=== PATIENT | female | born 1945 | race Caucasian/White ===

== ENCOUNTER → 2016-03-25 | Outpatient (CLI) | payer MEDICARE, OTHER ==
[~2016-03-25] MED LIST: /ADVA50050 IN; /IPRA3SP; /WARF3TA OR; ACET65TA OR; ADV250INH INH; ADVAIR; ALBU83IN; ALBUTEROL INH; AMIO10TA OR; AMIO20TA OR; ASCO25TA PO; ASPI81TA11 PO; BABY81CH OR; BENA25TA PO; CAND4TAB PO; CARD240T3 OR; CIPR500T4 OR; COUM1TAB19 PO; COUMADIN PO; DILT60TA PO; DIOVAN PO; DRIS50002 PO; FERR325T OR; FERR325T3 PO; FLAG500T OR; FURO20TA2 PO; LASI20TA OR; LEVO25TA5 PO; LORT1TAB PO; MULTIVIT PO; PRAV40TA2 PO; SIMV80TA OR; SPIR25TA2 PO; TYLE325T5 PO; VALS40TA OR; VICO7.5T11 PO; VITAMIN D50000 UNT OR; VITMAIN D; XANA0.25 PO; benadryl OR; multivitamin OR; vicodin OR
[2016-03-25 09:24] LABS: INR 1.42
== END ==
LOC: M LAB 08:36
PROVIDERS: ATTEND Physician Assistant
DX: Z51.81 Encounter for therapeutic drug level monitoring (principal); Z79.01 Long term (current) use of anticoagulants; I48.0 Paroxysmal atrial fibrillation

== ENCOUNTER → 2016-04-11 | Outpatient (CLI) | payer MEDICARE, OTHER ==
[~2016-04-11] MED LIST changes: -BENA25TA PO; +BENA25TA9 PO
[2016-04-11 11:04] LABS: MEAN CORPUSCULAR HEMOGLOBIN 31.7 pg (27.0-33.0); MEAN CORPUSCULAR HGB CONC 33.3 g/dl (32.0-36.5); MEAN CORPUSCULAR VOLUME 95.3 fl (80.0-96.0); RED CELL DISTRIBUTION WIDTH 13.8 % (11.5-14.5)
[2016-04-11 12:08] LABS: ALBUMIN 3.7 GM/DL (3.2-5.2); ALBUMIN/GLOBULIN RATIO 0.97 (1.00-1.93); ALKALINE PHOSPHATASE 134 U/L (45-117); ALT/SGPT 40 U/L (12-78); ANION GAP 10 MEQ/L (8-16); AST/SGOT 26 U/L (15-37); BILIRUBIN,TOTAL 0.7 MG/DL (0.2-1.0); BLOOD UREA NITROGEN 13 MG/DL (7-18); CALCIUM LEVEL 8.8 MG/DL (8.8-10.2); CARBON DIOXIDE LEVEL 29 MEQ/L (21-32); CHLORIDE LEVEL 103 MEQ/L (98-107); CHOLESTEROL LEVEL 248 MG/DL (<200); CREATININE FOR GFR 0.89 MG/DL (0.55-1.02); GLOMERULAR FILTRATION RATE > 60.0 (>45); GLUCOSE, FASTING 128 MG/DL (80-110); MAGNESIUM LEVEL 2.2 MG/DL (1.8-2.4); POTASSIUM SERUM 3.8 MEQ/L (3.5-5.1); SODIUM LEVEL 142 MEQ/L (136-145); TOTAL PROTEIN 7.5 GM/DL (6.4-8.2); TRIGLYCERIDES LEVEL 353 MG/DL (<150)
== END ==
LOC: M LAB 10:04
PROVIDERS: ATTEND Emergency Medicine
DX: I50.32 Chronic diastolic (congestive) heart failure (principal); E78.00 Pure hypercholesterolemia, unspecified; I48.0 Paroxysmal atrial fibrillation; Z51.81 Encounter for therapeutic drug level monitoring; Z79.01 Long term (current) use of anticoagulants

== ENCOUNTER → 2016-04-11 | Outpatient (CLI) | payer MEDICARE, OTHER ==
[2016-04-11 11:15] LABS: INR 1.74
== END ==
LOC: M LAB 10:08
PROVIDERS: ATTEND Physician Assistant
DX: I48.0 Paroxysmal atrial fibrillation (principal); Z51.81 Encounter for therapeutic drug level monitoring; Z79.01 Long term (current) use of anticoagulants

== ENCOUNTER → 2016-04-28 | Outpatient (CLI) | payer MEDICARE, OTHER ==
[2016-04-28 11:44] LABS: INR 2.61
== END ==
LOC: M LAB 10:53
PROVIDERS: ATTEND Physician Assistant
DX: Z51.81 Encounter for therapeutic drug level monitoring (principal); Z79.01 Long term (current) use of anticoagulants; I48.0 Paroxysmal atrial fibrillation

== ENCOUNTER → 2016-05-07 | Outpatient (REF) | payer MEDICARE, OTHER | LOC: M LAB REF 16:17 | PROVIDERS: ATTEND Physician Assistant | DX: B34.9 Viral infection, unspecified (principal) ==

== ENCOUNTER → 2016-05-15 | Outpatient (CLI) | payer MEDICARE, OTHER ==
[2016-05-15 19:34] LABS: INR 4.46
== END ==
LOC: M LAB 11:08
PROVIDERS: ATTEND Physician Assistant
DX: Z51.81 Encounter for therapeutic drug level monitoring (principal); Z79.01 Long term (current) use of anticoagulants

== ENCOUNTER → 2016-05-15 | Outpatient (CLI) | payer MEDICARE, OTHER | LOC: M LAB 11:12 | PROVIDERS: ATTEND Emergency Medicine | DX: R73.01 Impaired fasting glucose (principal); Z51.81 Encounter for therapeutic drug level monitoring; Z79.01 Long term (current) use of anticoagulants ==

== ENCOUNTER → 2016-05-16 | Outpatient (CLI) | payer MEDICARE, OTHER ==
[2016-05-16 10:23] LABS: BASO % 0.3 % (0.0-1.0); EOS # 0.1 K/mm3 (0.0-0.50); EOS % 1.5 % (0.0-3.0); LARGE UNSTAINED CELL # 0.1 K/mm3 (0.0-0.4); LARGE UNSTAINED CELL % 1.4 % (0.0-4.0); LYMPH # 1.1 K/mm3 (1.5-4.5); LYMPH % 10.8 % (24.0-44.0); MEAN CORPUSCULAR HEMOGLOBIN 32.1 pg (27.0-33.0); MEAN CORPUSCULAR HGB CONC 34.3 g/dl (32.0-36.5); MEAN CORPUSCULAR VOLUME 93.8 fl (80.0-96.0); MONO # 0.5 K/mm3 (0.0-0.8); MONO % 5.4 % (0.0-5.0); NEUTROPHILS # 7.1 K/mm3 (1.8-7.7); NEUTROPHILS % 80.5 % (36.0-66.0); PLATELET COUNT, AUTOMATED 409 k/mm3 (150-450); RED CELL DISTRIBUTION WIDTH 13.8 % (11.5-14.5); WHITE BLOOD COUNT 8.8 K/mm3 (4.0-10.0)
--- NOTE | 2016-05-16 10:24 | REP ---
Clinical: Shortness of breath . Comparison: 11/14/2015 . Technique: PA and lateral. Findings: The mediastinum and cardiac silhouette are stable. Pacemaker and valve replacement noted . The lung victoria are clear and without acute consolidation, effusion, or pneumothorax. The skeletal structures are intact and normal. Impression: 1. No acute cardiopulmonary process. Signed by Giovani Trammell MD 05/16/2016 10:16 A
[2016-05-16 11:09] LABS: ALBUMIN 3.3 GM/DL (3.2-5.2); ANION GAP 11 MEQ/L (8-16); BLOOD UREA NITROGEN 18 MG/DL (7-18); CALCIUM LEVEL 8.3 MG/DL (8.8-10.2); CARBON DIOXIDE LEVEL 27 MEQ/L (21-32); CHLORIDE LEVEL 104 MEQ/L (98-107); CREATININE FOR GFR 0.85 MG/DL (0.55-1.02); GLOMERULAR FILTRATION RATE > 60.0 (>45); GLUCOSE, FASTING 107 MG/DL (80-110); PHOSPHORUS LEVEL 3.1 MG/DL (2.5-4.9); POTASSIUM SERUM 3.8 MEQ/L (3.5-5.1); SODIUM LEVEL 142 MEQ/L (136-145)
== END ==
LOC: M LAB 09:24
PROVIDERS: ATTEND Physician Assistant
DX: R06.02 Shortness of breath (principal)

== ENCOUNTER → 2016-05-19 | Outpatient (CLI) | payer MEDICARE, OTHER ==
[2016-05-19 10:12] LABS: INR 2.28
== END ==
LOC: M LAB 09:30
PROVIDERS: ATTEND Physician Assistant
DX: Z51.81 Encounter for therapeutic drug level monitoring (principal); Z79.01 Long term (current) use of anticoagulants; I48.0 Paroxysmal atrial fibrillation

== ENCOUNTER → 2016-05-22 | Outpatient (CLI) | payer MEDICARE, OTHER ==
[2016-05-22 11:42] LABS: INR 1.25
== END ==
LOC: M LAB 10:57
PROVIDERS: ATTEND Physician Assistant
DX: Z51.81 Encounter for therapeutic drug level monitoring (principal); Z79.01 Long term (current) use of anticoagulants; I48.0 Paroxysmal atrial fibrillation

== ENCOUNTER → 2016-06-09 | Outpatient (CLI) | payer MEDICARE, OTHER ==
[2016-06-09 11:19] LABS: INR 2.1
== END ==
LOC: M LAB 10:38
PROVIDERS: ATTEND Physician Assistant
DX: I48.0 Paroxysmal atrial fibrillation (principal)

== ENCOUNTER → 2016-07-10 | Outpatient (CLI) | payer MEDICARE, OTHER ==
[2016-07-10 13:15] LABS: INR 2.81
== END ==
LOC: M LAB 12:09
PROVIDERS: ATTEND Nurse Practitioner Family
DX: Z51.81 Encounter for therapeutic drug level monitoring (principal); I48.0 Paroxysmal atrial fibrillation; Z79.01 Long term (current) use of anticoagulants

== ENCOUNTER → 2016-07-16 | Outpatient (CLI) | payer MEDICARE, OTHER ==
--- NOTE | 2016-07-16 11:42 | REP ---
REASON: Dyspnea. COMPARISON: Multiples, the latest 05/16/2016 The cardiomediastinal silhouette is unchanged. The heart is not enlarged. There is a diffuse increase in the interstitial markings throughout the lung victoria, status quo with pulmonary vascular redistribution. The dual-chamber bipolar pacemaker device is unchanged. No acute patchy parenchymal opacities or pleural effusions have developed. There is no change in the osseous structures. IMPRESSION: Fibrotic changes throughout the lung victoria are suspected. I cannot rule out concomitant superimposed interstitial edema. This needs to be correlated clinically. Signed by Killian Hamilton DO 07/16/2016 12:19 P
[2016-07-16 12:29] LABS: ALBUMIN 3.4 GM/DL (3.2-5.2); ALBUMIN/GLOBULIN RATIO 0.83 (1.00-1.93); ALKALINE PHOSPHATASE 123 U/L (45-117); ALT/SGPT 46 U/L (12-78); ANION GAP 10 MEQ/L (8-16); AST/SGOT 33 U/L (15-37); BILIRUBIN,TOTAL 0.6 MG/DL (0.2-1.0); BLOOD UREA NITROGEN 21 MG/DL (7-18); CALCIUM LEVEL 8.5 MG/DL (8.8-10.2); CARBON DIOXIDE LEVEL 26 MEQ/L (21-32); CHLORIDE LEVEL 101 MEQ/L (98-107); CREATININE FOR GFR 0.85 MG/DL (0.55-1.02); GLOMERULAR FILTRATION RATE > 60.0 (>45); GLUCOSE, FASTING 111 MG/DL (80-110); MAGNESIUM LEVEL 2.2 MG/DL (1.8-2.4); POTASSIUM SERUM 3.9 MEQ/L (3.5-5.1); SODIUM LEVEL 137 MEQ/L (136-145); TOTAL PROTEIN 7.5 GM/DL (6.4-8.2)
== END ==
LOC: M LAB 10:32
PROVIDERS: ATTEND Physician Assistant
DX: R06.02 Shortness of breath (principal); I50.32 Chronic diastolic (congestive) heart failure; I48.0 Paroxysmal atrial fibrillation

== ENCOUNTER → 2016-08-11 | Outpatient (CLI) | payer OTHER ==
[2016-08-11 09:31] LABS: INR 2.68
[2016-08-11 09:32] LABS: ALBUMIN 3.4 GM/DL (3.2-5.2); ANION GAP 9 MEQ/L (8-16); BLOOD UREA NITROGEN 21 MG/DL (7-18); CALCIUM LEVEL 8.3 MG/DL (8.8-10.2); CARBON DIOXIDE LEVEL 28 MEQ/L (21-32); CHLORIDE LEVEL 100 MEQ/L (98-107); CREATININE FOR GFR 0.93 MG/DL (0.55-1.02); GLOMERULAR FILTRATION RATE > 60.0 (>45); GLUCOSE, FASTING 161 MG/DL (80-110); PHOSPHORUS LEVEL 3.5 MG/DL (2.5-4.9); POTASSIUM SERUM 3.6 MEQ/L (3.5-5.1); SODIUM LEVEL 137 MEQ/L (136-145)
== END ==
LOC: M LAB 08:48
PROVIDERS: ATTEND Physician Assistant
DX: I48.0 Paroxysmal atrial fibrillation (principal); I50.32 Chronic diastolic (congestive) heart failure

== ENCOUNTER → 2016-09-11 | Outpatient (CLI) | payer OTHER ==
[2016-09-11 15:03] LABS: INR 3.8
== END ==
LOC: M LAB 14:03
PROVIDERS: ATTEND Nurse Practitioner Family
DX: Z51.81 Encounter for therapeutic drug level monitoring (principal); I48.0 Paroxysmal atrial fibrillation; Z79.01 Long term (current) use of anticoagulants

== ENCOUNTER → 2016-09-24 | Outpatient (CLI) | payer OTHER ==
[~2016-09-24] MED LIST changes: +ASPI-101 PO; -ASPI81TA11 PO; +BENA25TA10 PO; -BENA25TA9 PO; +LANO1TAB23 PO
[2016-09-24 10:49] LABS: INR 2.65
== END ==
LOC: M LAB 09:44
PROVIDERS: ATTEND Physician Assistant
DX: Z51.81 Encounter for therapeutic drug level monitoring (principal); Z79.01 Long term (current) use of anticoagulants; I48.0 Paroxysmal atrial fibrillation

== ENCOUNTER → 2016-09-29 | Outpatient (CLI) | payer OTHER ==
[2016-09-29 11:45] LABS: ALBUMIN 3.6 GM/DL (3.2-5.2); ALBUMIN/GLOBULIN RATIO 0.88 (1.00-1.93); ALKALINE PHOSPHATASE 148 U/L (45-117); ALT/SGPT 38 U/L (12-78); ANION GAP 9 MEQ/L (8-16); AST/SGOT 28 U/L (15-37); BILIRUBIN,TOTAL 0.7 MG/DL (0.2-1.0); BLOOD UREA NITROGEN 22 MG/DL (7-18); CALCIUM LEVEL 8.7 MG/DL (8.8-10.2); CARBON DIOXIDE LEVEL 26 MEQ/L (21-32); CHLORIDE LEVEL 103 MEQ/L (98-107); CHOLESTEROL LEVEL 159 MG/DL (<200); CREATININE FOR GFR 0.96 MG/DL (0.55-1.02); FREE T4 1.72 NG/DL (0.76-1.46); GLOMERULAR FILTRATION RATE > 60.0 (>45); GLUCOSE, FASTING 134 MG/DL (80-110); SODIUM LEVEL 138 MEQ/L (136-145); TOTAL PROTEIN 7.7 GM/DL (6.4-8.2); TRIGLYCERIDES LEVEL 194 MG/DL (<150)
== END ==
LOC: M LAB 08:50
PROVIDERS: ATTEND Emergency Medicine
DX: E55.9 Vitamin D deficiency, unspecified (principal); J44.9 Chronic obstructive pulmonary disease, unspecified; I10 Essential (primary) hypertension; E78.5 Hyperlipidemia, unspecified; R73.01 Impaired fasting glucose

== ENCOUNTER → 2016-10-24 | Outpatient (CLI) | payer OTHER ==
[2016-10-24 13:29] LABS: INR 2.93
== END ==
LOC: M LAB 12:41
PROVIDERS: ATTEND Nurse Practitioner Family
DX: Z51.81 Encounter for therapeutic drug level monitoring (principal); Z79.01 Long term (current) use of anticoagulants; I48.0 Paroxysmal atrial fibrillation

== ENCOUNTER → 2016-11-25 | Outpatient (CLI) | payer OTHER ==
[2016-11-25 20:48] LABS: INR 2.3
== END ==
LOC: M LAB 11:18
PROVIDERS: ATTEND Physician Assistant
DX: Z51.81 Encounter for therapeutic drug level monitoring (principal); Z79.01 Long term (current) use of anticoagulants; I48.0 Paroxysmal atrial fibrillation

== ENCOUNTER → 2016-12-24 | Outpatient (CLI) | payer OTHER ==
[2016-12-24 09:15] LABS: INR 3.13
== END ==
LOC: M LAB 08:25
PROVIDERS: ATTEND Internal Medicine Cardiovascular Disease
DX: I48.0 Paroxysmal atrial fibrillation (principal)

== ENCOUNTER 2017-01-12 08:04 | Emergency (ER) | payer OTHER ==
[~2017-01-12] VITALS: Ht 149.9 cm; Wt 50.0 kg
[~2017-01-12 08:04] MED LIST changes: -LANO1TAB23 PO
[2017-01-12] MEDS ORDERED: SPIR25TA2 PO (08:20)
[2017-01-12] MEDS ORDERED: LANO1TAB23 PO (08:20)
--- NOTE | 2017-01-12 09:23 | REP ---
RIGHT FEMUR: AP and lateral views of the right femur are performed and demonstrate no fracture or dislocation. Metallic clips are seen in the right inguinal region. There are vascular calcifications. IMPRESSION: No acute abnormalities. Signed by Manoj Aldana MD 01/12/2017 09:57 A
--- NOTE | 2017-01-12 09:47 | REP ---
RIGHT LOWER EXTREMITY DOPPLER VENOUS ULTRASOUND: 01/12/2017. Comparison: None. Technique: The deep venous system of the right lower extremity is evaluated with burgess scale imaging, compression ultrasound, color imaging and duplex Doppler interrogation. Examination from the groin through the popliteal fossa into the proximal calf. Clinical history: Worsening thigh pain, no trauma, evaluate for DVT. Findings: There is full compressibility from the common femoral vein in the inguinal region through the popliteal vein. Color imaging confirms patency throughout the course of the deep venous system. There is respiratory variation and augmented flow at all levels. Impression: 1. No Doppler venous ultrasound evidence of DVT in the right lower extremity. Signed by Agustin Hernández MD 01/12/2017 09:38 A
[2017-01-12] MEDS ORDERED: NORCO, ANEXSIA 5/325MG TABLET (HYDROcodone/ACETAMINOPHEN) PO ONE (10:00)
[2017-01-12 10:26] LABS: MEAN CORPUSCULAR HEMOGLOBIN 31.7 pg (27.0-33.0); MEAN CORPUSCULAR HGB CONC 33.8 g/dl (32.0-36.5); PLATELET COUNT, AUTOMATED 274 10^3/uL (150-450); RED CELL DISTRIBUTION WIDTH 14.1 % (11.5-14.5); WHITE BLOOD COUNT 10.3 10^3/uL (4.0-10.0)
[2017-01-12 10:45] LABS: ANION GAP 6 MEQ/L (8-16); BLOOD UREA NITROGEN 17 MG/DL (7-18); CALCIUM LEVEL 9.3 MG/DL (8.8-10.2); CARBON DIOXIDE LEVEL 33 MEQ/L (21-32); CHLORIDE LEVEL 97 MEQ/L (98-107); CREATININE FOR GFR 0.76 MG/DL (0.55-1.02); GLOMERULAR FILTRATION RATE > 60.0 (>39); GLUCOSE, FASTING 125 MG/DL (83-110); SODIUM LEVEL 136 MEQ/L (136-145)
[2017-01-12 11:13] VITALS: BP 137/72
== END 2017-01-12 11:16 | disposition home or self-care (01) ==
LOC: M ED 08:04
DX: M79.651 Pain in right thigh (principal); I48.91 Unspecified atrial fibrillation; I10 Essential (primary) hypertension; Z79.01 Long term (current) use of anticoagulants; Z79.899 Other long term (current) drug therapy; Z88.1 Allergy status to other antibiotic agents

== ENCOUNTER → 2017-01-16 | Outpatient (CLI) | payer OTHER ==
[~2017-01-16] MED LIST changes: +LANO1TAB23 PO
== END ==
LOC: M LAB 11:29
PROVIDERS: ATTEND Emergency Medicine
DX: E11.9 Type 2 diabetes mellitus without complications (principal)

== ENCOUNTER → 2017-02-02 | Outpatient (CLI) | payer OTHER ==
[2017-02-02 09:04] LABS: INR 2.51
== END ==
LOC: M LAB 08:22
PROVIDERS: ATTEND Physician Assistant
DX: I48.0 Paroxysmal atrial fibrillation (principal)

== ENCOUNTER → 2017-03-02 | Outpatient (CLI) | payer OTHER ==
[2017-03-02 09:10] LABS: INR 2.82
== END ==
LOC: M LAB 08:27
PROVIDERS: ATTEND Physician Assistant
DX: I48.0 Paroxysmal atrial fibrillation (principal)

== ENCOUNTER → 2017-04-02 | Outpatient (CLI) | payer OTHER ==
[2017-04-02 10:38] LABS: INR 3.13; PROTHROMBIN TIME 33.6 SECONDS (12.4-14.5)
== END ==
LOC: M LAB 09:23
DX: I48.0 Paroxysmal atrial fibrillation (principal)
CPT/HCPCS: 85610

== ENCOUNTER → 2017-04-14 | Outpatient (CLI) | payer OTHER ==
[2017-04-14 09:32] LABS: HEMATOCRIT 42.1 % (36.0-47.0); HEMOGLOBIN 13.9 g/dl (12.0-16.0); MEAN CORPUSCULAR HEMOGLOBIN 30.5 pg (27.0-33.0); MEAN CORPUSCULAR VOLUME 92.5 fl (80.0-96.0); PLATELET COUNT, AUTOMATED 272 10^3/uL (150-450); RED BLOOD COUNT 4.55 10^6/uL (4.00-5.40); RED CELL DISTRIBUTION WIDTH 14.1 % (11.5-14.5); WHITE BLOOD COUNT 10.6 10^3/uL (4.0-10.0)
[2017-04-14 10:15] LABS: ALBUMIN 3.5 GM/DL (3.2-5.2); ALBUMIN/GLOBULIN RATIO 0.85 (1.00-1.93); ALKALINE PHOSPHATASE 133 U/L (45-117); ALT/SGPT 33 U/L (12-78); ANION GAP 10 MEQ/L (8-16); AST/SGOT 31 U/L (7-37); BILIRUBIN,TOTAL 0.6 MG/DL (0.2-1.0); BLOOD UREA NITROGEN 16 MG/DL (7-18); CALCIUM LEVEL 8.8 MG/DL (8.8-10.2); CARBON DIOXIDE LEVEL 28 MEQ/L (21-32); CHLORIDE LEVEL 100 MEQ/L (98-107); CREATININE FOR GFR 0.82 MG/DL (0.55-1.02); GLOMERULAR FILTRATION RATE > 60.0 (>39); GLUCOSE, FASTING 93 MG/DL (70-100); MAGNESIUM LEVEL 2.1 MG/DL (1.8-2.4); SODIUM LEVEL 138 MEQ/L (136-145); TOTAL PROTEIN 7.6 GM/DL (6.4-8.2)
== END ==
LOC: M LAB 08:31
DX: I48.0 Paroxysmal atrial fibrillation (principal)
CPT/HCPCS: 71046

== ENCOUNTER → 2017-04-16 | Outpatient (CLI) | payer OTHER ==
[2017-04-16 11:07] LABS: INR 4.01; PROTHROMBIN TIME 41.1 SECONDS (12.4-14.5)
== END ==
LOC: M LAB 10:04
DX: I48.0 Paroxysmal atrial fibrillation (principal)
CPT/HCPCS: 85610

== ENCOUNTER → 2017-04-27 | Outpatient (CLI) | payer OTHER ==
[2017-04-27 21:09] LABS: INR 2.17
== END ==
LOC: M LAB 12:50
DX: I48.0 Paroxysmal atrial fibrillation (principal); Z79.01 Long term (current) use of anticoagulants
CPT/HCPCS: 85610

== ENCOUNTER → 2017-05-03 | Outpatient (REF) | payer OTHER, MEDICARE ==
[2017-05-03 17:14] LABS: INFLUENZA A AMPLIFICATION NEGATIVE (NEGATIVE); INFLUENZA B AMPLIFICATION NEGATIVE (NEGATIVE); RSV AMPLIFICATION NEGATIVE (NEGATIVE)
== END ==
LOC: M LAB REF 16:13
DX: J11.1 Influenza due to unidentified influenza virus with other respiratory manifestations (principal)
CPT/HCPCS: 87631

== ENCOUNTER 2017-05-08 09:48 | Emergency (ER) | payer OTHER, MEDICARE ==
[2017-05-08] MEDS: NORCO, ANEXSIA 5/325MG TABLET (HYDROcodone/ACETAMINOPHEN) PO (10:26)
== END 2017-05-08 11:36 | disposition home or self-care (01) ==
LOC: M ED 09:48
DX: J44.1 Chronic obstructive pulmonary disease with (acute) exacerbation (principal); J84.10 Pulmonary fibrosis, unspecified; Z20.828 Contact with and (suspected) exposure to other viral communicable diseases; I25.10 Atherosclerotic heart disease of native coronary artery without angina pectoris; I11.0 Hypertensive heart disease with heart failure; I50.9 Heart failure, unspecified; I25.2 Old myocardial infarction; Z88.1 Allergy status to other antibiotic agents; Z88.8 Allergy status to other drugs, medicaments and biological substances; Z79.899 Other long term (current) drug therapy; Z79.01 Long term (current) use of anticoagulants; Z79.84 Long term (current) use of oral hypoglycemic drugs
CPT/HCPCS: 71046

== ENCOUNTER → 2017-05-12 | Outpatient (CLI) | payer OTHER ==
[2017-05-12 09:26] LABS: ALBUMIN 3.6 GM/DL (3.2-5.2); ALBUMIN/GLOBULIN RATIO 0.84 (1.00-1.93); ALKALINE PHOSPHATASE 128 U/L (45-117); ALT/SGPT 40 U/L (12-78); ANION GAP 7 MEQ/L (8-16); AST/SGOT 23 U/L (7-37); BILIRUBIN,TOTAL 0.8 MG/DL (0.2-1.0); BLOOD UREA NITROGEN 23 MG/DL (7-18); CALCIUM LEVEL 8.7 MG/DL (8.8-10.2); CARBON DIOXIDE LEVEL 31 MEQ/L (21-32); CHLORIDE LEVEL 98 MEQ/L (98-107); CHOLESTEROL LEVEL 185 MG/DL (<200); CREATININE FOR GFR 0.79 MG/DL (0.55-1.30); FREE T4 1.89 NG/DL (0.76-1.46); GLOMERULAR FILTRATION RATE > 60.0 (>39); GLUCOSE, FASTING 156 MG/DL (70-100); HDL CHOLESTEROL 37 MG/DL (>40); LDL CHOLESTEROL 102.8 MG/DL (<100); MAU/CREAT RATIO 281.1 MCG/MG (0.0-30.0); NON-HDL-C 148 MG/DL; POTASSIUM SERUM 4.4 MEQ/L (3.5-5.1); SODIUM LEVEL 136 MEQ/L (136-145); THYROID STIMULATING HORMONE 0.403 uIU/ML (0.358-3.740); TOTAL PROTEIN 7.9 GM/DL (6.4-8.2); TRIGLYCERIDES LEVEL 226 MG/DL (<150)
[2017-05-12 09:38] LABS: ESTIMATED AVERAGE GLUCOSE 151 MG/DL (60-110); HEMOGLOBIN A1c 6.9 %; TOTAL 25(OH) VITAMIN D 26.2 NG/ML (30.0-100.0)
== END ==
LOC: M LAB 08:22
DX: E11.9 Type 2 diabetes mellitus without complications (principal); I10 Essential (primary) hypertension; E78.5 Hyperlipidemia, unspecified; E03.9 Hypothyroidism, unspecified; E55.9 Vitamin D deficiency, unspecified; I48.0 Paroxysmal atrial fibrillation; Z51.81 Encounter for therapeutic drug level monitoring; Z79.01 Long term (current) use of anticoagulants
CPT/HCPCS: 84443

== ENCOUNTER → 2017-05-12 | Outpatient (CLI) | payer OTHER ==
[2017-05-12 09:16] LABS: PROTHROMBIN TIME 51.6 SECONDS (12.4-14.5)
== END ==
LOC: M LAB 08:25
DX: I48.0 Paroxysmal atrial fibrillation (principal); Z51.81 Encounter for therapeutic drug level monitoring; Z79.01 Long term (current) use of anticoagulants

== ENCOUNTER → 2017-05-14 | Outpatient (CLI) | payer OTHER ==
[2017-05-14 11:41] LABS: INR 3.12; PROTHROMBIN TIME 33.5 SECONDS (12.4-14.5)
== END ==
LOC: M LAB 10:46
DX: I48.0 Paroxysmal atrial fibrillation (principal)
CPT/HCPCS: 85610

== ENCOUNTER → 2017-05-21 | Outpatient (CLI) | payer OTHER ==
[2017-05-21 11:27] LABS: INR 2.43; PROTHROMBIN TIME 27.4 SECONDS (12.4-14.5)
== END ==
LOC: M LAB 10:43
DX: Z79.01 Long term (current) use of anticoagulants (principal); I48.0 Paroxysmal atrial fibrillation
CPT/HCPCS: 85610

== ENCOUNTER → 2017-06-15 | Outpatient (CLI) | payer OTHER ==
[2017-06-15 09:12] LABS: INR 2.23; PROTHROMBIN TIME 25.5 SECONDS (12.4-14.5)
== END ==
LOC: M LAB 08:06
DX: I48.0 Paroxysmal atrial fibrillation (principal)
CPT/HCPCS: 85610

== ENCOUNTER → 2017-07-13 | Outpatient (CLI) | payer OTHER ==
[2017-07-13 10:32] LABS: INR 1.77; PROTHROMBIN TIME 21.2 SECONDS (12.4-14.5)
== END ==
LOC: M LAB 09:34
DX: I48.0 Paroxysmal atrial fibrillation (principal); Z51.81 Encounter for therapeutic drug level monitoring; Z79.01 Long term (current) use of anticoagulants

== ENCOUNTER → 2017-07-13 | Outpatient (CLI) | payer OTHER ==
[2017-07-13 10:53] LABS: ALBUMIN 3.4 GM/DL (3.2-5.2); ANION GAP 8 MEQ/L (8-16); BLOOD UREA NITROGEN 16 MG/DL (7-18); CALCIUM LEVEL 8.8 MG/DL (8.8-10.2); CARBON DIOXIDE LEVEL 30 MEQ/L (21-32); CHLORIDE LEVEL 99 MEQ/L (98-107); CREATININE FOR GFR 0.86 MG/DL (0.55-1.30); GLOMERULAR FILTRATION RATE > 60.0 (>39); GLUCOSE, FASTING 105 MG/DL (70-100); PHOSPHORUS LEVEL 3.9 MG/DL (2.5-4.9); POTASSIUM SERUM 4.1 MEQ/L (3.5-5.1); SODIUM LEVEL 137 MEQ/L (136-145)
== END ==
LOC: M LAB 09:37
DX: I50.32 Chronic diastolic (congestive) heart failure (principal); I48.0 Paroxysmal atrial fibrillation; Z51.81 Encounter for therapeutic drug level monitoring; Z79.01 Long term (current) use of anticoagulants
CPT/HCPCS: 83735

== ENCOUNTER → 2017-07-27 | Outpatient (CLI) | payer OTHER ==
[2017-07-27 09:36] LABS: INR 2.87; PROTHROMBIN TIME 31.3 SECONDS (12.4-14.5)
== END ==
LOC: M LAB 08:26
DX: I48.0 Paroxysmal atrial fibrillation (principal)
CPT/HCPCS: 85610

== ENCOUNTER → 2017-09-21 | Outpatient (CLI) | payer OTHER ==
[2017-09-21 20:11] LABS: ALBUMIN 3.6 GM/DL (3.2-5.2); ALBUMIN/GLOBULIN RATIO 0.84 (1.00-1.93); ALKALINE PHOSPHATASE 163 U/L (45-117); ALT/SGPT 38 U/L (12-78); ANION GAP 12 MEQ/L (8-16); AST/SGOT 32 U/L (7-37); BILIRUBIN,TOTAL 0.9 MG/DL (0.2-1.0); BLOOD UREA NITROGEN 21 MG/DL (7-18); CALCIUM LEVEL 8.9 MG/DL (8.8-10.2); CARBON DIOXIDE LEVEL 27 MEQ/L (21-32); CHLORIDE LEVEL 99 MEQ/L (98-107); GLOMERULAR FILTRATION RATE > 60.0 (>39); GLUCOSE, FASTING 85 MG/DL (70-100); MAGNESIUM LEVEL 2.3 MG/DL (1.8-2.4); POTASSIUM SERUM 4.3 MEQ/L (3.5-5.1); SODIUM LEVEL 138 MEQ/L (136-145); TOTAL PROTEIN 7.9 GM/DL (6.4-8.2)
== END ==
LOC: M SMT 11:08
DX: I48.0 Paroxysmal atrial fibrillation (principal)
CPT/HCPCS: 83735

== ENCOUNTER → 2017-09-25 | Outpatient (CLI) | payer OTHER ==
[2017-09-25 11:10] LABS: PROTHROMBIN TIME 26.7 SECONDS (12.1-14.4)
== END ==
LOC: M LAB 09:59
DX: I48.0 Paroxysmal atrial fibrillation (principal)
CPT/HCPCS: 85610

== ENCOUNTER → 2017-10-26 | Outpatient (CLI) | payer OTHER ==
[2017-10-26 09:32] LABS: ALBUMIN 3.4 GM/DL (3.2-5.2); ALBUMIN/GLOBULIN RATIO 0.77 (1.00-1.93); ALKALINE PHOSPHATASE 160 U/L (45-117); ALT/SGPT 38 U/L (12-78); ANION GAP 10 MEQ/L (8-16); AST/SGOT 23 U/L (7-37); BILIRUBIN,TOTAL 0.9 MG/DL (0.2-1.0); BLOOD UREA NITROGEN 16 MG/DL (7-18); CALCIUM LEVEL 9.1 MG/DL (8.8-10.2); CARBON DIOXIDE LEVEL 28 MEQ/L (21-32); CHLORIDE LEVEL 102 MEQ/L (98-107); CHOLESTEROL LEVEL 142 MG/DL (<200); CHOLESTEROL RISK RATIO 4.057 (<5); CREATININE FOR GFR 0.92 MG/DL (0.55-1.30); FREE T4 1.75 NG/DL (0.76-1.46); GLOMERULAR FILTRATION RATE > 60.0 (>39); GLUCOSE, FASTING 103 MG/DL (70-100); HDL CHOLESTEROL 35 MG/DL (>40); LDL CHOLESTEROL 73.4 MG/DL (<100); NON-HDL-C 107 MG/DL; POTASSIUM SERUM 4.1 MEQ/L (3.5-5.1); SODIUM LEVEL 140 MEQ/L (136-145); TOTAL PROTEIN 7.8 GM/DL (6.4-8.2); TRIGLYCERIDES LEVEL 168 MG/DL (<150)
[2017-10-26 09:51] LABS: ESTIMATED AVERAGE GLUCOSE 148 MG/DL (60-110); HEMOGLOBIN A1c 6.8 %
[2017-10-26 09:53] LABS: TOTAL 25(OH) VITAMIN D 32.9 NG/ML (30.0-100.0)
== END ==
LOC: M LAB 08:17
DX: E11.9 Type 2 diabetes mellitus without complications (principal); I10 Essential (primary) hypertension; E78.5 Hyperlipidemia, unspecified; E55.9 Vitamin D deficiency, unspecified; E03.9 Hypothyroidism, unspecified; I48.0 Paroxysmal atrial fibrillation; Z51.81 Encounter for therapeutic drug level monitoring; Z79.01 Long term (current) use of anticoagulants
CPT/HCPCS: 84443

== ENCOUNTER → 2017-10-26 | Outpatient (CLI) | payer OTHER ==
[2017-10-26 09:11] LABS: INR 2.34; PROTHROMBIN TIME 26.1 SECONDS (12.1-14.4)
== END ==
LOC: M LAB 08:11
DX: I48.0 Paroxysmal atrial fibrillation (principal); Z51.81 Encounter for therapeutic drug level monitoring; Z79.01 Long term (current) use of anticoagulants
CPT/HCPCS: 85610

== ENCOUNTER 2017-11-11 09:39 | Day surgery (SDC) | payer OTHER ==
[~2017-11-11 09:39] MED LIST changes: -/ADVA50050 IN; -/IPRA3SP; -/WARF3TA OR; -ACET65TA OR; +ACETAMINOPHEN 325 MG TAB PO; -ADV250INH INH; -ADVAIR; -ALBU83IN; -ALBUTEROL INH; -AMIO10TA OR; -AMIO20TA OR; -ASCO25TA PO; -ASPI-101 PO; -BABY81CH OR; -BENA25TA10 PO; -CAND4TAB PO; -CARD240T3 OR; -CIPR500T4 OR; -COUM1TAB19 PO; -COUMADIN PO; -DILT60TA PO; -DIOVAN PO; -DRIS50002 PO; -FERR325T OR; -FERR325T3 PO; -FLAG500T OR; -FURO20TA2 PO; -LANO1TAB23 PO; -LASI20TA OR; -LEVO25TA5 PO; -LORT1TAB PO; +MIDAZOLAM INJ 2 MG/2 ML VIAL (J2250) As Ordered; -MULTIVIT PO; +PHENYLEPHRINE HCL 10 % OPHTH. SOL 5ML OS; -PRAV40TA2 PO; -SIMV80TA OR; -SPIR25TA2 PO; -TYLE325T5 PO; -VALS40TA OR; -VICO7.5T11 PO; -VITAMIN D50000 UNT OR; -VITMAIN D; -XANA0.25 PO; -benadryl OR; +fentaNYL 100 MCG/2 ML INJECTION (J3010) As Ordered; -multivitamin OR; -vicodin OR
[2017-11-11] MEDS: LIDOCAINE 3.5 % 1ML OPHTH TOPICAL GEL OU (11:15)
[2017-11-11] MEDS: TROPICAMIDE 1% OPHTH SOLN 2ML OS (11:20)
[2017-11-11] MEDS: CYCLOPENTOLATE 2% OPHTH SOLN 2ML BTL OS (11:20)
[2017-11-11] MEDS: PHENYLEPHRINE 2.5% OPHTH SOL 2ML OS (11:20)
[2017-11-11] MEDS: OFLOXACIN 0.3 % (OCUFLOX) OPTH SOL 5ML OS (11:20)
[2017-11-11 11:57] LABS: BEDSIDE GLUCOSE 96 MG/DL (83-110)
[2017-11-11] MEDS: POVIDONE-IODINE 5% OPHTH PREP SOL 30ML As Ordered (12:54)
[2017-11-11] MEDS: BSS with VANC/TOB/EPI for EYE CASES IR (12:55)
[2017-11-11] MEDS: TRIAMCINOLONE PRES FR 40 MG/ML 1ML(TRIESENCE)(OR EYE ONLY)(J3300 PER 1MG) As Ordered (12:55)
[2017-11-11] MEDS: HEALON DUET (HEALON 10MG/ML 0.55ML & HEALON ENDOCOAT 30MG/ML 0.85ML) As Ordered (12:55)
[2017-11-11] MEDS: LIDOCAINE 1% SDV 5 ML VIAL As Ordered (12:55)
[2017-11-11] MEDS: MOXIFLOXACIN IN BSS 0.25MG/0.25ML INTRACAMERAL INJ (OR EYE ONLY)(J2280) As Ordered (12:55)
[2017-11-11] MEDS ORDERED: AcetaZOLAMIDE 500 MG ER CAP As Ordered (13:23)
[2017-11-11] MEDS: AcetaZOLAMIDE 500 MG ER CAP PO (13:26)
[2017-11-11] MEDS ORDERED: ONDANSETRON 4MG/2ML VIAL (J2405) IV (13:30)
[2017-11-11] MEDS ORDERED: ACETAMINOPHEN TAB 650MG DOSE (2X325MG) PO (13:30)
[2017-11-11] MEDS ORDERED: TRIMETHOBENZAMIDE 300 MG CAP PO (13:30)
== END 2017-11-11 13:57 | disposition home or self-care (01) ==
LOC: M SDC 09:39
DX: H26.9 Unspecified cataract (principal); I10 Essential (primary) hypertension; J44.9 Chronic obstructive pulmonary disease, unspecified; E03.9 Hypothyroidism, unspecified; E11.9 Type 2 diabetes mellitus without complications; F41.9 Anxiety disorder, unspecified; R07.89 Other chest pain; Z88.8 Allergy status to other drugs, medicaments and biological substances; Z88.1 Allergy status to other antibiotic agents; Z79.899 Other long term (current) drug therapy
CPT/HCPCS: 66984

== ENCOUNTER 2017-11-18 08:41 | Day surgery (SDC) | payer OTHER ==
[~2017-11-18 08:41] MED LIST changes: +PHENYLEPHRINE HCL 10 % OPHTH. SOL 5ML OD; -PHENYLEPHRINE HCL 10 % OPHTH. SOL 5ML OS
[2017-11-18] MEDS: CYCLOPENTOLATE 2% OPHTH SOLN 2ML BTL OD (10:51)
[2017-11-18] MEDS: TROPICAMIDE 1% OPHTH SOLN 2ML OD (10:51)
[2017-11-18] MEDS: OFLOXACIN 0.3 % (OCUFLOX) OPTH SOL 5ML OD (10:51)
[2017-11-18] MEDS: LIDOCAINE 3.5 % 1ML OPHTH TOPICAL GEL OU (10:51)
[2017-11-18] MEDS: PHENYLEPHRINE 2.5% OPHTH SOL 2ML OD (10:51)
[2017-11-18 11:08] LABS: BEDSIDE GLUCOSE 100 MG/DL (83-110)
[2017-11-18] MEDS: POVIDONE-IODINE 5% OPHTH PREP SOL 30ML As Ordered (11:55)
[2017-11-18] MEDS: LIDOCAINE 1% SDV 5 ML VIAL As Ordered (11:58)
[2017-11-18] MEDS: BSS with VANC/TOB/EPI for EYE CASES IR (11:59)
[2017-11-18] MEDS: MOXIFLOXACIN IN BSS 0.25MG/0.25ML INTRACAMERAL INJ (OR EYE ONLY)(J2280) As Ordered (12:01)
[2017-11-18] MEDS: TRIAMCINOLONE PRES FR 40 MG/ML 1ML(TRIESENCE)(OR EYE ONLY)(J3300 PER 1MG) As Ordered (12:02)
[2017-11-18] MEDS: HEALON DUET (HEALON 10MG/ML 0.55ML & HEALON ENDOCOAT 30MG/ML 0.85ML) As Ordered (12:03)
[2017-11-18] MEDS: AcetaZOLAMIDE 500 MG ER CAP PO (12:30)
[2017-11-18] MEDS ORDERED: TRIMETHOBENZAMIDE 300 MG CAP PO (12:30)
== END 2017-11-18 13:10 | disposition home or self-care (01) ==
LOC: M SDC 08:41
DX: H26.9 Unspecified cataract (principal); H57.03 Miosis; I48.91 Unspecified atrial fibrillation; I10 Essential (primary) hypertension; I34.9 Nonrheumatic mitral valve disorder, unspecified; E11.69 Type 2 diabetes mellitus with other specified complication; E03.9 Hypothyroidism, unspecified; K57.32 Diverticulitis of large intestine without perforation or abscess without bleeding; M15.0 Primary generalized (osteo)arthritis; L40.9 Psoriasis, unspecified; F41.9 Anxiety disorder, unspecified; R51 Headache; J44.9 Chronic obstructive pulmonary disease, unspecified; B02.23 Postherpetic polyneuropathy; Z88.1 Allergy status to other antibiotic agents; Z88.8 Allergy status to other drugs, medicaments and biological substances; Z79.899 Other long term (current) drug therapy; Z79.01 Long term (current) use of anticoagulants; Z79.84 Long term (current) use of oral hypoglycemic drugs; Z78.0 Asymptomatic menopausal state; Z95.0 Presence of cardiac pacemaker; Z72.0 Tobacco use
CPT/HCPCS: 66982

== ENCOUNTER → 2017-11-24 | Outpatient (CLI) | payer OTHER ==
[2017-11-24 11:03] LABS: INR 1.28; PROTHROMBIN TIME 16.2 SECONDS (12.1-14.4)
== END ==
LOC: M LAB 09:13
DX: I48.0 Paroxysmal atrial fibrillation (principal)
CPT/HCPCS: 85610

== ENCOUNTER → 2017-12-10 | Outpatient (CLI) | payer OTHER ==
[2017-12-10 10:14] LABS: INR 2.61; PROTHROMBIN TIME 28.5 SECONDS (12.1-14.4)
== END ==
LOC: M LAB 09:04
DX: Z79.01 Long term (current) use of anticoagulants (principal); I48.0 Paroxysmal atrial fibrillation
CPT/HCPCS: 85610

== ENCOUNTER → 2018-01-07 | Outpatient (CLI) | payer OTHER | LOC: M LAB 08:57 | DX: I48.0 Paroxysmal atrial fibrillation (principal); I50.32 Chronic diastolic (congestive) heart failure ==

== ENCOUNTER → 2018-01-07 | Outpatient (CLI) | payer OTHER ==
[2018-01-07 09:54] LABS: HEMATOCRIT 43.9 % (36.0-47.0); HEMOGLOBIN 14.3 g/dl (12.0-15.5); MEAN CORPUSCULAR HEMOGLOBIN 30.6 pg (27.0-33.0); MEAN CORPUSCULAR HGB CONC 32.6 g/dl (32.0-36.5); MEAN CORPUSCULAR VOLUME 93.8 fl (80.0-96.0); PLATELET COUNT, AUTOMATED 276 10^3/uL (150-450); RED BLOOD COUNT 4.68 10^6/uL (4.00-5.40); RED CELL DISTRIBUTION WIDTH 15.3 % (11.5-14.5); WHITE BLOOD COUNT 9.6 10^3/uL (4.0-10.0)
[2018-01-07 09:57] LABS: ALBUMIN 3.5 GM/DL (3.2-5.2); ALBUMIN/GLOBULIN RATIO 0.85 (1.00-1.93); ALKALINE PHOSPHATASE 162 U/L (45-117); ALT/SGPT 50 U/L (12-78); ANION GAP 6 MEQ/L (8-16); AST/SGOT 38 U/L (7-37); BILIRUBIN,TOTAL 0.6 MG/DL (0.2-1.0); BLOOD UREA NITROGEN 23 MG/DL (7-18); CALCIUM LEVEL 8.9 MG/DL (8.8-10.2); CARBON DIOXIDE LEVEL 31 MEQ/L (21-32); CHLORIDE LEVEL 101 MEQ/L (98-107); CREATININE FOR GFR 0.84 MG/DL (0.55-1.30); GLOMERULAR FILTRATION RATE > 60.0 (>39); GLUCOSE, FASTING 75 MG/DL (70-100); MAGNESIUM LEVEL 2.3 MG/DL (1.8-2.4); POTASSIUM SERUM 4.2 MEQ/L (3.5-5.1); SODIUM LEVEL 138 MEQ/L (136-145); TOTAL PROTEIN 7.6 GM/DL (6.4-8.2)
[2018-01-07 10:07] LABS: INR 2.61; PROTHROMBIN TIME 28.5 SECONDS (12.1-14.4)
== END ==
LOC: M LAB 08:46
DX: Z79.01 Long term (current) use of anticoagulants (principal); I48.0 Paroxysmal atrial fibrillation
CPT/HCPCS: 83735

== ENCOUNTER → 2018-02-04 | Outpatient (CLI) | payer OTHER ==
[2018-02-04 09:52] LABS: INR 3.08; PROTHROMBIN TIME 32.5 SECONDS (12.1-14.4)
== END ==
LOC: M LAB 08:50
DX: I48.0 Paroxysmal atrial fibrillation (principal)
CPT/HCPCS: 85610

== ENCOUNTER → 2018-02-18 | Outpatient (CLI) | payer OTHER ==
[2018-02-18 10:27] LABS: INR 1.93; PROTHROMBIN TIME 22.4 SECONDS (12.1-14.4)
== END ==
LOC: M LAB 09:06
DX: I48.0 Paroxysmal atrial fibrillation (principal)
CPT/HCPCS: 85610

== ENCOUNTER 2018-02-21 09:09 | Emergency (ER) | payer OTHER ==
[2018-02-21] MEDS: FLEET ENEMA PR (09:46)
== END 2018-02-21 10:56 | disposition home or self-care (01) ==
LOC: M ED 09:09
DX: K59.00 Constipation, unspecified (principal); K64.4 Residual hemorrhoidal skin tags; K64.8 Other hemorrhoids; R33.9 Retention of urine, unspecified; I51.9 Heart disease, unspecified; J44.9 Chronic obstructive pulmonary disease, unspecified; R51 Headache; Z95.0 Presence of cardiac pacemaker; Z95.2 Presence of prosthetic heart valve; Z79.899 Other long term (current) drug therapy; Z79.01 Long term (current) use of anticoagulants; Z79.84 Long term (current) use of oral hypoglycemic drugs; Z88.1 Allergy status to other antibiotic agents; Z88.8 Allergy status to other drugs, medicaments and biological substances
CPT/HCPCS: 99284

== ENCOUNTER 2018-03-03 00:53 | Inpatient (IN) | payer OTHER ==
[2018-03-03 01:39] LABS: BASO # 0.1 10^3/uL (0.0-0.2); BASO % 0.6 % (0.0-1.0); EOS % 0.1 % (0.0-3.0); HEMOGLOBIN 12.7 g/dl (12.0-15.5); IMMATURE GRANULOCYTE % 1.8 % (0-3.0); LYMPH # 0.7 10^3/uL (1.5-4.5); MEAN CORPUSCULAR HEMOGLOBIN 31.5 pg (27.0-33.0); MEAN CORPUSCULAR HGB CONC 32.6 g/dl (32.0-36.5); MEAN CORPUSCULAR VOLUME 96.8 fl (80.0-96.0); MONO # 0.8 10^3/uL (0.0-0.8); MONO % 6.8 % (0.0-5.0); NEUTROPHILS # 10.1 10^3/uL (1.8-7.7); NEUTROPHILS % 84.7 % (36.0-66.0); PLATELET COUNT, AUTOMATED 260 10^3/uL (150-450); RED BLOOD COUNT 4.03 10^6/uL (4.00-5.40); RED CELL DISTRIBUTION WIDTH 15.8 % (11.5-14.5)
[2018-03-03 01:54] LABS: INR 2.39; PROTHROMBIN TIME 26.5 SECONDS (12.1-14.4)
[2018-03-03] MEDS: METOCLOPRAMIDE INJ 10MG/2ML VIAL (J2765) IV (01:54)
[2018-03-03 01:55] LABS: PARTIAL THROMBOPLASTIN TIME 48.5 SECONDS (25.4-37.6)
[2018-03-03] MEDS: LACTULOSE 20 GM/30 ML SYRUP UD PO (01:55)
[2018-03-03] MEDS: GASTROGRAFIN SOLUTION 30ML PO ×2 (01:55→02:20)
[2018-03-03 02:09] LABS: ALBUMIN 3.2 GM/DL (3.2-5.2); ALBUMIN/GLOBULIN RATIO 0.82 (1.00-1.93); ALKALINE PHOSPHATASE 146 U/L (45-117); ALT/SGPT 306 U/L (12-78); ANION GAP 12 MEQ/L (8-16); AST/SGOT 420 U/L (7-37); BILIRUBIN,DIRECT 0.6 MG/DL (0.0-0.2); BILIRUBIN,TOTAL 1.5 MG/DL (0.2-1.0); BLOOD UREA NITROGEN 22 MG/DL (7-18); CALCIUM LEVEL 8.4 MG/DL (8.8-10.2); CARBON DIOXIDE LEVEL 22 MEQ/L (21-32); CHLORIDE LEVEL 100 MEQ/L (98-107); CREATININE FOR GFR 1.22 MG/DL (0.55-1.30); GLOMERULAR FILTRATION RATE 46.3 (>39); GLUCOSE, FASTING 146 MG/DL (70-100); LIPASE 60 U/L (73-393); POTASSIUM SERUM 5.1 MEQ/L (3.5-5.1); SODIUM LEVEL 134 MEQ/L (136-145); TOTAL PROTEIN 7.1 GM/DL (6.4-8.2)
[2018-03-03 02:17] LABS: LACTIC ACID SEPSIS PROTOCOL 2.1 MMOL/L (0.4-2.0)
[2018-03-03] MEDS: NS 500 ML IV (02:28)
[2018-03-03] MEDS ORDERED: ISOVUE-370 76% 100ML VIAL (Q9967) As Ordered (02:59)
[2018-03-03] MEDS ORDERED: guaiFENesin ER 600 MG TAB PO (06:00)
[2018-03-03] MEDS ORDERED: GLUCAGON FOR INJ 1 MG VIAL (J1610) SC (06:00)
[2018-03-03] MEDS ORDERED: IPRATROPIUM 0.5MG/ALBUTEROL 2.5MG INH SOL UD 3ML (DUONEB)(J7620) INH (06:00)
[2018-03-03] MEDS ORDERED: DEXTROSE 50% 50 ML SYRINGE IV (06:00)
[2018-03-03] MEDS ORDERED: GLUCOSE 4 GM CHEW TABLET PO (06:00)
[2018-03-03] MEDS: NS 0.45% 1,000 ML IV ×2 (06:15→19:20)
[2018-03-03] MEDS: PIPERACILLIN/TAZOBACTAM SOD 3.375 GM in D5W MINI-BAG PLUS 50 ML IV ×3 (06:15→22:42)
[2018-03-03] MEDS: LEVOTHYROXINE 25MCG TABLET (0.025MG) PO (06:15)
[2018-03-03 07:31] LABS: BEDSIDE GLUCOSE 146 MG/DL (83-110)
[2018-03-03] MEDS: HumaLOG INSULIN (NovoLOG) PER UNIT SC ×4 (09:42→21:00)
[2018-03-03] MEDS: SPIRONOLACTONE 25 MG TAB PO (10:53)
[2018-03-03] MEDS: AMIODARONE 200 MG TAB (PACERONE) PO (10:53)
[2018-03-03] MEDS: DOCUSATE SODIUM 100 MG CAP PO (10:53)
[2018-03-03 11:51] LABS: BEDSIDE GLUCOSE 112 MG/DL (83-110)
[2018-03-03 17:00] LABS: BEDSIDE GLUCOSE 90 MG/DL (83-110)
[2018-03-03] MEDS: SIMVASTATIN 40 MG TAB PO (18:03)
[2018-03-03] MEDS: DIGOXIN 0.125 MG TAB PO (18:03)
[2018-03-03] MEDS ORDERED: PILL CRUSHER/CUTTER 1 EACH XX (19:15)
[2018-03-03] MEDS: WARFARIN SOD 3 MG TAB PO (19:44)
[2018-03-03 22:32] LABS: BEDSIDE GLUCOSE 83 MG/DL (83-110)
[2018-03-03] MEDS: FERROUS SULFATE 325MG TAB PO (22:42)
[2018-03-04 02:09] LABS: BEDSIDE GLUCOSE 64 MG/DL (83-110)
[2018-03-04] MEDS: LEVOTHYROXINE 25MCG TABLET (0.025MG) PO (05:51)
[2018-03-04] MEDS: ACETAMINOPHEN 500 MG TAB PO ×2 (05:51→18:10)
[2018-03-04] MEDS: PIPERACILLIN/TAZOBACTAM SOD 3.375 GM in D5W MINI-BAG PLUS 50 ML IV ×3 (05:52→21:32)
[2018-03-04 06:15] LABS: HEMATOCRIT 39.1 % (36.0-47.0); HEMOGLOBIN 12.3 g/dl (12.0-15.5); MEAN CORPUSCULAR HEMOGLOBIN 31.1 pg (27.0-33.0); MEAN CORPUSCULAR HGB CONC 31.5 g/dl (32.0-36.5); MEAN CORPUSCULAR VOLUME 98.7 fl (80.0-96.0); PLATELET COUNT, AUTOMATED 232 10^3/uL (150-450); RED BLOOD COUNT 3.96 10^6/uL (4.00-5.40); RED CELL DISTRIBUTION WIDTH 15.8 % (11.5-14.5); WHITE BLOOD COUNT 11.9 10^3/uL (4.0-10.0)
[2018-03-04 06:40] LABS: ALBUMIN 2.6 GM/DL (3.2-5.2); ALKALINE PHOSPHATASE 171 U/L (45-117); ALT/SGPT 1032 U/L (12-78); ANION GAP 8 MEQ/L (8-16); AST/SGOT 1219 U/L (7-37); BILIRUBIN,DIRECT 0.8 MG/DL (0.0-0.2); BILIRUBIN,TOTAL 1.8 MG/DL (0.2-1.0); BLOOD UREA NITROGEN 22 MG/DL (7-18); CALCIUM LEVEL 8.4 MG/DL (8.8-10.2); CARBON DIOXIDE LEVEL 24 MEQ/L (21-32); CHLORIDE LEVEL 101 MEQ/L (98-107); CREATININE FOR GFR 1.24 MG/DL (0.55-1.30); GLOMERULAR FILTRATION RATE 45.4 (>39); GLUCOSE, FASTING 152 MG/DL (70-100); POTASSIUM SERUM 4.4 MEQ/L (3.5-5.1); SODIUM LEVEL 133 MEQ/L (136-145); TOTAL PROTEIN 6.9 GM/DL (6.4-8.2)
[2018-03-04] MEDS: FLUBLOK(EGG FREE)(QUAD)INFLUENZA VACC 0.5ML SYRINGE (90682)18YRS&OLDER IM (08:07)
[2018-03-04] MEDS: DOCUSATE SODIUM 100 MG CAP PO (08:07)
[2018-03-04] MEDS: SPIRONOLACTONE 25 MG TAB PO (10:44)
[2018-03-04] MEDS: HumaLOG INSULIN (NovoLOG) PER UNIT SC ×4 (10:44→21:32)
[2018-03-04] MEDS: AMIODARONE 200 MG TAB (PACERONE) PO (10:44)
[2018-03-04 11:37] LABS: APPEARANCE, URINE CLOUDY (CLEAR); BACTERIA, URINE AUTO NEGATIVE (NEGATIVE); BILIRUBIN, URINE AUTO NEGATIVE (NEGATIVE); BLOOD, URINE BLOOD 1+ (NEGATIVE); COLOR, URINE AMBER (YELLOW); GLUCOSE, URINE (UA) AUTO NEGATIVE (NEGATIVE); KETONE, URINE AUTO NEGATIVE (NEGATIVE); LEUKOCYTE ESTERASE, URINE AUTO 1+ (NEGATIVE); NITRITE, URINE AUTO NEGATIVE (NEGATIVE); PROTEIN, URINE AUTO 2+ mg/dL (NEGATIVE); RBC, URINE AUTO 4 /HPF (0-3); SPECIFIC GRAVITY URINE AUTO 1.033 (1.002-1.035); SQUAMOUS EPITHELIAL CELL UR AU 1 /HPF (0-6); UROBILINOGEN, URINE AUTO 0.2 mg/dL (0.0-2.0); WBC, URINE AUTO 8 /HPF (0-3)
[2018-03-04 12:04] LABS: BEDSIDE GLUCOSE 217 MG/DL (83-110)
[2018-03-04 13:12] LABS: INR 3.75
[2018-03-04] MEDS: PHYTONADIONE 5 MG TAB PO (13:45)
[2018-03-04 16:23] LABS: BEDSIDE GLUCOSE 82 MG/DL (83-110)
[2018-03-04] MEDS ORDERED: WARFARIN SOD 3 MG TAB PO (17:00)
[2018-03-04] MEDS: DIGOXIN 0.125 MG TAB PO (17:31)
[2018-03-04] MEDS: SIMVASTATIN 40 MG TAB PO (17:31)
[2018-03-04] MEDS: PHYTONADIONE 10MG/ML INJECTION (J3430) SC (18:10)
[2018-03-04 21:11] LABS: BEDSIDE GLUCOSE 132 MG/DL (83-110)
[2018-03-04] MEDS: FERROUS SULFATE 325MG TAB PO (21:32)
[2018-03-05] MEDS: LEVOTHYROXINE 25MCG TABLET (0.025MG) PO (06:06)
[2018-03-05] MEDS: PIPERACILLIN/TAZOBACTAM SOD 3.375 GM in D5W MINI-BAG PLUS 50 ML IV ×3 (06:06→18:06)
[2018-03-05 06:12] LABS: HEMATOCRIT 33.2 % (36.0-47.0); MEAN CORPUSCULAR HEMOGLOBIN 31.5 pg (27.0-33.0); MEAN CORPUSCULAR HGB CONC 33.1 g/dl (32.0-36.5); MEAN CORPUSCULAR VOLUME 95.1 fl (80.0-96.0); PLATELET COUNT, AUTOMATED 188 10^3/uL (150-450); RED BLOOD COUNT 3.49 10^6/uL (4.00-5.40); WHITE BLOOD COUNT 12.6 10^3/uL (4.0-10.0)
[2018-03-05] MEDS: ACETAMINOPHEN 500 MG TAB PO ×2 (06:22→16:35)
[2018-03-05 06:25] LABS: INR 2.62; PROTHROMBIN TIME 28.5 SECONDS (12.1-14.4)
[2018-03-05 06:55] LABS: ALBUMIN 2.4 GM/DL (3.2-5.2); ALBUMIN/GLOBULIN RATIO 0.62 (1.00-1.93); ALKALINE PHOSPHATASE 190 U/L (45-117); ALT/SGPT 2728 U/L (12-78); ANION GAP 11 MEQ/L (8-16); BILIRUBIN,DIRECT 0.6 MG/DL (0.0-0.2); BILIRUBIN,TOTAL 1.3 MG/DL (0.2-1.0); BLOOD UREA NITROGEN 23 MG/DL (7-18); CALCIUM LEVEL 8.4 MG/DL (8.8-10.2); CARBON DIOXIDE LEVEL 20 MEQ/L (21-32); CHLORIDE LEVEL 104 MEQ/L (98-107); CREATININE FOR GFR 0.94 MG/DL (0.55-1.30); GLOMERULAR FILTRATION RATE > 60.0 (>39); GLUCOSE, FASTING 73 MG/DL (70-100); SODIUM LEVEL 135 MEQ/L (136-145); TOTAL PROTEIN 6.3 GM/DL (6.4-8.2)
[2018-03-05 06:56] LABS: AST/SGOT 3227 U/L (7-37)
[2018-03-05] MEDS: HumaLOG INSULIN (NovoLOG) PER UNIT SC ×4 (07:30→21:49)
[2018-03-05] MEDS: DOCUSATE SODIUM 100 MG CAP PO (09:11)
[2018-03-05] MEDS: PHYTONADIONE 10MG/ML INJECTION (J3430) SC ×2 (09:11→12:41)
[2018-03-05] MEDS: AMIODARONE 200 MG TAB (PACERONE) PO (09:15)
[2018-03-05] MEDS: SPIRONOLACTONE 25 MG TAB PO (09:16)
[2018-03-05 11:54] LABS: BEDSIDE GLUCOSE 77 MG/DL (83-110)
[2018-03-05 11:55] LABS: HEPATITIS C VIRUS ABY INDEX 0.1 INDEX (<0.8)
[2018-03-05 11:55] LABS: HEPATITIS A ANTIBODY IGM NEGATIVE (NEGATIVE); HEPATITIS B CORE ANTIBODY IGM NEGATIVE (NEGATIVE); HEPATITIS B SURFACE ANTIGEN NEGATIVE (NEGATIVE)
[2018-03-05] MEDS: SIMVASTATIN 40 MG TAB PO (16:33)
[2018-03-05] MEDS: DIGOXIN 0.125 MG TAB PO (16:34)
[2018-03-05 16:54] LABS: BEDSIDE GLUCOSE 79 MG/DL (83-110)
[2018-03-05 18:00] LABS: ACETAMINOPHEN LEVEL 36.4 UG/ML (10.0-30.0)
[2018-03-05 18:00] LABS: NT-PRO BNP 7315 PG/ML (<125)
[2018-03-05 19:22] LABS: CONTROL LINE MONO RF C INT CTR LINE PRESENT; MONO REFLEX EBV COMP NEGATIVE (NEGATIVE)
[2018-03-05 20:41] LABS: BEDSIDE GLUCOSE 285 MG/DL (83-110)
[2018-03-05 21:22] LABS: ACETAMINOPHEN LEVEL < 2.0 UG/ML (10.0-30.0)
[2018-03-05] MEDS: FERROUS SULFATE 325MG TAB PO (21:48)
[2018-03-05] MEDS: FUROSEMIDE 40 MG/4 ML VIAL (J1940) IV (21:49)
[2018-03-06] MEDS: PIPERACILLIN/TAZOBACTAM SOD 3.375 GM in D5W MINI-BAG PLUS 50 ML IV ×4 (00:10→17:48)
[2018-03-06] MEDS: NORCO, ANEXSIA 5/325MG TABLET (HYDROcodone/ACETAMINOPHEN) PO (02:31)
[2018-03-06] MEDS: LEVOTHYROXINE 25MCG TABLET (0.025MG) PO (05:39)
[2018-03-06 06:31] LABS: HEMATOCRIT 32.2 % (36.0-47.0); HEMOGLOBIN 10.6 g/dl (12.0-15.5); MEAN CORPUSCULAR HEMOGLOBIN 31.2 pg (27.0-33.0); MEAN CORPUSCULAR HGB CONC 32.9 g/dl (32.0-36.5); MEAN CORPUSCULAR VOLUME 94.7 fl (80.0-96.0); PLATELET COUNT, AUTOMATED 191 10^3/uL (150-450); RED CELL DISTRIBUTION WIDTH 15.9 % (11.5-14.5); WHITE BLOOD COUNT 8.9 10^3/uL (4.0-10.0)
[2018-03-06 06:58] LABS: ACETAMINOPHEN LEVEL 7.8 UG/ML (10.0-30.0)
[2018-03-06 06:58] LABS: ANION GAP 9 MEQ/L (8-16); BLOOD UREA NITROGEN 16 MG/DL (7-18); CALCIUM LEVEL 7.9 MG/DL (8.8-10.2); CARBON DIOXIDE LEVEL 26 MEQ/L (21-32); CHLORIDE LEVEL 100 MEQ/L (98-107); CREATININE FOR GFR 0.88 MG/DL (0.55-1.30); GLOMERULAR FILTRATION RATE > 60.0 (>39); GLUCOSE, FASTING 83 MG/DL (70-100); POTASSIUM SERUM 3.3 MEQ/L (3.5-5.1); SODIUM LEVEL 135 MEQ/L (136-145)
[2018-03-06 07:15] LABS: DIGOXIN LEVEL 1.9 NG/ML (0.5-2.0)
[2018-03-06] MEDS: HumaLOG INSULIN (NovoLOG) PER UNIT SC ×4 (07:30→21:37)
[2018-03-06 08:32] LABS: ALBUMIN 2.3 GM/DL (3.2-5.2); ALBUMIN/GLOBULIN RATIO 0.58 (1.00-1.93); ALKALINE PHOSPHATASE 165 U/L (45-117); ALT/SGPT 1886 U/L (12-78); AST/SGOT 1214 U/L (7-37); BILIRUBIN,DIRECT 0.7 MG/DL (0.0-0.2); BILIRUBIN,TOTAL 1.5 MG/DL (0.2-1.0); MAGNESIUM LEVEL 1.8 MG/DL (1.8-2.4); TOTAL PROTEIN 6.3 GM/DL (6.4-8.2)
[2018-03-06] MEDS: FUROSEMIDE 40 MG/4 ML VIAL (J1940) IV ×2 (09:00→17:48)
[2018-03-06] MEDS: DOCUSATE SODIUM 100 MG CAP PO (09:00)
[2018-03-06] MEDS: SPIRONOLACTONE 25 MG TAB PO (09:00)
[2018-03-06] MEDS: AMIODARONE 200 MG TAB (PACERONE) PO (09:00)
[2018-03-06 11:36] LABS: BEDSIDE GLUCOSE 159 MG/DL (83-110)
[2018-03-06] MEDS: MORPHINE 4 MG/ML 1ML VIAL/SYRINGE (J2270) IV (11:37)
[2018-03-06 16:44] LABS: BEDSIDE GLUCOSE 120 MG/DL (83-110)
[2018-03-06] MEDS: SIMVASTATIN 40 MG TAB PO (17:48)
[2018-03-06] MEDS: DIGOXIN 0.125 MG TAB PO (17:54)
[2018-03-06] MEDS: FERROUS SULFATE 325MG TAB PO (19:58)
[2018-03-06] MEDS: IBUPROFEN 600 MG TAB PO (19:59)
[2018-03-06 20:39] LABS: BEDSIDE GLUCOSE 90 MG/DL (83-110)
[2018-03-07] MEDS: PIPERACILLIN/TAZOBACTAM SOD 3.375 GM in D5W MINI-BAG PLUS 50 ML IV ×5 (00:09→23:40)
[2018-03-07] MEDS: LEVOTHYROXINE 25MCG TABLET (0.025MG) PO (05:43)
[2018-03-07 06:19] LABS: HEMATOCRIT 36.7 % (36.0-47.0); MEAN CORPUSCULAR HEMOGLOBIN 31.6 pg (27.0-33.0); MEAN CORPUSCULAR HGB CONC 32.7 g/dl (32.0-36.5); MEAN CORPUSCULAR VOLUME 96.6 fl (80.0-96.0); PLATELET COUNT, AUTOMATED 195 10^3/uL (150-450); RED CELL DISTRIBUTION WIDTH 15.9 % (11.5-14.5); WHITE BLOOD COUNT 10.3 10^3/uL (4.0-10.0)
[2018-03-07 06:59] LABS: ALBUMIN 2.3 GM/DL (3.2-5.2); ALBUMIN/GLOBULIN RATIO 0.53 (1.00-1.93); ALKALINE PHOSPHATASE 160 U/L (45-117); ALT/SGPT 1654 U/L (12-78); ANION GAP 8 MEQ/L (8-16); AST/SGOT 810 U/L (7-37); BLOOD UREA NITROGEN 13 MG/DL (7-18); CALCIUM LEVEL 7.6 MG/DL (8.8-10.2); CARBON DIOXIDE LEVEL 30 MEQ/L (21-32); CHLORIDE LEVEL 97 MEQ/L (98-107); CREATININE FOR GFR 0.94 MG/DL (0.55-1.30); GLOMERULAR FILTRATION RATE > 60.0 (>39); GLUCOSE, FASTING 86 MG/DL (70-100); POTASSIUM SERUM 3.3 MEQ/L (3.5-5.1); SODIUM LEVEL 135 MEQ/L (136-145); TOTAL PROTEIN 6.6 GM/DL (6.4-8.2)
[2018-03-07] MEDS: HumaLOG INSULIN (NovoLOG) PER UNIT SC ×4 (07:30→21:03)
[2018-03-07] MEDS: POTASSIUM CHLORIDE 10 MEQ SR TABLET PO (08:00)
[2018-03-07] MEDS: SPIRONOLACTONE 25 MG TAB PO (08:00)
[2018-03-07] MEDS: AMIODARONE 200 MG TAB (PACERONE) PO (08:03)
[2018-03-07] MEDS: DOCUSATE SODIUM 100 MG CAP PO (08:03)
[2018-03-07] MEDS: FUROSEMIDE 40 MG/4 ML VIAL (J1940) IV ×2 (08:03→18:29)
[2018-03-07 11:37] LABS: BEDSIDE GLUCOSE 283 MG/DL (83-110)
[2018-03-07] MEDS: IBUPROFEN 600 MG TAB PO ×2 (14:50→22:13)
[2018-03-07] MEDS: SIMVASTATIN 40 MG TAB PO (18:32)
[2018-03-07] MEDS: DIGOXIN 0.125 MG TAB PO (18:32)
[2018-03-07 19:59] LABS: BEDSIDE GLUCOSE 140 MG/DL (83-110)
[2018-03-07] MEDS: FERROUS SULFATE 325MG TAB PO (21:03)
[2018-03-08 05:46] LABS: HEMATOCRIT 33.4 % (36.0-47.0); HEMOGLOBIN 10.9 g/dl (12.0-15.5); MEAN CORPUSCULAR HGB CONC 32.6 g/dl (32.0-36.5); MEAN CORPUSCULAR VOLUME 94.9 fl (80.0-96.0); PLATELET COUNT, AUTOMATED 190 10^3/uL (150-450); RED BLOOD COUNT 3.52 10^6/uL (4.00-5.40); RED CELL DISTRIBUTION WIDTH 15.8 % (11.5-14.5); WHITE BLOOD COUNT 13.1 10^3/uL (4.0-10.0)
[2018-03-08] MEDS: LEVOTHYROXINE 25MCG TABLET (0.025MG) PO (05:55)
[2018-03-08] MEDS: PIPERACILLIN/TAZOBACTAM SOD 3.375 GM in D5W MINI-BAG PLUS 50 ML IV ×2 (05:55→12:00)
[2018-03-08 06:12] LABS: ALBUMIN 2.3 GM/DL (3.2-5.2); ALBUMIN/GLOBULIN RATIO 0.55 (1.00-1.93); ALKALINE PHOSPHATASE 158 U/L (45-117); ALT/SGPT 1185 U/L (12-78); ANION GAP 7 MEQ/L (8-16); AST/SGOT 334 U/L (7-37); BILIRUBIN,DIRECT 0.6 MG/DL (0.0-0.2); BILIRUBIN,TOTAL 1.3 MG/DL (0.2-1.0); BLOOD UREA NITROGEN 14 MG/DL (7-18); CALCIUM LEVEL 7.8 MG/DL (8.8-10.2); CARBON DIOXIDE LEVEL 29 MEQ/L (21-32); CHLORIDE LEVEL 99 MEQ/L (98-107); GLOMERULAR FILTRATION RATE > 60.0 (>39); GLUCOSE, FASTING 96 MG/DL (70-100); POTASSIUM SERUM 3.5 MEQ/L (3.5-5.1); SODIUM LEVEL 135 MEQ/L (136-145); TOTAL PROTEIN 6.5 GM/DL (6.4-8.2)
[2018-03-08 06:19] LABS: INR 1.13; PROTHROMBIN TIME 14.6 SECONDS (12.1-14.4)
[2018-03-08] MEDS: HumaLOG INSULIN (NovoLOG) PER UNIT SC ×4 (07:30→21:00)
[2018-03-08] MEDS: AMIODARONE 200 MG TAB (PACERONE) PO (09:00)
[2018-03-08] MEDS: SPIRONOLACTONE 25 MG TAB PO (09:00)
[2018-03-08] MEDS: FUROSEMIDE 40 MG/4 ML VIAL (J1940) IV ×2 (09:00→18:30)
[2018-03-08] MEDS ORDERED: oxyCODONE 5MG TAB PO (10:15)
[2018-03-08] MEDS: ONDANSETRON 4 MG TAB (S0181) PO (11:48)
[2018-03-08] MEDS: SUCRALFATE SUSP 1GM/10ML UD PO ×3 (12:00→21:13)
[2018-03-08 12:30] LABS: BEDSIDE GLUCOSE 176 MG/DL (83-110)
[2018-03-08] MEDS: IBUPROFEN 600 MG TAB PO (13:41)
[2018-03-08 16:44] LABS: BEDSIDE GLUCOSE 56 MG/DL (83-110)
[2018-03-08 17:24] LABS: BEDSIDE GLUCOSE 86 MG/DL (83-110)
[2018-03-08] MEDS: DIGOXIN 0.0625MG PER 1/2TABLET PO (18:29)
[2018-03-08] MEDS: WARFARIN SOD 3 MG TAB PO (18:29)
[2018-03-08] MEDS: SIMVASTATIN 40 MG TAB PO (18:29)
[2018-03-08] MEDS: FERROUS SULFATE 325MG TAB PO (21:13)
[2018-03-08 21:44] LABS: BEDSIDE GLUCOSE 103 MG/DL (83-110)
[2018-03-08 21:45] LABS: BEDSIDE GLUCOSE 218 MG/DL (83-110)
[2018-03-09 00:07] LABS: ANA (HEP2) Positive (.)
[2018-03-09] MEDS: LEVOTHYROXINE 25MCG TABLET (0.025MG) PO (05:41)
[2018-03-09 06:40] LABS: HEMATOCRIT 32.9 % (36.0-47.0); HEMOGLOBIN 10.7 g/dl (12.0-15.5); MEAN CORPUSCULAR HEMOGLOBIN 30.7 pg (27.0-33.0); MEAN CORPUSCULAR HGB CONC 32.5 g/dl (32.0-36.5); MEAN CORPUSCULAR VOLUME 94.3 fl (80.0-96.0); PLATELET COUNT, AUTOMATED 177 10^3/uL (150-450); RED BLOOD COUNT 3.49 10^6/uL (4.00-5.40); RED CELL DISTRIBUTION WIDTH 15.7 % (11.5-14.5); WHITE BLOOD COUNT 10.5 10^3/uL (4.0-10.0)
[2018-03-09 06:51] LABS: INR 1.15; PROTHROMBIN TIME 14.9 SECONDS (12.1-14.4)
[2018-03-09 07:01] LABS: ALBUMIN 2.2 GM/DL (3.2-5.2); ALBUMIN/GLOBULIN RATIO 0.51 (1.00-1.93); ALKALINE PHOSPHATASE 144 U/L (45-117); ALT/SGPT 867 U/L (12-78); ANION GAP 9 MEQ/L (8-16); AST/SGOT 132 U/L (7-37); BILIRUBIN,DIRECT 0.7 MG/DL (0.0-0.2); BILIRUBIN,TOTAL 1.5 MG/DL (0.2-1.0); BLOOD UREA NITROGEN 12 MG/DL (7-18); CALCIUM LEVEL 7.9 MG/DL (8.8-10.2); CARBON DIOXIDE LEVEL 27 MEQ/L (21-32); CHLORIDE LEVEL 98 MEQ/L (98-107); CREATININE FOR GFR 0.76 MG/DL (0.55-1.30); GLOMERULAR FILTRATION RATE > 60.0 (>39); GLUCOSE, FASTING 121 MG/DL (70-100); POTASSIUM SERUM 3.5 MEQ/L (3.5-5.1); SODIUM LEVEL 134 MEQ/L (136-145); TOTAL PROTEIN 6.5 GM/DL (6.4-8.2)
[2018-03-09] MEDS: SUCRALFATE SUSP 1GM/10ML UD PO ×4 (10:31→21:20)
[2018-03-09] MEDS: SPIRONOLACTONE 25 MG TAB PO (10:32)
[2018-03-09] MEDS: AMIODARONE 200 MG TAB (PACERONE) PO (10:32)
[2018-03-09] MEDS: FUROSEMIDE 40 MG/4 ML VIAL (J1940) IV ×2 (10:33→17:01)
[2018-03-09] MEDS: HumaLOG INSULIN (NovoLOG) PER UNIT SC ×4 (10:34→21:00)
[2018-03-09 11:55] LABS: BEDSIDE GLUCOSE 186 MG/DL (83-110)
[2018-03-09] MEDS: ADVAIR HFA 230/21MCG INHALER INH ×2 (12:11→21:50)
[2018-03-09 16:50] LABS: BEDSIDE GLUCOSE 68 MG/DL (83-110)
[2018-03-09] MEDS: SIMVASTATIN 40 MG TAB PO (17:01)
[2018-03-09] MEDS: DIGOXIN 0.0625MG PER 1/2TABLET PO (17:02)
[2018-03-09 20:29] LABS: BEDSIDE GLUCOSE 122 MG/DL (83-110)
[2018-03-09] MEDS: HEPARIN SOD (PORCINE) 5000 UNITS/ML VIAL SQ (21:20)
[2018-03-09] MEDS: FERROUS SULFATE 325MG TAB PO (21:20)
[2018-03-09] MEDS: traMADol 50 MG TAB PO (21:21)
[2018-03-10] MEDS: LEVOTHYROXINE 25MCG TABLET (0.025MG) PO (05:59)
[2018-03-10 06:25] LABS: HEMATOCRIT 33.1 % (36.0-47.0); HEMOGLOBIN 10.7 g/dl (12.0-15.5); MEAN CORPUSCULAR HEMOGLOBIN 30.7 pg (27.0-33.0); MEAN CORPUSCULAR HGB CONC 32.3 g/dl (32.0-36.5); MEAN CORPUSCULAR VOLUME 94.8 fl (80.0-96.0); PLATELET COUNT, AUTOMATED 199 10^3/uL (150-450); RED BLOOD COUNT 3.49 10^6/uL (4.00-5.40); RED CELL DISTRIBUTION WIDTH 15.5 % (11.5-14.5); WHITE BLOOD COUNT 9.4 10^3/uL (4.0-10.0)
[2018-03-10 06:47] LABS: PROTHROMBIN TIME 14.4 SECONDS (12.1-14.4)
[2018-03-10 06:51] LABS: ALBUMIN 2.3 GM/DL (3.2-5.2); ALKALINE PHOSPHATASE 162 U/L (45-117); ALT/SGPT 659 U/L (12-78); ANION GAP 9 MEQ/L (8-16); AST/SGOT 82 U/L (7-37); BILIRUBIN,DIRECT 0.5 MG/DL (0.0-0.2); BLOOD UREA NITROGEN 15 MG/DL (7-18); CALCIUM LEVEL 8.2 MG/DL (8.8-10.2); CARBON DIOXIDE LEVEL 27 MEQ/L (21-32); CHLORIDE LEVEL 97 MEQ/L (98-107); CREATININE FOR GFR 0.81 MG/DL (0.55-1.30); GLOMERULAR FILTRATION RATE > 60.0 (>39); GLUCOSE, FASTING 137 MG/DL (70-100); MAGNESIUM LEVEL 1.9 MG/DL (1.8-2.4); POTASSIUM SERUM 3.7 MEQ/L (3.5-5.1); SODIUM LEVEL 133 MEQ/L (136-145); TOTAL PROTEIN 6.9 GM/DL (6.4-8.2)
[2018-03-10] MEDS: SUCRALFATE SUSP 1GM/10ML UD PO ×2 (08:09→12:43)
[2018-03-10] MEDS: AMIODARONE 200 MG TAB (PACERONE) PO (08:11)
[2018-03-10] MEDS: SPIRONOLACTONE 25 MG TAB PO (08:11)
[2018-03-10] MEDS: HumaLOG INSULIN (NovoLOG) PER UNIT SC ×2 (08:12→12:44)
[2018-03-10] MEDS: FUROSEMIDE 40 MG/4 ML VIAL (J1940) IV (08:12)
[2018-03-10] MEDS: HEPARIN SOD (PORCINE) 5000 UNITS/ML VIAL SQ (08:13)
[2018-03-10] MEDS: ADVAIR HFA 230/21MCG INHALER INH (09:07)
[2018-03-10 12:20] LABS: BEDSIDE GLUCOSE 117 MG/DL (83-110)
[2018-03-11 00:31] LABS: CYTOMEGALOVIRUS IgG ANTIBODY <0.60 U/mL (0.00-0.59); CYTOMEGALOVIRUS IgM ANTIBODY <30.0 AU/mL (0.0-29.9); EBV AB TO NUCLEAR ANTIGEN 64.2 U/mL (0.0-17.9); EBV VIRAL CAPSID AG IgM <36.0 U/mL (0.0-35.9); HEPATITIS C QUANTITATION HCV Not Detected IU/mL (.); HEPATITIS E IgG ANTIBODY Negative (Negative); HEPATITIS E IgM ANTIBODY Negative (Negative)
== END 2018-03-10 14:31 | disposition home or self-care (01) | DRG 442 ==
LOC: M ED 00:53 → M ED INP 08:33 → M MSPAV 09:02
DX: B17.9 Acute viral hepatitis, unspecified (principal); I50.32 Chronic diastolic (congestive) heart failure; I34.0 Nonrheumatic mitral (valve) insufficiency; E11.9 Type 2 diabetes mellitus without complications; I11.0 Hypertensive heart disease with heart failure; I48.2 Chronic atrial fibrillation; J44.9 Chronic obstructive pulmonary disease, unspecified; Z66 Do not resuscitate; Z79.01 Long term (current) use of anticoagulants; Z95.0 Presence of cardiac pacemaker; Z88.1 Allergy status to other antibiotic agents; Z88.8 Allergy status to other drugs, medicaments and biological substances; Z79.899 Other long term (current) drug therapy; F17.210 Nicotine dependence, cigarettes, uncomplicated

== ENCOUNTER → 2018-04-08 | Outpatient (CLI) | payer MEDICARE, OTHER ==
[~2018-04-08] MED LIST changes: +/ADVA50050 IN; +/IPRA3SP; +/WARF3TA OR; +ACET65TA OR; -ACETAMINOPHEN 325 MG TAB PO; +ADV250INH INH; +ADV500INH INH; +ADVAIR; +ALBU83IN; +ALBUTEROL INH; +AMIO10TA OR; +AMIO200T PO; +AMIO20TA OR; +AMOX-CLAV PO; +ASCO25TA PO; +ASPI-225 PO; +AZEL0.1S; +AZEL1SPR3; +BABY81CH OR; +BENA25TA10 PO; +CAND4TAB PO; +CARD240T3 OR; +CIPR500T4 OR; +COLA100C5 PO; +COUM1TAB19 PO; +COUMADIN PO; +DIGO0.12 PO; +DILT240C47 PO; +DILT60TA PO; +DIOVAN PO; +DOCU100C16 PO; +DRIS50003 PO; +FERR1TAB8 PO; +FERR325T OR; +FERR325T3 PO; +FLAG500T OR; +FURO20TA2 PO; +GABA-843 PO; +HYDR-3716 PO; +IPRA0.00 INH; +IPRAINH INH; +LANO62.5 PO; +LASI20TA OR; +LEVO25TA5 PO; +LORT1TAB PO; +METF500T13 PO; -MIDAZOLAM INJ 2 MG/2 ML VIAL (J2250) As Ordered; +MUCI600T31 PO; +MUCI600T37 PO; +MULTIVIT PO; +OXYCO5TA PO; -PHENYLEPHRINE HCL 10 % OPHTH. SOL 5ML OD; +PRAV40TA2 PO; +PRED20TA PO; +PROAAER10 INH; +SIMV40TA2 PO; +SIMV80TA OR; +SPIR-10 PO; +SUCR10SS PO; +TYLE325T5 PO; +TYLE500T78 PO; +VALS40TA OR; +VENTAER INH; +VICO7.5T11 PO; +VITA50005 PO; +VITAMIN D50000 UNT OR; +VITMAIN D; +WARF-58 PO; +XANA0.25 PO; +benadryl OR; -fentaNYL 100 MCG/2 ML INJECTION (J3010) As Ordered; +multivitamin OR; +vicodin OR
--- NOTE | 2018-04-09 01:57 | REP ---
Clinical: Abnormal pulmonary function studies. Technique: PA and lateral. Comparison: 08/25/2017. Findings: Mediastinum and cardiac silhouette are stable with evidence for pacemaker and valve repair. The lung victoria demonstrate diffuse chronic interstitial changes similar to prior examination. No focal consolidation, effusion, or pneumothorax. Skeletal structures remains stable. Impression: Stable chronic interstitial changes Electronically Signed by Giovani Trammell MD 04/09/2018 01:48 A
== END ==
LOC: M RAD 11:10
PROVIDERS: ATTEND Internal Medicine Pulmonary Disease
DX: R94.2 Abnormal results of pulmonary function studies (principal)

== ENCOUNTER → 2018-04-08 | Outpatient (CLI) | payer MEDICARE, OTHER ==
[2018-04-08 12:43] LABS: BASO # 0.1 10^3/uL (0.0-0.2); BASO % 0.6 % (0.0-1.0); EOS # 0.2 10^3/uL (0.0-0.50); EOS % 1.9 % (0.0-3.0); HEMATOCRIT 41.8 % (36.0-47.0); HEMOGLOBIN 13.7 g/dl (12.0-15.5); LYMPH % 10.8 % (24.0-44.0); MEAN CORPUSCULAR HEMOGLOBIN 30.8 pg (27.0-33.0); MEAN CORPUSCULAR HGB CONC 32.8 g/dl (32.0-36.5); MEAN CORPUSCULAR VOLUME 93.9 fl (80.0-96.0); MONO # 0.4 10^3/uL (0.0-0.8); MONO % 4.4 % (0.0-5.0); NEUTROPHILS # 7.8 10^3/uL (1.8-7.7); NEUTROPHILS % 81.8 % (36.0-66.0); PLATELET COUNT, AUTOMATED 255 10^3/uL (150-450); RED BLOOD COUNT 4.45 10^6/uL (4.00-5.40); WHITE BLOOD COUNT 9.5 10^3/uL (4.0-10.0)
[2018-04-08 12:52] LABS: ALBUMIN 3.4 GM/DL (3.2-5.2); ALT/SGPT 23 U/L (12-78); BLOOD UREA NITROGEN 20 MG/DL (7-18); CALCIUM LEVEL 9.1 MG/DL (8.8-10.2); CARBON DIOXIDE LEVEL 28 MEQ/L (21-32); CHLORIDE LEVEL 100 MEQ/L (98-107); CREATININE FOR GFR 0.85 MG/DL (0.55-1.30); FREE T4 1.81 NG/DL (0.76-1.46); GLOMERULAR FILTRATION RATE > 60.0 (>39); GLUCOSE, FASTING 92 MG/DL (70-100); POTASSIUM SERUM 3.9 MEQ/L (3.5-5.1); SODIUM LEVEL 137 MEQ/L (136-145); TOTAL PROTEIN 7.5 GM/DL (6.4-8.2)
== END ==
LOC: M LAB 11:05
PROVIDERS: ATTEND Physician Assistant
DX: R94.5 Abnormal results of liver function studies (principal); E03.9 Hypothyroidism, unspecified

== ENCOUNTER → 2018-04-08 | Outpatient (CLI) | payer MEDICARE, OTHER ==
[2018-04-08 12:41] LABS: ALBUMIN 3.3 GM/DL (3.2-5.2); BLOOD UREA NITROGEN 19 MG/DL (7-18); CALCIUM LEVEL 9.2 MG/DL (8.8-10.2); CARBON DIOXIDE LEVEL 28 MEQ/L (21-32); CHLORIDE LEVEL 100 MEQ/L (98-107); CREATININE FOR GFR 0.82 MG/DL (0.55-1.30); GLOMERULAR FILTRATION RATE > 60.0 (>39); GLUCOSE, FASTING 95 MG/DL (70-100); PHOSPHORUS LEVEL 3.6 MG/DL (2.5-4.9); SODIUM LEVEL 136 MEQ/L (136-145)
[2018-04-08 12:42] LABS: HEMATOCRIT 41.8 % (36.0-47.0); HEMOGLOBIN 13.7 g/dl (12.0-15.5); MEAN CORPUSCULAR HEMOGLOBIN 30.9 pg (27.0-33.0); MEAN CORPUSCULAR HGB CONC 32.8 g/dl (32.0-36.5); MEAN CORPUSCULAR VOLUME 94.4 fl (80.0-96.0); PLATELET COUNT, AUTOMATED 245 10^3/uL (150-450); RED BLOOD COUNT 4.43 10^6/uL (4.00-5.40); WHITE BLOOD COUNT 9.4 10^3/uL (4.0-10.0)
== END ==
LOC: M LAB 11:13
PROVIDERS: ATTEND Physician Assistant
DX: I48.0 Paroxysmal atrial fibrillation (principal); I50.32 Chronic diastolic (congestive) heart failure

== ENCOUNTER → 2018-04-13 | Outpatient (CLI) | payer MEDICARE, OTHER ==
[2018-04-13 13:18] LABS: HEMATOCRIT 42.1 % (36.0-47.0); HEMOGLOBIN 13.5 g/dl (12.0-15.5); MEAN CORPUSCULAR HEMOGLOBIN 30.8 pg (27.0-33.0); MEAN CORPUSCULAR HGB CONC 32.1 g/dl (32.0-36.5); MEAN CORPUSCULAR VOLUME 96.1 fl (80.0-96.0); PLATELET COUNT, AUTOMATED 247 10^3/uL (150-450); RED BLOOD COUNT 4.38 10^6/uL (4.00-5.40); WHITE BLOOD COUNT 11.8 10^3/uL (4.0-10.0)
[2018-04-13 13:22] LABS: ALBUMIN 3.4 GM/DL (3.2-5.2); BLOOD UREA NITROGEN 22 MG/DL (7-18); CALCIUM LEVEL 9.1 MG/DL (8.8-10.2); CARBON DIOXIDE LEVEL 26 MEQ/L (21-32); CHLORIDE LEVEL 98 MEQ/L (98-107); CREATININE FOR GFR 0.88 MG/DL (0.55-1.30); GLOMERULAR FILTRATION RATE > 60.0 (>39); GLUCOSE, FASTING 85 MG/DL (70-100); PHOSPHORUS LEVEL 3.7 MG/DL (2.5-4.9); POTASSIUM SERUM 4.3 MEQ/L (3.5-5.1); SODIUM LEVEL 135 MEQ/L (136-145)
== END ==
LOC: M SMT 10:05
PROVIDERS: ATTEND Physician Assistant
DX: I48.0 Paroxysmal atrial fibrillation (principal); I50.32 Chronic diastolic (congestive) heart failure

== ENCOUNTER → 2018-05-04 | Outpatient (CLI) | payer MEDICARE, OTHER ==
[2018-05-04 13:47] LABS: FREE T4 1.79 NG/DL (0.76-1.46); THYROID STIMULATING HORMONE 2.76 uIU/ML (0.358-3.740)
== END ==
LOC: M SMT 09:23
PROVIDERS: ATTEND Physician Assistant
DX: E03.9 Hypothyroidism, unspecified (principal)

== ENCOUNTER 2018-05-25 19:15 | Inpatient (IN) | payer MEDICARE, OTHER ==
[~2018-05-25] VITALS: Ht 144.8 cm; Wt 46.3 kg
[2018-05-25 20:16] LABS: BASO # 0.1 10^3/uL (0.0-0.2); BASO % 0.4 % (0.0-1.0); EOS % 0.3 % (0.0-3.0); HEMATOCRIT 36.7 % (36.0-47.0); HEMOGLOBIN 11.8 g/dl (12.0-15.5); LYMPH # 0.8 10^3/uL (1.5-4.5); MEAN CORPUSCULAR HEMOGLOBIN 30.3 pg (27.0-33.0); MEAN CORPUSCULAR HGB CONC 32.2 g/dl (32.0-36.5); MEAN CORPUSCULAR VOLUME 94.3 fl (80.0-96.0); MONO # 0.5 10^3/uL (0.0-0.8); NEUTROPHILS # 11.1 10^3/uL (1.8-7.7); NEUTROPHILS % 87.8 % (36.0-66.0); PLATELET COUNT, AUTOMATED 254 10^3/uL (150-450); RED BLOOD COUNT 3.89 10^6/uL (4.00-5.40); WHITE BLOOD COUNT 12.7 10^3/uL (4.0-10.0)
[2018-05-25 20:42] LABS: ALBUMIN 2.7 GM/DL (3.2-5.2); BILIRUBIN,DIRECT 1.1 MG/DL (0.0-0.2); CALCIUM LEVEL 8.3 MG/DL (8.8-10.2); CREATININE FOR GFR 1.77 MG/DL (0.55-1.30); GLOMERULAR FILTRATION RATE 30.1 (>39); POTASSIUM SERUM 5.2 MEQ/L (3.5-5.1); TOTAL PROTEIN 6.4 GM/DL (6.4-8.2); TROPONIN I 0.07 NG/ML (< 0.10)
[2018-05-25] MEDS: DOXYCYCLINE HYCLATE 100 MG TAB PO SCH (21:00)
--- NOTE | 2018-05-25 21:53 | REPVR ---
EXAM: US Abdomen Limited, Right Upper Quadrant EXAM DATE/TIME: 05/25/2018 9:01 PM CLINICAL HISTORY: 72 years old, female; Pain; Abdominal pain; Colic; Additional info: Ruq abd pain TECHNIQUE: Real-time ultrasound of the abdomen with image documentation. Examination was focused on the right upper quadrant. COMPARISON: GALLBLADDER US 03/04/2018 9:27 AM FINDINGS: Pancreas is only partially visualized due to bowel shadowing. No overt abnormailty. Liver is homogeneous in echotexture, with no focal lesion. Gallbladder is anechoic. No stone. Gallbladder wall is edematous measuring up to 6 mm. Small sliver of pericholecystic fluid is present Common bile duct measures 4-5 mm in diameter. Right kidney measures 11 cm in long axis. Right kidney lower pole demonstrates a 3.3 x 3 cm mass. No free fluid. IMPRESSION: Edematous appearing gallbladder wall measuring up to 6 mm in thickness, similar in appearance compared to 03/04/2018. This may suggest chronic cholecystitis. No shadowing stones or bile duct dilatation. Solid lesion, lower pole right kidney, as seen on prior CT, highly suggestive of a renal cell carcinoma Electronically signed by: Cain Floyd On 05/25/2018 21:53:43 PM
[2018-05-25] MEDS ORDERED: IPRATROPIUM 0.5MG/ALBUTEROL 2.5MG INH SOL UD 3ML (DUONEB)(J7620) NEB ONE (22:15)
[2018-05-25] MEDS ORDERED: ELIQ5TAB PO (22:37)
[2018-05-25] MEDS ORDERED: OXYC-517 PO (22:37)
[2018-05-25] MEDS ORDERED: DIGO0.12 PO (22:37)
[2018-05-25] MEDS ORDERED: SUCR1SS PO (22:37)
[2018-05-25] MEDS ORDERED: LORA10TA3 PO (22:37)
--- NOTE | 2018-05-25 23:18 | REPVR ---
EXAM: CT Abdomen and Pelvis Without Contrast EXAM DATE/TIME: 05/25/2018 10:33 PM CLINICAL HISTORY: 72 years old, female; Pain; Abdominal pain; Additional info: SOB, latoya, known kidney mass TECHNIQUE: Axial computed tomography images of the abdomen and pelvis without contrast. All CT scans at this facility use at least one of these dose optimization techniques: automated exposure control; mA and/or kV adjustment per patient size (includes targeted exams where dose is matched to clinical indication); or iterative reconstruction. Coronal and sagittal reformatted images were created and reviewed. COMPARISON: CT ABD/PEL W/IV ORAL CONTRAS 03/03/2018 3:02 AM FINDINGS: Lower thorax: Bilateral small pleural effusions. Compressive atelectasis at both lung bases. Increased interstitial markings in both lower lobes may indicate interstitial edema or chronic fibrotic changes. Cardiomegaly. ABDOMEN: Liver: Normal. No mass. Gallbladder and bile ducts: Increased density within the gallbladder consistent with milk of calcium bile and/or sludge. Pancreas: Normal. No ductal dilation. Spleen: Normal. No splenomegaly. Adrenals: There is bilateral adrenal hyperplasia. Kidneys and ureters: 2.5 by 2.5 centimeter solid heterogeneous hyperdense mass again demonstrated in the lower pole of the right kidney, likely neoplastic, stable in comparison to the prior study. Stomach and bowel: Diffuse gastric wall thickening likely related to nondistention. There is increased feces throughout the colon consistent with constipation. Appendix: No evidence of appendicitis. PELVIS: Bladder: Unremarkable as visualized. Reproductive: Unremarkable as visualized. ABDOMEN and PELVIS: Intraperitoneal space: There is a small amount of free intraperitoneal fluid present. Bones/joints: Mild anterolisthesis of L4 on L5. Severe central spinal stenosis at L4-5. Soft tissues: Unremarkable. Vasculature: The aorta demonstrates moderate atherosclerotic calcification. Extensive vascular calcifications in the branch arteries including the renal arteries. Lymph nodes: Normal. No enlarged lymph nodes. IMPRESSION: 1. There is a small amount of free intraperitoneal fluid present. 2. Increased density within the gallbladder consistent with milk of calcium bile and/or sludge. 3. There is bilateral adrenal hyperplasia. 4. There is increased feces throughout the colon consistent with constipation. 5. 2.5 by 2.5 centimeter solid heterogeneous hyperdense mass again demonstrated in the lower pole of the right kidney, likely neoplastic, stable in comparison to the prior study. Electronically signed by: Shady Curtis On 05/25/2018 23:18:30 PM
--- NOTE | 2018-05-25 23:23 | REPVR ---
EXAM: CT Chest Without Contrast EXAM DATE/TIME: 05/25/2018 10:33 PM CLINICAL HISTORY: 72 years old, female; Pain; Chest pain; Additional info: SOB, latoya, known kidney mass TECHNIQUE: Axial computed tomography images of the chest without intravenous contrast. All CT scans at this facility use at least one of these dose optimization techniques: automated exposure control; mA and/or kV adjustment per patient size (includes targeted exams where dose is matched to clinical indication); or iterative reconstruction. Coronal and sagittal reformatted images were created and reviewed. COMPARISON: CR Chest, 2 view PA, Lat 05/25/2018 8:08 PM FINDINGS: Lungs: Mild to moderate centrilobular emphysema of mass in the upper lung zones. Septal thickening demonstrated bilaterally consistent with mild interstitial lung disease. 5 millimeters noncalcified nodule left apex, 5 millimeter noncalcified nodule lingula lobe, likely post inflammatory. No followup suggested. Calcified granuloma lingula lobe. Pleural space: Small bilateral pleural effusions and compressive atelectasis at both lung bases. Heart: Normal. No cardiomegaly. No pericardial effusion. Aorta: The aorta demonstrates moderate atherosclerotic calcification. Lymph nodes: Extensive mediastinal lymphadenopathy measuring up to 2 centimeters in the retrocaval pretracheal area, 1.4 centimeters in the left para-aortic region, 1.9 centimeters in the left suprahilar region, and 2.9 centimeters in the azygos esophageal recess. Although possibly postinflammatory relatively large size of nodes may indicate the presence of malignant adenopathy. Bones/joints: Unremarkable. No acute fracture. Soft tissues: Unremarkable. IMPRESSION: 1. Mild to moderate centrilobular emphysema of mass in the upper lung zones. 2. Septal thickening demonstrated bilaterally consistent with mild interstitial lung disease. 3. Small bilateral pleural effusions and compressive atelectasis at both lung bases. 4. Extensive mediastinal lymphadenopathy measuring up to 2 centimeters in the retrocaval pretracheal area, 1.4 centimeters in the left para-aortic region, 1.9 centimeters in the left suprahilar region, and 2.9 centimeters in the azygos esophageal recess. Although possibly postinflammatory relatively large size of nodes may indicate the presence of malignant adenopathy. Electronically signed by: Shady Curtis On 05/25/2018 23:23:10 PM
[2018-05-25] MEDS ORDERED: LevoFLOXacin IV 750 MG in APPROPRIATE DILUENT 1 EA IV ONE (23:45)
[2018-05-26] MEDS ORDERED: ALBUTEROL 90 MCG/ACT 8GM HFA INHALER INH PRN ×2 (01:30→03:45)
--- NOTE | 2018-05-26 03:45 | HPEPDOC ---
[facility] Medical History & Physical Date of Admission May 26, 2018 Attending Physician: PRANAY ANTONIO MD History and Physical CHIEF COMPLAINT: Shortness of Breath HISTORY OF PRESENT ILLNESS: Patient is a 72 year old female who presented to the [facility] emergency department with complaint of shortness of breath for several days duration. Patient states that her shortness of breath has gradually come on and worsened. She denies any sputum production but does admit to a dry cough. She denies any fevers or chills. She denies any chest pain. Patient does have a history significant for emphysema. At prior hospi tailization patient was found to have a renal mass suggestive of malignant pathology questionable renal cell carcinoma. Patient currently denies any history of blood clots or pulmonary embolism. She is denying any pleuritic chest pain. She denies any hemoptysis. In the ER the patient received a chest x-ray which did not reveal any acute findings. Additionally patient received a gallbladder U/S which revealed an edematous appearing gallbladder wall measuring 6mm in thickness but similar in appearance to previous imaging suggestive of chronic cholecystitis. Additionally, a solid lesion on the lower pole of the right kidney as seen in previous imaging suggestive of Renal cell carcinoma. Patient received a CT chest demonstrating emphysema, extensive mediastinal lymphadenopathy and small bila teral pleural effusions and compressive atelectasis at the lung bases. In the ER the patient received a dose of levaquin and IV steroids in addition to Duonebs. Patient had noted significant improvement in her breathing although was still on 2L oxygen. Hospitalist service was consulted and patient was admitted. PAST MEDICAL HISTORY: 1. COPD centrilobular emphysema 2. Chronic Cholecystitis 3. Renal mass of unknown etiology 4. Diastolic Congestive Heart Failure 5. DMII 6. Hypertension 7. Chronic Atrial Fibrillation on Coumadin PAST SURGICAL HISTORY: 1. Mitral Valve Repair 2. Cataract surgery 3. Pacemaker Placement SOCIAL HISTORY: Former smoker. Denies alcohol or illicit drug abusae. FAMILY HISTORY: Both parents are from complications of diabetes and heart problems ALLERGIES: Please see below. REVIEW OF SYSTEMS: CONSTITUTIONAL: Denies fevers, chills, unintentional weight loss or weight gain HEENT: Denies dysphagia CARDIOVASCULAR: Denies chest pain, palpitations, or feelings of the heart racing RESPIRATORY: Admits to shortness of breath. Admits to dry cough. Denies sputum production. Denies hemoptysis or pleuritic symptoms GASTROINTESTINAL: Denies abdominal pain, nausea, vomiting, diarrhea, or constipation GENITOURINARY: Denies increased frequency or urgency. Denies dysuria SKIN: Denies rashes or lesions NEUROLOGICAL: Denies changes in speech or gait PSYCHIATRIC: Denies depression or anxiety ENDOCRINE: Denies heat or cold intolerance HEMATOLOGIC/LYMPHATIC: Denies easy bruising or bleeding HOME MEDICATIONS: Please see below. PHYSICAL EXAMINATION: VITAL SIGNS: Temperature 96.1, pulse 64, respiratory rate 20, blood pressure 159\70, pulse oximetry, 96 % on 2 L nasal cannula GENERAL APPEARANCE:. She is awake, alert and oriented 3. She appears in acute distress. She is lying comfortably in bed exam room. She is conversive HEENT: Atraumatic, normocephalic. Eyes are nonicteric. Trachea is midline. Dentition is fair. CARDIOVASCULAR:. Irregularly irregular rhythm with a normal rate. No clicks, rubs or murmurs appreciated. No JVD or carotid bruits LUNGS: Clear to auscultation bilaterally with good respiratory effort, slightly prolonged expiratory short phase. No wheezes, rhonchi or rales noted ABDOMEN: Soft, nontender to palpation. Positive bowel sounds all 4 quadrants. EXTREMITIES: No edema. Full and equal pulses bilaterally PSYCHIATRIC: Mood and affect appear appropriate LABORATORY DATA: See below. IMAGING: EXAM: US Abdomen Limited, Right Upper Quadrant EXAM DATE/TIME: 05/25/2018 9:01 PM CLINICAL HISTORY: 72 years old, female; Pain; Abdominal pain; Colic; Additional info: Ruq abd pain TECHNIQUE: Real-time ultrasound of the abdomen with image documentation. Examination was focused on the right upper quadrant. COMPARISON: GALLBLADDER US 03/04/2018 9:27 AM FINDINGS: Pancreas is only partially visualized due to bowel shadowing. No overt abnormailty. Liver is homogeneous in echotexture, with no focal lesion. Gallbladder is anechoic. No stone. Gallbladder wall is edematous measuring up to 6 mm. Small sliver of pericholecystic fluid is present Common bile duct measures 4-5 mm in diameter. Right kidney measures 11 cm in long axis. Right kidney lower pole demonstrates a 3.3 x 3 cm mass. No free fluid. IMPRESSION: Edematous appearing gallbladder wall measuring up to 6 mm in thickness, similar in appearance compared to 03/04/2018. This may suggest chronic cholecystitis. No shadowing stones or bile duct dilatation. Solid lesion, lower pole right kidney, as seen on prior CT, highly suggestive of a renal cell carcinoma Electronically signed by: Cain Floyd On 05/25/2018 21:53:43 PM EXAM: CT Chest Without Contrast EXAM DATE/TIME: 05/25/2018 10:33 PM CLINICAL HISTORY: 72 years old, female; Pain; Chest pain; Additional info: SOB, latoya, known kidney mass TECHNIQUE: Axial computed tomography images of the chest without intravenous contrast. All CT scans at this facility use at least one of these dose optimization techniques: automated exposure control; mA and/or kV adjustment per patient size (includes targeted exams where dose is matched to clinical indication); or iterative reconstruction. Coronal and sagittal reformatted images were created and reviewed. COMPARISON: CR Chest, 2 view PA, Lat 05/25/2018 8:08 PM FINDINGS: Lungs: Mild to moderate centrilobular emphysema of mass in the upper lung zones. Septal thickening demonstrated bilaterally consistent with mild interstitial lung disease. 5 millimeters noncalcified nodule left apex, 5 millimeter noncalcified nodule lingula lobe, likely post inflammatory. No followup suggested. Calcified granuloma lingula lobe. Pleural space: Small bilateral pleural effusions and compressive atelectasis at both lung bases. Heart: Normal. No cardiomegaly. No pericardial effusion. Aorta: The aorta demonstrates moderate atherosclerotic calcification. Lymph nodes: Extensive mediastinal lymphadenopathy measuring up to 2 centimeters in the retrocaval pretracheal area, 1.4 centimeters in the left para-aortic region, 1.9 centimeters in the left suprahilar region, and 2.9 centimeters in the azygos esophageal recess. Although possibly postinflammatory relatively large size of nodes may indicate the presence of malignant adenopathy. Bones/joints: Unremarkable. No acute fracture. Soft tissues: Unremarkable. IMPRESSION: 1. Mild to moderate centrilobular emphysema of mass in the upper lung zones. 2. Septal thickening demonstrated bilaterally consistent with mild interstitial lung disease. 3. Small bilateral pleural effusions and compressive atelectasis at both lung bases. 4. Extensive mediastinal lymphadenopathy measuring up to 2 centimeters in the retrocaval pretracheal area, 1.4 centimeters in the left para-aortic region, 1.9 centimeters in the left suprahilar region, and 2.9 centimeters in the azygos esophageal recess. Although possibly postinflammatory relatively large size of nodes may indicate the presence of malignant adenopathy. Electronically signed by: Shday Curtis On 05/25/2018 23:23:10 PM EXAM: CT Abdomen and Pelvis Without Contrast EXAM DATE/TIME: 05/25/2018 10:33 PM CLINICAL HISTORY: 72 years old, female; Pain; Abdominal pain; Additional info: SOB, latoya, known kidney mass TECHNIQUE: Axial computed tomography images of the abdomen and pelvis without contrast. All CT scans at this facility use at least one of these dose optimization techniques: automated exposure control; mA and/or kV adjustment per patient size (includes targeted exams where dose is matched to clinical indication); or iterative reconstruction. Coronal and sagittal reformatted images were created and reviewed. COMPARISON: CT ABD/PEL W/IV ORAL CONTRAS 03/03/2018 3:02 AM FINDINGS: Lower thorax: Bilateral small pleural effusions. Compressive atelectasis at both lung bases. Increased interstitial markings in both lower lobes may indicate interstitial edema or chronic fibrotic changes. Cardiomegaly. ABDOMEN: Liver: Normal. No mass. Gallbladder and bile ducts: Increased density within the gallbladder consistent with milk of calcium bile and/or sludge. Pancreas: Normal. No ductal dilation. Spleen: Normal. No splenomegaly. Adrenals: There is bilateral adrenal hyperplasia. Kidneys and ureters: 2.5 by 2.5 centimeter solid heterogeneous hyperdense mass again demonstrated in the lower pole of the right kidney, likely neoplastic, stable in comparison to the prior study. Stomach and bowel: Diffuse gastric wall thickening likely related to nondistention. There is increased feces throughout the colon consistent with constipation. Appendix: No evidence of appendicitis. PELVIS: Bladder: Unremarkable as visualized. Reproductive: Unremarkable as visualized. ABDOMEN and PELVIS: Intraperitoneal space: There is a small amount of free intraperitoneal fluid present. Bones/joints: Mild anterolisthesis of L4 on L5. Severe central spinal stenosis at L4-5. Soft tissues: Unremarkable. Vasculature: The aorta demonstrates moderate atherosclerotic calcification. Extensive vascular calcifications in the branch arteries including the renal arteries. Lymph nodes: Normal. No enlarged lymph nodes. IMPRESSION: 1. There is a small amount of free intraperitoneal fluid present. 2. Increased density within the gallbladder consistent with milk of calcium bile and/or sludge. 3. There is bilateral adrenal hyperplasia. 4. There is increased feces throughout the colon consistent with constipation. 5. 2.5 by 2.5 centimeter solid heterogeneous hyperdense mass again demonstrated in the lower pole of the right kidney, likely neoplastic, stable in comparison to the prior study. Electronically signed by: Shady Curtis On 05/25/2018 23:18:30 PM MICROBIOLOGY: Please see below. ASSESSMENT and PLAN 1. Shortness of breath 2/2 COPD exacerbation vs PE -Patient has a history of COPD. Currently complains of worsening shortness of breath with cough. Denies increased sputum production. Patient has remained afebrile. Will start patient on Duonebs q6h, PO Prednisone, and Doxycycline. Respiratory therapy and incentive spirometry ordered. Will trend CBC and BMP. -Patient has a renal mass suggestive of renal cell carcinoma. She has been tachycardiac with shortness of breath. Consideration of pulmonary embolism. Patients Cr is elevated. Plan for V/Q scan in AM to rule out pulmonary embolism 2. Lactic Acidosis -Patient has elevated lactic acid levels. Currently receiving IV fluids 3. Hyperkalemia -Patient has an elevated potassium of 5.2. Will trend. If postassium continues to stay elevated will administer Kayexalate 4. Transaminitis/Elevated LFTs -Likely secondary to chronic cholecystitis. Patient is currently not complaining of abdominal pain 5. Chronic Atrial Fibrillation -Continues home medications -Patient is chronically anticoagulated on Eliquis 6. Hypertension -Continue home medications 7. DVT Prophylaxis Patient chronically anticoagulated on eliquis Vital Signs Vital Signs Date Time Temp Pulse Resp B/P (MAP) Pulse Ox O2 Delivery O2 Flow Rate FiO2 05/26/18 02:14 65 21 152/97 (115) 94 Nasal Cannula 3.0 05/25/18 19:28 96.1 Laboratory Data Labs 24H Laboratory Tests 2 05/25/18 20:01: Immature Granulocyte % (Auto) 1.5, White Blood Count 12.7H, Red Blood Count 3.89L, Hemoglobin 11.8L, Hematocrit 36.7, Mean Corpuscular Volume 94.3, Mean Corpuscular Hemoglobin 30.3, Mean Corpuscular Hemoglobin Concent 32.2, Red Cell Distribution Width 16.1H, Platelet Count 254, Neutrophils (%) (Auto) 87.8H, Lymphocytes (%) (Auto) 6.0L, Monocytes (%) (Auto) 4.0, Eosinophils (%) (Auto) 0.3, Basophils (%) (Auto) 0.4, Neutrophils # (Auto) 11.1H, Lymphocytes # (Auto) 0.8L, Monocytes # (Auto) 0.5, Eosinophils # (Auto) 0.0, Basophils # (Auto) 0.1, Nucleated Red Blood Cells % (auto) 0.3H, Anion Gap 10, Glomerular Filtration Rate 30.1L, Calcium Level 8.3L, Aspartate Amino Transf (AST/SGOT) 413H, Alanine Aminotransferase (ALT/SGPT) 408H, Alkaline Phosphatase 137H, Total Bilirubin 2.0H, Direct Bilirubin 1.1H, Total Creatine Kinase 40, Creatine Kinase MB 2.0, Creatine Kinase MB Relative Index 4.00, Troponin I 0.07, Total Protein 6.4, Albumin 2.7L, Albumin/Globulin Ratio 0.73L, Lipase 36L 05/25/18 21:32: Lactic Acid Level 2.1*H CBC/BMP Laboratory Tests 05/25/18 20:01 Red Blood Count 3.89 L, Mean Corpuscular Volume 94.3, Mean Corpuscular Hemoglobin 30.3, Mean Corpuscular Hemoglobin Concent 32.2, Red Cell Distribution Width 16.1 H, Neutrophils (%) (Auto) 87.8 H, Lymphocytes (%) (Auto) 6.0 L, Monocytes (%) (Auto) 4.0, Eosinophils (%) (Auto) 0.3, Basophils (%) (Auto) 0.4, Neutrophils # (Auto) 11.1 H, Lymphocytes # (Auto) 0.8 L, Monocytes # (Auto) 0.5, Eosinophils # (Auto) 0.0, Basophils # (Auto) 0.1 Home Medications Scheduled (Digoxin) 125 Mcg Tab, 62.5 MCG PO QPM TAKES AT 1700 Amiodarone HCl (Amiodarone HCl) 200 Mg Tab, 200 MG PO DAILY Apixaban Base (Eliquis) 5 Mg Tab, 5 MG PO BID Diltiazem HCl (Diltiazem HCl ER) 240 Mg Cap, 240 MG PO DAILY Ergocalciferol (Vitamin D) 50,000 Unit Cap, 50,000 UNIT PO MTHLY FIRST THURSDAY OF EACH MONTH Ferrous Sulfate (Ferrous Sulfate) 325 Mg Tab, 325 MG PO QPM TAKES AT 1730 Furosemide (Furosemide) 20 Mg Tab, 40 MG PO DAILY Furosemide (Furosemide) 20 Mg Tab, 20 MG PO QPM TAKES AT 1730 Levothyroxine Sodium (Synthroid) 25 Mcg Tab, 25 MCG PO DAILY Loratadine (Loratadine) 10 Mg Tab, 10 MG PO DAILY Metformin Hydrochloride (Metformin HCl) 500 Mg Tab, 500 MG PO QPM TAKES AT 1730 Salmeterol/Fluticasone (Advair Diskus 500-50 Mcg/Dose) 28 Puff/Inhaler Aerp, 1 PUFF INH BID Spironolactone (Spironolactone) 25 Mg Tab, 25 MG PO DAILY Sucralfate (Carafate) 1 Gm/10 Ml Yasmeen, 10 ML PO AC 4 times per day on an empty stomach 1 hour before meals and at bedtime Scheduled PRN Albuterol Sulfate (Ventolin Hfa) 108 Mcg/Act Aer, 2 PUFFS INH Q4H PRN for SHORTNESS OF BREATH Albuterol/Ipratropium (Ipratropium [place]/Albut 0.5-2.5 (3) mg/3Ml) 1 Ping Ping, 1 PING INH QID PRN for SHORTNESS OF BREATH Docusate Sodium (Docusate Sodium) 100 Mg Cap, 100 MG PO DAILY PRN for CONSTIPATION Guaifenesin (Mucinex) 600 Mg Tab, 600 MG PO BID PRN for CONGESTION Ipratropium [place] (Atrovent Hfa) 200 Puff/12.9 Gm Aers, 2 PUFF INH QID PRN for SHORTNESS OF BREATH Oxycodone HCl (Oxycodone HCl) 5 Mg Tab, 5 MG PO QID PRN for PAIN Allergies Coded Allergies: Acetaminophen (Unverified Allergy, Severe, PROBLEMS WITH LIVER, 05/25/18) Ibuprofen (Unverified Allergy, Severe, ON BLOOD THINNER, 05/25/18) Gabapentin (Unverified Allergy, Intermediate, RETAIN FLUID, LOOPY, 05/25/18) Cefdinir (Verified Allergy, Unknown, 05/08/17) Clarithromycin (Verified Allergy, Unknown, 05/08/17) Erythromycin (Verified Allergy, Unknown, 05/08/17) Sodium Benzoate (Verified Allergy, Unknown, 05/08/17) Morphine (Unverified Adverse Reaction, Intermediate, LOOPY, 05/25/18) GME ATTESTATION GME ATTESTATION My faculty preceptor for this patient encounter was physically present during the encounter and was fully available. All aspects of the patient interview, examination, medical decision making process, and medical care plan development were reviewed and approved by the faculty preceptor. The faculty preceptor is aware and concurs with the plan as stated in the body of this note and will attest to such by his/her cosignature. KAILA LOPEZ DO May 26, 2018 03:45 ROBBY BRITO MD May 26, 2018 21:48
--- NOTE | 2018-05-26 03:54 | REP ---
Clinical: Cough and dyspnea. Technique: PA and lateral. Comparison: 04/08/2018. Findings: The cardiac silhouette is normal. Evidence of prior pacemaker and cardiac valve repair. The lung victoria demonstrate cephalization with increased interstitial markings, bibasilar atelectasis and small pleural effusions. No pneumothorax. Skeletal structures are intact. Impression: Findings suggest CHF/pulmonary edema. Differential diagnosis includes multifocal pneumonia with effusions. Electronically Signed by Giovani Trammell MD 05/26/2018 03:45 A
[2018-05-26 04:39] VITALS: BP 144/62
[2018-05-26] MEDS: IPRATROPIUM 0.5MG/ALBUTEROL 2.5MG INH SOL UD 3ML (DUONEB)(J7620) NEB SCH ×4 (05:16→20:00)
[2018-05-26] MEDS: LEVOTHYROXINE 25MCG TABLET (0.025MG) PO SCH (06:11)
[2018-05-26] MEDS: NS 1,000 ML IV SCH ×3 (06:11→22:00)
[2018-05-26 07:44] LABS: HEMATOCRIT 32.1 % (36.0-47.0); HEMOGLOBIN 10.7 g/dl (12.0-15.5); MEAN CORPUSCULAR HEMOGLOBIN 30.1 pg (27.0-33.0); MEAN CORPUSCULAR HGB CONC 33.3 g/dl (32.0-36.5); MEAN CORPUSCULAR VOLUME 90.4 fl (80.0-96.0); PLATELET COUNT, AUTOMATED 214 10^3/uL (150-450); RED BLOOD COUNT 3.55 10^6/uL (4.00-5.40); WHITE BLOOD COUNT 8.2 10^3/uL (4.0-10.0)
[2018-05-26 08:00] VITALS: BP 128/66
[2018-05-26 08:09] LABS: CALCIUM LEVEL 8.1 MG/DL (8.8-10.2); CREATININE FOR GFR 1.43 MG/DL (0.55-1.30); GLOMERULAR FILTRATION RATE 38.5 (>39); POTASSIUM SERUM 4.3 MEQ/L (3.5-5.1)
[2018-05-26] MEDS ORDERED: SPIRONOLACTONE 25 MG TAB PO SCH (09:00)
--- NOTE | 2018-05-26 09:23 | ECGEPIP ---
Stationary ECG Study [facility] - ED Test Date: 2018-05-25 Pat Name: AKHIL DINERO Department: Room: [place] [address] Gender: F Medical Management Trainer: dean : 1945 Requested By: KAILA Stanley Order Number: [id number] Reading MD: Bill Matthews Measurements Intervals [place] Rate: 60 P: 179 MD: 258 QRS: -67 QRSD: 183 T: 0 QT: 441 QTc: 441 Interpretive Statements Electronic atrial pacemaker with first degree av block- previous tracing was A-V paced Left anterior fascicular block Right bundle branch block POSSIBLE ANTERIOR MYOCARDIAL INFARCTION, PROBABLY OLD ST DEPRESSION, CONSIDER SUBENDOCARDIAL INJURY Similar to tracing done 10-27-2014 Electronically Signed On 05-26-2018 9:23:00 EST by Bill Matthews
[2018-05-26] MEDS: ADVAIR HFA 230/21MCG INHALER INH SCH ×2 (09:25→21:50)
[2018-05-26] MEDS: predniSONE 20 MG TAB PO SCH (09:37)
[2018-05-26] MEDS: SUCRALFATE SUSP 1GM/10ML UD PO SCH ×3 (09:37→17:26)
[2018-05-26] MEDS: APIXABAN 5 MG TAB (ELIQUIS) PO SCH ×2 (09:37→20:14)
[2018-05-26] MEDS: AMIODARONE 200 MG TAB (PACERONE) PO SCH (09:37)
[2018-05-26] MEDS: LORATADINE 10 MG TAB PO SCH (09:37)
[2018-05-26 09:48] LABS: ALBUMIN 2.5 GM/DL (3.2-5.2); BILIRUBIN,DIRECT 1.1 MG/DL (0.0-0.2); BILIRUBIN,TOTAL 1.8 MG/DL (0.2-1.0); TOTAL PROTEIN 6.5 GM/DL (6.4-8.2)
[2018-05-26 12:00] VITALS: BP 119/64
[2018-05-26] MEDS: DOXYCYCLINE HYCLATE 100 MG TAB PO SCH ×2 (12:22→20:14)
[2018-05-26 12:43] LABS: CALCIUM LEVEL 8.2 MG/DL (8.8-10.2); CREATININE FOR GFR 1.37 MG/DL (0.55-1.30); GLOMERULAR FILTRATION RATE 40.5 (>39); POTASSIUM SERUM 4.7 MEQ/L (3.5-5.1)
--- NOTE | 2018-05-26 13:07 | REP ---
Ventilation-perfusion lung scan: History: Hypoxia. Rule out pulmonary embolus. Comparison is made with the previous day's chest CT. Technique: 1.0 mCi of technetium-99m DTPA aerosol is utilized for the ventilation study and is followed by a 5.5 mCi intravenous dose of technetium-99m MAA for the perfusion exam. A sequence of eight planar images are acquired for each portion of the examination. Scintigraphic findings: There is fairly extensive central bronchial deposition of inspired tracer on the ventilation study bilaterally. This is consistent with some degree of COPD. Fairly homogeneous ventilatory pulmonary parenchymal uptake is seen however. Perfusion exam shows improved and homogeneous uptake in the lung parenchyma. No definite perfusion defect is seen. Impression: Low probability scan for pulmonary embolus. Electronically Signed by Jay Carr MD 05/26/2018 05:03 P
[2018-05-26 16:00] VITALS: BP 133/76
[2018-05-26 16:49] LABS: CALCIUM LEVEL 7.9 MG/DL (8.8-10.2); CREATININE FOR GFR 1.22 MG/DL (0.55-1.30); GLOMERULAR FILTRATION RATE 46.3 (>39); POTASSIUM SERUM 4.2 MEQ/L (3.5-5.1)
--- NOTE | 2018-05-26 16:52 | IPNPDOC ---
Text Note Date of Service The patient was seen on 05/26/18. NOTE Subjective: Patient is a 72-year-old female who presents to the hospital on with a chief complaint of increased difficulty breathing and coughing. Patient states that this morning on on for a few days. In that time she is also experiencing nausea and vomiting. This is because her not to be a eat too much. Patient says she has sick contacts which include her daughter and granddaughter who both had viral upper respiratory infections. Patient says she has a history of COPD. Patient was also found to have a mass on her kidney on previous imaging that was also seen on imaging performed yesterday. Patient says she has an appointment coming up in [place] to evaluate this mass for possible biopsy. Today patient says she is still experiencing some shortness of breath however, it is improved since yesterday. She does notice some difficulty breathing when she gets up to go the bathroom. She is on supplemental oxygen which she does not have at home. Patient says the nausea, and vomiting have decreased. Patient said that she felt like she was constipated yesterday however, she does not bowel movement for, to the hospital. She does not have any difficulties with urination. Review of systems General: Patient denies fevers HEENT: Patient denies headaches Cardiovascular: Patient denies chest pain Respiratory: Increased shortness of breath as described above. GI: Patient denies abdominal pain, nausea, vomiting, diarrhea : Patient denies pain or difficulty with urination Neurological: Patient denies numbness or tingling in extremities Extremities: Patient denies swelling or pain in extremities Objective: Vitals: (see below) General: No acute distress, laying comfortably in bed. HEENT: Normocephalic, atraumatic, moist mucous membranes. Neck: No JVD or lymphadenopathy Cardiac: Regular rate and rhythm, grade 1/6 systolic murmur heard loudest over the fourth intercostal space on the left sternal border. Pulm: Clear to auscultation b/l. No wheezing, rhonchi Abd: NT/ND + BS Ext: No edema or cyanosis. Radial, posterior tibial, and dorsalis pedis pulses equal bilaterally. Labs (see below) Images: A lung VQ scan performed on May showed a low probability scan for a pulmonary embolism. Assessment/Plan 1. Shortness of breath secondary to COPD exacerbation. Patient is currently on DuoNeb's and by mouth prednisone. Patient has been using her incentive spirometer. Patient is feeling better however, she still requires supplemental oxygen. We'll continue to monitor for improvement. 2. Lactic acidosis. Her repeat lactic acid was 2.2. Her initial was 2.1. She had not received IV fluids at the time of the follow-up. Lactic acid may be incre ased due to the patient's increased work of breathing. Patient does not appear septic on physical exam. Patient also did not have a white count. 3. Hyperkalemia. Patient's initial potassium was 5.2. After hydration this did decrease. Patient was also on spironolactone at home which is been discontinued. 4. Transaminitis/elevated LFTs. Patient does have chronic cholecystitis. Patient not complaining of abdominal pain. 5. Chronic atrial fibrillation. We will continue the patient's home medications patient is chronically Anticoagulated with eliquis. 6. Hypertension. We will continue the patient's home medications. DVT prophy: Eliquis Dispo: Pending clinical improvement VS,Leo, I+O VS, Leo, I+O Laboratory Tests 05/25/18 20:01 Red Blood Count 3.89 L, Mean Corpuscular Volume 94.3, Mean Corpuscular Hemoglobin 30.3, Mean Corpuscular Hemoglobin Concent 32.2, Red Cell Distribution Width 16.1 H, Neutrophils (%) (Auto) 87.8 H, Lymphocytes (%) (Auto) 6.0 L, Monocytes (%) (Auto) 4.0, Eosinophils (%) (Auto) 0.3, Basophils (%) (Auto) 0.4, Neutrophils # (Auto) 11.1 H, Lymphocytes # (Auto) 0.8 L, Monocytes # (Auto) 0.5, Eosinophils # (Auto) 0.0, Basophils # (Auto) 0.1 05/26/18 07:30 Red Blood Count 3.55 L, Mean Corpuscular Volume 90.4, Mean Corpuscular Hemoglobin 30.1, Mean Corpuscular Hemoglobin Concent 33.3, Red Cell Distribution Width 15.8 H 05/26/18 12:01 Calcium Level 8.2 L Vital Signs Date Time Temp Pulse Resp B/P (MAP) Pulse Ox O2 Delivery O2 Flow Rate FiO2 05/26/18 16:06 2.0 05/26/18 16:00 97.2 93 18 133/76 (95) 93 05/26/18 02:14 Nasal Cannula I&O- Last 24 Hours up to 6 AM 05/26/18 06:00 Intake Total 120 ml Balance 120 ml GME ATTESTATION GME ATTESTATION My faculty preceptor for this patient encounter was physically present during the encounter and was fully available. All aspects of the patient interview, examination, medical decision making process, and medical care plan development were reviewed and approved by the faculty preceptor. The faculty preceptor is aware and concurs with the plan as stated in the body of this note and will attest to such by his/her cosignature. JHON LO DO May 26, 2018 16:52
[2018-05-26] MEDS: DIGOXIN 0.0625MG PER 1/2TABLET PO SCH (17:27)
[2018-05-26] MEDS ORDERED: metFORMIN (GLUCOPHAGE) 500 MG TAB PO SCH (18:00)
[2018-05-26] MEDS: DOCUSATE SODIUM 100 MG CAP PO PRN (18:52)
[2018-05-26 20:00] VITALS: BP 146/58
[2018-05-26] MEDS: FERROUS SULFATE 325MG TAB PO SCH (20:14)
[2018-05-26 20:56] LABS: CALCIUM LEVEL 7.6 MG/DL (8.8-10.2); CREATININE FOR GFR 1.24 MG/DL (0.55-1.30); GLOMERULAR FILTRATION RATE 45.4 (>39); POTASSIUM SERUM 4.4 MEQ/L (3.5-5.1)
[2018-05-27] VITALS: BP 147/64
[2018-05-27] MEDS: IPRATROPIUM 0.5MG/ALBUTEROL 2.5MG INH SOL UD 3ML (DUONEB)(J7620) NEB SCH ×4 (01:12→20:15)
[2018-05-27 04:00] VITALS: BP 154/68
[2018-05-27 05:20] LABS: HEMATOCRIT 34.8 % (36.0-47.0); HEMOGLOBIN 11.2 g/dl (12.0-15.5); MEAN CORPUSCULAR HEMOGLOBIN 30.4 pg (27.0-33.0); MEAN CORPUSCULAR HGB CONC 32.2 g/dl (32.0-36.5); MEAN CORPUSCULAR VOLUME 94.6 fl (80.0-96.0); PLATELET COUNT, AUTOMATED 214 10^3/uL (150-450); RED BLOOD COUNT 3.68 10^6/uL (4.00-5.40); WHITE BLOOD COUNT 11.4 10^3/uL (4.0-10.0)
[2018-05-27] MEDS: oxyCODONE 5MG TAB PO PRN (05:33)
[2018-05-27] MEDS: LEVOTHYROXINE 25MCG TABLET (0.025MG) PO SCH (05:33)
[2018-05-27] MEDS: NS 1,000 ML IV SCH (05:34)
[2018-05-27 05:37] LABS: CALCIUM LEVEL 7.7 MG/DL (8.8-10.2); CREATININE FOR GFR 1.07 MG/DL (0.55-1.30); GLOMERULAR FILTRATION RATE 53.8 (>39); POTASSIUM SERUM 4.3 MEQ/L (3.5-5.1)
[2018-05-27 08:00] VITALS: BP 117/60
[2018-05-27] MEDS ORDERED: GLUCOSE 4 GM CHEW TABLET PO PRN (08:15)
[2018-05-27] MEDS ORDERED: GLUCAGON FOR INJ 1 MG VIAL (J1610) SC PRN (08:15)
[2018-05-27] MEDS ORDERED: DEXTROSE 50% 50 ML SYRINGE IV PRN (08:15)
[2018-05-27] MEDS ORDERED: SLF 3 ML SYR IV PRN (08:45)
[2018-05-27] MEDS: SUCRALFATE SUSP 1GM/10ML UD PO SCH ×3 (08:54→17:44)
[2018-05-27] MEDS: HumaLOG INSULIN (NovoLOG) PER UNIT SC SCH ×4 (08:57→21:00)
[2018-05-27] MEDS: predniSONE 20 MG TAB PO SCH (09:01)
[2018-05-27] MEDS: AMIODARONE 200 MG TAB (PACERONE) PO SCH (09:01)
[2018-05-27] MEDS: APIXABAN 5 MG TAB (ELIQUIS) PO SCH ×2 (09:01→21:06)
[2018-05-27] MEDS: DOCUSATE SODIUM 100 MG CAP PO PRN (09:01)
[2018-05-27] MEDS: DOXYCYCLINE HYCLATE 100 MG TAB PO SCH ×2 (09:02→21:06)
[2018-05-27] MEDS: LORATADINE 10 MG TAB PO SCH (09:02)
[2018-05-27] MEDS: LEVEMIR (INSULIN DETEMIR) 1 UNITS/0.01ML SC SCH (09:05)
[2018-05-27 09:46] LABS: ALBUMIN 2.5 GM/DL (3.2-5.2); BILIRUBIN,DIRECT 0.8 MG/DL (0.0-0.2); BILIRUBIN,TOTAL 1.2 MG/DL (0.2-1.0); TOTAL PROTEIN 6.6 GM/DL (6.4-8.2)
[2018-05-27] MEDS: ADVAIR HFA 230/21MCG INHALER INH SCH ×2 (10:03→21:36)
--- NOTE | 2018-05-27 10:58 | IPNPDOC ---
Text Note Date of Service The patient was seen on 05/27/18. NOTE Subjective: Patient is a 72-year-old female who presented to the hospital 2 days ago with a chief complaint of increasing difficulty breathing. Patient says her breathing is better today. Patient did state that she was having difficulty with having bowel movements. She did have a bowel movement prior to coming into the hospital however, she is not having bowel movements as being in the hospital. Patient says her stools have been hard and difficult to pass. She says that she had tried to get cold days [id number] as an outpatient however, it was too expensive and she is unable to afford it. She does have as needed bowel care ordered for her but she has not asked for it. She says she will be asking for today. Patient says she does have opiate pain medication which she tries to take sparingly because she knows it makes it hard for her to the bathroom. Patient says she is feeling better with her breathing and would like to see if she can tolerate being off the oxygen. Review of systems General: Patient denies fevers HEENT: Patient denies headaches Cardiovascular: Patient denies chest pain Respiratory: Shortness of breath and cough are improving however, still present GI: Patient is complaining of difficulty with defecation. Patient denies abdominal pain, nausea, vomiting, diarrhea : Patient denies pain or difficulty with urination Neurological: Patient denies numbness or tingling in extremities Extremities: Patient denies swelling or pain in extremities Objective: Vitals: (see below) General: No acute distress, laying comfortably in bed. HEENT: Normocephalic, atraumatic, moist mucous membranes. Neck: No JVD or lymphadenopathy Cardiac: RRR, No murmurs Pulm: Clear to auscultation b/l. No wheezing, rhonchi Abd: NT/ND + BS Ext: No edema or cyanosis. Radial, posterior tibial, and dorsalis pedis pulses equal bilaterally. Labs (see below) Images: No new imaging studies have been performed today. Assessment/Plan 1. Shortness of breath secondary to COPD exacerbation. Patient was found to have coronavirus on respiratory panel. Patient is currently on DuoNeb's and by mouth prednisone. Patient is improving and she is down to 1 L of supplemental oxygen therapy. Plan is to wean the patient off and see if she is able to ambulate without oxygen. 2. Lactic acidosis. Patient has received her liter of IV fluids. Patient does not appear to be septic. Patient does have a leukocytosis however, this is most likely secondary to prednisone. 3. Hyperkalemia. Patient's initial potassium was 5.2. This is since resolved. 4. Transaminitis/elevated LFTs. Patient does have chronic cholecystitis. Patient does not complain of any abdominal pain at this time. These are improving. 5. Chronic atrial fibrillation. We'll continue the patient's home medication. Patient is chronically anticoagulated with eliquis. 6. Hypertension. We are continuing patient's home medications DVT prophy: Eliquis Dispo: Pending clinical improvement VS,Fishbone, I+O VS, Fishbone, I+O Laboratory Tests 05/26/18 12:01 Calcium Level 8.2 L 05/26/18 16:04 Calcium Level 7.9 L 05/26/18 19:53 Calcium Level 7.6 L 05/27/18 04:55 Red Blood Count 3.68 L, Mean Corpuscular Volume 94.6, Mean Corpuscular Hemoglobin 30.4, Mean Corpuscular Hemoglobin Concent 32.2, Red Cell Distribution Width 15.9 H Vital Signs Date Time Temp Pulse Resp B/P (MAP) Pulse Ox O2 Delivery O2 Flow Rate FiO2 05/27/18 10:04 16 05/27/18 09:01 60 117/60 05/27/18 08:50 94 1.0 05/27/18 08:00 97.7 05/26/18 02:14 Nasal Cannula I&O- Last 24 Hours up to 6 AM 05/27/18 06:00 Intake Total 4390 ml Output Total 400 ml Balance 3990 ml GME ATTESTATION GME ATTESTATION My faculty preceptor for this patient encounter was physically present during the encounter and was fully available. All aspects of the patient interview, examination, medical decision making process, and medical care plan development were reviewed and approved by the faculty preceptor. The faculty preceptor is aware and concurs with the plan as stated in the body of this note and will attest to such by his/her cosignature. JHON LO DO May 27, 2018 10:58
[2018-05-27 12:00] VITALS: BP 120/55
[2018-05-27] MEDS: guaiFENesin ER 600 MG TAB PO PRN (12:24)
[2018-05-27 14:00] VITALS: BP 138/67
[2018-05-27 14:41] LABS: HEMOGLOBIN A1c 7.1 %
[2018-05-27] MEDS: SLF 3 ML SYR IV SCH ×2 (17:45→21:48)
[2018-05-27] MEDS: DIGOXIN 0.0625MG PER 1/2TABLET PO SCH (17:47)
[2018-05-27] MEDS: FERROUS SULFATE 325MG TAB PO SCH (21:06)
[2018-05-27 22:00] VITALS: BP 135/61
[2018-05-28] MEDS: IPRATROPIUM 0.5MG/ALBUTEROL 2.5MG INH SOL UD 3ML (DUONEB)(J7620) NEB SCH ×4 (01:02→20:00)
[2018-05-28] MEDS: LEVOTHYROXINE 25MCG TABLET (0.025MG) PO SCH (05:34)
[2018-05-28] MEDS: SLF 3 ML SYR IV SCH ×3 (05:34→20:34)
[2018-05-28 06:00] VITALS: BP 129/67
[2018-05-28 06:38] LABS: HEMATOCRIT 42.3 % (36.0-47.0); MEAN CORPUSCULAR HEMOGLOBIN 30.3 pg (27.0-33.0); MEAN CORPUSCULAR HGB CONC 31.2 g/dl (32.0-36.5); PLATELET COUNT, AUTOMATED 241 10^3/uL (150-450); RED BLOOD COUNT 4.36 10^6/uL (4.00-5.40); WHITE BLOOD COUNT 16.1 10^3/uL (4.0-10.0)
[2018-05-28 06:42] LABS: HEMOGLOBIN 13.2 g/dl (12.0-15.5)
[2018-05-28 06:53] LABS: ALBUMIN 2.8 GM/DL (3.2-5.2); ALT/SGPT 311 U/L (12-78); BILIRUBIN,TOTAL 1.2 MG/DL (0.2-1.0); BLOOD UREA NITROGEN 18 MG/DL (7-18); CALCIUM LEVEL 8.7 MG/DL (8.8-10.2); CARBON DIOXIDE LEVEL 24 MEQ/L (21-32); CHLORIDE LEVEL 101 MEQ/L (98-107); CREATININE FOR GFR 0.88 MG/DL (0.55-1.30); GLOMERULAR FILTRATION RATE > 60.0 (>39); GLUCOSE, FASTING 62 MG/DL (70-100); SODIUM LEVEL 134 MEQ/L (136-145); TOTAL PROTEIN 7.2 GM/DL (6.4-8.2)
[2018-05-28] MEDS: HumaLOG INSULIN (NovoLOG) PER UNIT SC SCH ×4 (07:30→20:35)
[2018-05-28] MEDS: ADVAIR HFA 230/21MCG INHALER INH SCH ×2 (08:07→20:12)
[2018-05-28] MEDS: LORATADINE 10 MG TAB PO SCH (08:53)
[2018-05-28] MEDS: SUCRALFATE SUSP 1GM/10ML UD PO SCH ×3 (08:53→18:35)
[2018-05-28] MEDS: APIXABAN 5 MG TAB (ELIQUIS) PO SCH ×2 (08:54→20:34)
[2018-05-28] MEDS: DOXYCYCLINE HYCLATE 100 MG TAB PO SCH ×2 (08:54→20:34)
[2018-05-28] MEDS: AMIODARONE 200 MG TAB (PACERONE) PO SCH (08:54)
[2018-05-28] MEDS: LEVEMIR (INSULIN DETEMIR) 1 UNITS/0.01ML SC SCH (08:54)
[2018-05-28] MEDS: predniSONE 20 MG TAB PO SCH (08:54)
[2018-05-28] MEDS: DOCUSATE SODIUM 100 MG CAP PO PRN ×2 (08:54→18:36)
--- NOTE | 2018-05-28 12:57 | IPNPDOC ---
Text Note Date of Service The patient was seen on 05/28/18. NOTE Subjective: Patient is a 72-year-old female who presented to the hospital 3 days ago with a chief complaint of increasing difficulty breathing. Patient is continuing to improve. Patient's diuretics were being held in the hospital due to the patient's dehydration and abnormal labs. Today patient is complaining that she feels her legs are more swollen. Patient is also complaining of difficulty with having bowel movements. Patient has been taking her as needed bowel care and has been in the past some stool however, she still feels that she is constipated. Patient is otherwise doing well and is able to get up and walk around. Patient has no other complaints Review of systems General: Patient denies fevers HEENT: Patient denies headaches Cardiovascular: Patient denies chest pain Respiratory: Patient denies shortness of breath, cough GI: Patient endorses constipation. Patient denies abdominal pain, nausea, vomiting, diarrhea : Patient denies pain or difficulty with urination Neurological: Patient denies numbness or tingling in extremities Extremities: Patient believes her legs are swelling. Objective: Vitals: (see below) General: No acute distress, laying comfortably in bed. HEENT: Normocephalic, atraumatic, moist mucous membranes. Neck: No JVD or lymphadenopathy Cardiac: RRR, 1/6 systolic murmur heard loudest in the fourth intercostal space on the left sternal border. Pulm: Clear to auscultation b/l. No wheezing, rhonchi Abd: NT/ND + BS Ext: Trace pitting edema along the banda of the right leg. There is also pitting edema above the thromboembolic deterrent stockings on the left leg. Radial, posterior tibial, and dorsalis pedis pulses equal bilaterally. Labs (see below) Images: No new imaging has been performed Assessment/Plan 1. Shortness of breath secondary to COPD exacerbation. Patient was found have coronavirus on respiratory panel. Patient is currently on DuoNeb's and prednisone. Patient is doing well. Patient had a bump to 2 L of supplemental oxygen therapy overnight, however she is continuing to wean down and improve. 2. Lactic acidosis. Patient received a liter of IV fluids. She does not appear to be septic. 3. Peripheral edema. We will restart the patient's diuretics with 20 mg of oral Lasix today. 4. Transaminitis/elevated LFTs. Patient does have chronic cholecystitis. There was a slight elevation of the patient's ALTs today. We are doing an abdominal ultrasound. 5. Chronic atrial fibrillation. We will continue patient's home medication. Patient is chronically anticoagulated with eliquis. 6. Hypertension. We will continue patient's home medications. 7. Hyperkalemia. This is resolved at this time. We will continue to monitor. DVT prophy: Eliquis Dispo: Pending clinical improvement VS,Fishbone, I+O VS, Fishbone, I+O Laboratory Tests 05/28/18 06:11 Red Blood Count 4.36, Mean Corpuscular Volume 97.0 H, Mean Corpuscular Hemoglobin 30.3, Mean Corpuscular Hemoglobin Concent 31.2 L, Red Cell Distribution Width 17.2 H, Calcium Level 8.7 L, Aspartate Amino Transf (AST/SGOT) 136 H, Alanine Aminotransferase (ALT/SGPT) 311 H, Alkaline Phosphatase 138 H, Total Bilirubin 1.2 H, Total Protein 7.2, Albumin 2.8 L Vital Signs Date Time Temp Pulse Resp B/P (MAP) Pulse Ox O2 Delivery O2 Flow Rate FiO2 05/28/18 12:00 90 92 1.0 05/28/18 08:54 69 129/67 05/28/18 06:00 97.9 05/26/18 02:14 Nasal Cannula I&O- Last 24 Hours up to 6 AM 05/28/18 06:00 Intake Total 1895 ml Output Total 850 ml Balance 1045 ml GME ATTESTATION GME ATTESTATION My faculty preceptor for this patient encounter was physically present during the encounter and was fully available. All aspects of the patient interview, examination, medical decision making process, and medical care plan development were reviewed and approved by the faculty preceptor. The faculty preceptor is aware and concurs with the plan as stated in the body of this note and will attest to such by his/her cosignature. JHON LO DO May 28, 2018 12:57
[2018-05-28] MEDS: FUROSEMIDE 20 MG TAB PO SCH ×2 (13:21→18:36)
[2018-05-28 14:00] VITALS: BP 140/59
--- NOTE | 2018-05-28 17:44 | REP ---
Right upper quadrant sonography: History: Abnormal liver function studies. Comparison CT study May 25, 2018. Sonographic findings: Scanning through the right upper quadrant of the abdomen demonstrates a contracted appearing gallbladder with some sludge, but no obvious stone. There is some pericholecystic fluid and the gallbladder wall appears somewhat thickened. No tenderness to scanning. Common bile duct is at the upper range of normal measuring 0.7 cm. There is evidence of mild fatty infiltration of the liver. Borderline hepatomegaly. Craniocaudal dimension of the liver in the midclavicular line on the right is 17.2 cm. No focal liver lesion is seen. Limited views of the pancreas show no abnormality. There is a moderate right pleural effusion and a trace of right upper quadrant ascites. The right kidney measures 11.5 x 4.9 x 3.8 cm. There is a complex lesion projecting at the lower pole of the right kidney 3.1 x 2.6 x 3.0 cm. A small cystic component is seen within this. Otherwise, it appears to be solid. A renal cell carcinoma cannot be excluded. This is noted previously on March 03, [address] study. Impression: Contracted appearing thick-walled gallbladder with pericholecystic fluid. Fatty infiltration of the liver and mild hepatomegaly. 3 cm mass lower pole right kidney, rule out renal cell carcinoma. Trace of ascites. Moderate right pleural effusion. Electronically Signed by Jay Carr MD 05/28/2018 07:02 P
[2018-05-28] MEDS ORDERED: hydrOXYzine 25 MG TAB PO ONE (18:15)
[2018-05-28] MEDS ORDERED: BISACODYL 10 MG SUPP PR PRN (18:15)
[2018-05-28] MEDS ORDERED: MIRALAX *UNIT DOSE* 17GM PACKET PO PRN (18:15)
[2018-05-28] MEDS: DIGOXIN 0.0625MG PER 1/2TABLET PO SCH (18:36)
[2018-05-28] MEDS: FERROUS SULFATE 325MG TAB PO SCH (20:34)
[2018-05-28 22:00] VITALS: BP 136/63
[2018-05-28] MEDS: oxyCODONE 5MG TAB PO PRN (22:27)
[2018-05-29] MEDS: IPRATROPIUM 0.5MG/ALBUTEROL 2.5MG INH SOL UD 3ML (DUONEB)(J7620) NEB SCH ×4 (02:00→19:55)
[2018-05-29] MEDS: LEVOTHYROXINE 25MCG TABLET (0.025MG) PO SCH (05:40)
[2018-05-29] MEDS: SLF 3 ML SYR IV SCH ×3 (05:41→22:06)
[2018-05-29 06:00] VITALS: BP 137/75
[2018-05-29 07:03] LABS: HEMATOCRIT 38.5 % (36.0-47.0); HEMOGLOBIN 12.2 g/dl (12.0-15.5); MEAN CORPUSCULAR HEMOGLOBIN 30.2 pg (27.0-33.0); MEAN CORPUSCULAR HGB CONC 31.7 g/dl (32.0-36.5); MEAN CORPUSCULAR VOLUME 95.3 fl (80.0-96.0); PLATELET COUNT, AUTOMATED 193 10^3/uL (150-450); RED BLOOD COUNT 4.04 10^6/uL (4.00-5.40); WHITE BLOOD COUNT 9.1 10^3/uL (4.0-10.0)
[2018-05-29 07:33] LABS: ALBUMIN 2.5 GM/DL (3.2-5.2); ALT/SGPT 237 U/L (12-78); BILIRUBIN,TOTAL 1.5 MG/DL (0.2-1.0); BLOOD UREA NITROGEN 17 MG/DL (7-18); CALCIUM LEVEL 7.7 MG/DL (8.8-10.2); CARBON DIOXIDE LEVEL 24 MEQ/L (21-32); CHLORIDE LEVEL 103 MEQ/L (98-107); CREATININE FOR GFR 0.86 MG/DL (0.55-1.30); GLOMERULAR FILTRATION RATE > 60.0 (>39); GLUCOSE, FASTING 154 MG/DL (70-100); POTASSIUM SERUM 4.2 MEQ/L (3.5-5.1); SODIUM LEVEL 135 MEQ/L (136-145)
[2018-05-29] MEDS: ADVAIR HFA 230/21MCG INHALER INH SCH ×2 (08:00→19:57)
[2018-05-29] MEDS: predniSONE 20 MG TAB PO SCH (08:50)
[2018-05-29] MEDS: FUROSEMIDE 20 MG TAB PO SCH (08:50)
[2018-05-29] MEDS: LORATADINE 10 MG TAB PO SCH (08:50)
[2018-05-29] MEDS: APIXABAN 5 MG TAB (ELIQUIS) PO SCH ×2 (08:50→22:06)
[2018-05-29] MEDS: AMIODARONE 200 MG TAB (PACERONE) PO SCH (08:50)
[2018-05-29] MEDS: HumaLOG INSULIN (NovoLOG) PER UNIT SC SCH ×4 (08:51→22:05)
[2018-05-29] MEDS: LEVEMIR (INSULIN DETEMIR) 1 UNITS/0.01ML SC SCH (08:52)
[2018-05-29] MEDS: SUCRALFATE SUSP 1GM/10ML UD PO SCH ×3 (08:52→17:52)
[2018-05-29] MEDS: DOXYCYCLINE HYCLATE 100 MG TAB PO SCH ×2 (08:52→22:06)
[2018-05-29 14:00] VITALS: BP 123/60
--- NOTE | 2018-05-29 15:29 | IPNPDOC ---
Text Note Date of Service The patient was seen on 05/29/18. NOTE Subjective: Patient is a 72-year-old female who presented to the emergency room with increased shortness of breath. Patient states that today she is doing much better. She is off oxygen. She says that she still feels a little bit short of breath when she is walking around however this is much improved from when she was initially in the hospital she is still complaining that she has a little bit of extra swelling in her lower extremities. Patient was complaining of some constipation yesterday which she says she has some small bowel movements however, she does feel like she still is constipated. She's been eating and drinking without difficulty. Review of systems General: Patient denies fevers HEENT: Patient denies headaches Cardiovascular: Patient denies chest pain Respiratory: Patient denies shortness of breath, cough GI: Patient still says she feels constipated. Patient denies abdominal pain, nausea, vomiting, diarrhea : Patient denies pain or difficulty with urination Neurological: Patient denies numbness or tingling in extremities Extremities: Increased swelling in the bilateral lower extremities Objective: Vitals: (see below) General: No acute distress, laying comfortably in bed. HEENT: Normocephalic, atraumatic, moist mucous membranes. Neck: No JVD or lymphadenopathy Cardiac: RRR, No murmurs Pulm: Clear to auscultation b/l. No wheezing, rhonchi Abd: NT/ND + BS Ext: 1+ pitting edema bilaterally. Radial, posterior tibial, and dorsalis pedis pulses equal bilaterally. Labs (see below) Images: Abdominal ultrasound performed on 05/28/2018 showed contracted appearing thick walled gallbladder with pericholecystic fluid. Fatty infiltration of the liver and mild hepatomegaly. A 3 cm mass in the lower pole of the right kidney rule out renal cell carcinoma. Trace ascites. Moderate right pleural effusion Assessment/Plan 1. Shortness of breath secondary to COPD exacerbation. Patient was found have coronavirus respiratory panel. Patient is currently doing well. Patient is currently off oxygen. We will continue with patient's current treatment and hop efully be able to discharge patient tomorrow. 2. Lactic acidosis. This is since resolved. She does not appear to be septic. 3. Peripheral edema. We have started the patient's home dose of diuretics. We have also started the patient back on her spironolactone. 4. Transaminitis/elevated LFTs. Patient does have chronic cholecystitis. This is apparent on yesterday's ultrasound. We will continue to monitor. 5. Chronic atrial fibrillation. We're continuing the patient's home medications. Patient is chronically anticoagulated with eliquis. 6. Hypertension. We will continue patient's home medications. 7. Hyperkalemia. This is resolved at this time. We will continue to monitor. DVT prophylaxis: Eliquis Dispo: Pending clinical improvement. Patient has past home safety evaluation by PT VS,Leo, I+O VS, Leo, I+O Laboratory Tests 05/29/18 06:45 Red Blood Count 4.04, Mean Corpuscular Volume 95.3, Mean Corpuscular Hemoglobin 30.2, Mean Corpuscular Hemoglobin Concent 31.7 L, Red Cell Distribution Width 17.2 H, Calcium Level 7.7 L, Aspartate Amino Transf (AST/SGOT) 82 H, Alanine Aminotransferase (ALT/SGPT) 237 H, Alkaline Phosphatase 120 H, Total Bilirubin 1.5 H, Total Protein 6.0 L, Albumin 2.5 L Vital Signs Date Time Temp Pulse Resp B/P (MAP) Pulse Ox O2 Delivery O2 Flow Rate FiO2 05/29/18 08:51 68 137/75 05/29/18 08:50 1.0 05/29/18 06:00 99.5 18 90 05/26/18 02:14 Nasal Cannula I&O- Last 24 Hours up to 6 AM 05/29/18 06:00 Intake Total 840 ml Output Total 0 ml Balance 840 ml GME ATTESTATION GME ATTESTATION My faculty preceptor for this patient encounter was physically present during the encounter and was fully available. All aspects of the patient interview, examination, medical decision making process, and medical care plan development were reviewed and approved by the faculty preceptor. The faculty preceptor is aware and concurs with the plan as stated in the body of this note and will attest to such by his/her cosignature. ATTENDING NOTE I have both independently examined this patient as well as reviewed the note I have discussed in detail the findings and plan of treatment as documented in the note. I will continue to follow the patient and offer further guidance to the patients care as necessary during this hospital stay. JHON Lin MD, DO May 29, 2018 15:29 NELLA SHAH MD May 30, 2018 07:07
[2018-05-29] MEDS: SPIRONOLACTONE 25 MG TAB PO SCH (16:36)
[2018-05-29] MEDS: SENOKOT S TAB PO SCH ×2 (16:36→22:06)
[2018-05-29] MEDS: DIGOXIN 0.0625MG PER 1/2TABLET PO SCH (16:37)
[2018-05-29] MEDS ORDERED: FUROSEMIDE 20 MG TAB PO SCH (17:00)
[2018-05-29 22:00] VITALS: BP 133/79
[2018-05-29] MEDS: FERROUS SULFATE 325MG TAB PO SCH (22:06)
[2018-05-30] MEDS: IPRATROPIUM 0.5MG/ALBUTEROL 2.5MG INH SOL UD 3ML (DUONEB)(J7620) NEB SCH ×4 (02:00→20:00)
[2018-05-30] MEDS: SLF 3 ML SYR IV SCH ×3 (05:32→21:37)
[2018-05-30] MEDS: LEVOTHYROXINE 25MCG TABLET (0.025MG) PO SCH (05:32)
[2018-05-30 06:48] LABS: HEMATOCRIT 39.7 % (36.0-47.0); HEMOGLOBIN 12.6 g/dl (12.0-15.5); MEAN CORPUSCULAR HEMOGLOBIN 30.4 pg (27.0-33.0); MEAN CORPUSCULAR HGB CONC 31.7 g/dl (32.0-36.5); MEAN CORPUSCULAR VOLUME 95.7 fl (80.0-96.0); PLATELET COUNT, AUTOMATED 194 10^3/uL (150-450); RED BLOOD COUNT 4.15 10^6/uL (4.00-5.40); WHITE BLOOD COUNT 10.1 10^3/uL (4.0-10.0)
[2018-05-30 07:00] LABS: ALBUMIN 2.6 GM/DL (3.2-5.2); ALT/SGPT 204 U/L (12-78); BILIRUBIN,TOTAL 1.6 MG/DL (0.2-1.0); BLOOD UREA NITROGEN 17 MG/DL (7-18); CALCIUM LEVEL 7.9 MG/DL (8.8-10.2); CARBON DIOXIDE LEVEL 25 MEQ/L (21-32); CHLORIDE LEVEL 100 MEQ/L (98-107); CREATININE FOR GFR 0.79 MG/DL (0.55-1.30); GLOMERULAR FILTRATION RATE > 60.0 (>39); GLUCOSE, FASTING 146 MG/DL (70-100); POTASSIUM SERUM 4.1 MEQ/L (3.5-5.1); SODIUM LEVEL 133 MEQ/L (136-145); TOTAL PROTEIN 6.3 GM/DL (6.4-8.2)
[2018-05-30] MEDS: ADVAIR HFA 230/21MCG INHALER INH SCH ×2 (08:00→20:11)
[2018-05-30] MEDS: SUCRALFATE SUSP 1GM/10ML UD PO SCH ×3 (09:00→17:52)
[2018-05-30] MEDS ORDERED: FUROSEMIDE 40 MG TAB PO SCH (09:00)
[2018-05-30] MEDS ORDERED: MAG SULF 1GM/100ML (MAG RUN) 1 GM in APPROPRIATE DILUENT 1 EA IV ONE (09:00)
[2018-05-30] MEDS: HumaLOG INSULIN (NovoLOG) PER UNIT SC SCH ×4 (09:01→21:00)
[2018-05-30] MEDS: oxyCODONE 5MG TAB PO PRN (09:02)
[2018-05-30] MEDS: DOXYCYCLINE HYCLATE 100 MG TAB PO SCH ×2 (09:02→21:36)
[2018-05-30] MEDS: LORATADINE 10 MG TAB PO SCH (09:02)
[2018-05-30] MEDS: APIXABAN 5 MG TAB (ELIQUIS) PO SCH ×2 (09:02→21:37)
[2018-05-30] MEDS: SENOKOT S TAB PO SCH ×2 (09:03→21:36)
[2018-05-30] MEDS: predniSONE 10 MG TAB PO SCH (09:03)
[2018-05-30] MEDS: AMIODARONE 200 MG TAB (PACERONE) PO SCH (09:03)
[2018-05-30] MEDS: SPIRONOLACTONE 25 MG TAB PO SCH (09:03)
[2018-05-30] MEDS: LEVEMIR (INSULIN DETEMIR) 1 UNITS/0.01ML SC SCH (09:04)
[2018-05-30] MEDS ORDERED: FUROSEMIDE 40 MG/4 ML VIAL (J1940) IV ONE (10:00)
--- NOTE | 2018-05-30 10:13 | REP ---
PA and lateral chest: Comparison is 05/25/2018. There are bilateral pleural effusions that have increased in size. The lung victoria otherwise clear. There is cardiomegaly. There is a dual-chamber pacemaker and cardiac valve replacement. These are unchanged. Impression: Bilateral pleural effusions that have increased in size. Cardiomegaly, pacemaker and cardiac valve replacement, unchanged. Electronically Signed by Manoj Sheikh MD 05/30/2018 10:05 A
[2018-05-30 14:00] VITALS: BP_SYST 132; BP_SYST 151; BP_DIAS 66; BP_DIAS 94
[2018-05-30] MEDS: FUROSEMIDE 40 MG/4 ML VIAL (J1940) IV SCH (17:51)
[2018-05-30] MEDS: DIGOXIN 0.0625MG PER 1/2TABLET PO SCH (17:53)
[2018-05-30] MEDS: FERROUS SULFATE 325MG TAB PO SCH (21:36)
[2018-05-30 22:00] VITALS: BP 156/70
--- NOTE | 2018-05-30 23:29 | IPN ---
DATE: 05/30/2018 The patient is seen and examined. Continued to require oxygen. Reported dyspnea. Still reported dyspnea. No significant wheeze. Denies any chest pain, pressure, discomfort. Denies any fevers or chills. VITAL SIGNS: Temperature 98.6, pulse 64, respirations 18, blood pressure 137/75, pulse oximetry 93% on 3 liters. LABORATORY: White blood count (WBC) 10, hemoglobin and hematocrit 12.6/39.7, platelets 194. Chemistry: Sodium 133, potassium 4.1, chloride 100, bicarbonate 25, BUN 17, creatinine is 0.79. PHYSICAL EXAMINATION: GENERAL: The patient alert in no acute distress. HEENT: Normocephalic, atraumatic. Positive for jugular venous distension (JVD). CARDIAC: Regular S1, S2. PULMONARY: Bilateral clear. EXTREMITIES: 1+ Bilateral lower extremity edema. 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 PROBLEMS: 1. Acute chronic obstructive pulmonary disease (COPD) exacerbation secondary to coronavirus. Respiratory panel appreciated. Oxygen supplementation. Wean FiO2. The patient currently not having any significant wheeze. Prednisone, Advair, doxycycline, nebulizer treatment. Steroid taper. 2. Acute congestive heart failure (CHF) exacerbation with bilateral pleural effusion. X-rays appreciated. Echocardiogram. Diuresis with Lasix. The patient is on Eliquis. Lasix dose increased. Continue spironolactone. 3. Lactic acidosis resolved. 4. Peripheral edema. Continue diuresis with Lasix and spironolactone. 5. Transaminitis and chronic cholecystitis. Ultrasound of the abdomen appreciated, need outpatient followup. 6. Chronic atrial fibrillation on Eliquis for anticoagulation. Continue amiodarone, digoxin, Cardizem. 7. Hypertension. Continue Cardizem, spironolactone, Lasix, monitor blood pressure. 8. Hyperkalemia, resolved. Will monitor clinically. 9. Hypothyroidism. Continue Synthroid. 10. Renal mass. Need outpatient followup. The patient scheduled to followup with nephrology in [place] for possible biopsy. 11. Deep vein thrombosis (DVT) prophylaxis. The patient is on Eliquis. DISPOSITION: Pending clinical improvement, wean off of oxygen. Continue diuresis. Echocardiogram.
[2018-05-31] MEDS: IPRATROPIUM 0.5MG/ALBUTEROL 2.5MG INH SOL UD 3ML (DUONEB)(J7620) NEB SCH ×4 (01:05→20:00)
[2018-05-31] MEDS: LEVOTHYROXINE 25MCG TABLET (0.025MG) PO SCH (05:31)
[2018-05-31] MEDS: SLF 3 ML SYR IV SCH ×3 (05:31→21:36)
[2018-05-31 06:00] VITALS: BP 152/65
[2018-05-31 07:08] LABS: HEMATOCRIT 41.9 % (36.0-47.0); HEMOGLOBIN 13.4 g/dl (12.0-15.5); MEAN CORPUSCULAR HEMOGLOBIN 30.5 pg (27.0-33.0); MEAN CORPUSCULAR VOLUME 95.2 fl (80.0-96.0); PLATELET COUNT, AUTOMATED 212 10^3/uL (150-450); WHITE BLOOD COUNT 14.5 10^3/uL (4.0-10.0)
[2018-05-31 07:37] LABS: ALBUMIN 2.6 GM/DL (3.2-5.2); ALT/SGPT 163 U/L (12-78); BILIRUBIN,TOTAL 1.3 MG/DL (0.2-1.0); BLOOD UREA NITROGEN 19 MG/DL (7-18); CALCIUM LEVEL 8.3 MG/DL (8.8-10.2); CARBON DIOXIDE LEVEL 29 MEQ/L (21-32); CHLORIDE LEVEL 95 MEQ/L (98-107); GLOMERULAR FILTRATION RATE > 60.0 (>39); GLUCOSE, FASTING 123 MG/DL (70-100); POTASSIUM SERUM 3.7 MEQ/L (3.5-5.1); SODIUM LEVEL 131 MEQ/L (136-145); TOTAL PROTEIN 6.3 GM/DL (6.4-8.2)
[2018-05-31 08:45] LABS: C REACTIVE PROTEIN QUANTITATIV 1.85 MG/DL (0.00-0.30)
[2018-05-31] MEDS: SUCRALFATE SUSP 1GM/10ML UD PO SCH ×3 (09:42→17:37)
[2018-05-31] MEDS: HumaLOG INSULIN (NovoLOG) PER UNIT SC SCH ×4 (09:42→21:00)
[2018-05-31] MEDS: FUROSEMIDE 40 MG/4 ML VIAL (J1940) IV SCH ×2 (09:43→17:37)
[2018-05-31] MEDS: predniSONE 10 MG TAB PO SCH (09:43)
[2018-05-31] MEDS: LEVEMIR (INSULIN DETEMIR) 1 UNITS/0.01ML SC SCH (09:43)
[2018-05-31] MEDS: oxyCODONE 5MG TAB PO PRN (09:44)
[2018-05-31] MEDS: LORATADINE 10 MG TAB PO SCH (09:46)
[2018-05-31] MEDS: SENOKOT S TAB PO SCH ×2 (09:46→21:35)
[2018-05-31] MEDS: SPIRONOLACTONE 25 MG TAB PO SCH (09:46)
[2018-05-31] MEDS: APIXABAN 5 MG TAB (ELIQUIS) PO SCH ×2 (09:46→21:35)
[2018-05-31] MEDS: AMIODARONE 200 MG TAB (PACERONE) PO SCH (09:46)
[2018-05-31] MEDS: ADVAIR HFA 230/21MCG INHALER INH SCH ×2 (10:37→20:52)
[2018-05-31] MEDS: guaiFENesin ER 600 MG TAB PO PRN (11:11)
--- NOTE | 2018-05-31 11:48 | IPNPDOC ---
Text Note Date of Service The patient was seen on 05/31/18. NOTE Subjective: Patient is a 72-year-old female who initially presented with dehydration, COPD exacerbation, and acute kidney injury. Patient's COPD exacerbation had been getting better and the patient was able to be completely weaned off oxygen. Over the weekend, patient had increased leg swelling and difficulty breathing. Patient does have a history of congestive heart failure. Patient's last echocardiogram was performed in 2008. 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 Patient does take loop diuretics at home. These had been restarte d in the hospital however, the patient appeared fluid overloaded on both physical exam and on chest x-ray. Patient says since receiving IV Lasix, she does feel better. Patient was still on 3 L of oxygen however, she says her breathing is better. She is having some issues with constipation which has become better since starting Senokot S. Review of systems General: Patient denies fevers HEENT: Patient denies headaches Cardiovascular: Patient denies chest pain Respiratory: Improving shortness of breath however, the patient is still short of breath. GI: Patient denies abdominal pain, nausea, vomiting, diarrhea : Patient denies pain or difficulty with urination Neurological: Patient denies numbness or tingling in extremities Extremities: Patient still endorses swelling in her legs however, she said this is improving. Objective: Vitals: (see below) General: No acute distress, laying comfortably in bed. HEENT: Normocephalic, atraumatic, moist mucous membranes. Neck: No JVD or lymphadenopathy Cardiac: RRR, No murmurs Pulm: Inspiratory crackles around the middle of the lung victoria, diminished to no breath sounds at the bases. Dullness to percussion at the bases. Abd: Nontender, slightly distended, tympanic to percussion. Ext: 1+ pitting edema bilaterally. Radial, posterior tibial, and dorsalis pedis pulses equal bilaterally. Labs (see below) Images: Chest x-ray performed on 05/30/2018 showed bilateral pleural effusions that are increased in size, cardiomegaly, pacemaker, and cardiac valve replacement unchanged. Assessment/Plan 1. Acute exacerbation of chronic obstructive pulmonary disease secondary to [place] virus. Patient does not have any significant wheezing at this time. Prednisone Advair doxycycline and nebulizer treatments have been given. Steroid taper will be started at discharge. 2. Acute on chronic congestive heart failure. Patient had increased bilateral p leural effusions on chest x-ray. We have started the patient on IV Lasix for diuresis. Patient is also on eliquis for atrial fibrillation. We will also continue spironolactone. A new echocardiogram has been ordered for today. 3. Lactic acidosis which is resolved. 4. Peripheral edema. We'll continue diuresis with IV Lasix and oral spironolactone. 5. Transaminitis and chronic cholecystitis. Abdominal ultrasound have been unchanged. We'll continue to monitor and patient needs outpatient follow-up. 6. Chronic atrial fibrillation on eliquis for anticoagulation. Continue amiodarone and digoxin and Cardizem. 7. Hypertension. Continue Cardizem, spironolactone, Lasix, and monitor blood pressure. 8. Hyperkalemia. This is resolved. We'll continue to monitor. 9. Hypothyroidism. Continue home medication. 10. Renal mass. Needs outpatient follow-up. Patient originally scheduled for appointment Thursday for possible biopsy however, they are calling to reschedule this. DVT prophy: Eliquis Dispo: Pending clinical improvement and weaning off oxygen. VS,Ilyabone, I+O VS, Fishbone, I+O Laboratory Tests 05/31/18 06:32 Red Blood Count 4.40, Mean Corpuscular Volume 95.2, Mean Corpuscular Hemoglobin 30.5, Mean Corpuscular Hemoglobin Concent 32.0, Red Cell Distribution Width 16.6 H, Calcium Level 8.3 L, Aspartate Amino Transf (AST/SGOT) 32, Alanine Aminotra nsferase (ALT/SGPT) 163 H, Alkaline Phosphatase 155 H, Total Bilirubin 1.3 H, Total Protein 6.3 L, Albumin 2.6 L Vital Signs Date Time Temp Pulse Resp B/P (MAP) Pulse Ox O2 Delivery O2 Flow Rate FiO2 05/31/18 10:14 18 05/31/18 09:45 64 148/66 05/31/18 07:25 3.0 05/31/18 06:00 99.0 95 05/26/18 02:14 Nasal Cannula I&O- Last 24 Hours up to 6 AM 05/31/18 05:59 Intake Total 840 ml Output Total 0 ml Balance 840 ml GME ATTESTATION GME ATTESTATION My faculty preceptor for this patient encounter was physically present during the encounter and was fully available. All aspects of the patient interview, examination, medical decision making process, and medical care plan development were reviewed and approved by the faculty preceptor. The faculty preceptor is aware and concurs with the plan as stated in the body of this note and will attest to such by his/her cosignature. ATTENDING NOTE I have both independently examined this patient as well as reviewed the note I have discussed in detail the findings and plan of treatment as documented in the note. I will continue to follow the patient and offer further guidance to the patients care as necessary during this hospital stay. JHON Lin MD, DO May 31, 2018 11:48 NELLA SHAH MD Jun 01, 2018 07:36
[2018-05-31 14:00] VITALS: BP 143/64
[2018-05-31] MEDS: DIGOXIN 0.0625MG PER 1/2TABLET PO SCH (17:37)
[2018-05-31] MEDS: FERROUS SULFATE 325MG TAB PO SCH (21:35)
[2018-05-31 22:00] VITALS: BP 144/56
[2018-06-01] MEDS: IPRATROPIUM 0.5MG/ALBUTEROL 2.5MG INH SOL UD 3ML (DUONEB)(J7620) NEB SCH ×4 (01:44→20:00)
[2018-06-01] MEDS: SLF 3 ML SYR IV SCH ×3 (05:47→20:36)
[2018-06-01] MEDS: LEVOTHYROXINE 25MCG TABLET (0.025MG) PO SCH (05:47)
[2018-06-01 06:00] VITALS: BP 136/63
[2018-06-01 06:41] LABS: HEMATOCRIT 39.7 % (36.0-47.0); HEMOGLOBIN 12.8 g/dl (12.0-15.5); MEAN CORPUSCULAR HEMOGLOBIN 29.9 pg (27.0-33.0); MEAN CORPUSCULAR HGB CONC 32.2 g/dl (32.0-36.5); MEAN CORPUSCULAR VOLUME 92.8 fl (80.0-96.0); PLATELET COUNT, AUTOMATED 206 10^3/uL (150-450); RED BLOOD COUNT 4.28 10^6/uL (4.00-5.40); WHITE BLOOD COUNT 13.1 10^3/uL (4.0-10.0)
[2018-06-01 07:03] LABS: ALBUMIN 2.5 GM/DL (3.2-5.2); ALT/SGPT 116 U/L (12-78); BILIRUBIN,TOTAL 1.2 MG/DL (0.2-1.0); BLOOD UREA NITROGEN 19 MG/DL (7-18); C REACTIVE PROTEIN QUANTITATIV 1.24 MG/DL (0.00-0.30); CALCIUM LEVEL 7.9 MG/DL (8.8-10.2); CARBON DIOXIDE LEVEL 29 MEQ/L (21-32); CHLORIDE LEVEL 97 MEQ/L (98-107); CREATININE FOR GFR 0.73 MG/DL (0.55-1.30); GLOMERULAR FILTRATION RATE > 60.0 (>39); GLUCOSE, FASTING 94 MG/DL (70-100); POTASSIUM SERUM 3.3 MEQ/L (3.5-5.1); SODIUM LEVEL 134 MEQ/L (136-145); TOTAL PROTEIN 6.1 GM/DL (6.4-8.2)
[2018-06-01] MEDS: HumaLOG INSULIN (NovoLOG) PER UNIT SC SCH ×4 (07:30→21:00)
[2018-06-01] MEDS: SUCRALFATE SUSP 1GM/10ML UD PO SCH ×3 (07:30→18:11)
[2018-06-01] MEDS ORDERED: POTASSIUM CHLORIDE 10 MEQ SR TABLET PO ONE ×2 (08:00)
[2018-06-01 08:13] LABS: MAGNESIUM LEVEL 1.9 MG/DL (1.8-2.4)
[2018-06-01] MEDS: ADVAIR HFA 230/21MCG INHALER INH SCH ×2 (08:26→21:00)
--- NOTE | 2018-06-01 08:31 | ECHO ---
DATE OF PROCEDURE: 05/31/2018 AGE: 72 GENDER: Female. HEIGHT: 51 inches WEIGHT: 105 pounds BODY SURFACE AREA: 1.26 meters squared LOCATION: Inpatient, [address] [place] [address] REFERRING PHYSICIAN: Dr. Palacio INDICATION: Dyspnea MEASUREMENTS: 2-D measurements: RV - 4.6 cm LV - 3.8 cm Septum 1.2 cm Posterior wall 1.2 cm Aortic root 2.6 cm LA - 4.8 cm LVEF 60% DOPPLER MEASUREMENTS: AV - 1.1 meters per second LVOT - 0.83 meters per second LVOT diameter: 1.8 cm MV -E 192, A 140, E/E ratio 1.2 Early mitral deceleration time 440 milliseconds Mean MV diastolic gradient 7 mmHg PV -- could not measure RVSP 58 mmHg IVC - 1.9 cm COMMENTS: Consistent AV sequentially paced rhythm with LVEDP paced QRS complexes. M-mode and two-dimensional echocardiography was performed with pulsed, continuous wave, color flow and tissue Doppler studies. Borderline concentric left ventricular hypertrophy with septal flattening and apical akinesis believed to be related to the combination of right ventricular pacing and right ventricular pressure overload. Preserved global resting left ventricular systolic function. Moderately dilated left atrium. Echogenic mitral annuloplasty ring with somewhat reduced leaflet excursion and at least mild LV inflow tract obstruction post mitral valve repair. No more than trace mitral insufficiency. Moderately dilated right ventricle with slight hypokinesis and Doppler evidence of moderately severe pulmonary hypertension. Prominently dilated right atrium and IVC upper limits of normal with reduced respiratory collapse in keeping with an elevated central venous pressure. Normal-appearing aortic valve without outflow tract obstruction and no more than trace insufficiency. Normal aortic root size. Normal appearing tricuspid valve but moderately severe tricuspid insufficiency. Pacing leads could be visualized traversing right heart structures but no separate intracardiac mass. No pericardial effusion. Large left pleural effusion. Thank you. Ahmet He MD, [facility]
[2018-06-01] MEDS: SENOKOT S TAB PO SCH (08:41)
[2018-06-01] MEDS ORDERED: SENOKOT S TAB PO PRN (08:45)
[2018-06-01] MEDS: APIXABAN 5 MG TAB (ELIQUIS) PO SCH ×2 (10:04→20:36)
[2018-06-01] MEDS: LEVEMIR (INSULIN DETEMIR) 1 UNITS/0.01ML SC SCH (10:04)
[2018-06-01] MEDS: LORATADINE 10 MG TAB PO SCH (10:05)
[2018-06-01] MEDS: predniSONE 20 MG TAB PO SCH (10:06)
[2018-06-01] MEDS: FUROSEMIDE 40 MG/4 ML VIAL (J1940) IV SCH ×2 (10:06→18:12)
[2018-06-01] MEDS: SPIRONOLACTONE 25 MG TAB PO SCH (10:06)
[2018-06-01] MEDS: AMIODARONE 200 MG TAB (PACERONE) PO SCH (10:08)
--- NOTE | 2018-06-01 11:33 | IPNPDOC ---
Text Note Date of Service The patient was seen on 06/01/18. NOTE Subjective: Patient is a 72-year-old female who presented to the hospital with a COPD exacerbation. Patient became fluid overloaded due to chronic prednisone and a history of congestive heart failure. Patient is currently doing better. Patient was on 3 L of oxygen yesterday and had been weaned down to 1 L. Her O2 saturations have been maintained around 88-92%. We discontinued the oxygen therapy and encouraged patient to ambulate. Patient was having issues with constipation however, this is percent resolved. Patient is eating and drinking without difficulty. Review of systems General: Patient denies fevers HEENT: Patient denies headaches Cardiovascular: Patient denies chest pain Respiratory: Patient denies shortness of breath, cough GI: Patient denies abdominal pain, nausea, vomiting, diarrhea : Patient denies pain or difficulty with urination Neurological: Patient denies numbness or tingling in extremities Extremities: Patient denies swelling or pain in extremities Objective: Vitals: (see below) General: No acute distress, laying comfortably in bed. HEENT: Normocephalic, atraumatic, moist mucous membranes. Neck: No JVD or lymphadenopathy Cardiac: RRR, No murmurs Pulm: Clear to auscultation b/l. No wheezing, rhonchi Abd: NT/ND + BS Ext: Trace pretibial edema. Radial, posterior tibial, and dorsalis pedis pulses equal bilaterally. Labs (see below) Images: No new imaging has been performed. Assessment/Plan 1. Acute exacerbation of chronic obstructive pulmonary disease secondary to frost virus. Patient does not have significant wheezing at this time. Pr ednisone, Advair, doxycycline, and nebulizer treatments have been given. Steroid taper will be started at discharge which is planned for possibly tomorrow. 2. Acute on chronic congestive heart failure. Patient had increased bilateral pleural effusions on x-ray. Patient is tolerating IV Lasix well. We will continue to monitor. Patient is also on spironolactone. 3. Lactic acidosis which has resolved. 4. Peripheral edema. We'll continue diuresis with IV Lasix and oral spironolactone. 5. Transaminitis and chronic cholecystitis. Abdominal ultra sound has been unchanged. She will require outpatient follow-up. 6. Chronic atrial fibrillation on eliquis for anticoagulation. We'll also continue amiodarone, digoxin, and Cardizem. 7. Hypertension. Continue Cardizem, spironolactone, Lasix, and monitor blood pressure. 8. Hyperkalemia. This has resolved and we will continue to monitor. 9. Hypothyroidism. Continue home medication. 10. Renal mass. This needs outpatient follow-up. DVT prophy: Lionel Dispo: Pending clinical improvement and able to maintain oxygen saturations well off oxygen therapy. Plan is for discharge tomorrow. VS,Fishbone, I+O VS, Fishbone, I+O Laboratory Tests 06/01/18 06:08 Red Blood Count 4.28, Mean Corpuscular Volume 92.8, Mean Corpuscular Hemoglobin 29.9, Mean Corpuscular Hemoglobin Concent 32.2, Red Cell Distribution Width 16.2 H, Calcium Level 7.9 L, Aspartate Amino Transf (AST/SGOT) 25, Alanine Aminotransferase (ALT/SGPT) 116 H, Alkaline Phosphatase 134 H, Total Bilirubin 1.2 H, Total Protein 6.1 L, Albumin 2.5 L Vital Signs Date Time Temp Pulse Resp B/P (MAP) Pulse Ox O2 Delivery O2 Flow Rate FiO2 06/01/18 10:51 91 06/01/18 10:08 69 141/60 06/01/18 06:00 96.8 18 05/31/18 21:36 3.0 05/26/18 02:14 Nasal Cannula I&O- Last 24 Hours up to 6 AM 06/01/18 06:00 Intake Total 1260 ml Balance 1260 ml GME ATTESTATION GME ATTESTATION My faculty preceptor for this patient encounter was physically present during the encounter and was fully available. All aspects of the patient interview, examination, medical decision making process, and medical care plan development were reviewed and approved by the faculty preceptor. The faculty preceptor is aware and concurs with the plan as stated in the body of this note and will attest to such by his/her cosignature. ATTENDING NOTE I have both independently examined this patient as well as reviewed the note I have discussed in detail the findings and plan of treatment as documented in the note. I will continue to follow the patient and offer further guidance to the patients care as necessary during this hospital stay. JHON Lin MD, DO Jun 01, 2018 11:33 NELLA SHAH MD Jun 02, 2018 19:10
[2018-06-01 14:00] VITALS: BP 133/54
[2018-06-01] MEDS ORDERED: SODIUM CHLORIDE NASAL 0.65% SPRAY BTL (OCEAN) PRN (14:45)
[2018-06-01] MEDS: DIGOXIN 0.0625MG PER 1/2TABLET PO SCH (18:11)
[2018-06-01] MEDS: FERROUS SULFATE 325MG TAB PO SCH (20:36)
[2018-06-01 22:00] VITALS: BP 155/56
[2018-06-02] MEDS: IPRATROPIUM 0.5MG/ALBUTEROL 2.5MG INH SOL UD 3ML (DUONEB)(J7620) NEB SCH ×4 (02:28→20:00)
[2018-06-02] MEDS: LEVOTHYROXINE 25MCG TABLET (0.025MG) PO SCH (05:21)
[2018-06-02] MEDS: SLF 3 ML SYR IV SCH ×3 (05:22→20:24)
[2018-06-02 06:00] VITALS: BP 128/65
[2018-06-02 06:45] LABS: HEMATOCRIT 41.8 % (36.0-47.0); HEMOGLOBIN 13.7 g/dl (12.0-15.5); MEAN CORPUSCULAR HEMOGLOBIN 30.2 pg (27.0-33.0); MEAN CORPUSCULAR HGB CONC 32.8 g/dl (32.0-36.5); MEAN CORPUSCULAR VOLUME 92.3 fl (80.0-96.0); PLATELET COUNT, AUTOMATED 247 10^3/uL (150-450); RED BLOOD COUNT 4.53 10^6/uL (4.00-5.40); WHITE BLOOD COUNT 14.4 10^3/uL (4.0-10.0)
[2018-06-02 07:12] LABS: ALBUMIN 2.8 GM/DL (3.2-5.2); ALT/SGPT 100 U/L (12-78); BILIRUBIN,TOTAL 1.1 MG/DL (0.2-1.0); BLOOD UREA NITROGEN 17 MG/DL (7-18); C REACTIVE PROTEIN QUANTITATIV 1.18 MG/DL (0.00-0.30); CARBON DIOXIDE LEVEL 29 MEQ/L (21-32); CHLORIDE LEVEL 98 MEQ/L (98-107); CREATININE FOR GFR 0.79 MG/DL (0.55-1.30); GLOMERULAR FILTRATION RATE > 60.0 (>39); GLUCOSE, FASTING 73 MG/DL (70-100); MAGNESIUM LEVEL 1.9 MG/DL (1.8-2.4); POTASSIUM SERUM 3.9 MEQ/L (3.5-5.1); SODIUM LEVEL 133 MEQ/L (136-145); TOTAL PROTEIN 6.6 GM/DL (6.4-8.2)
[2018-06-02] MEDS: HumaLOG INSULIN (NovoLOG) PER UNIT SC SCH ×4 (07:30→21:00)
[2018-06-02] MEDS: SUCRALFATE SUSP 1GM/10ML UD PO SCH ×3 (08:18→17:59)
[2018-06-02] MEDS: FUROSEMIDE 40 MG/4 ML VIAL (J1940) IV SCH ×2 (08:18→17:59)
[2018-06-02] MEDS: AMIODARONE 200 MG TAB (PACERONE) PO SCH (08:19)
[2018-06-02] MEDS: SPIRONOLACTONE 25 MG TAB PO SCH (08:19)
[2018-06-02] MEDS: LEVEMIR (INSULIN DETEMIR) 1 UNITS/0.01ML SC SCH (08:19)
[2018-06-02] MEDS: LORATADINE 10 MG TAB PO SCH (08:19)
[2018-06-02] MEDS: APIXABAN 5 MG TAB (ELIQUIS) PO SCH ×2 (08:22→20:24)
[2018-06-02] MEDS: predniSONE 20 MG TAB PO SCH (08:23)
[2018-06-02] MEDS: ADVAIR HFA 230/21MCG INHALER INH SCH ×2 (09:20→20:19)
[2018-06-02 14:00] VITALS: BP 136/59
--- NOTE | 2018-06-02 16:27 | IPNPDOC ---
Text Note Date of Service The patient was seen on 06/02/18. NOTE Subjective: Patient is a 72-year-old female who presented to the hospital with a COPD exacerbation. Patient improved from her initial COPD exacerbation however, she became short of breath again and had peripheral edema and was diagnosed with congestive heart failure exacerbation. Patient was doing well yesterday and was able to be weaned off oxygen during the daytime however, patient did require supplemental oxygen therapy overnight as her pulse oximetry decreased below 88% on room air while sleeping. Today she feels well. Review of systems General: Patient denies fevers HEENT: Patient denies headaches Cardiovascular: Patient denies chest pain Respiratory: Patient denies shortness of breath, cough GI: Patient denies abdominal pain, nausea, vomiting, diarrhea : Patient denies pain or difficulty with urination Neurological: Patient denies numbness or tingling in extremities Extremities: Patient says her legs are slightly swollen however, they're improved Objective: Vitals: (see below) General: No acute distress, laying comfortably in bed. HEENT: Normocephalic, atraumatic, moist mucous membranes. Neck: No JVD or lymphadenopathy Cardiac: RRR, No murmurs Pulm: Clear to auscultation b/l. No wheezing, rhonchi Abd: NT/ND + BS Ext: Trace pitting edema present left leg more so than right. Dorsalis pedis, posterior tibial, radial pulses equal bilaterally Labs (see below) Images: No new imaging has been performed. Assessment/Plan 1. Acute exacerbation of chronic obstructive pulmonary disease secondary to frost virus. Patient does not have significant wheezing at this time. We have started to taper her prednisone down. Patient is currently on 20 mg daily. Pat ient will continue Advair and nebulizer treatments. Patient will have a nocturnal pulse oximetry study performed today due to an overnight desaturations. 2. Acute on chronic congestive heart failure. Patient tolerating IV Lasix well. Patient also on spironolactone. Patient is clinically improved. 3. Lactic acidosis which has resolved. 4. Peripheral edema. We will continue diuresis with IV Lasix and oral spironolactone. 5. Transaminitis and chronic cholecystitis. Abdominal ultrasound has been unc hanged and she will require outpatient follow-up. 6. Chronic atrial fibrillation on eliquis for anticoagulation. We will also continue amiodarone, digoxin, and Cardizem. 7. Hypertension. Continue Cardizem, spironolactone, Lasix, and monitor blood pressure. 8. Hyperkalemia. This has resolved and we will continue to monitor. 9. Hypothyroidism. We will continue patient's home medication. 10. Renal mass. This will require outpatient follow-up. DVT prophy: Eliquis Dispo: Pending nocturnal pulse oximetry study performed tonight. VS,Fishbone, I+O VS, Fishbone, I+O Laboratory Tests 06/02/18 06:19 Red Blood Count 4.53, Mean Corpuscular Volume 92.3, Mean Corpuscular Hemoglobin 30.2, Mean Corpuscular Hemoglobin Concent 32.8, Red Cell Distribution Width 16.1 H, Calcium Level 8.0 L, Aspartate Amino Transf (AST/SGOT) 24, Alanine Aminotransferase (ALT/SGPT) 100 H, Alkaline Phosphatase 157 H, Total Bilirubin 1.1 H, Total Protein 6.6, Albumin 2.8 L Vital Signs Date Time Temp Pulse Resp B/P (MAP) Pulse Ox O2 Delivery O2 Flow Rate FiO2 06/02/18 08:22 72 126/67 06/02/18 06:00 98.9 18 92 0.5 I&O- Last 24 Hours up to 6 AM 06/02/18 06:00 Intake Total 1080 ml Balance 1080 ml GME ATTESTATION GME ATTESTATION My faculty preceptor for this patient encounter was physically present during the encounter and was fully available. All aspects of the patient interview, examination, medical decision making process, and medical care plan development were reviewed and approved by the faculty preceptor. The faculty preceptor is aware and concurs with the plan as stated in the body of this note and will attest to such by his/her cosignature. ATTENDING NOTE I have both independently examined this patient as well as reviewed the note I have discussed in detail the findings and plan of treatment as documented in the note. I will continue to follow the patient and offer further guidance to the patients care as necessary during this hospital stay. JHON Lin MD, DO Jun 02, 2018 16:26 NELLA SHAH MD Jun 02, 2018 19:17
[2018-06-02] MEDS: DIGOXIN 0.0625MG PER 1/2TABLET PO SCH (17:59)
[2018-06-02] MEDS: FERROUS SULFATE 325MG TAB PO SCH (20:24)
[2018-06-02] MEDS: oxyCODONE 5MG TAB PO PRN (20:33)
[2018-06-02 22:00] VITALS: BP 124/63
[2018-06-03] MEDS: IPRATROPIUM 0.5MG/ALBUTEROL 2.5MG INH SOL UD 3ML (DUONEB)(J7620) NEB SCH ×2 (02:00→08:00)
[2018-06-03] MEDS: LEVOTHYROXINE 25MCG TABLET (0.025MG) PO SCH (05:48)
[2018-06-03] MEDS: SLF 3 ML SYR IV SCH (05:49)
[2018-06-03 06:00] VITALS: BP 141/76
[2018-06-03 07:23] LABS: ALT/SGPT 86 U/L (12-78); BILIRUBIN,TOTAL 1.7 MG/DL (0.2-1.0); BLOOD UREA NITROGEN 17 MG/DL (7-18); C REACTIVE PROTEIN QUANTITATIV 0.98 MG/DL (0.00-0.30); CALCIUM LEVEL 8.4 MG/DL (8.8-10.2); CARBON DIOXIDE LEVEL 28 MEQ/L (21-32); CHLORIDE LEVEL 96 MEQ/L (98-107); CREATININE FOR GFR 0.85 MG/DL (0.55-1.30); GLOMERULAR FILTRATION RATE > 60.0 (>39); GLUCOSE, FASTING 102 MG/DL (70-100); POTASSIUM SERUM 3.8 MEQ/L (3.5-5.1); SODIUM LEVEL 132 MEQ/L (136-145)
[2018-06-03] MEDS: LEVEMIR (INSULIN DETEMIR) 1 UNITS/0.01ML SC SCH (08:15)
[2018-06-03] MEDS: SUCRALFATE SUSP 1GM/10ML UD PO SCH ×2 (08:15→12:06)
[2018-06-03] MEDS: AMIODARONE 200 MG TAB (PACERONE) PO SCH (08:16)
[2018-06-03] MEDS: APIXABAN 5 MG TAB (ELIQUIS) PO SCH (08:16)
[2018-06-03] MEDS: HumaLOG INSULIN (NovoLOG) PER UNIT SC SCH ×2 (08:16→12:06)
[2018-06-03] MEDS: FUROSEMIDE 40 MG/4 ML VIAL (J1940) IV SCH (08:16)
[2018-06-03] MEDS: LORATADINE 10 MG TAB PO SCH (08:16)
[2018-06-03] MEDS: predniSONE 20 MG TAB PO SCH (08:16)
[2018-06-03] MEDS: SPIRONOLACTONE 25 MG TAB PO SCH (08:16)
[2018-06-03 08:19] VITALS: BP 114/47
[2018-06-03] MEDS: ADVAIR HFA 230/21MCG INHALER INH SCH (08:26)
--- NOTE | 2018-06-03 08:55 | NOCOX ---
DATE OF PROCEDURE: 06/02/2018 Total Time Sample: 6 hours and 59 minutes. The study was conducted on room air. The patient's O2 saturation at the beginning of the study was 94%. Her lowest oxygen saturation was 81%. The mean was 90.2%. Total time spent with an O2 saturation less than 88% was 1 hour and 4 minutes. The patient's oximetry graphical data showed variable desaturations throughout the night and occasional episodes of heart rate variability. IMPRESSION: Abnormal nocturnal oximetry study. The patient does qualify for nocturnal oxygen supplementation based on the data. Cannot rule out obstructive sleep apnea. Can consider a formal sleep evaluation if clinically warranted.
--- NOTE | 2018-06-03 10:36 | DS.PDOC ---
Discharge Summary General Date of Admission May 26, 2018 at 03:19 Date of Discharge 06/03/18 Attending Physician: NELLA SHAH MD Discharge Summary Primary care provider: Becky Viramontes PA-C PROCEDURES PERFORMED DURING STAY: None. ADMITTING/DISCHARGE DIAGNOSES: 1. Acute exacerbation of chronic obstructive pulmonary disease secondary to frost virus 2. Acute on chronic congestive heart failure with preserved ejection fraction 3. Lactic acidosis 4. Peripheral edema 5. Transaminitis and chronic cholecystitis 6. Clau atrial fibrillation 7. Hypertension 8. Hyperkalemia 9. Hypothyroidism 10. Renal mass COMPLICATIONS/CHIEF COMPLAINT: Shortness of breath and cough HISTORY OF PRESENT ILLNESS/HOSPITAL COURSE: Patient is a 72-year-old female presents to the hospital on 05/25/2018 with chief complaint of increased difficulty breathing and coughing. She states is been going on for a few days at this point. She was experiencing nausea and vomiting. She states that her daughter and granddaughter have both had upper respiratory viral infections. Patient has history of COPD. Patient was admitted and diagnosed with frost virus. Patient was started on by mouth prednisone and doxycycline. Patient was initially found to have a lactic acidosis however, patient never appeared septic on physical exam. Patient did receive IV fluids. During patient's hospitalization patient did improve however, patient then experienced peripheral edema and worsening of her shortness of breath which was believed to be caused by an exacerbation of her congestive heart failure with preserved ejection fraction. Patient was restarted on her diuretics. After a few days of diuresis, patient became euvolemic and was able to be weaned off oxygen. During the day, patient was able to maintain oxygen saturations above 88% and was able to walk around freely. At night however, patient experienced oxygen desaturations below 88 percent. On 06/01/2018, patient was able to be off O2 therapy during the day however, she required 0.5-1 L of supplement oxygen therapy overnight. Patient had a nocturnal pulse oximetry study done overnight which showed desaturations below 88% for greater than one hour throughout the night. Patient was doing well on 06/03/2018 and was deemed ready for discharge. Patient was discharged to home with nocturnal oxygen therapy written for the patient. DISCHARGE MEDICATIONS: Please see below. ALLERGIES: Please see below. PHYSICAL EXAMINATION ON DISCHARGE: Vitals: (see below) General: No acute distress, laying comfortably in bed. HEENT: Moist mucous membranes. Neck: No JVD or lymphadenopathy Cardiac: RRR, No murmurs Pulm: Clear to auscultation b/l. No wheezing, rhonchi Abd: NT/ND + BS Ext: Pitting edema on the dorsum of the left foot. No edema present on the right leg. Radial, dorsalis pedis, and posterior tibial pulses 2/4 bilaterally LABORATORY DATA: Please see below. IMAGING: A chest x-ray performed on 05/25/2018 showed findings suggests CHF/pulmonary edema. Differential diagnosis includes multifocal pneumonia with effusions. Ultrasound of the upper right quadrant performed a 05/25/2018 showed edematous appearing gallbladder wall measuring up to 6 mm in thickness similar in appearance compared to 03/04/2018. This may suggest chronic cholecystitis. No shadowing stones or bile duct dilatation. Solid lesion, lower pole right kidney, as seen on prior CT, highly suggestive of renal cell carcinoma. A chest CT without contrast performed on 05/25/2017 shows mild to moderate centrilobular emphysema of mass in the upper lung zones. Septal thickening demonstrated bilaterally consistent with mild interstitial lung disease. Small bilateral pleural effusions and compressive atelectasis at both lung bases. Extensive mediastinal lymphadenopathy measuring up to 2 cm in the retrocaval pretracheal area, 1.4 cm in the para-aortic region, 1.9 cm in the left suprahilar region, and 2.9 cm in the ascites esophageal recess. Although possibly postinflammatory relatively large size nodes may indicate presence of malignant adenopathy. A CT of the abdomen and pelvis without contrast performed on 05/25/2018 showed small amount of free intraperitoneal fluid present. Increased density within the gallbladder consistent with milk of calcium bile and/or sludge. Bilateral adrenal hyperplasia. There is increased feces throughout the colon consistent with constipation. 2.5 x 2.5 cm solid heterogeneous hyperdense mass again demonstrated in the lower pole of the right kidney, likely neoplastic, stable in comparison to the prior study. A ventilation perfusion lung scan performed on 05/26/2018 showed low probability scan for pulmonary embolus. Ultrasound of the upper right quadrant performed on 05/28/2018 showed contracted appearing thick walled gallbladder with pericholecystic fluid. Fatty infiltration of the liver and mild hepatomegaly. 3 cm mass lower right pole kidney, rule out renal cell carcinoma. Trace ascites. Moderate right pleural effusion. A chest x-ray performed on 05/30/2018 showed bilateral pleural effusions that have increased in size, lung victoria otherwise clear, cardiomegaly, dual-chamber pacemaker and cardiac valve replacement unchanged. PROGNOSIS: Fair ACTIVITY: As tolerated. DIET: COPD diet with ensure supplementation DISCHARGE PLAN/DISPOSITION: Discharge home with nocturnal oxygen therapy DISCHARGE INSTRUCTIONS: 1. Follow-up with primary care provider within 7-10 days of discharge. 2. Wear home oxygen therapy at night while sleeping as prescribed. 3. Follow-up with pulmonology. 4. Follow-up with nephrology in [place] for biopsy of kidney mass. 5. Weigh yourself daily and contact provider if weight increases by greater than 3 pounds. 6. Start steroid taper as written. 7. Increase Lasix dose as written for 7 days and then follow instruction of primary care provider. DISCHARGE CONDITION: Stable. TIME SPENT ON DISCHARGE: Greater than 30 minutes. Vital Signs/I&Os Vital Signs Date Time Temp Pulse Resp B/P (MAP) Pulse Ox O2 Delivery O2 Flow Rate FiO2 06/03/18 08:19 70 114/47 06/03/18 06:00 98.0 19 93 06/02/18 22:30 Room Air 06/02/18 06:00 0.5 I&O- Last 24 Hours up to 6 AM 06/03/18 06:00 Intake Total 1870 ml Balance 1870 ml Laboratory Data Labs 24H Laboratory Tests 2 06/02/18 12:24: Bedside Glucose (Misc Panel) 264H 06/02/18 16:49: Bedside Glucose (Misc Panel) 122H 06/02/18 21:11: Bedside Glucose (Misc Panel) 243H 06/03/18 06:29: Anion Gap 8, Glomerular Filtration Rate > 60.0, Blood Urea Nitrogen 17, Creatinine 0.85, Sodium Level 132L, Potassium Level 3.8, Chloride Level 96L, Carbon Dioxide Level 28, Calcium Level 8.4L, Aspartate Amino Transf (AST/SGOT) 22, Alanine Aminotransferase (ALT/SGPT) 86H, Alkaline Phosphatase 151H, Total Bilirubin 1.7#H, Total Protein 7.0, Albumin 3.0L, Magnesium Level 2.0, C- Reactive Protein, Quantitative 0.98H, Albumin/Globulin Ratio 0.75L CBC/BMP Laboratory Tests 06/03/18 06:29 Calcium Level 8.4 L, Aspartate Amino Transf (AST/SGOT) 22, Alanine Aminotransferase (ALT/SGPT) 86 H, Alkaline Phosphatase 151 H, Total Bilirubin 1.7 #H, Total Protein 7.0, Albumin 3.0 L FSBS Laboratory Tests Test 06/02/18 12:24 06/02/18 16:49 06/02/18 21:11 Range/Units Bedside Glucose (Misc Panel) 264 122 243 83-110 MG/DL Microbiology Microbiology 05/26/18 Respiratory Virus Panel (PCR) (CHRISTOPH) - Final, Complete Coronavirus Nl63 Discharge Medications Scheduled (Digoxin) 125 Mcg Tab, 62.5 MCG PO QPM, (Reported) TAKES AT 1700 Amiodarone HCl (Amiodarone HCl) 200 Mg Tab, 200 MG PO DAILY, (Reported) Apixaban Base (Eliquis) 5 Mg Tab, 5 MG PO BID, (Reported) Diltiazem HCl (Diltiazem HCl ER) 240 Mg Cap, 240 MG PO DAILY, (Reported) Ergocalciferol (Vitamin D) 50,000 Unit Cap, 50,000 UNIT PO MTHLY, (Reported) FIRST THURSDAY OF EACH MONTH Ferrous Sulfate (Ferrous Sulfate) 325 Mg Tab, 325 MG PO QPM, (Reported) TAKES AT 1730 Furosemide (Lasix) 40 Mg Tab, 40 MG PO BID Levothyroxine Sodium (Synthroid) 25 Mcg Tab, 25 MCG PO DAILY, (Reported) Loratadine (Loratadine) 10 Mg Tab, 10 MG PO DAILY, (Reported) Metformin Hydrochloride (Metformin HCl) 500 Mg Tab, 500 MG PO QPM, (Reported) TAKES AT 1730 Prednisone (Prednisone) 10 Mg Tab, 10 MG PO DAILY Salmeterol/Fluticasone (Advair Diskus 500-50 Mcg/Dose) 28 Puff/Inhaler Aerp, 1 PUFF INH BID, (Reported) Spironolactone (Spironolactone) 25 Mg Tab, 25 MG PO DAILY, (Reported) Sucralfate (Carafate) 1 Gm/10 Ml Yasmeen, 10 ML PO AC, (Reported) 4 times per day on an empty stomach 1 hour before meals and at bedtime Scheduled PRN Albuterol Sulfate (Ventolin Hfa) 108 Mcg/Act Aer, 2 PUFFS INH Q4H PRN for SHORTNESS OF BREATH, (Reported) Albuterol/Ipratropium (Ipratropium Laurel/Albut 0.5-2.5 (3) mg/3Ml) 1 Ping Ping, 1 PING INH QID PRN for SHORTNESS OF BREATH, (Reported) Docusate Sodium (Docusate Sodium) 100 Mg Cap, 100 MG PO DAILY PRN for CONSTIPATION, (Reported) Guaifenesin (Mucinex) 600 Mg Tab, 600 MG PO BID PRN for CONGESTION, (Reported) Ipratropium Laurel (Atrovent Hfa) 200 Puff/12.9 Gm Aers, 2 PUFF INH QID PRN for SHORTNESS OF BREATH, (Reported) Oxycodone HCl (Oxycodone HCl) 5 Mg Tab, 5 MG PO QID PRN for PAIN, (Reported) Allergies Coded Allergies: Acetaminophen (Unverified Allergy, Severe, PROBLEMS WITH LIVER, 05/25/18) Ibuprofen (Unverified Allergy, Severe, ON BLOOD THINNER, 05/25/18) Gabapentin (Unverified Allergy, Intermediate, RETAIN FLUID, LOOPY, 05/25/18) Cefdinir (Verified Allergy, Unknown, 05/08/17) Clarithromycin (Verified Allergy, Unknown, 05/08/17) Erythromycin (Verified Allergy, Unknown, 05/08/17) Sodium Benzoate (Verified Allergy, Unknown, 05/08/17) Morphine (Unverified Adverse Reaction, Intermediate, LOOPY, 05/25/18) GME ATTESTATION GME ATTESTATION My faculty preceptor for this patient encounter was physically present during the encounter and was fully available. All aspects of the patient interview, examination, medical decision making process, and medical care plan development were reviewed and approved by the faculty preceptor. The faculty preceptor is aware and concurs with the plan as stated in the body of this note and will attest to such by his/her cosignature. ATTENDING NOTE I have both independently examined this patient as well as reviewed the note I have discussed in detail the findings and plan of treatment as documented in the note. I will continue to follow the patient and offer further guidance to the patients care as necessary during this hospital stay. JHON Lin MD, DO Jun 03, 2018 10:36 NELLA SHAH MD Jun 03, 2018 14:42
[2018-06-03] MEDS ORDERED: PRED10TA2 PO (10:49)
[2018-06-03] MEDS ORDERED: LASI40TA9 PO (10:49)
== END 2018-06-03 13:30 | disposition home or self-care (01) | DRG 190 ==
LOC: M ED 19:15 → EDBD 19:15 → M ED INP 05-26 03:19 → M PCU 05-26 04:15 → M MS5PR 05-27 13:56
PROVIDERS: ADMIT Hospitalist; ATTEND Hospitalist
DX: J44.1 Chronic obstructive pulmonary disease with (acute) exacerbation (principal); I50.33 Acute on chronic diastolic (congestive) heart failure; E87.2 Acidosis; E03.9 Hypothyroidism, unspecified; I48.2 Chronic atrial fibrillation; I11.0 Hypertensive heart disease with heart failure; E87.5 Hyperkalemia; B97.29 Other coronavirus as the cause of diseases classified elsewhere; K81.1 Chronic cholecystitis; Z79.899 Other long term (current) drug therapy; Z88.8 Allergy status to other drugs, medicaments and biological substances; Z88.1 Allergy status to other antibiotic agents; E11.9 Type 2 diabetes mellitus without complications; Z79.01 Long term (current) use of anticoagulants; Z95.0 Presence of cardiac pacemaker; N28.89 Other specified disorders of kidney and ureter

== ENCOUNTER 2018-06-18 19:40 | Inpatient (IN) | payer MEDICARE, OTHER ==
[~2018-06-18] VITALS: Ht 149.9 cm; Wt 45.2 kg
[~2018-06-18 19:40] MED LIST changes: +ELIQ5TAB PO; +LASI40TA9 PO; +LORA10TA3 PO; +OXYC-517 PO; +PRED10TA2 PO; +SUCR1SS PO
--- NOTE | 2018-06-18 20:34 | REP ---
Clinical: Shortness of breath. Comparison: 05/30/2018. Findings: Cephalization with pulmonary vascular congestion/interstitial edema including bibasilar atelectasis and possible small layering pleural effusions suggested. Differential diagnosis includes bibasilar atelectasis/early infiltrates. Mediastinum and cardiac silhouette are stable with evidence for prior cardiac valve repair and dual lead pacemaker. No pneumothorax. Skeletal structures stable. Impression: Findings suggest pulmonary vascular congestion/interstitial edema with bibasilar atelectasis and possible small layering effusions. In comparison with prior examination and effusions are decreased. Electronically Signed by Giovani Trammell MD 06/18/2018 08:26 P
[2018-06-18 20:50] LABS: ABG BASE EXCESS -1.8 (-2.0-2.0); ABG HCO3 19.5 MEQ/L (22.0-26.0); ABG O2 SATURATION 96.7 % (95.0-99.0); ABG PARTIAL PRESSURE CO2 24.7 mmHg (35.0-45.0); ABG PARTIAL PRESSURE O2 82.7 mmHg (75.0-100.0); ABG STANDARD HCO3 22.9 MEQ/L (22.0-26.0); ABG TOTAL CO2 20.2 MEQ/L (23.0-31.0); ABG pH (ARTERIAL) 7.515 UNITS (7.350-7.450)
[2018-06-18 20:54] LABS: BASO # 0.1 10^3/uL (0.0-0.2); BASO % 0.6 % (0.0-1.0); EOS # 0.2 10^3/uL (0.0-0.50); EOS % 1.4 % (0.0-3.0); HEMATOCRIT 38.9 % (36.0-47.0); HEMOGLOBIN 12.4 g/dl (12.0-15.5); LYMPH # 0.8 10^3/uL (1.5-4.5); LYMPH % 7.4 % (24.0-44.0); MEAN CORPUSCULAR HGB CONC 31.9 g/dl (32.0-36.5); MONO # 0.5 10^3/uL (0.0-0.8); MONO % 4.5 % (0.0-5.0); NEUTROPHILS % 83.6 % (36.0-66.0); PLATELET COUNT, AUTOMATED 254 10^3/uL (150-450); RED BLOOD COUNT 4.14 10^6/uL (4.00-5.40); WHITE BLOOD COUNT 10.8 10^3/uL (4.0-10.0)
[2018-06-18 21:29] LABS: CALCIUM LEVEL 8.2 MG/DL (8.8-10.2); CREATININE FOR GFR 1.04 MG/DL (0.55-1.30); GLOMERULAR FILTRATION RATE 55.6 (>39); MB/CK RELATIVE INDEX 7.27 (< OR =4); POTASSIUM SERUM 6.3 MEQ/L (3.5-5.1); THYROID STIMULATING HORMONE 4.18 uIU/ML (0.358-3.740); TROPONIN I 0.07 NG/ML (< 0.10)
[2018-06-18] MEDS ORDERED: FUROSEMIDE 40 MG/4 ML VIAL (J1940) IV ONE (21:45)
[2018-06-18] MEDS ORDERED: HumuLIN R (REGULAR) INSULIN (NovoLIN R) **100U/ML** PER UNIT IV STA (22:24)
[2018-06-18] MEDS ORDERED: DEXTROSE 50% 50 ML SYRINGE IV STA (22:24)
[2018-06-18] MEDS ORDERED: ALPR0.25 PO (22:29)
[2018-06-18] MEDS ORDERED: MAGN400T PO (22:29)
[2018-06-18] MEDS ORDERED: FURO40TA2 PO (22:29)
[2018-06-18] MEDS ORDERED: CALCIUM CHLORIDE 10% 1 GM in D5W 100 ML IV ONE (22:30)
[2018-06-18] MEDS ORDERED: PATIROMER SORBITEX CALCIUM 8.4 GM POWDER PACKET (VELTASSA) PO ONE (22:30)
[2018-06-18] MEDS ORDERED: oxyCODONE 5MG TAB PO PRN (22:45)
[2018-06-18] MEDS ORDERED: GLUCOSE 4 GM CHEW TABLET PO PRN (22:45)
[2018-06-18] MEDS ORDERED: DOCUSATE SODIUM 100 MG CAP PO PRN (22:45)
[2018-06-18] MEDS ORDERED: GLUCAGON FOR INJ 1 MG VIAL (J1610) SC PRN (22:45)
[2018-06-18] MEDS ORDERED: DEXTROSE 50% 50 ML SYRINGE IV PRN (22:45)
[2018-06-18] MEDS ORDERED: ALPRAZolam 0.25 MG TAB PO PRN (22:45)
[2018-06-18 23:08] LABS: MAGNESIUM LEVEL 2.5 MG/DL (1.8-2.4)
[2018-06-18 23:40] VITALS: BP 160/72
[2018-06-19] MEDS: DOXYCYCLINE HYCLATE 100 MG in D5W MINI-BAG PLUS 100 ML IV SCH ×3 (00:32→23:47)
[2018-06-19] MEDS: IPRATROPIUM 0.5MG/ALBUTEROL 2.5MG INH SOL UD 3ML (DUONEB)(J7620) NEB SCH ×7 (01:41→23:03)
[2018-06-19 06:00] VITALS: BP 151/67
[2018-06-19 06:14] LABS: HEMATOCRIT 36.3 % (36.0-47.0); HEMOGLOBIN 11.8 g/dl (12.0-15.5); MEAN CORPUSCULAR HEMOGLOBIN 29.6 pg (27.0-33.0); MEAN CORPUSCULAR HGB CONC 32.5 g/dl (32.0-36.5); MEAN CORPUSCULAR VOLUME 91.2 fl (80.0-96.0); PLATELET COUNT, AUTOMATED 226 10^3/uL (150-450); RED BLOOD COUNT 3.98 10^6/uL (4.00-5.40); WHITE BLOOD COUNT 6.9 10^3/uL (4.0-10.0)
[2018-06-19 06:48] LABS: CREATININE FOR GFR 1.05 MG/DL (0.55-1.30); FREE T4 1.83 NG/DL (0.76-1.46); POTASSIUM SERUM 4.5 MEQ/L (3.5-5.1); THYROID STIMULATING HORMONE 1.06 uIU/ML (0.358-3.740); TROPONIN I 0.06 NG/ML (< 0.10)
[2018-06-19] MEDS: ADVAIR HFA 230/21MCG INHALER INH SCH ×2 (07:21→19:47)
[2018-06-19] MEDS: HumaLOG INSULIN (NovoLOG) PER UNIT SC SCH ×3 (08:16→18:06)
[2018-06-19] MEDS: SUCRALFATE SUSP 1GM/10ML UD PO SCH ×3 (08:16→18:05)
[2018-06-19] MEDS: AMIODARONE 200 MG TAB (PACERONE) PO SCH (08:17)
[2018-06-19] MEDS: APIXABAN 5 MG TAB (ELIQUIS) PO SCH ×2 (08:17→21:58)
[2018-06-19] MEDS: MAGNESIUM OXIDE 400 MG TAB (MAG-OX) PO SCH (08:17)
[2018-06-19] MEDS: LEVOTHYROXINE 25MCG TABLET (0.025MG) PO SCH (08:18)
[2018-06-19] MEDS: FUROSEMIDE 40 MG/4 ML VIAL (J1940) IV SCH ×2 (08:18→18:05)
[2018-06-19] MEDS ORDERED: predniSONE 10 MG TAB PO SCH (09:00)
[2018-06-19] MEDS ORDERED: predniSONE 20 MG TAB PO SCH (09:00)
--- NOTE | 2018-06-19 09:31 | ECGEPIP ---
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
--- NOTE | 2018-06-19 10:21 | ECGEPIP ---
Stationary ECG Study 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
--- NOTE | 2018-06-19 12:25 | HPE ---
DATE OF ADMISSION: 06/18/2018 CHIEF COMPLAINT: Cough with yellowish productive sputum, progressive dyspnea on exertion. HISTORY OF PRESENT ILLNESS (HPI): The patient is a 72-year-old female. She has significant past medical history of chronic obstructive pulmonary disease (COPD), emphysema on 2 liters of oxygen at home. She has a renal mass. She has an appointment in [place] to get biopsy. She has diastolic congestive heart failure (CHF), pulmonary hypertension. She has mitral valve prolapse, status post mitral valve repair, diabetes, hypertension, atrial fibrillation, likely sick sinus syndrome, status post pacemaker, on Coumadin. She presents to the emergency room with a day had a half history of worsening dyspnea on exertion, cough of yellowish, productive sputum, sore throat. She denies any chest pain. She denies any abdominal pain, constipation, diarrhea, or urinary symptoms. In the emergency room, chest x-ray shows some pulmonary vascular congestion, small bilateral pleural effusions, improved from previous. She was recently hospitalized here and discharge for her CHF exacerbation on 06/03/2018. Of note, she was seen by her director of infection prevention, Dr. Zambrano, who had recently increased her dose of spironolactone as she continued to be short of breath. She does present today with hyperkalemia of 6.3. EKG shows paced. PAST MEDICAL HISTORY: See HPI. PAST SURGICAL HISTORY: Pacemaker. Cataract surgery. Mitral valve repair. ALLERGIES: MACROLIDE ANTIBIOTICS, ACETAMINOPHEN, CEFDINIR, GABAPENTIN, and MORPHINE. HOME MEDICATIONS: Include; - DuoNebs - vitamin D - Lasix 40 twice a day - loratadine - metformin - spironolactone - Xanax - amiodarone - apixaban - digoxin - diltiazem - Colace - ferrous sulfate - levothyroxine - magnesium oxide - Advair - Carafate SOCIAL HISTORY: Former smoker. Denies alcohol or illicit drug use. FAMILY HISTORY: Diabetes and heart disease. REVIEW OF SYSTEMS: A 12-point review of systems was completed, all of which were negative except those listed in the HPI. VITAL SIGNS ON ADMISSION: Temperature 96.9, pulse of 73, respirations of 18, blood pressure 170/83, saturating at 95% on room air. PHYSICAL EXAM: GENERAL: She is well nourished, in no apparent distress. Head is normocephalic, atraumatic. Eyes: Extraocular movements are intact. Pupils equal, round, reactive to light. Neck is supple. No JVP. Lungs have bibasilar crackles. Cardiovascular: Paced rhythm. Normal S1, S2. No murmurs, gallops, or rubs. Abdomen is soft, nontender, nondistended. Positive bowel sounds. No rebound, no guarding. Extremities: No pitting edema or calf tenderness. Skin is intact. No rashes, lesions, or breakdowns. Neurological exam: Alert and oriented (A and O) times three. No focal deficit on the exam. LABS AND IMAGING DONE IN THE EMERGENCY ROOM: White count 10, hemoglobin and hematocrit of 12/38, platelet count of 254. Blood gas 7.5/24/82/96. Chemistry shows potassium of 6.3. EKG is paced. BUN, creatinine 24 and 1.04. Lactic acid 2.5. TSH is 4.1. Initial troponin is negative. Chest x-ray shows findings suggest pulmonary vascular congestion, interstitial edema with bibasilar atelectasis and possible small layering effusions. In comparison with prior examination, the effusions are decreased. ASSESSMENT AND PLAN: Dyspnea, multifactorial. Likely congestive heart failure (CHF) exacerbation. Will rule out ACS cause. Possibly medication noncompliance, but more likely secondary to upper respiratory infection (URI). Strict intake and output, daily weights, elevate the end of the bed. Lasix 40 twice a day. Spironolactone to be held in the setting of hyperkalemia. Echocardiogram just completed recently in the previous month and a half. Will check a stimulating hormone (TSH) and free T4. Serial troponins. Serial EKGs. Keep the patient on telemetry. Mild chronic obstructive pulmonary disease (COPD) exacerbation, again secondary to URI. Prednisone 40 mg daily. Doxycycline, DuoNebs standing, Advair. History of sick sinus syndrome, atrial fibrillation. Status post pacemaker. Continue on Eliquis. Continue amiodarone. Continue digoxin. Continue calcium channel yady. History of hypertension. Continue on calcium channel yady. Renal mass. Patient is to be seen next week at [facility] for a biopsy. Continue to follow as outpatient. Diabetes. Hold metformin. Insulin sliding scale. Anxiety. Continue Xanax. Hypothyroidism. Continue Synthroid. Iron-deficiency anemia. Continue ferrous sulfate. Acid reflux. Continue Carafate. Supportive deep venous thrombosis (DVT) prophylaxis. The patient is on Eliquis. Gastrointestinal (GI) prophylaxis. She is on Carafate. Diet. Cardiac, diabetic, and fluid restriction.
[2018-06-19 14:00] VITALS: BP 160/70
[2018-06-19] MEDS ORDERED: DIGOXIN 0.0625MG PER 1/2TABLET PO SCH (18:00)
[2018-06-19] MEDS ORDERED: FERROUS SULFATE 325MG TAB PO SCH (18:00)
[2018-06-19 22:00] VITALS: BP 164/71
--- NOTE | 2018-06-20 00:52 | IPNPDOC ---
Text Note Date of Service The patient was seen on 06/19/18. NOTE SUBJECTIVE: Her breathing is much better today. She feels that her attack came on after taking bath. She said that the bathroom was very hot and she could not catch her breath. Even after finishing the bath she continued to feel chest tightness and dyspneic to came to the ED. no fever or chills, no chest pain , does have cough with yellow wish . No abdominal pain, no nausea or vomiting or diarrhea. PHYSICAL EXAM: VITALS: As below. GENERAL: She is well nourished, in no apparent distress. Head is normocephalic, atraumatic. Eyes: Extraocular movements are intact. Pupils equal, round, reactive to light. Neck is supple. No JVP. Lungs have bibasilar crackles, overall decreased air entry Cardiovascular: Paced rhythm. Normal S1, S2. high pitched systolic murmur best heard at the base with radiation to the right carotid. , No rub or gallop. Abdomen is soft, nontender, nondistended. Positive bowel sounds. No rebound, no guarding. Extremities: No pitting edema or calf tenderness. Skin is intact. No rashes, lesions, or breakdowns. Neurological exam: Alert and oriented (A and O) times three. No focal deficit on the exam. Labs and Radiology; reviewed. Assessment and Plan: 72 year of female with PMH of COPD centrilobular emphysema, diastolic CHF, pleural efussions, Afib on coumadin, H?o Sick sinus syndrome so has pacemaker, Mitral valve repair for mitral valve prolapse, severe pulmonary hypertension with corpulmonale, severe tricuspid regurgitation, diabetes, Hypertension, renal mass, She has an appointment in [place] to get biopsy. She presented to the emergency room with a day had a half history of worsening dyspnea on exertion, cough of yellowish, productive sputum, sore throat. In the ED her labs were significant for hyperkalemia of 6.3 and lacticacidosis. Her spironolactone dose was recently increased. In the emergency room, chest x-ray shows some pulmonary vascular congestion, small bilateral pleural effusions, improved from previous. She was recently hospitalized here and discharged for her CHF exacerbation on 06/03/2018 Dyspnea, Due to Diastolic congestive heart failure (CHF) exacerbation due to Upper respiratory tract infection precipitating also COPD exacerbation. Strict intake and output, daily weights, Lasix 40 twice a day. Spironolactone to be held in the setting of hyperkalemia. Echo reviewed Hyperkalemia probably due to increase in dosage of spironolactone. Lacticacidosis Due to increased work of breathing during dyspnea. Severe pulmonary hypertension with corpulmonale will exacerbation continue lasix. Chronic obstructive pulmonary disease (COPD) with chronic hypoxic respiratory failure. Mild exacerbation due to to URI. Continue Doxycycline, DuoNebs standing, Advair. Does not need prednisone. History of sick sinus syndrome, atrial fibrillation. Status post pacemaker. Continue on Eliquis. Continue amiodarone. Continue digoxin. Continue calcium channel yady. History of hypertension. Continue on calcium channel yady. Renal mass. Patient is to be seen next week at [facility] for a biopsy. Continue to follow as outpatient. Diabetes. Hold metformin. Insulin sliding scale. Anxiety. Continue Xanax. Hypothyroidism. Continue Synthroid. Iron-deficiency anemia. Continue ferrous sulfate. Acid reflux. Continue Carafate. Supportive deep venous thrombosis (DVT) prophylaxis. The patient is on Eliquis. Gastrointestinal (GI) prophylaxis. She is on Carafate VS,Fishbone, I+O VS, Fishbone, I+O Laboratory Tests 06/19/18 05:23 Red Blood Count 3.98 L, Mean Corpuscular Volume 91.2, Mean Corpuscular Hemoglobin 29.6, Mean Corpuscular Hemoglobin Concent 32.5, Red Cell Distribution Width 15.2 H, Calcium Level 10.0 # Vital Signs Date Time Temp Pulse Resp B/P (MAP) Pulse Ox O2 Delivery O2 Flow Rate FiO2 06/19/18 22:00 97.7 66 18 164/71 (102) 97 2.0 06/18/18 23:02 Nasal Cannula I&O- Last 24 Hours up to 6 AM 06/20/18 06:00 Intake Total 940 ml Output Total 1100 ml Balance -160 ml JAVIER BONE MD Jun 20, 2018 00:52
[2018-06-20] MEDS: IPRATROPIUM 0.5MG/ALBUTEROL 2.5MG INH SOL UD 3ML (DUONEB)(J7620) NEB SCH ×2 (03:57→07:38)
[2018-06-20 05:51] LABS: HEMATOCRIT 35.4 % (36.0-47.0); HEMOGLOBIN 11.6 g/dl (12.0-15.5); MEAN CORPUSCULAR HEMOGLOBIN 29.7 pg (27.0-33.0); MEAN CORPUSCULAR HGB CONC 32.8 g/dl (32.0-36.5); MEAN CORPUSCULAR VOLUME 90.8 fl (80.0-96.0); PLATELET COUNT, AUTOMATED 268 10^3/uL (150-450); WHITE BLOOD COUNT 11.5 10^3/uL (4.0-10.0)
[2018-06-20 06:00] VITALS: BP 159/72
[2018-06-20 06:18] LABS: CALCIUM LEVEL 8.7 MG/DL (8.8-10.2); CREATININE FOR GFR 1.47 MG/DL (0.55-1.30); GLOMERULAR FILTRATION RATE 37.3 (>39); POTASSIUM SERUM 4.3 MEQ/L (3.5-5.1)
[2018-06-20] MEDS: ADVAIR HFA 230/21MCG INHALER INH SCH (07:38)
[2018-06-20] MEDS: APIXABAN 5 MG TAB (ELIQUIS) PO SCH (07:48)
[2018-06-20] MEDS: LEVOTHYROXINE 25MCG TABLET (0.025MG) PO SCH (07:48)
[2018-06-20] MEDS: HumaLOG INSULIN (NovoLOG) PER UNIT SC SCH (07:48)
[2018-06-20] MEDS: SUCRALFATE SUSP 1GM/10ML UD PO SCH (07:48)
[2018-06-20] MEDS: AMIODARONE 200 MG TAB (PACERONE) PO SCH (07:49)
[2018-06-20] MEDS: MAGNESIUM OXIDE 400 MG TAB (MAG-OX) PO SCH (07:49)
[2018-06-20 07:50] VITALS: BP 140/54
[2018-06-20] MEDS: FUROSEMIDE 40 MG/4 ML VIAL (J1940) IV SCH ×2 (07:51→09:04)
[2018-06-20] MEDS ORDERED: SPIR-10 PO (08:49)
--- NOTE | 2018-06-20 23:52 | DS.PDOC ---
Discharge Summary General Date of Admission Jun 18, 2018 at 22:47 Date of Discharge 06/20/18 Attending Physician: JAVIER BONE MD Discharge Summary PROCEDURES PERFORMED DURING STAY: [None]. DISCHARGE DIAGNOSES: Diastolic CHF exacerbation Hyperkalemia due to increased dose of spironolactone. URI COPD exacerbation Severe Pulmonary hypertension with corpulmonale severe tricuspid regurgitation Mitral valve repair status A fib Renal mass Diabetes Hypertension H/O SSS has a pacemaker Anxiety GERD Hypothyroid Iron deficiency anemia COMPLICATIONS/CHIEF COMPLAINT: Acute Exacerbation Chf; Copd Exacerbation. HISTORY OF PRESENT ILLNESS: See history and physical HOSPITAL COURSE: 72 year of female with PMH of COPD centrilobular emphysema, diastolic CHF, pleural efussions, Afib on coumadin, H?o Sick sinus syndrome so has pacemaker, Mitral valve repair for mitral valve prolapse, severe pulmonary hypertension with corpulmonale, severe tricuspid regurgitation, diabetes, Hypertension, renal mass, She has an appointment in [place] to get biopsy. She presented to the emergency room with a day had a half history of worsening dyspnea on exertion, cough of yellowish, productive sputum, sore throat. In the ED her labs were significant for hyperkalemia of 6.3 and lacticacidosis. Her sp ironolactone dose was recently increased. In the emergency room, chest x-ray shows some pulmonary vascular congestion, small bilateral pleural effusions, improved from previous. She was recently hospitalized here and discharged for her CHF exacerbation on 06/03/2018 Diastolic congestive heart failure (CHF) exacerbation due to Upper respiratory tract infection precipitating also COPD exacerbation. Lasix 40 twice a day. Spironolactone reduced once a day. Follow fluid restrictions. Echo reviewed Hyperkalemia probably due to increase in dosage of spironolactone. Dose decreased to once a day Lactacidosis resolved Due to increased work of breathing during dyspnea. Severe pulmonary hypertension with corpulmonale with exacerbation continue lasix. Chronic obstructive pulmonary disease (COPD) with chronic hypoxic respiratory failure. Mild exacerbation due to to URI. Continue home meds Does not need prednisone or antibiotics. History of sick sinus syndrome, atrial fibrillation. Status post pacemaker. Continue on Eliquis. Continue amiodarone. Continue digoxin. Continue calcium channel yady. History of hypertension. Continue on calcium channel yady. Renal mass. Patient is to be seen next week at [facility] for a biopsy. Continue to follow as outpatient. Diabetes. resume metformin Anxiety. Continue Xanax. Hypothyroidism. Continue Synthroid. Iron-deficiency anemia. Continue ferrous sulfate. Acid reflux. Continue Carafate. DISCHARGE MEDICATIONS: Please see below. ALLERGIES: Please see below. PHYSICAL EXAMINATION ON DISCHARGE: VITAL SIGNS: Please see below. GENERAL: She is well nourished, in no apparent distress. Head is normocephalic, atraumatic. Eyes: Extraocular movements are intact. Pupils equal, round, reactive to light. Neck is supple. No JVP. Lungs have bibasilar crackles, overall decreased air entry Cardiovascular: Paced rhythm. Normal S1, S2. high pitched systolic murmur best heard at the base with radiation to the right carotid. , No rub or gallop. Abdomen is soft, nontender, nondistended. Positive bowel sounds. No rebound, no guarding. Extremities: No pitting edema or calf tenderness. Skin is intact. No rashes, lesions, or breakdowns. Neurological exam: Alert and oriented (A and O) times three. No focal deficit on the exam. LABORATORY DATA: Please see below. ACTIVITY: [As tolerated]. DIET: Regular , fluid restriction 1.5 liters DISPOSITION: Home, Self-Care. DISCHARGE INSTRUCTIONS: Follow up PMD in 1 week DISCHARGE CONDITION: [Stable]. TIME SPENT ON DISCHARGE: Greater than 30 minutes. Vital Signs/I&Os Vital Signs Date Time Temp Pulse Resp B/P (MAP) Pulse Ox O2 Delivery O2 Flow Rate FiO2 06/20/18 09:00 2.0 06/20/18 07:50 65 140/54 06/20/18 06:00 97.8 20 99 06/18/18 23:02 Nasal Cannula I&O- Last 24 Hours up to 6 AM 06/20/18 06:00 Intake Total 1520 ml Output Total 1500 ml Balance 20 ml Laboratory Data Labs 24H Laboratory Tests 2 06/20/18 05:38: Nucleated Red Blood Cells % (auto) 0.0 06/20/18 05:39: Anion Gap 9, Glomerular Filtration Rate 37.3L, Blood Urea Nitrogen 33H, Creatinine 1.47H, Sodium Level 130L, Potassium Level 4.3, Chloride Level 95L, Carbon Dioxide Level 26, Calcium Level 8.7L CBC/BMP Laboratory Tests 06/20/18 05:38 Red Blood Count 3.90 L, Mean Corpuscular Volume 90.8, Mean Corpuscular Hemoglobin 29.7, Mean Corpuscular Hemoglobin Concent 32.8, Red Cell Distribution Width 15.2 H 06/20/18 05:39 Calcium Level 8.7 L Microbiology Microbiology 06/18/18 Blood Culture - Preliminary, Resulted No Growth after 48 hours. All Specime... 06/18/18 Blood Culture - Preliminary, Resulted No Growth after 48 hours. All Specime... Discharge Medications Scheduled (Digoxin) 125 Mcg Tab, 62.5 MCG PO QPM, (Reported) TAKES AT 1700 Amiodarone HCl (Amiodarone HCl) 200 Mg Tab, 200 MG PO DAILY, (Reported) Apixaban Base (Eliquis) 5 Mg Tab, 5 MG PO BID, (Reported) Diltiazem HCl (Diltiazem HCl ER) 240 Mg Cap, 240 MG PO DAILY, (Reported) Ergocalciferol (Vitamin D) 50,000 Unit Cap, 50,000 UNIT PO MTHLY, (Reported) FIRST THURSDAY OF EACH MONTH Ferrous Sulfate (Ferrous Sulfate) 325 Mg Tab, 325 MG PO QPM, (Reported) TAKES AT 1730 Furosemide (Furosemide) 40 Mg Tab, 40 MG PO BID, (Reported) Levothyroxine Sodium (Synthroid) 25 Mcg Tab, 25 MCG PO DAILY, (Reported) Loratadine (Loratadine) 10 Mg Tab, 10 MG PO DAILY, (Reported) Magnesium Oxide (Magnesium Oxide) 400 Mg Tab, 400 MG PO DAILY, (Reported) Metformin Hydrochloride (Metformin HCl) 500 Mg Tab, 500 MG PO QPM, (Reported) TAKES AT 1730 Salmeterol/Fluticasone (Advair Diskus 500-50 Mcg/Dose) 28 Puff/Inhaler Aerp, 1 PUFF INH BID, (Reported) Spironolactone (Spironolactone) 25 Mg Tab, 25 MG PO DAILY Sucralfate (Carafate) 1 Gm/10 Ml Yasmeen, 10 ML PO AC, (Reported) Scheduled PRN Albuterol Sulfate (Ventolin Hfa) 108 Mcg/Act Aer, 2 PUFFS INH Q4H PRN for SHORTNESS OF BREATH, (Reported) Albuterol/Ipratropium (Ipratropium [place]/Albut 0.5-2.5 (3) mg/3Ml) 1 Ping Ping, 1 PING INH QID PRN for SHORTNESS OF BREATH, (Reported) Alprazolam (Alprazolam) 0.25 Mg Tab, 0.125 MG PO QID PRN for ANXIETY, (Reported) Docusate Sodium (Docusate Sodium) 100 Mg Cap, 100 MG PO DAILY PRN for CONSTIPATION, (Reported) Guaifenesin (Mucinex) 600 Mg Tab, 600 MG PO BID PRN for CONGESTION, (Reported) Ipratropium [place] (Atrovent Hfa) 200 Puff/12.9 Gm Aers, 2 PUFF INH QID PRN for SHORTNESS OF BREATH, (Reported) Oxycodone HCl (Oxycodone HCl) 5 Mg Tab, 5 MG PO QID PRN for PAIN, (Reported) Allergies Coded Allergies: Macrolide Antibiotics (Verified Allergy, Unknown, 06/18/18) cefdinir (Verified Allergy, Unknown, 06/18/18) acetaminophen (Verified Adverse Reaction, Intermediate, HEPATOTOXICITY, 06/18/18) gabapentin (Verified Adverse Reaction, Mild, FLUID RETENTION, SOME EKG MONITOR ISSUES, 06/18/18) morphine (Verified Adverse Reaction, Mild, EKG MONITOR ISSUES, 06/18/18) JAVIER BONE MD Jun 20, 2018 23:52
== END 2018-06-20 11:11 | disposition home or self-care (01) | DRG 291 ==
LOC: M ED 19:40 → M ED INP 22:47 → M MSPAV 23:40
PROVIDERS: ADMIT Internal Medicine; ATTEND Internal Medicine Nephrology
DX: I13.0 Hypertensive heart and chronic kidney disease with heart failure and stage 1 through stage 4 chronic kidney disease, or unspecified chronic kidney disease (principal); I50.33 Acute on chronic diastolic (congestive) heart failure; J44.1 Chronic obstructive pulmonary disease with (acute) exacerbation; E87.2 Acidosis; J06.9 Acute upper respiratory infection, unspecified; E87.5 Hyperkalemia; E11.9 Type 2 diabetes mellitus without complications; F41.9 Anxiety disorder, unspecified; K21.9 Gastro-esophageal reflux disease without esophagitis; I48.91 Unspecified atrial fibrillation; I36.0 Nonrheumatic tricuspid (valve) stenosis; I27.20 Pulmonary hypertension, unspecified; I27.81 Cor pulmonale (chronic); Z95.0 Presence of cardiac pacemaker; D50.9 Iron deficiency anemia, unspecified; N28.89 Other specified disorders of kidney and ureter; Z79.01 Long term (current) use of anticoagulants; Z79.899 Other long term (current) drug therapy; Z88.5 Allergy status to narcotic agent; Z88.8 Allergy status to other drugs, medicaments and biological substances; Z87.891 Personal history of nicotine dependence

== ENCOUNTER → 2018-07-09 | Outpatient (CLI) | payer MEDICARE, OTHER ==
[~2018-07-09] MED LIST changes: -/ADVA50050 IN; -/IPRA3SP; -/WARF3TA OR; +ADVA1AER2 IN; +ALPR0.25 PO; -AMIO10TA OR; +AMIO200T22 OR; -AMIO20TA OR; -ASCO25TA PO; +ATRO1SOL13; +COUM1TAB19 OR; +FURO40TA2 PO; +MAGN400T PO; +PACE0.05 OR; +VITA1TAB23 PO
[2018-07-09 10:57] LABS: ALBUMIN 2.9 GM/DL (3.2-5.2); ALT/SGPT 16 U/L (12-78); BILIRUBIN,TOTAL 1.2 MG/DL (0.2-1.0); BLOOD UREA NITROGEN 18 MG/DL (7-18); CALCIUM LEVEL 8.7 MG/DL (8.8-10.2); CARBON DIOXIDE LEVEL 27 MEQ/L (21-32); CHLORIDE LEVEL 97 MEQ/L (98-107); CREATININE FOR GFR 0.93 MG/DL (0.55-1.30); FREE T4 1.91 NG/DL (0.76-1.46); GLOMERULAR FILTRATION RATE > 60.0 (>39); GLUCOSE, FASTING 98 MG/DL (70-100); POTASSIUM SERUM 3.9 MEQ/L (3.5-5.1); SODIUM LEVEL 134 MEQ/L (136-145); TOTAL PROTEIN 6.1 GM/DL (6.4-8.2)
[2018-07-09 13:09] LABS: HEMOGLOBIN A1c 8.2 %
== END ==
LOC: M SMT 08:43
PROVIDERS: ATTEND Physician Assistant
DX: E03.9 Hypothyroidism, unspecified (principal); E11.69 Type 2 diabetes mellitus with other specified complication

== ENCOUNTER → 2018-07-30 | Outpatient (CLI) | payer MEDICARE, OTHER ==
[2018-07-30 13:49] LABS: BASO # 0.1 10^3/uL (0.0-0.2); BASO % 0.8 % (0.0-1.0); EOS # 0.3 10^3/uL (0.0-0.50); HEMATOCRIT 44.3 % (36.0-47.0); HEMOGLOBIN 13.9 g/dl (12.0-15.5); LYMPH # 1.3 10^3/uL (1.5-4.5); LYMPH % 13.4 % (24.0-44.0); MEAN CORPUSCULAR HGB CONC 31.4 g/dl (32.0-36.5); MEAN CORPUSCULAR VOLUME 92.5 fl (80.0-96.0); MONO # 0.5 10^3/uL (0.0-0.8); MONO % 5.5 % (0.0-5.0); NEUTROPHILS # 7.4 10^3/uL (1.8-7.7); NEUTROPHILS % 76.1 % (36.0-66.0); PLATELET COUNT, AUTOMATED 315 10^3/uL (150-450); RED BLOOD COUNT 4.79 10^6/uL (4.00-5.40); WHITE BLOOD COUNT 9.8 10^3/uL (4.0-10.0)
[2018-07-30 13:50] LABS: APPEARANCE, URINE CLEAR (CLEAR); BACTERIA, URINE AUTO NEGATIVE (NEGATIVE); BILIRUBIN, URINE AUTO NEGATIVE (NEGATIVE); BLOOD, URINE BLOOD 1+ (NEGATIVE); CALCIUM OXALATE CRYSTALS MODERATE; COLOR, URINE AMBER (YELLOW); GLUCOSE, URINE (UA) AUTO NEGATIVE (NEGATIVE); KETONE, URINE AUTO NEGATIVE (NEGATIVE); LEUKOCYTE ESTERASE, URINE AUTO NEGATIVE (NEGATIVE); MUCUS, URINE SMALL (NEGATIVE); NITRITE, URINE AUTO NEGATIVE (NEGATIVE); PROTEIN, URINE AUTO 2+ mg/dL (NEGATIVE); RBC, URINE AUTO 5 /HPF (0-3); SPECIFIC GRAVITY URINE AUTO 1.015 (1.002-1.035); SQUAMOUS EPITHELIAL CELL UR AU 0 /HPF (0-6); WBC, URINE AUTO 1 /HPF (0-3)
[2018-07-30 13:59] LABS: INR 1.38; PROTHROMBIN TIME 17.2 SECONDS (12.1-14.4)
[2018-07-30 14:00] LABS: PARTIAL THROMBOPLASTIN TIME 42.9 SECONDS (25.4-37.6)
[2018-07-30 14:24] LABS: ALBUMIN 3.5 GM/DL (3.2-5.2); ALT/SGPT 19 U/L (12-78); BILIRUBIN,TOTAL 1.1 MG/DL (0.2-1.0); BLOOD UREA NITROGEN 21 MG/DL (7-18); CARBON DIOXIDE LEVEL 30 MEQ/L (21-32); CHLORIDE LEVEL 96 MEQ/L (98-107); CREATININE FOR GFR 0.82 MG/DL (0.55-1.30); FREE T4 1.72 NG/DL (0.76-1.46); GLOMERULAR FILTRATION RATE > 60.0 (>39); GLUCOSE, FASTING 121 MG/DL (70-100); POTASSIUM SERUM 3.5 MEQ/L (3.5-5.1); SODIUM LEVEL 135 MEQ/L (136-145); TOTAL PROTEIN 7.5 GM/DL (6.4-8.2)
== END ==
LOC: M SMT 08:19
PROVIDERS: ATTEND Physician Assistant
DX: Z01.818 Encounter for other preprocedural examination (principal); I10 Essential (primary) hypertension; I48.0 Paroxysmal atrial fibrillation; E03.9 Hypothyroidism, unspecified; N28.89 Other specified disorders of kidney and ureter

== ENCOUNTER → 2018-10-03 | Outpatient (CLI) | payer MEDICARE, OTHER ==
[~2018-10-03] MED LIST changes: -ASPI-225 PO; +ASPI81TA78 PO; +BUME1TAB3 PO; -DIGO0.12 PO; +DIGO0.123 PO; +DULC10SU2 PR; +DULO1CAP5 PO; +LORA-674 PO; -MAGN400T PO; +MAGN400T3 PO; +MIRA3350 PO; +ONDA4TAB6 PO; -SIMV40TA2 PO; +SIMV40TA20 PO; +TORS20TA2; -VICO7.5T11 PO; +VICO7.5T12 PO
[2018-10-03 11:01] LABS: CALCIUM LEVEL 8.9 MG/DL (8.8-10.2); CREATININE FOR GFR 1.11 MG/DL (0.55-1.30); GLOMERULAR FILTRATION RATE 51.6 (>39); POTASSIUM SERUM 4.1 MEQ/L (3.5-5.1)
== END ==
LOC: M LAB 10:06
PROVIDERS: ATTEND Physician Assistant
DX: E11.9 Type 2 diabetes mellitus without complications (principal)

== ENCOUNTER → 2018-10-15 | Outpatient (CLI) | payer MEDICARE, OTHER ==
[~2018-10-15] MED LIST changes: +ASPI-225 PO; -ASPI81TA78 PO; -BUME1TAB3 PO; +DIGO0.12 PO; -DIGO0.123 PO; -DULC10SU2 PR; -DULO1CAP5 PO; -LORA-674 PO; +MAGN400T PO; -MAGN400T3 PO; -MIRA3350 PO; -ONDA4TAB6 PO; +SIMV40TA2 PO; -SIMV40TA20 PO; -TORS20TA2; +VICO7.5T11 PO; -VICO7.5T12 PO
[2018-10-15 12:05] LABS: CALCIUM LEVEL 8.3 MG/DL (8.8-10.2); CREATININE FOR GFR 0.98 MG/DL (0.55-1.30); GLOMERULAR FILTRATION RATE 59.6 (>39); POTASSIUM SERUM 3.5 MEQ/L (3.5-5.1)
== END ==
LOC: M SMT 08:52
PROVIDERS: ATTEND Physician Assistant
DX: I50.33 Acute on chronic diastolic (congestive) heart failure (principal); N18.3 Chronic kidney disease, stage 3 (moderate)

== ENCOUNTER → 2018-11-04 | Outpatient (CLI) | payer MEDICARE, OTHER ==
[~2018-11-04] MED LIST changes: +DULO1CAP5; +TORS20TA2
[2018-11-04 11:14] LABS: HEMATOCRIT 40.6 % (36.0-47.0); HEMOGLOBIN 12.7 g/dl (12.0-15.5); MEAN CORPUSCULAR HGB CONC 31.3 g/dl (32.0-36.5); PLATELET COUNT, AUTOMATED 226 10^3/uL (150-450); RED BLOOD COUNT 4.23 10^6/uL (4.00-5.40); WHITE BLOOD COUNT 7.2 10^3/uL (4.0-10.0)
[2018-11-04 11:34] LABS: CALCIUM LEVEL 8.5 MG/DL (8.8-10.2); CREATININE FOR GFR 1.13 MG/DL (0.55-1.30); GLOMERULAR FILTRATION RATE 50.4 (>39); MAGNESIUM LEVEL 2.2 MG/DL (1.8-2.4); POTASSIUM SERUM 3.7 MEQ/L (3.5-5.1)
== END ==
LOC: M SMT 08:26
PROVIDERS: ATTEND Physician Assistant
DX: I50.32 Chronic diastolic (congestive) heart failure (principal); I48.0 Paroxysmal atrial fibrillation

== ENCOUNTER 2018-11-08 08:07 | Emergency (ER) | payer MEDICARE, OTHER ==
[~2018-11-08] VITALS: Ht 149.9 cm; Wt 44.9 kg
[~2018-11-08 08:07] MED LIST changes: -ASPI-225 PO; +ASPI81TA78 PO; -DIGO0.12 PO; +DIGO0.123 PO; -DULO1CAP5; -MAGN400T PO; +MAGN400T3 PO; -SIMV40TA2 PO; +SIMV40TA20 PO; -TORS20TA2; -VICO7.5T11 PO; +VICO7.5T12 PO
[2018-11-08] MEDS ORDERED: TORS20TA2 (08:15)
[2018-11-08] MEDS ORDERED: ADACEL/BOOSTRIX VACCINE (DIPHTH/PERTUSS/ACELL/TETANUS)0.5ML SYR (90715) IM ONE (08:45)
[2018-11-08] MEDS ORDERED: DULO1CAP5 PO (09:14)
[2018-11-08 09:37] VITALS: BP 152/67
== END 2018-11-08 09:43 | disposition home or self-care (01) ==
LOC: M ED 08:07
DX: S71.131A Puncture wound without foreign body, right thigh, initial encounter (principal); W54.8XXA Other contact with dog, initial encounter; Y92.009 Unspecified place in unspecified non-institutional (private) residence as the place of occurrence of the external cause; Y93.89 Activity, other specified; I83.013 Varicose veins of right lower extremity with ulcer of ankle; I50.9 Heart failure, unspecified; E11.9 Type 2 diabetes mellitus without complications; J44.9 Chronic obstructive pulmonary disease, unspecified; E03.9 Hypothyroidism, unspecified; D64.9 Anemia, unspecified; Z79.52 Long term (current) use of systemic steroids; Z79.84 Long term (current) use of oral hypoglycemic drugs; Z79.899 Other long term (current) drug therapy; Z95.0 Presence of cardiac pacemaker; Z87.891 Personal history of nicotine dependence; Z88.1 Allergy status to other antibiotic agents; Z88.5 Allergy status to narcotic agent; Z88.8 Allergy status to other drugs, medicaments and biological substances

== ENCOUNTER → 2018-11-22 | Outpatient (CLI) | payer MEDICARE, OTHER ==
[~2018-11-22] MED LIST changes: +ASPI-225 PO; -ASPI81TA78 PO; +DIGO0.12 PO; -DIGO0.123 PO; +DULO1CAP5; +MAGN400T PO; -MAGN400T3 PO; +SIMV40TA2 PO; -SIMV40TA20 PO; +TORS20TA2
[2018-11-22 10:35] LABS: BLOOD UREA NITROGEN 16 MG/DL (7-18); CALCIUM LEVEL 8.4 MG/DL (8.8-10.2); CARBON DIOXIDE LEVEL 33 MEQ/L (21-32); CHLORIDE LEVEL 94 MEQ/L (98-107); CREATININE FOR GFR 0.96 MG/DL (0.55-1.30); GLOMERULAR FILTRATION RATE > 60.0 (>39); GLUCOSE, FASTING 120 MG/DL (70-100); MAGNESIUM LEVEL 2.1 MG/DL (1.8-2.4); POTASSIUM SERUM 4.3 MEQ/L (3.5-5.1); SODIUM LEVEL 133 MEQ/L (136-145)
== END ==
LOC: M LAB 09:49
PROVIDERS: ATTEND Physician Assistant
DX: I50.32 Chronic diastolic (congestive) heart failure (principal)

== ENCOUNTER 2018-12-14 10:41 | Inpatient (IN) | payer MEDICARE, OTHER ==
[~2018-12-14] VITALS: Ht 149.9 cm; Wt 46.0 kg
[~2018-12-14 10:41] MED LIST changes: -DULO1CAP5; +DULO1CAP5 PO
[2018-12-14] MEDS ORDERED: BUME1TAB3 PO (10:51)
[2018-12-14 11:49] LABS: BASO # 0.1 10^3/uL (0.0-0.2); BASO % 0.8 % (0.0-1.0); EOS # 0.1 10^3/uL (0.0-0.5); EOS % 0.6 % (0.0-3.0); HEMATOCRIT 44.4 % (36.0-47.0); HEMOGLOBIN 14.1 g/dl (12.0-15.5); LYMPH # 0.7 10^3/uL (1.5-5.0); LYMPH % 8.2 % (24.0-44.0); MEAN CORPUSCULAR HEMOGLOBIN 30.1 pg (27.0-33.0); MEAN CORPUSCULAR HGB CONC 31.8 g/dl (32.0-36.5); MEAN CORPUSCULAR VOLUME 94.9 fl (80.0-96.0); MONO # 0.5 10^3/uL (0.0-0.8); MONO % 5.3 % (0.0-5.0); NEUTROPHILS # 7.2 10^3/uL (1.5-8.5); NEUTROPHILS % 84.2 % (36.0-66.0); PLATELET COUNT, AUTOMATED 226 10^3/uL (150-450); RED BLOOD COUNT 4.68 10^6/uL (4.00-5.40); WHITE BLOOD COUNT 8.5 10^3/uL (4.0-10.0)
--- NOTE | 2018-12-14 12:00 | REP ---
CHEST, PORTABLE: AP portable view of the chest is performed. Comparison is made with multiple prior exams, most recently 06/18/2018. There is cardiomegaly with vascular congestion and diffuse interstitial edema. There are bilateral pleural effusions with mild adjacent patchy parenchymal opacities. The heart is enlarged. The mediastinal silhouette is essentially unremarkable and unchanged with calcification of the thoracic aorta. The prosthetic heart valve. There is a left dual-lead pacemaker. IMPRESSION: Findings compatible with cardiomegaly, vascular congestion, pulmonary edema and bilateral effusions. Electronically Signed by Manoj Aldana MD 12/14/2018 03:59 P
[2018-12-14 12:15] LABS: CALCIUM LEVEL 8.7 MG/DL (8.8-10.2); CK-MB VALUE MASS 1.7 NG/ML (<3.6); CREATININE FOR GFR 1.61 MG/DL (0.55-1.30); GLOMERULAR FILTRATION RATE 33.5 (>39); MB/CK RELATIVE INDEX 2.88 (< OR =4); POTASSIUM SERUM 4.5 MEQ/L (3.5-5.1); TROPONIN I 0.07 NG/ML (< 0.10)
[2018-12-14] MEDS ORDERED: FUROSEMIDE 40 MG/4 ML VIAL (J1940) IV ONE (12:15)
[2018-12-14 12:49] LABS: ABG BASE EXCESS 0.8 (-2.0-2.0); ABG HCO3 24.3 MEQ/L (22.0-26.0); ABG PARTIAL PRESSURE CO2 35.3 mmHg (35.0-45.0); ABG PARTIAL PRESSURE O2 51.1 mmHg (75.0-100.0); ABG STANDARD HCO3 24.9 MEQ/L (22.0-26.0); ABG TOTAL CO2 25.3 MEQ/L (23.0-31.0); ABG pH (ARTERIAL) 7.455 UNITS (7.350-7.450)
[2018-12-14] MEDS ORDERED: MIRA3350 PO (13:17)
[2018-12-14] MEDS ORDERED: HEPARIN SOD (PORCINE) 5000 UNITS/ML VIAL SC SCH (14:15)
[2018-12-14] MEDS ORDERED: MOM 30ML SUSPENSION UDC PO PRN (14:15)
[2018-12-14] MEDS ORDERED: GLUCOSE 4 GM CHEW TABLET PO PRN (14:30)
[2018-12-14] MEDS ORDERED: DEXTROSE 50% 50 ML SYRINGE IV PRN (14:30)
[2018-12-14] MEDS ORDERED: GLUCAGON FOR INJ 1 MG VIAL (J1610) SC PRN (14:30)
[2018-12-14] MEDS ORDERED: BISACODYL 10 MG SUPP PR ONE (15:00)
[2018-12-14 16:36] VITALS: BP 138/58
[2018-12-14] MEDS: oxyCODONE 5MG TAB PO PRN (17:25)
[2018-12-14] MEDS: HumaLOG INSULIN (NovoLOG) PER UNIT SC SCH ×2 (17:30→20:56)
--- NOTE | 2018-12-14 17:47 | ECGEPIP ---
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
--- NOTE | 2018-12-14 18:50 | HPEPDOC ---
General Date of Admission Dec 14, 2018 at 14:11 Date of Service: Dec 14, 2018 Chief Complaint The patient is a 73-year-old female admitted with a reason for visit of Acute Or Chronic Diastolic Chf Adrianne. Source: Patient, Family History of Present Illness 73 year old female with PMH of Diastolic CHF, COPD with chronic hypoxic respiratory failure. , Severe Pulmonary hypertension with corpulmonale, severe tricuspid regurgitation Mitral valve repair status, A fib, Renal cell cancer s/p partial right nephrectomy in July 2018, Diabetes, Hypertension, H/O SSS has a pacemaker, Anxiety, GERD, Hypothyroid, Iron deficiency anemia, chronic constipation presented to the ED with 3 weeks of slowly increasing weight and leg swelling and SOB. She had right partial nephrectomy for cancer done in July 2018 after the surgery she had an episode of CHF at [facility] . After that her lasix was changed to torsemide about 2 months ago and she feels that the torsemide was not working as well as the lasix also she has not been watching her fluid intake. Yesterday she was seen at the [facility] and torsemide was changed to bumetanide however overnight her breathing has been really bad and she was very weak and always tired and unable to move around the house so was brought to the ED. She also complains of cough with some yellow phlegm production worse now. No fever or chills. Denies any chest pain. She sleeps in a couch. SHe also complains of neck pain and chronic back pain, dull aching in nature about 5/10 in intensity and needs oxycodone for it. No radiation. The pain is worse now as her breathing has been bad. She jude complains of constipation. In the ED CXR showed pulmonary vascular congestion, cardimegaly, her BNP was elevated. She was admitted for CHF exacerbation. Home Medications Scheduled Amiodarone HCl (Amiodarone HCl) 200 Mg Tab, 200 MG PO DAILY, (Reported) Apixaban (Eliquis) 5 Mg Tab, 5 MG PO BID, (Reported) Bumetanide (Bumetanide) 1 Mg Tablet, 3 MG PO BID, (Reported) Diltiazem HCl (Diltiazem 24Hr ER) 240 Mg Cap, 240 MG PO DAILY, (Reported) Duloxetine Hcl (Duloxetine HCl) 30 Mg Capsule.dr, 30 MG PO DAILY, (Reported) Ergocalciferol (Vitamin D2) (Vitamin D2) 50,000 Unit Cap, 50,000 UNIT PO MTHLY, (Reported) FIRST THURSDAY OF EACH MONTH Ferrous Sulfate (Ferrous Sulfate) 325 Mg Tab, 325 MG PO QPM, (Reported) TAKES AT 1730 Levothyroxine Sodium (Levothyroxine Sodium) 25 Mcg Tab, 25 MCG PO DAILY, (Reported) Magnesium Oxide (Magnesium Oxide) 400 Mg Tab, 400 MG PO DAILY, (Reported) Metformin HCl (Metformin HCl) 500 Mg Tab, 500 MG PO QPM, (Reported) TAKES AT 1730 Salmeterol/Fluticasone (Advair 500-50 Diskus) 28 Puff/Inhaler Aerp, 1 PUFF INH BID, (Reported) Spironolactone (Spironolactone) 25 Mg Tab, 25 MG PO DAILY Scheduled PRN Albuterol Sulfate (Ventolin Hfa) 108 Mcg/Act Aer, 2 PUFFS INH Q4H PRN for SHORTNESS OF BREATH, (Reported) Alprazolam (Alprazolam) 0.25 Mg Tab, 0.125 MG PO QID PRN for ANXIETY, (Reported) Docusate Sodium (Docusate Sodium) 100 Mg Cap, 100 MG PO DAILY PRN for CONSTIPATION, (Reported) Guaifenesin (Mucinex) 600 Mg Tab, 600 MG PO BID PRN for CONGESTION, (Reported) Ipratropium Siren (Atrovent Hfa) 200 Puff/12.9 Gm Aers, 2 PUFF INH QID PRN for SHORTNESS OF BREATH, (Reported) Ipratropium/Albuterol Sulfate (Iprat-Albut 0.5-3(2.5) mg/3 ml) 1 Ping Ping, 1 PING INH QID PRN for SHORTNESS OF BREATH, (Reported) Oxycodone HCl (Oxycodone HCl) 5 Mg Tab, 5 MG PO QID PRN for PAIN, (Reported) Polyethylene Glycol 3350 (Miralax) 119 Gm Powder, 17 GRAM PO DAILY PRN for CONSTIPATION, (Reported) Allergies Coded Allergies: acetaminophen (Verified Adverse Reaction, Intermediate, HEPATOTOXICITY, 06/18/18) gabapentin (Verified Adverse Reaction, Mild, FLUID RETENTION, SOME ADULT CARE PROVIDER ISSUES, 06/18/18) morphine (Verified Adverse Reaction, Mild, ADULT CARE PROVIDER ISSUES, 06/18/18) Macrolide Antibiotics (Verified Adverse Reaction, Unknown, N/V, 12/14/18) cefdinir (Verified Adverse Reaction, Unknown, N/V, 12/14/18) Past Medical History Medical History Diastolic CHF COPD with chronic hypoxic respiratory failure. Severe Pulmonary hypertension with corpulmonale severe tricuspid regurgitation Mitral valve repair status A fib Renal cell cancer s/p partial right nephrectomy in July 2018 Diabetes Hypertension H/O SSS has a pacemaker Anxiety GERD Hypothyroid Iron deficiency anemia Family History Significant Family History: Diabetes (maternal aunt and maternal uncle), Heart disease (mother, maternal uncle, daughter) Social History * Smoker: former Smoker, quit less than 1 year Alcohol: Denies Drugs: denies A-FIB/CHADSVASC A-FIB History Current/History of A-Fib/PAF?: Yes Current PO Anticoag Therapy: Yes Review of Systems Constitutional: Reports: Chills, Weakness, Fatigue; Denies: Fever, Malaise, Night Sweats Eyes: Denies: Pain, Vision change ENT: Denies: Head Aches, Ear Pain, Dysphagia Skin: Denies: Rash, Lesions, Breakdown Pulmonary: Reports: Dyspnea, Cough Cardiovascular: Reports: Orthopnea, Edema; Denies: Chest Pain, Palpitations Gastrointestinal: Reports: Constipation; Denies: Nausea, Vomiting, Abdominal Pain, Diarrhea Genitourinary: Denies: Dysuria, Frequency, Incontinence, Retention Musculoskeletal: Denies: Neck Pain, Back Pain, Joint Pain, Muscle Pain, Spasms Neurological: Denies: Weakness, Numbness, Change in speech, Confusion Psych: Reports: Mood Normal; Denies: Depression, Memory Issues Physical Examination General Exam: Positive: Alert, Cooperative, No Acute Distress Eye Exam: Positive: PERRLA, Conjunctiva & lids normal, EOMI; Negative: Sclera icteric ENT Exam: Positive: Atraumatic, Mucous membr. moist/pink, Pharynx Normal Neck Exam: Positive: Supple, JVD; Negative: thyromegaly Chest Exam: Positive: Diminished, Other (bibasal crackles. ) Heart Exam: Positive: Rate Normal, Regular Rhythm, Normal S1, Normal S2, Murmurs; Negative: Rubs Telemetry: Positive: No significant arrhythmia, Other Telemetry: (paced) Abdomen Exam: Positive: Normal bowel sounds, Soft; Negative: Tenderness, Hepatospenomegaly Extremity Exam: Positive: Edema, Swelling Skin Exam: Positive: Other skin issue (stasis rubor in both the legs) Vital Signs Vital Signs Date Time Temp Pulse Resp B/P (MAP) Pulse Ox O2 Delivery O2 Flow Rate FiO2 12/14/18 14:30 97.9 64 20 153/72 (99) 90 Nasal Cannula 2.0 Laboratory Data Labs 24H Laboratory Tests 2 12/14/18 11:19: Immature Granulocyte % (Auto) 0.9, White Blood Count 8.5, Red Blood Count 4.68, Hemoglobin 14.1, Hematocrit 44.4, Mean Corpuscular Volume 94.9, Mean Corpuscular Hemoglobin 30.1, Mean Corpuscular Hemoglobin Concent 31.8L, Red Cell Distribution Width 16.6H, Platelet Count 226, Neutrophils (%) (Auto) 84.2H, Lymphocytes (%) (Auto) 8.2L, Monocytes (%) (Auto) 5.3H, Eosinophils (%) (Auto) 0.6, Basophils (%) (Auto) 0.8, Neutrophils # (Auto) 7.2, Lymphocytes # (Auto) 0.7L, Monocytes # (Auto) 0.5, Eosinophils # (Auto) 0.1, Basophils # (Auto) 0.1, Nucleated Red Blood Cells % (auto) 0.0, Anion Gap 14, Glomerular Filtration Rate 33.5L, Blood Urea Nitrogen 27H, Creatinine 1.61H, Sodium Level 128L, Potassium Level 4.5, Chloride Level 89L, Carbon Dioxide Level 25, Calcium Level 8.7L, Total Creatine Kinase 59, Creatine Kinase MB 1.7, Creatine Kinase MB Relative Index 2.88, Troponin I 0.07, EX-Tzo-Q-Type Natriuretic Peptide [id number] 12/14/18 12:24: Blood Gas Bicarbonate Standard 24.9, Arterial Blood pH 7.455H, Arterial Blood Partial Pressure CO2 35.3, Arterial Blood Partial Pressure O2 51.1L, Arterial Blood Total CO2 25.3, Arterial Blood HCO3 24.3, Arterial Blood Base Excess 0.8, Arterial Blood Oxygen Saturation 84.0L CBC/BMP Laboratory Tests 12/14/18 11:19 Red Blood Count 4.68, Mean Corpuscular Volume 94.9, Mean Corpuscular Hemoglobin 30.1, Mean Corpuscular Hemoglobin Concent 31.8 L, Red Cell Distribution Width 16.6 H, Neutrophils (%) (Auto) 84.2 H, Lymphocytes (%) (Auto) 8.2 L, Monocytes (%) (Auto) 5.3 H, Eosinophils (%) (Auto) 0.6, Basophils (%) (Auto) 0.8, Neutrophils # (Auto) 7.2, Lymphocytes # (Auto) 0.7 L, Monocytes # (Auto) 0.5, Eosinophils # (Auto) 0.1, Basophils # (Auto) 0.1, Calcium Level 8.7 L, Total Creatine Kinase 59 Assessment/Plan 73 year old female with PMH of Diastolic CHF, COPD with chronic hypoxic respiratory failure. , Severe Pulmonary hypertension with corpulmonale, severe tricuspid regurgitation, Mitral valve repair status, A fib, Renal cell cancer s/p partial right nephrectomy in July 2018, Diabetes, Hypertension, H/O SSS has a pacemaker, Anxiety, GERD, Hypothyroid, Iron deficiency anemia, chronic constipation presented to the ED with 3 weeks of slowly increasing weight and leg swelling and SOB. She had right partial nephrectomy for cancer done in July 2018 presented to the ED with increasing SOB, COugh and leg swelling and increasing weights for several weeks and admitted for CHF exacerbation. Diastolic CHF exacerbation due to dietary indiscretion, has not been following any fluid restriction after her surgery for the renal cancer as she was told to drink more as her kifney function was bad soon after the surgery. Lasix iv fluid rectriction, I/O daily weights. CKD Vs ADRIANNE on CKD possibly the elevated creatinine is due to her partial nephrectomy status and probably remain there due to loss of renal mass on one side. However it could be Adrianne also due to CHF exacerbation. will monitor the creatinine with diuresis however i think we will have to accept some renal compromise to maintain her in euvolemic status and keep her heart failure under contol. will continue to monitor for her new baseline creatinine. Hyponatremia possibly due to CHF will continue to monitor. Diabetes will hold metformin start on lispro sliding scale. Afib with pacemaker continue amiodarone and diltiazem with old parameters continue eliquis with reduced dose for body weight. COPD with chronic resp failure with hypoxia continue oxygen supplementation. Severe pulmonary hypertension with corpulmonale continue diuresis. Mitral valve repair status Renal cell cancer s/p partial right nephrectomy in July 2018 Hypertension continue diltiazem Anxiety GERD Hypothyroid continue Synthroid Iron deficiency anemia Constipation bowel regimen Chronic pain continue oxycodone prn. Plan / VTE VTE Prophylaxis Ordered?: Yes JAVIER BONE MD Dec 14, 2018 16:09
[2018-12-14] MEDS: ADVAIR HFA 230/21MCG INHALER INH SCH (20:53)
[2018-12-14] MEDS: DOCUSATE SODIUM 100 MG CAP PO SCH (20:57)
[2018-12-14] MEDS: FERROUS SULFATE 325MG TAB PO SCH (20:57)
[2018-12-14] MEDS: FUROSEMIDE 40 MG/4 ML VIAL (J1940) IV SCH (20:57)
[2018-12-14] MEDS: APIXABAN 2.5 MG TAB (ELIQUIS) PO SCH (20:57)
[2018-12-14 22:00] VITALS: BP 146/75
[2018-12-15] MEDS: FUROSEMIDE 40 MG/4 ML VIAL (J1940) IV SCH ×3 (03:27→20:20)
[2018-12-15] MEDS: oxyCODONE 5MG TAB PO PRN ×3 (03:28→20:19)
[2018-12-15] MEDS: LEVOTHYROXINE 25MCG TABLET (0.025MG) PO SCH (05:43)
[2018-12-15 06:00] VITALS: BP 110/62
[2018-12-15 06:07] LABS: BASO # 0.1 10^3/uL (0.0-0.2); BASO % 0.8 % (0.0-1.0); EOS # 0.1 10^3/uL (0.0-0.5); EOS % 0.7 % (0.0-3.0); HEMATOCRIT 42.6 % (36.0-47.0); LYMPH # 0.7 10^3/uL (1.5-5.0); LYMPH % 7.6 % (24.0-44.0); MEAN CORPUSCULAR HEMOGLOBIN 30.4 pg (27.0-33.0); MEAN CORPUSCULAR HGB CONC 32.9 g/dl (32.0-36.5); MEAN CORPUSCULAR VOLUME 92.6 fl (80.0-96.0); MONO # 0.7 10^3/uL (0.0-0.8); MONO % 6.8 % (0.0-5.0); NEUTROPHILS % 83.3 % (36.0-66.0); PLATELET COUNT, AUTOMATED 219 10^3/uL (150-450); WHITE BLOOD COUNT 9.7 10^3/uL (4.0-10.0)
[2018-12-15 06:31] LABS: CALCIUM LEVEL 8.7 MG/DL (8.8-10.2); CREATININE FOR GFR 1.6 MG/DL (0.55-1.30); GLOMERULAR FILTRATION RATE 33.7 (>39); POTASSIUM SERUM 4.3 MEQ/L (3.5-5.1)
[2018-12-15] MEDS: ADVAIR HFA 230/21MCG INHALER INH SCH ×2 (08:03→20:29)
[2018-12-15] MEDS: DOCUSATE SODIUM 100 MG CAP PO SCH ×2 (08:15→20:19)
[2018-12-15] MEDS: SPIRONOLACTONE 25 MG TAB PO SCH (08:15)
[2018-12-15] MEDS: DULoxetine 30 MG CAP (CYMBALTA) PO SCH (08:15)
[2018-12-15] MEDS: APIXABAN 2.5 MG TAB (ELIQUIS) PO SCH ×2 (08:15→20:19)
[2018-12-15] MEDS: MAGNESIUM OXIDE 400 MG TAB (MAG-OX) PO SCH (08:15)
[2018-12-15] MEDS: MIRALAX *UNIT DOSE* 17GM PACKET PO SCH (08:15)
[2018-12-15] MEDS: AMIODARONE 200 MG TAB (PACERONE) PO SCH (08:15)
[2018-12-15] MEDS: HumaLOG INSULIN (NovoLOG) PER UNIT SC SCH ×4 (08:18→21:00)
[2018-12-15] MEDS ORDERED: BISACODYL 10 MG SUPP PR PRN (12:15)
--- NOTE | 2018-12-15 12:17 | IPNPDOC ---
Subjective Date Seen The patient was seen on 12/15/18. Subjective Chief Complaint/HPI feels a little better today, says that the leg swelling is a little better. says she is breathing better also. No fever or chills, no chest pain or cough today. Says that she feels her abdomen is very distended. Objective Physical Examination General Exam: Positive: Alert, Cooperative, No Acute Distress Eye Exam: Positive: PERRLA, Conjunctiva & lids normal, EOMI; Negative: Sclera icteric ENT Exam: Positive: Atraumatic, Mucous membr. moist/pink, Pharynx Normal Neck Exam: Positive: Supple, JVD; Negative: thyromegaly Chest Exam: Positive: Diminished, Other (bibasal crackles. ) Heart Exam: Positive: Rate Normal, Regular Rhythm, Normal S1, Normal S2, Murmurs; Negative: Rubs Telemetry: Positive: No significant arrhythmia, Other Telemetry: (paced) Abdomen Exam: Positive: Normal bowel sounds, Soft; Negative: Tenderness, Hepatospenomegaly Extremity Exam: Positive: Edema, Swelling Skin Exam: Positive: Other skin issue (stasis rubor in both the legs) Psych Exam: Positive: Mental status NL, Mood NL, Memory Intact, Oriented x 3 Assessment /Plan Assessment 73 year old female with PMH of Diastolic CHF, COPD with chronic hypoxic resp iratory failure. , Severe Pulmonary hypertension with corpulmonale, severe tricuspid regurgitation, Mitral valve repair status, A fib, Renal cell cancer s/p partial right nephrectomy in July 2018, Diabetes, Hypertension, H/O SSS has a pacemaker, Anxiety, GERD, Hypothyroid, Iron deficiency anemia, chronic constipation presented to the ED with 3 weeks of slowly increasing weight and leg swelling and SOB. She had right partial nephrectomy for cancer done in July 2018 presented to the ED with increasing SOB, COugh and leg swelling and increasing weights for several weeks and admitted for CHF exacerbation. Diastolic CHF exacerbation due to dietary indiscretion, has not been following any fluid restriction after her surgery for the renal cancer as she was told to drink more as her kifney function was bad soon after the surgery. Lasix iv fluid rectriction, I/O daily weights. CKD Vs JANICE on CKD possibly the elevated creatinine is due to her partial nephrectomy status and probably remain there due to loss of renal mass on one side. However it could be Janice also due to CHF exacerbation. will check for obstruction. will monitor the creatinine with diuresis however i think we will have to accept some renal compromise to maintain her in euvolemic status and keep her heart failure under contol. will continue to monitor for her new baseline creatinine. Hyponatremia possibly due to CHF will continue to monitor. Diabetes will hold metformin start on lispro sliding scale. Afib with pacemaker continue amiodarone and diltiazem with old parameters continue eliquis with reduced dose for body weight. COPD with chronic resp failure with hypoxia continue oxygen supplementation. Severe pulmonary hypertension with corpulmonale continue diuresis. Mitral valve repair status Renal cell cancer s/p partial right nephrectomy in July 2018 Hypertension continue diltiazem Anxiety GERD Hypothyroid continue Synthroid Iron deficiency anemia Constipation bowel regimen Chronic pain continue oxycodone prn. Plan/VTE VTE Prophylaxis Ordered?: Yes VS, I&O, 24H, Fishbone Vital Signs/I&O Vital Signs Date Time Temp Pulse Resp B/P (MAP) Pulse Ox O2 Delivery O2 Flow Rate FiO2 12/15/18 11:15 17 12/15/18 08:17 63 148/68 12/15/18 06:00 97.0 93 3.0 12/14/18 16:15 Nasal Cannula I&O- Last 24 Hours up to 6 AM 12/15/18 06:00 Intake Total 520 ml Output Total 475 ml Balance 45 ml Laboratory Data 24H LABS Laboratory Tests 2 12/14/18 12:24: Blood Gas Bicarbonate Standard 24.9, Arterial Blood pH 7.455H, Arterial Blood Partial Pressure CO2 35.3, Arterial Blood Partial Pressure O2 51.1L, Arterial Blood Total CO2 25.3, Arterial Blood HCO3 24.3, Arterial Blood Base Excess 0.8, Arterial Blood Oxygen Saturation 84.0L 12/14/18 17:31: Bedside Glucose (Misc Panel) 113H 12/14/18 20:54: Bedside Glucose (Misc Panel) 174H 12/15/18 05:33: Immature Granulocyte % (Auto) 0.8, White Blood Count 9.7, Red Blood Count 4.60, Hemoglobin 14.0, Hematocrit 42.6, Mean Corpuscular Volume 92.6, Mean Corpuscular Hemoglobin 30.4, Mean Corpuscular Hemoglobin Concent 32.9, Red Cell Distribution Width 16.4H, Platelet Count 219, Neutrophils (%) (Auto) 83.3H, Lymphocytes (%) (Auto) 7.6L, Monocytes (%) (Auto) 6.8H, Eosinophils (%) (Auto) 0.7, Basophils (%) (Auto) 0.8, Neutrophils # (Auto) 8.0, Lymphocytes # (Auto) 0.7L, Monocytes # (Auto) 0.7, Eosinophils # (Auto) 0.1, Basophils # (Auto) 0.1, Nucleated Red Blood Cells % (auto) 0.0, Anion Gap 9, Glomerular Filtration Rate 33.7L, Blood Urea Nitrogen 27H, Creatinine 1.60H, Sodium Level 129L, Potassium Level 4.3, Chloride Level 94L, Carbon Dioxide Level 26, Calcium Level 8.7L 12/15/18 12:06: Bedside Glucose (Misc Panel) 73L CBC/BMP Laboratory Tests 12/15/18 05:33 Red Blood Count 4.60, Mean Corpuscular Volume 92.6, Mean Corpuscular Hemoglobin 30.4, Mean Corpuscular Hemoglobin Concent 32.9, Red Cell Distribution Width 16.4 H, Neutrophils (%) (Auto) 83.3 H, Lymphocytes (%) (Auto) 7.6 L, Monocytes (%) (Auto) 6.8 H, Eosinophils (%) (Auto) 0.7, Basophils (%) (Auto) 0.8, Neutrophils # (Auto) 8.0, Lymphocytes # (Auto) 0.7 L, Monocytes # (Auto) 0.7, Eosinophils # (Auto) 0.1, Basophils # (Auto) 0.1, Calcium Level 8.7 L JAVIER BONE MD Dec 15, 2018 12:17
[2018-12-15 13:36] VITALS: BP 150/68
--- NOTE | 2018-12-15 18:10 | REP ---
RENAL ULTRASOUND: Real-time sonographic evaluation of the kidneys performed. The kidneys were normal in size and echotexture, right kidney measuring 10.0 x 4.7 x 3.4 cm and left kidney 10.2 x 4.2 x 5.3 cm. There is no hydronephrosis bilaterally. Reportedly, the patient had right inferior renal mass removed four months ago. There are perirenal echogenic foci probably representing surgical sutures. There is no current evidence of a mass. Doppler color evaluation of the urinary bladder does not demonstrate evidence of ureteral jets. IMPRESSION: No hydronephrosis. Patient is status post removal of right renal mass inferiorly with no current evidence of renal mass bilaterally. Electronically Signed by Manoj Aldana MD 12/16/2018 09:02 A
[2018-12-15] MEDS: FERROUS SULFATE 325MG TAB PO SCH (20:20)
[2018-12-15 22:00] VITALS: BP 159/65
[2018-12-16] MEDS: FUROSEMIDE 40 MG/4 ML VIAL (J1940) IV SCH ×3 (04:41→21:22)
[2018-12-16] MEDS: LEVOTHYROXINE 25MCG TABLET (0.025MG) PO SCH (05:58)
[2018-12-16] MEDS: oxyCODONE 5MG TAB PO PRN (05:58)
[2018-12-16 06:00] VITALS: BP 108/57
[2018-12-16 06:40] LABS: BASO # 0.1 10^3/uL (0.0-0.2); BASO % 0.6 % (0.0-1.0); EOS # 0.1 10^3/uL (0.0-0.5); EOS % 1.3 % (0.0-3.0); HEMATOCRIT 42.1 % (36.0-47.0); HEMOGLOBIN 13.6 g/dl (12.0-15.5); LYMPH # 0.8 10^3/uL (1.5-5.0); LYMPH % 8.4 % (24.0-44.0); MEAN CORPUSCULAR HEMOGLOBIN 29.8 pg (27.0-33.0); MEAN CORPUSCULAR HGB CONC 32.3 g/dl (32.0-36.5); MEAN CORPUSCULAR VOLUME 92.1 fl (80.0-96.0); MONO # 0.6 10^3/uL (0.0-0.8); MONO % 6.5 % (0.0-5.0); NEUTROPHILS # 7.3 10^3/uL (1.5-8.5); NEUTROPHILS % 82.3 % (36.0-66.0); PLATELET COUNT, AUTOMATED 214 10^3/uL (150-450); RED BLOOD COUNT 4.57 10^6/uL (4.00-5.40); WHITE BLOOD COUNT 8.9 10^3/uL (4.0-10.0)
[2018-12-16 07:06] LABS: CALCIUM LEVEL 8.4 MG/DL (8.8-10.2); CREATININE FOR GFR 1.58 MG/DL (0.55-1.30); GLOMERULAR FILTRATION RATE 34.2 (>39)
[2018-12-16] MEDS: ADVAIR HFA 230/21MCG INHALER INH SCH ×2 (07:42→20:30)
[2018-12-16] MEDS: HumaLOG INSULIN (NovoLOG) PER UNIT SC SCH ×4 (08:20→21:00)
[2018-12-16] MEDS: MIRALAX *UNIT DOSE* 17GM PACKET PO SCH (08:21)
[2018-12-16] MEDS: DOCUSATE SODIUM 100 MG CAP PO SCH ×2 (08:22→21:26)
[2018-12-16] MEDS: DULoxetine 30 MG CAP (CYMBALTA) PO SCH (08:22)
[2018-12-16] MEDS: APIXABAN 2.5 MG TAB (ELIQUIS) PO SCH ×2 (08:22→21:25)
[2018-12-16] MEDS: MAGNESIUM OXIDE 400 MG TAB (MAG-OX) PO SCH (08:22)
[2018-12-16] MEDS: SPIRONOLACTONE 25 MG TAB PO SCH (08:22)
[2018-12-16] MEDS: AMIODARONE 200 MG TAB (PACERONE) PO SCH (08:23)
[2018-12-16] MEDS ORDERED: FLUBLOK(EGG FREE)(QUAD)INFLUENZA VACC 0.5ML SYRINGE (90682)18YRS&OLDER IM ONE (09:00)
--- NOTE | 2018-12-16 11:00 | IPNPDOC ---
Subjective Date Seen The patient was seen on 12/16/18. Subjective Chief Complaint/HPI Feels a little better, leg swelling is a little better, Says SOb is much better . No fever or chills. Working with PT. Objective Physical Examination General Exam: Positive: Alert, Cooperative, No Acute Distress Eye Exam: Positive: PERRLA, Conjunctiva & lids normal, EOMI; Negative: Sclera icteric ENT Exam: Positive: Atraumatic, Mucous membr. moist/pink, Pharynx Normal Neck Exam: Positive: Supple, JVD; Negative: thyromegaly Chest Exam: Positive: Diminished, Other (bibasal crackles. ) Heart Exam: Positive: Rate Normal, Regular Rhythm, Normal S1, Normal S2, Murmurs; Negative: Rubs Telemetry: Positive: No significant arrhythmia, Other Telemetry: (paced) Abdomen Exam: Positive: Normal bowel sounds, Soft; Negative: Tenderness, Hepatospenomegaly Extremity Exam: Positive: Edema, Swelling Skin Exam: Positive: Other skin issue (stasis rubor in both the legs) Psych Exam: Positive: Mental status NL, Mood NL, Memory Intact, Oriented x 3 Assessment /Plan Assessment 73 year old female with PMH of Diastolic CHF, COPD with chronic hypoxic respiratory failure. , Severe Pulmonary hypertension with corpulmonale, severe tricuspid regurgitation, Mitral valve repair status, A fib, Renal cell cancer s/p partial right nephrectomy in July 2018, Diabetes, Hypertension, H/O SSS has a pacemaker, Anxiety, GERD, Hypothyroid, Iron deficiency anemia, chronic constipation presented to the ED with 3 weeks of slowly increasing weight and leg swelling and SOB. She had right partial nephrectomy for cancer done in July 2018 presented to the ED with increasing SOB, COugh and leg swelling and increasing weights for several weeks and admitted for CHF exacerbation. Diastolic CHF exacerbation due to dietary indiscretion, has not been following any fluid restriction after her surgery for the renal cancer as she was told to drink more as her kifney f unction was bad soon after the surgery. Lasix iv fluid rectriction, I/O daily weights. CKD Vs JANICE on CKD possibly the elevated creatinine is due to her partial nephrectomy status and probably remain there due to loss of renal mass on one side. However it could be Janice also due to CHF exacerbation. will check for obstruction. will monitor the creatinine with diuresis however i think we will have to accept some renal compromise to maintain her in euvolemic status and keep her heart failure under contol. will continue to monitor for her new baseline creatinine. Hyponatremia possibly due to CHF and also low solute intake will continue to monitor. Diabetes will hold metformin start on lispro sliding scale. Afib with pacemaker continue amiodarone and diltiazem with old parameters continue eliquis with reduced dose for body weight. COPD with chronic resp failure with hypoxia continue oxygen supplementation. Severe pulmonary hypertension with corpulmonale continue diuresis. Mitral valve repair status Renal cell cancer s/p partial right nephrectomy in July 2018 Hypertension continue diltiazem Anxiety GERD Hypothyroid continue Synthroid Iron deficiency anemia Constipation bowel regimen Chronic pain continue oxycodone prn. DME requirement Patient would benefit from a hospital bed as she Has CHF, COPD with chronic hypoxic respiratory failure, Severe pulmonary hypertension and corpulmonale and most of the time requires her head to be elevated more than 30 degrees and also often requires immediate change in body position for sudden severe SOB. Plan/VTE VTE Prophylaxis Ordered?: Yes VS[facility]O Vital Signs Date Time Temp Pulse Resp B/P (MAP) Pulse Ox O2 Delivery O2 Flow Rate FiO2 12/16/18 08:23 61 151/67 12/16/18 06:28 18 3.0 12/16/18 06:00 97.1 89 12/14/18 16:15 Nasal Cannula I&O- Last 24 Hours up to 6 AM 12/16/18 06:00 Intake Total 690 ml Output Total 900 ml Balance -210 ml Laboratory Data 24H LABS Laboratory Tests 2 12/15/18 12:06: Bedside Glucose (Misc Panel) 73L 12/15/18 17:18: Bedside Glucose (Misc Panel) 144H 12/15/18 20:43: Bedside Glucose (Misc Panel) 180H 12/16/18 06:10: Immature Granulocyte % (Auto) 0.9, White Blood Count 8.9, Red Blood Count 4.57, Hemoglobin 13.6, Hematocrit 42.1, Mean Corpuscular Volume 92.1, Mean Corpuscular Hemoglobin 29.8, Mean Corpuscular Hemoglobin Concent 32.3, Red Cell Distribution Width 16.8H, Platelet Count 214, Neutrophils (%) (Auto) 82.3H, Lymphocytes (%) (Auto) 8.4L, Monocytes (%) (Auto) 6.5H, Eosinophils (%) (Auto) 1.3, Basophils (%) (Auto) 0.6, Neutrophils # (Auto) 7.3, Lymphocytes # (Auto) 0.8L, Monocytes # (Auto) 0.6, Eosinophils # (Auto) 0.1, Basophils # (Auto) 0.1, Nucleated Red Blood Cells % (auto) 0.0, Anion Gap 9, Glomerular Filtration Rate 34.2L, Blood Urea Nitrogen 30H, Creatinine 1.58H, Sodium Level 127L, Potassium Level 4.0, Chloride Level 90L, Carbon Dioxide Level 28, Calcium Level 8.4L, NG-Ogy-C-Type Natriuretic Peptide 34102D CBC/BMP Laboratory Tests 12/16/18 06:10 Red Blood Count 4.57, Mean Corpuscular Volume 92.1, Mean Corpuscular Hemoglobin 29.8, Mean Corpuscular Hemoglobin Concent 32.3, Red Cell Distribution Width 16.8 H, Neutrophils (%) (Auto) 82.3 H, Lymphocytes (%) (Auto) 8.4 L, Monocytes (%) (Auto) 6.5 H, Eosinophils (%) (Auto) 1.3, Basophils (%) (Auto) 0.6, Neutrophils # (Auto) 7.3, Lymphocytes # (Auto) 0.8 L, Monocytes # (Auto) 0.6, Eosinophils # (Auto) 0.1, Basophils # (Auto) 0.1, Calcium Level 8.4 L JAVIER BONE MD Dec 16, 2018 11:00
[2018-12-16] MEDS: ANALGESIC BALM CRM 120 GM TOP SCH ×3 (12:54→21:26)
[2018-12-16 13:01] LABS: ALBUMIN 2.4 GM/DL (3.2-5.2); BILIRUBIN,DIRECT 1.3 MG/DL (0.0-0.2); BILIRUBIN,TOTAL 2.8 MG/DL (0.2-1.0); TOTAL PROTEIN 7.2 GM/DL (6.4-8.2)
[2018-12-16] MEDS: IPRATROPIUM 0.5MG/ALBUTEROL 2.5MG INH SOL UD 3ML (DUONEB)(J7620) NEB PRN (13:29)
[2018-12-16 14:00] VITALS: BP 149/72
[2018-12-16] MEDS: FERROUS SULFATE 325MG TAB PO SCH (21:25)
[2018-12-16 22:00] VITALS: BP 121/63
[2018-12-16 22:42] LABS: ABG SITE NOT GIVEN
[2018-12-16 22:44] LABS: ABG BASE EXCESS -1.5 (-2.0-2.0); ABG HCO3 24.4 MEQ/L (22.0-26.0); ABG O2 SATURATION 52.6 % (95.0-99.0); ABG PARTIAL PRESSURE CO2 45.5 mmHg (35.0-45.0); ABG PARTIAL PRESSURE O2 32.7 mmHg (75.0-100.0); ABG STANDARD HCO3 22.2 MEQ/L (22.0-26.0); ABG TOTAL CO2 25.8 MEQ/L (23.0-31.0); ABG pH (ARTERIAL) 7.348 UNITS (7.350-7.450)
--- NOTE | 2018-12-16 22:49 | IPNPDOC ---
Date Seen The patient was seen on 12/16/18. Progress Note SUBJECTIVE: 73-year-old elderly female was seen today due acute hypoxia, 88% with the oxygen 3 L per nasal cannula, increased work of breathing with increased shortness of breath secondary to COPD she has O2 at 2 L continuous at home. Patient's oxygen increased to 4 L per nasal cannula, O2 saturation increased 92-93% on pulse oximetry. Daughter is at bedside, and is concerned with her mother's work of breathing and lab results per her mother's night nurse. Ms. Mandel is here for CHF exacerbation. Current BNP has increased to 14,000, ordered stat chest x-ray, AP, lateral and stat ABG due to hypoxia and increased work of breathing. Patient is currently sitting up on the side of the bed leaning forward. She denies having CPAP and/or BiPAP at home for her COPD. OBJECTIVE PHYSICAL EXAMINATION: VITAL SIGNS: BP: 121/63, HR: 60; RR: 22; O2 sat 91-93% on 4L per nasal cannula GENERAL: Alert, cooperative HEENT: PERRLA x2, oral mucosa moist CARDIOVASCULAR: Telemetry and pulse oximetry on, Regular, rhythm, and rate, S1, S2, palpitations RESPIRATORY: Using all intercessory muscles to breathe, Rhonchi auscultated Right upper, middle and base lobe, ABDOMINAL: Bowel NEUROLOGICAL: PSYCHOLOGICAL: Anxious Very LABORATORY DATA, IMAGING STUDIES, MICROBIOLOGY: ABG: pending CMP STAT Pending: Chest x-ray, AP, lateral pending NPO now and advised patient to not drink as her O2 [id number] DVT prophylaxis ordered?: ASSESSMENT AND PLAN: This is a 73-year-old elderly female with acute onset respiratory failure secondary to COPD, admitted for exacerbation congestive heart failure and acute kidney injury. PROBLEMS: 1. Acute hypoxia respiratory failure, COPD. patient transferred ICU, placed on BiPAP supposed to Dr. Lopez. Notify chest painting leader 2. Exacerbation of congestive heart failure 3. Acute kidney injury DISPOSITION: Prognosis: Fair Discharge: Pending VS, I&O, 24H, Fishbone Vital Signs/I&O Vital Signs Date Time Temp Pulse Resp B/P (MAP) Pulse Ox O2 Delivery O2 Flow Rate FiO2 12/16/18 14:00 97.2 65 15 149/72 (97) 90 3.0 12/14/18 16:15 Nasal Cannula I&O- Last 24 Hours up to 6 AM 12/16/18 06:00 Intake Total 690 ml Output Total 900 ml Balance -210 ml Laboratory Data 24H LABS Laboratory Tests 2 12/16/18 06:10: Immature Granulocyte % (Auto) 0.9, White Blood Count 8.9, Red Blood Count 4.57, Hemoglobin 13.6, Hematocrit 42.1, Mean Corpuscular Volume 92.1, Mean Corpuscular Hemoglobin 29.8, Mean Corpuscular Hemoglobin Concent 32.3, Red Cell Distribution Width 16.8H, Platelet Count 214, Neutrophils (%) (Auto) 82.3H, Lymphocytes (%) (Auto) 8.4L, Monocytes (%) (Auto) 6.5H, Eosinophils (%) (Auto) 1.3, Basophils (%) (Auto) 0.6, Neutrophils # (Auto) 7.3, Lymphocytes # (Auto) 0.8L, Monocytes # (Auto) 0.6, Eosinophils # (Auto) 0.1, Basophils # (Auto) 0.1, Nucleated Red Blood Cells % (auto) 0.0, Anion Gap 9, Glomerular Filtration Rate 34.2L, Blood Urea Nitrogen 30H, Creatinine 1.58H, Sodium Level 127L, Potassium Level 4.0, Chloride Level 90L, Carbon Dioxide Level 28, Calcium Level 8.4L, Aspartate Amino Transf (AST/SGOT) 37, Alanine Aminotransferase (ALT/SGPT) 14, Alkaline Phosphatase 241H, Total Bilirubin 2.8H, Direct Bilirubin 1.3H, [id number] Natriuretic Peptide 27514P, Total Protein 7.2, Albumin 2.4L, Albumin/Globulin Ratio 0.50L 12/16/18 12:01: Bedside Glucose (Misc Panel) 65L 12/16/18 16:39: Bedside Glucose (Misc Panel) 183H 12/16/18 20:43: Bedside Glucose (Misc Panel) 123H CBC/BMP Laboratory Tests 12/16/18 06:10 Red Blood Count 4.57, Mean Corpuscular Volume 92.1, Mean Corpuscular Hemoglobin 29.8, Mean Corpuscular Hemoglobin Concent 32.3, Red Cell Distribution Width 16.8 H, Neutrophils (%) (Auto) 82.3 H, Lymphocytes (%) (Auto) 8.4 L, Monocytes (%) (Auto) 6.5 H, Eosinophils (%) (Auto) 1.3, Basophils (%) (Auto) 0.6, Neutrophils # (Auto) 7.3, Lymphocytes # (Auto) 0.8 L, Monocytes # (Auto) 0.6, Eosinophils # (Auto) 0.1, Basophils # (Auto) 0.1, Calcium Level 8.4 L SARAH FLORES Dec 16, 2018 22:48 ALOK CASANOVA MD Dec 18, 2018 07:17
[2018-12-16] MEDS ORDERED: LORazepam 2 MG/ML VIAL (J2060) IV STA (23:23)
[2018-12-16 23:34] LABS: ALBUMIN 2.5 GM/DL (3.2-5.2); BILIRUBIN,TOTAL 2.2 MG/DL (0.2-1.0); CALCIUM LEVEL 8.1 MG/DL (8.8-10.2); CREATININE FOR GFR 1.49 MG/DL (0.55-1.30); GLOMERULAR FILTRATION RATE 36.6 (>39); POTASSIUM SERUM 4.3 MEQ/L (3.5-5.1); TOTAL PROTEIN 6.7 GM/DL (6.4-8.2)
[2018-12-17] VITALS (11 sets, daily range): BP systolic 118–168; BP diastolic 54–89
[2018-12-17] MEDS ORDERED: FUROSEMIDE 100 MG/10 ML VIAL (J1940) IV ONE (00:15)
[2018-12-17] MEDS: FUROSEMIDE injection 250 MG in D5W 225 ML IV SCH ×2 (01:35→18:33)
[2018-12-17 01:43] LABS: FREE T4 1.5 NG/DL (0.76-1.46); THYROID STIMULATING HORMONE 8.12 uIU/ML (0.358-3.740)
--- NOTE | 2018-12-17 02:34 | REP ---
Clinical: Hypoxia and shortness of breath. Comparison: 12/14/2018. Findings: Small left and moderate right pleural effusions are appreciated along with cardiomegaly, and interstitial edema. No pneumothorax. Skeletal structures stable. Pacemaker and cardiac valve repair again noted. Impression: Continued evidence for CHF with interstitial edema and bilateral pleural effusions. Left effusion may be minimally improved as compared with prior examination . Electronically Signed by Giovani Trammell MD 12/17/2018 02:26 A
[2018-12-17] MEDS: ALPRAZolam 0.25 MG TAB PO PRN ×2 (03:13→21:42)
[2018-12-17 04:41] LABS: ABG BASE EXCESS -0.1 (-2.0-2.0); ABG HCO3 22.6 MEQ/L (22.0-26.0); ABG O2 SATURATION 92.3 % (95.0-99.0); ABG PARTIAL PRESSURE CO2 31.4 mmHg (35.0-45.0); ABG PARTIAL PRESSURE O2 64.7 mmHg (75.0-100.0); ABG SITE NOT GIVEN; ABG STANDARD HCO3 24.3 MEQ/L (22.0-26.0); ABG TOTAL CO2 23.6 MEQ/L (23.0-31.0); ABG pH (ARTERIAL) 7.475 UNITS (7.350-7.450)
[2018-12-17 05:10] LABS: BASO % 0.5 % (0.0-1.0); EOS # 0.1 10^3/uL (0.0-0.5); EOS % 0.9 % (0.0-3.0); HEMATOCRIT 40.1 % (36.0-47.0); HEMOGLOBIN 13.2 g/dl (12.0-15.5); LYMPH # 0.8 10^3/uL (1.5-5.0); LYMPH % 8.8 % (24.0-44.0); MEAN CORPUSCULAR HEMOGLOBIN 30.6 pg (27.0-33.0); MEAN CORPUSCULAR HGB CONC 32.9 g/dl (32.0-36.5); MEAN CORPUSCULAR VOLUME 92.8 fl (80.0-96.0); MONO # 0.5 10^3/uL (0.0-0.8); MONO % 6.1 % (0.0-5.0); NEUTROPHILS # 7.2 10^3/uL (1.5-8.5); PLATELET COUNT, AUTOMATED 192 10^3/uL (150-450); RED BLOOD COUNT 4.32 10^6/uL (4.00-5.40); WHITE BLOOD COUNT 8.6 10^3/uL (4.0-10.0)
[2018-12-17 05:30] LABS: CALCIUM LEVEL 8.3 MG/DL (8.8-10.2); CREATININE FOR GFR 1.29 MG/DL (0.55-1.30); GLOMERULAR FILTRATION RATE 43.2 (>39); POTASSIUM SERUM 3.7 MEQ/L (3.5-5.1)
--- NOTE | 2018-12-17 05:56 | CR ---
DATE OF CONSULTATION: 12/17/2018 CHIEF COMPLAINT: Shortness of breath. HISTORY OF PRESENT ILLNESS: The patient is a 73-year female with a history of heart failure with preserved ejection fraction (EF), chronic obstructive pulmonary disease (COPD) with chronic hypoxemic respiratory failure on 2 liters nasal cannula oxygen, history of pulmonary hypertension with Cor pulmonale, mitral valve repair, atrial fibrillation, renal cell cancer status post partial right nephrectomy in July 2018, diabetes, hypertension, sick sinus syndrome status post pacemaker, gastroesophageal reflux disease (GERD), anxiety, hypothyroidism, who presented with complaints of increasing shortness of breath with leg swelling and abdominal distension for the past few weeks. The patient was also reported noticing some increasing yellowing of her eyes in the past month. The patient has noted increased shortness of breath she feels since she had adjustments of her Lasix to torsemide 2 months ago. She also reports she has not been as compliant with fluid restriction, as post nephrectomy she was told she should increase her water intake for her kidneys. The patient was seen at her caregivers homecare's office recently and her torsemide was changed to bumex; however, she reported overnight she felt her breathing had significantly worse, as well as having increased fatigue and so she presented to the emergency department (ED). She denies noticing any chest pain. She does have some occasional wheezing and she has also noted some cough productive of yellow sputum, but has not had any fevers or chills. The patient does have complaints of chronic neck and back pain for which she uses oxycodone as an outpatient. She also takes Xanax as needed for anxiety, as well as an outpatient. The patient was admitted with decompensated heart failure on 12/14/2018. She was started on Lasix with diuresis and she reported initially she had some improvement in her shortness of breath. However, overnight the patient complained of some anxiety and increased shortness of breath which she contributed to her increased anxiety. The patient had decided during this episode that her nasal cannula supplementation was increased to 4 liters a minute. She was given additional dose of IV Lasix and transferred to the ICU for possible BiPAP. On arrival to the intensive care unit (ICU), the patient's anxiety had improved and her tachypnea had improved as well. She was lying in bed and not using any accessory muscles for respiration and did not appear to be tachypneic. She reports her breathing has improved somewhat now that she has calmed down with her anxiety. The patient's oxygen saturations had also improved to 95% on 4 liters nasal cannula. PAST MEDICAL/SURGICAL HISTORY: 1. Heart failure preserved, ejection fraction (EF). 2. Pulmonary retention with Cor pulmonale. 3. History of tricuspid regurgitation. 4. Mitral valve repair. 5. Chronic obstructive pulmonary disease (COPD) with chronic hypoxemic respiratory failure on nasal cannula oxygen supplementation. 6. Atrial fibrillation on anticoagulation. 7. Renal cell cancer status post partial right nephrectomy in July 2018. 8. Diabetes. 9. Hypertension. 10. Sick sinus syndrome. 11. History of status post pacemaker. 12. Anxiety. 13. Gastroesophageal reflux disease (GERD). 14. Hypothyroidism. 15. Iron deficiency anemia. FAMILY HISTORY: Mother with a history of heart disease. Diabetes in the family. SOCIAL HISTORY: Former smoker, quit less than one year ago ALLERGIES: ACETAMINOPHEN, GABAPENTIN, MORPHINE, MACROLIDE ANTIBIOTICS and CEFDINIR. HOME MEDICATIONS : - amiodarone - Eliquis - Bumex - diltiazem - fluoxetine - vitamin D2 - ferrous sulfate - Synthroid - magnesium oxide - metformin - Advair - spironolactone - albuterol as needed - Xanax 0.25 mg four times a day as needed - Mucinex - Atrovent - DuoNebs as needed - oxycodone 5 mg four times a day as needed - MiraLax as needed PHYSICAL EXAMINATION: VITALS: Temperature 97, heart rate 60, respirations 22, blood pressure 121/63, O2 saturation 95% on 4 liters nasal cannula oxygen supplementation. Input 1 liter, outputs 1.6 liters, net negative 550 mL GENERAL: The patient is a thin female who is lying in bed, does not appear to be using any accessory muscles for respiration and is able to speak in complete sentences. HEENT: Normocephalic, atraumatic. Moist mucous membranes. Pupils are reactive to light. Mild scleral icterus. Neck is supple. Trachea is midline. Positive JVD. No palpable adenopathy. CARDIOVASCULAR: Regular rate and rhythm. Normal S1-S2, faint murmur auscultated. PULMONARY: Crackles noted bilaterally with more decreased breath sounds on the right base with some diminished breath sounds more generally with prolonged exhalation. ABDOMEN: Soft, nontender, mildly distended. EXTREMITIES: +2 pitting edema in the bilateral lower extremities. LABORATORY DATA: White blood count (WBC) 8.9, hemoglobin 13.6, platelets 214. Chemistry: Sodium is 128, potassium 4.3, chloride is 90, bicarbonate 26, BUN 31, creatinine is 1.49, glucose 118, bilirubin 2.2, AST, ALT within normal limits. Alkaline phosphatase 2.87, BNP increased to 14,982, albumin is 2.5. Arterial blood gas (ABG) initially pH is 7.455, pCO2 of 35.3, pO2 of 51.1, repeat arterial blood gas (ABG) pH of 7.348, pCO2 of 45.5, pO2 of 32.7. Chest x-ray shows pulmonary vascular congestion bilaterally with moderate right pleural effusion. Compared to the chest x-ray on admission there is improvement in the left sided effusion with likely a trace effusion now noted. There is a cardiomegaly noted, as well as a pacemaker. ASSESSMENT/PLAN: Ms. Mandel is a 73-year-old female with a past medical history of hypothyroidism, chronic obstructive pulmonary disease (COPD) with chronic hypoxemic respiratory failure on nasal cannula oxygen, heart failure with preserved ejection fraction (EF), pulmonary hypertension with Cor pulmonale, mitral valve repair, atrial fibrillation on anticoagulation, renal cell carcinoma status post partial right nephrectomy, who presented with complaints of increasing shortness of breath and lower extremity edema for the past few weeks. The patient was found to have acute kidney injury on chronic kidney disease (CKD) likely in the setting of her decompensated right-sided heart failure with a cardiorenal syndrome. She also had significantly elevated BNP and evidence of bilateral pleural effusions and pulmonary congestion on her initial chest x-ray. The patient was started on Lasix and she did have some improvement in her shortness of breath. Overnight, she was noted to have increasing shortness of breath, which she reported was due to anxiety and a repeat arterial blood gas (ABG) was done and there was some concern for acute hypercarbic respiratory failure and so she was transferred to the ICU for further management. On arrival to the intensive care unit (ICU), the patient's anxiety and a respiratory distress had resolved. She was saturating well on 4 liters of nasal cannula oxygen supplementation and did not appear to be using any accessory muscles for respiration. Her ABG appeared to be likely of venous blood gas (VBG) given or a mixed sample given her pO2. There was some slight increase in her pCO2 from admission, but especially not significant. The patient also does not appear to be in any significant respiratory distress and her repeat chest x-ray shows some improvement actually in her left-sided pleural effusion. She has likely a smaller trace effusion on the left side, but still has a persistent moderate effusion on the right. Her creatinine has also been trending down, which is consistent with improvement in her cardiorenal syndrome. Her BNP has been high, but given her history of Cor pulmonale, will likely be elevated even at baseline. She does still have some pitting edema, however, and suspect she does have need for more aggressive diuresis. She has not had a Tam and has not been significantly net negative. - Will change the patient from Lasix 60 mg IV every 8 to Lasix drip at 10 mg an hour. Will also place a Tam to more accurately monitor her ins and outs; and if she is not putting out significant urine to be at goal net negative 1 to 1.5 liters a day, would increased her Lasix 15 mg an hour if her blood pressure tolerates. She has actually been more hypertensive on this admission. - Would discontinue BiPAP for now and continue to monitor with a repeat arterial blood gas (ABG) only on NC. If she has worsening hypercarbia, would place her on BIPAP at that time for acute hypercarbic respiratory failure. - continue to monitor electrolytes and replete as needed. Her renal function has been improving with diuresis consistent with cardiorenal syndrome - She was noticed to have scleral icterus and bilirubin was elevated. Suspect she has hepatic congestion from decompensated right heart failure. cont to monitor LFTs. - Would continue with the rest of her cardiac medications as per her primary team. - The patient is on Synthroid. Would also check a thyroid simulating hormone (TSH) and free T4. - The patient was ordered for Ativan 0.5 mg. Would hold off on IV Ativan and give 0.25 by mouth as needed as that was her home medication, but would hold for excessive sedation or any respiratory depression. - Continue with her home inhalers of Advair and DuoNebs as needed Deep vein thrombosis (DVT) prophylaxis. She is on full anticoagulation with Eliquis Code status DO NOT RESUSCITATE/DO NOT INTUBATE. Total critical care time spent not including any procedures approximately 1 hour and 45 minutes. MTDD
[2018-12-17] MEDS: LEVOTHYROXINE 25MCG TABLET (0.025MG) PO SCH (06:38)
[2018-12-17] MEDS: ADVAIR HFA 230/21MCG INHALER INH SCH ×2 (08:08→18:25)
[2018-12-17] MEDS: DOCUSATE SODIUM 100 MG CAP PO SCH ×2 (08:17→21:42)
[2018-12-17] MEDS: MIRALAX *UNIT DOSE* 17GM PACKET PO SCH (08:17)
[2018-12-17] MEDS: DULoxetine 30 MG CAP (CYMBALTA) PO SCH (08:17)
[2018-12-17] MEDS: HumaLOG INSULIN (NovoLOG) PER UNIT SC SCH ×4 (08:17→21:00)
[2018-12-17] MEDS: AMIODARONE 200 MG TAB (PACERONE) PO SCH (08:18)
[2018-12-17] MEDS: MAGNESIUM OXIDE 400 MG TAB (MAG-OX) PO SCH (08:18)
[2018-12-17] MEDS: SPIRONOLACTONE 25 MG TAB PO SCH (08:18)
[2018-12-17] MEDS: APIXABAN 2.5 MG TAB (ELIQUIS) PO SCH ×2 (08:18→21:42)
[2018-12-17] MEDS: ANALGESIC BALM CRM 120 GM TOP SCH ×4 (08:19→21:43)
--- NOTE | 2018-12-17 10:45 | IPNPDOC ---
Subjective Date Seen The patient was seen on 12/17/18. Subjective Chief Complaint/HPI Feeling much better this morning. Said she had a panic attack last night and could not breathe , her oxygen was down , she was breathing very fast so she was moved to ICU. but now she is feeling much better after getting her xanax. No fever or chills, no chest pain or sob or cough this morning. Objective Physical Examination General Exam: Positive: Alert, Cooperative, No Acute Distress Eye Exam: Positive: PERRLA, Conjunctiva & lids normal, EOMI; Negative: Sclera icteric ENT Exam: Positive: Atraumatic, Mucous membr. moist/pink, Pharynx Normal Neck Exam: Positive: Supple, JVD; Negative: thyromegaly Chest Exam: Positive: Diminished, Other (bibasal crackles. ) Heart Exam: Positive: Rate Normal, Regular Rhythm, Normal S1, Normal S2, Murmurs; Negative: Rubs Telemetry: Positive: No significant arrhythmia, Other Telemetry: (paced) Abdomen Exam: Positive: Normal bowel sounds, Soft; Negative: Tenderness, Hepatospenomegaly Extremity Exam: Positive: Edema, Swelling Skin Exam: Positive: Other skin issue (stasis rubor in both the legs) Psych Exam: Positive: Mental status NL, Mood NL, Memory Intact, Oriented x 3 Assessment /Plan Assessment 73 year old female with PMH of Diastolic CHF, COPD with chronic hypoxic respiratory failure. , Severe Pulmonary hypertension with corpulmonale, severe tricuspid regurgitation, Mitral valve repair status, A fib, Renal cell cancer s/p partial right nephrectomy in July 2018, Diabetes, Hypertension, H/O SSS has a pacemaker, Anxiety, GERD, Hypothyroid, Iron deficiency anemia, chronic constipation presented to the ED with 3 weeks of slowly increasing weight and leg swelling and SOB. She had right partial nephrectomy for cancer done in July 2018 presented to the ED with increasing SOB, COugh and leg swelling and increasing weights for several weeks and admitted for CHF exacerbation. Diastolic CHF exacerbation due to dietary indiscretion, has not been following any fluid restriction after her surgery for the renal cancer as she was told to drink more as her kidney function was bad soon after the surgery. currently on lasix infusion fluid restriction, I/O daily weights. JANICE on CKD ratehr than CKD as renal funciton is improving with diuresis. Janice due to CHF exacerbation. No obstruction. Hyponatremia worse today possibly due to CHF and also low solute intake She is also getting quite a bit of dextrose with lasix infusion that may be adding on. will continue to monitor. On normal diet. check uric acid Diabetes will hold metformin started on lispro sliding scale. Afib with pacemaker continue amiodarone and diltiazem with hold parameters continue eliquis with reduced dose for body weight. Anxiety restarted on xanax prn COPD with chronic resp failure with hypoxia continue oxygen supplementation. Severe pulmonary hypertension with corpulmonale with possible hepatic congestion due to chronic right heart failure with mildly elevated bilirubin. continue diuresis. Mitral valve repair status Renal cell cancer s/p partial right nephrectomy in July 2018 Hypertension continue diltiazem Anxiety xanax prn GERD continue ppi Hypothyroid continue Synthroid Iron deficiency anemia Constipation bowel regimen Chronic pain continue oxycodone prn. DME requirement Patient would benefit from a hospital bed as she Has CHF, COPD with chronic hypoxic respiratory failure, Severe pulmonary hypertension and corpulmonale and most of the time requires her head to be elevated more than 30 degrees and also often requires immediate change in body position for sudden severe SOB. Plan/VTE VTE Prophylaxis Ordered?: Yes VS, I&O, 24H, Fishbone Vital Signs/I&O Vital Signs Date Time Temp Pulse Resp B/P (MAP) Pulse Ox O2 Delivery O2 Flow Rate FiO2 12/17/18 08:17 62 149/67 12/17/18 08:00 98.5 18 92 3.0 12/14/18 16:15 Nasal Cannula I&O- Last 24 Hours up to 6 AM 12/17/18 06:00 Intake Total 950 ml Output Total 1640 ml Balance -690 ml Laboratory Data 24H LABS Laboratory Tests 2 12/16/18 12:01: Bedside Glucose (Misc Panel) 65L 12/16/18 16:39: Bedside Glucose (Misc Panel) 183H 12/16/18 20:43: Bedside Glucose (Misc Panel) 123H 12/16/18 22:35: Blood Gas Bicarbonate Standard 22.2, Arterial Blood pH 7.348L, Arterial Blood Partial Pressure CO2 45.5H, Arterial Blood Partial Pressure O2 32.7*L, Arterial Blood Total CO2 25.8, Arterial Blood HCO3 24.4, Arterial Blood Base Excess -1.5, Arterial Blood Oxygen Saturation 52.6L, Arterial Blood Gas Puncture Site NOT GIVEN 12/16/18 22:56: Anion Gap 12, Glomerular Filtration Rate 36.6L, Blood Urea Nitrogen 31H, Creatinine 1.49H, Sodium Level 128L, Potassium Level 4.3, Chloride Level 90L, Carbon Dioxide Level 26, Calcium Level 8.1L, Aspartate Amino Transf (AST/SGOT) 25, Alanine Aminotransferase (ALT/SGPT) 14, Alkaline Phosphatase 287H, Total Bilirubin 2.2H, Total Protein 6.7, Albumin 2.5L, Albumin/Globulin Ratio 0.60L, Thyroid Stimulating Hormone (TSH) 8.120H, Free Thyroxine 1.50H 12/17/18 04:30: Blood Gas Bicarbonate Standard 24.3, Arterial Blood pH 7.475H, Arterial Blood Partial Pressure CO2 31.4L, Arterial Blood Partial Pressure O2 64.7L, Arterial Blood Total CO2 23.6, Arterial Blood HCO3 22.6, Arterial Blood Base Excess -0.1, Arterial Blood Oxygen Saturation 92.3L, Arterial Blood Gas Puncture Site NOT GIVEN 12/17/18 04:55: Anion Gap 10, Glomerular Filtration Rate 43.2, Blood Urea Nitrogen 29H, Creatinine 1.29, Sodium Level 125L, Potassium Level 3.7, Chloride Level 91L, Carbon Dioxide Level 24, Calcium Level 8.3L, Immature Granulocyte % (Auto) 0.7, White Blood Count 8.6, Red Blood Count 4.32, Hemoglobin 13.2, Hematocrit 40.1, Mean Corpuscular Volume 92.8, Mean Corpuscular Hemoglobin 30.6, Mean Corpuscular Hemoglobin Concent 32.9, Red Cell Distribution Width 16.4H, Platelet Count 192, Neutrophils (%) (Auto) 83.0H, Lymphocytes (%) (Auto) 8.8L, Monocytes (%) (Auto) 6.1H, Eosinophils (%) (Auto) 0.9, Basophils (%) (Auto) 0.5, Neutrophils # (Auto) 7.2, Lymphocytes # (Auto) 0.8L, Monocytes # (Auto) 0.5, Eosinophils # (Auto) 0.1, Basophils # (Auto) 0.0, Nucleated Red Blood Cells % (auto) 0.0 12/17/18 08:02: Bedside Glucose (Misc Panel) 188H CBC/BMP Laboratory Tests 12/16/18 22:56 Calcium Level 8.1 L, Aspartate Amino Transf (AST/SGOT) 25, Alanine Aminotransferase (ALT/SGPT) 14, Alkaline Phosphatase 287 H, Total Bilirubin 2.2 H, Total Protein 6.7, Albumin 2.5 L 12/17/18 04:55 Calcium Level 8.3 L, Red Blood Count 4.32, Mean Corpuscular Volume 92.8, Mean Corpuscular Hemoglobin 30.6, Mean Corpuscular Hemoglobin Concent 32.9, Red Cell Distribution Width 16.4 H, Neutrophils (%) (Auto) 83.0 H, Lymphocytes (%) (Auto) 8.8 L, Monocytes (%) (Auto) 6.1 H, Eosinophils (%) (Auto) 0.9, Basophils (%) (Auto) 0.5, Neutrophils # (Auto) 7.2, Lymphocytes # (Auto) 0.8 L, Monocytes # (Auto) 0.5, Eosinophils # (Auto) 0.1, Basophils # (Auto) 0.0 JAVIER BONE MD Dec 17, 2018 10:45
[2018-12-17 11:45] LABS: URIC ACID 9.2 MG/DL (2.6-6.0)
[2018-12-17 17:25] LABS: CALCIUM LEVEL 8.1 MG/DL (8.8-10.2); CREATININE FOR GFR 1.38 MG/DL (0.55-1.30); POTASSIUM SERUM 3.2 MEQ/L (3.5-5.1)
[2018-12-17] MEDS: FERROUS SULFATE 325MG TAB PO SCH (21:42)
[2018-12-18 06:00] VITALS: BP 129/61
[2018-12-18] MEDS: LEVOTHYROXINE 25MCG TABLET (0.025MG) PO SCH (06:12)
[2018-12-18 07:09] LABS: BASO % 0.4 % (0.0-1.0); EOS # 0.2 10^3/uL (0.0-0.5); HEMATOCRIT 40.8 % (36.0-47.0); HEMOGLOBIN 13.3 g/dl (12.0-15.5); LYMPH # 0.6 10^3/uL (1.5-5.0); MEAN CORPUSCULAR HEMOGLOBIN 30.4 pg (27.0-33.0); MEAN CORPUSCULAR HGB CONC 32.6 g/dl (32.0-36.5); MEAN CORPUSCULAR VOLUME 93.2 fl (80.0-96.0); MONO # 0.5 10^3/uL (0.0-0.8); NEUTROPHILS # 6.2 10^3/uL (1.5-8.5); NEUTROPHILS % 82.9 % (36.0-66.0); PLATELET COUNT, AUTOMATED 192 10^3/uL (150-450); RED BLOOD COUNT 4.38 10^6/uL (4.00-5.40); WHITE BLOOD COUNT 7.5 10^3/uL (4.0-10.0)
[2018-12-18 07:31] LABS: CALCIUM LEVEL 8.1 MG/DL (8.8-10.2); CREATININE FOR GFR 1.1 MG/DL (0.55-1.30); POTASSIUM SERUM 3.3 MEQ/L (3.5-5.1)
[2018-12-18] MEDS: ADVAIR HFA 230/21MCG INHALER INH SCH ×2 (08:53→20:00)
[2018-12-18] MEDS: HumaLOG INSULIN (NovoLOG) PER UNIT SC SCH ×4 (09:30→20:44)
[2018-12-18] MEDS: MIRALAX *UNIT DOSE* 17GM PACKET PO SCH (09:31)
[2018-12-18] MEDS: DOCUSATE SODIUM 100 MG CAP PO SCH ×2 (09:32→20:44)
[2018-12-18] MEDS: SPIRONOLACTONE 25 MG TAB PO SCH (09:32)
[2018-12-18] MEDS: MAGNESIUM OXIDE 400 MG TAB (MAG-OX) PO SCH (09:32)
[2018-12-18] MEDS: DULoxetine 30 MG CAP (CYMBALTA) PO SCH (09:36)
[2018-12-18] MEDS: POTASSIUM CHLORIDE 10 MEQ SR TABLET PO SCH ×2 (09:36→20:44)
[2018-12-18] MEDS: APIXABAN 2.5 MG TAB (ELIQUIS) PO SCH ×2 (09:36→20:44)
[2018-12-18] MEDS: AMIODARONE 200 MG TAB (PACERONE) PO SCH (09:36)
[2018-12-18] MEDS: ANALGESIC BALM CRM 120 GM TOP SCH ×4 (09:39→20:45)
--- NOTE | 2018-12-18 11:24 | CCN ---
DATE OF SERVICE: 12/18/2018 The patient was seen and examined this morning during bedside rounds. The patient reports that her shortness of breath has been improving. She continues to have some cough occasionally productive of yellow sputum, but she does feel that her cough has been loosening up. She denies any chest pains. No fevers or chills. She does continue to have some lower extremity edema, although this is improving slightly. The patient is complaining of some discomfort with her indwelling Tam catheter. She has been weaned down on her nasal cannula oxygen supplementation to 3 liters a minute. PHYSICAL EXAMINATION: Vitals: Temperature 98.4, pulse 63, respirations 18, blood pressure 120/61, O2 sat 92% on 3 liters , ins 1250 and outs 1870, net negative 620 mL. General: The patient is an elderly female who is lying in bed, does not appear to be any acute distress, is able to speak in complete sentences and is not using accessory muscles for respiration. HEENT: Normocephalic, atraumatic. Moist mucous membranes. Pupils are reactive to light. Mild scleral icterus. Cardiovascular: Regular rate and rhythm. Normal S1 and S2. Faint murmur auscultated. Pulmonary: Crackles noted, more in the left base, with diminished breath sounds on the right side with some few crackles as well. There is no wheezing, no rhonchi. Abdomen is soft, nontender, mildly distended, although it is improving. Extremities: There is +1 pitting edema in the bilateral lower extremities. LABORATORY DATA: WBC 7.5, hemoglobin 13.3, platelets 192. Chemistry sodium is 130, potassium 3.3, chloride 91, bicarb 29, BUN 21, creatinine trending down to 1.10, glucose is 131, TSH 8.120, and free T4 was 1.5. ASSESSMENT/PLAN: Ms. Mandel is a 73-year female with a history of hypothyroidism, COPD with chronic hypoxemic respiratory failure on nasal cannula oxygen, heart failure with preserved EF, pulmonary hypertension, history of mitral valve repair atrial fibrillation on anticoagulation, renal cell carcinoma status post partial right nephrectomy who had presented initially with increasing shortness of breath and lower extremity edema for the past few weeks. The patient was found on admission to have ADRIANNE on CKD, likely in the setting of her decompensated right-sided heart failure with cardiorenal syndrome. She did have significant elevated BNP and evidence of bilateral pleural effusions and pulmonary vascular congestion on her chest x-ray. The patient was started on Lasix for diuresis and eventually transitioned to a Lasix drip for continued diuresis. She has continued to be net negative and her renal function has been improving. The patient's last chest x-ray did show some improvement in her left sided effusion, but she continues to have a moderate right pleural effusion. On exam, she does continue to have some pitting edema in the lower extremities, although she does report her abdominal distention has improved. The patient also had some increased bilirubin, likely had in the setting of hepatic congestion from her decompensated right-sided heart failure. - Would consider discontinuing the Lasix drip and switching her to IV Lasix. The patient will need to be monitored while she is being transitioned from IV to oral Lasix to make sure she is still adequately diuresing. The patient's daughter had been concerned as on her oral medication she had not been having significant urine output. - Would discontinue the indwelling Tam and place her on Purewick female catheter instead for monitoring of her ins and outs. If patient is noted to have diminished urine output, she will be bladder scanned to make sure there is no evidence of urinary retention. - The patient is mildly hypokalemic with diuresis. Would continue to monitor electrolytes and replete as needed. Her renal function has continued to improve with the diuresis. - Continue to monitor LFTs. Her bilirubin has been improving with improvement in her heart failure and with diuresis. - The patient's TSH was elevated. She likely needs some adjustment of her Synthroid for her hypothyroidism. - Continue with the rest of her cardiac medications as per her primary team. - Continue with her home inhalers of Advair and DuoNebs as needed. - Continue with nasal cannula supplementation. The patient is on 2-3 liters per minute at baseline. Deep vein thrombosis (DVT) prophylaxis on full anticoagulation with Eliquis. CODE STATUS: DO NOT RESUSCITATE/DO NOT INTUBATE (DNR/DNI). TOTAL CRITICAL CARE TIME SPENT: Not including procedures, approximately 35 minutes. Please do not hesitate to call if any further questions or concerns. [facility]
[2018-12-18] MEDS: FUROSEMIDE injection 250 MG in D5W 225 ML IV SCH (11:43)
[2018-12-18] MEDS: ALPRAZolam 0.25 MG TAB PO PRN ×2 (11:51→18:03)
--- NOTE | 2018-12-18 12:06 | IPNPDOC ---
Subjective Date Seen The patient was seen on 12/18/18. Subjective Chief Complaint/HPI No complaints overnight. Denies any sob or chest pain or cough, leg swelling is better. Objective Physical Examination General Exam: Positive: Alert, Cooperative, No Acute Distress Eye Exam: Positive: PERRLA, Conjunctiva & lids normal, EOMI; Negative: Sclera icteric ENT Exam: Positive: Atraumatic, Mucous membr. moist/pink, Pharynx Normal Neck Exam: Positive: Supple, JVD; Negative: thyromegaly Chest Exam: Positive: Diminished, Other (bibasal crackles. ) Heart Exam: Positive: Rate Normal, Regular Rhythm, Normal S1, Normal S2, Murmurs; Negative: Rubs Telemetry: Positive: No significant arrhythmia, Other Telemetry: (paced) Abdomen Exam: Positive: Normal bowel sounds, Soft; Negative: Tenderness, Hepatospenomegaly Extremity Exam: Positive: Edema, Swelling Skin Exam: Positive: Other skin issue (stasis rubor in both the legs) Psych Exam: Positive: Mental status NL, Mood NL, Memory Intact, Oriented x 3 Assessment /Plan Assessment 73 year old female with PMH of Diastolic CHF, COPD with chronic hypoxic respiratory failure. , Severe Pulmonary hypertension with corpulmonale, severe tricuspid regurgitation, Mitral valve repair status, A fib, Renal cell cancer s/p partial right nephrectomy in July 2018, Diabetes, Hypertension, H/O SSS has a pacemaker, Anxiety, GERD, Hypothyroid, Iron deficiency anemia, chronic constipation presented to the ED with 3 weeks of slowly increasing weight and leg swelling and SOB. She had right partial nephrectomy for cancer done in July 2018 presented to the ED with increasing SOB, COugh and leg swelling and increasing weights for several weeks and admitted for CHF exacerbation. Diastolic CHF exacerbation due to dietary indiscretion, has not been following any fluid restriction after her surgery for the renal cancer as she was told to drink more as her kidney function was bad soon after the surgery. currently on lasix infusion fluid restriction, I/O daily weights. ADRIANNE on CKD rather than CKD as renal function is improving with diuresis. ADRIANNE due to CHF exacerbation. No obstruction. will dc valdivia Hyponatremia improved. possibly due to CHF and also low solute intake will continue to monitor. On normal diet. uric acid is not low in fact is elevated. Diabetes will hold metformin started on lispro sliding scale. Afib with pacemaker continue amiodarone and diltiazem with hold parameters continue eliquis with reduced dose for body weight. Anxiety restarted on xanax prn COPD with chronic resp failure with hypoxia continue oxygen supplementation. Severe pulmonary hypertension with corpulmonale with possible hepatic congestion due to chronic right heart failure with mildly elevated bilirubin. continue diuresis. Mitral valve repair status Renal cell cancer s/p partial right nephrectomy in July 2018 Hypertension continue diltiazem Anxiety xanax prn GERD continue ppi Hypothyroid continue Synthroid Iron deficiency anemia Constipation bowel regimen Chronic pain continue oxycodone prn. DME requirement Patient would benefit from a hospital bed as she Has CHF, COPD with chronic hypoxic respiratory failure, Severe pulmonary hypertension and corpulmonale and most of the time requires her head to be elevated more than 30 degrees and also often requires immediate change in body position for sudden severe SOB. Plan/VTE VTE Prophylaxis Ordered?: Yes VS, I&O, 24H, Fishbone Vital Signs/I&O Vital Signs Date Time Temp Pulse Resp B/P (MAP) Pulse Ox O2 Delivery O2 Flow Rate FiO2 12/18/18 09:34 65 124/52 12/18/18 06:00 98.4 18 92 3.0 12/14/18 16:15 Nasal Cannula I&O- Last 24 Hours up to 6 AM 12/18/18 06:00 Intake Total 1420 ml Output Total 1930 ml Balance -510 ml Laboratory Data 24H LABS Laboratory Tests 2 12/17/18 16:43: Anion Gap 10, Glomerular Filtration Rate 40.0, Blood Urea Nitrogen 26H, Creatinine 1.38H, Sodium Level 131L, Potassium Level 3.2L, Chloride Level 92L, Carbon Dioxide Level 29, Calcium Level 8.1L 12/17/18 16:45: Bedside Glucose (Misc Panel) 138H 12/17/18 20:16: Bedside Glucose (Misc Panel) 139H 12/18/18 06:45: Anion Gap 10, Glomerular Filtration Rate 52.0, Blood Urea Nitrogen 21H, Creatinine 1.10, Sodium Level 130L, Potassium Level 3.3L, Chloride Level 91L, C arbon Dioxide Level 29, Calcium Level 8.1L, Immature Granulocyte % (Auto) 0.7, White Blood Count 7.5, Red Blood Count 4.38, Hemoglobin 13.3, Hematocrit 40.8, Mean Corpuscular Volume 93.2, Mean Corpuscular Hemoglobin 30.4, Mean Corpuscular Hemoglobin Concent 32.6, Red Cell Distribution Width 16.9H, Platelet Count 192, Neutrophils (%) (Auto) 82.9H, Lymphocytes (%) (Auto) 8.0L, Monocytes (%) (Auto) 6.0H, Eosinophils (%) (Auto) 2.0, Basophils (%) (Auto) 0.4, Neutrophils # (Auto) 6.2, Lymphocytes # (Auto) 0.6L, Monocytes # (Auto) 0.5, Eosinophils # (Auto) 0.2, Basophils # (Auto) 0.0, Nucleated Red Blood Cells % (auto) 0.0 12/18/18 11:50: Bedside Glucose (Misc Panel) 226H CBC/BMP Laboratory Tests 12/17/18 16:43 Calcium Level 8.1 L 12/18/18 06:45 Calcium Level 8.1 L, Red Blood Count 4.38, Mean Corpuscular Volume 93.2, Mean Corpuscular Hemoglobin 30.4, Mean Corpuscular Hemoglobin Concent 32.6, Red Cell Distribution Width 16.9 H, Neutrophils (%) (Auto) 82.9 H, Lymphocytes (%) (Auto) 8.0 L, Monocytes (%) (Auto) 6.0 H, Eosinophils (%) (Auto) 2.0, Basophils (%) (Auto) 0.4, Neutrophils # (Auto) 6.2, Lymphocytes # (Auto) 0.6 L, Monocytes # (Auto) 0.5, Eosinophils # (Auto) 0.2, Basophils # (Auto) 0.0 JAVIER BONE MD Dec 18, 2018 12:06
[2018-12-18 14:00] VITALS: BP 130/75
[2018-12-18] MEDS: IPRATROPIUM 0.5MG/ALBUTEROL 2.5MG INH SOL UD 3ML (DUONEB)(J7620) NEB PRN (14:52)
[2018-12-18] MEDS: FERROUS SULFATE 325MG TAB PO SCH (20:44)
[2018-12-18 22:00] VITALS: BP 140/60
[2018-12-19] MEDS: FUROSEMIDE injection 250 MG in D5W 225 ML IV SCH (01:17)
[2018-12-19] MEDS: LEVOTHYROXINE 25MCG TABLET (0.025MG) PO SCH (05:58)
[2018-12-19 06:00] VITALS: BP 110/68
[2018-12-19 06:55] LABS: BASO % 0.5 % (0.0-1.0); EOS # 0.2 10^3/uL (0.0-0.5); EOS % 2.7 % (0.0-3.0); HEMATOCRIT 43.8 % (36.0-47.0); HEMOGLOBIN 14.1 g/dl (12.0-15.5); LYMPH # 0.8 10^3/uL (1.5-5.0); LYMPH % 10.1 % (24.0-44.0); MEAN CORPUSCULAR HEMOGLOBIN 29.4 pg (27.0-33.0); MEAN CORPUSCULAR HGB CONC 32.2 g/dl (32.0-36.5); MEAN CORPUSCULAR VOLUME 91.4 fl (80.0-96.0); MONO # 0.4 10^3/uL (0.0-0.8); MONO % 4.7 % (0.0-5.0); NEUTROPHILS # 6.5 10^3/uL (1.5-8.5); NEUTROPHILS % 81.3 % (36.0-66.0); PLATELET COUNT, AUTOMATED 203 10^3/uL (150-450); RED BLOOD COUNT 4.79 10^6/uL (4.00-5.40)
[2018-12-19 07:14] LABS: CALCIUM LEVEL 8.8 MG/DL (8.8-10.2); CREATININE FOR GFR 1.02 MG/DL (0.55-1.30); GLOMERULAR FILTRATION RATE 56.7 (>39); POTASSIUM SERUM 3.9 MEQ/L (3.5-5.1)
[2018-12-19] MEDS: HumaLOG INSULIN (NovoLOG) PER UNIT SC SCH ×4 (07:30→20:54)
[2018-12-19] MEDS: ADVAIR HFA 230/21MCG INHALER INH SCH ×2 (08:24→20:22)
[2018-12-19] MEDS: IPRATROPIUM 0.5MG/ALBUTEROL 2.5MG INH SOL UD 3ML (DUONEB)(J7620) NEB PRN ×2 (08:24→20:23)
[2018-12-19] MEDS: ANALGESIC BALM CRM 120 GM TOP SCH ×4 (09:00→21:00)
[2018-12-19] MEDS: MIRALAX *UNIT DOSE* 17GM PACKET PO SCH (09:24)
[2018-12-19] MEDS: MAGNESIUM OXIDE 400 MG TAB (MAG-OX) PO SCH (09:25)
[2018-12-19] MEDS: POTASSIUM CHLORIDE 10 MEQ SR TABLET PO SCH ×2 (09:25→21:01)
[2018-12-19] MEDS: APIXABAN 2.5 MG TAB (ELIQUIS) PO SCH ×2 (09:25→21:01)
[2018-12-19] MEDS: DULoxetine 30 MG CAP (CYMBALTA) PO SCH (09:25)
[2018-12-19] MEDS: DOCUSATE SODIUM 100 MG CAP PO SCH ×2 (09:25→21:01)
[2018-12-19] MEDS: SPIRONOLACTONE 25 MG TAB PO SCH (09:25)
[2018-12-19] MEDS: AMIODARONE 200 MG TAB (PACERONE) PO SCH (09:25)
[2018-12-19] MEDS: BUMETANIDE 1 MG TAB PO SCH ×2 (10:33→16:15)
[2018-12-19] MEDS ORDERED: DULC10SU2 PR (12:09)
--- NOTE | 2018-12-19 12:25 | IPNPDOC ---
Subjective Date Seen The patient was seen on 12/19/18. Subjective Chief Complaint/HPI Feels good no complaints this morning. minimal leg swelling. No fever ro chills, no chest pain or SOB , no abdominal pain nausea or vomiting . Has not go the hospital bed yet. Objective Physical Examination General Exam: Positive: Alert, Cooperative, No Acute Distress Eye Exam: Positive: PERRLA, Conjunctiva & lids normal, EOMI; Negative: Sclera icteric ENT Exam: Positive: Atraumatic, Mucous membr. moist/pink, Pharynx Normal Neck Exam: Positive: Supple, JVD; Negative: thyromegaly Chest Exam: Positive: Diminished, Other (bibasal crackles. ) Heart Exam: Positive: Rate Normal, Regular Rhythm, Normal S1, Normal S2, Murmurs; Negative: Rubs Telemetry: Positive: No significant arrhythmia, Other Telemetry: (paced) Abdomen Exam: Positive: Normal bowel sounds, Soft; Negative: Tenderness, Hepatospenomegaly Extremity Exam: Positive: Edema, Swelling Skin Exam: Positive: Other skin issue (stasis rubor in both the legs) Psych Exam: Positive: Mental status NL, Mood NL, Memory Intact, Oriented x 3 Assessment /Plan Assessment 73 year old female with PMH of Diastolic CHF, COPD with chronic hypoxic respiratory failure. , Severe Pulmonary hypertension with corpulmonale, severe tricuspid regurgitation, Mitral valve repair status, A fib, Renal cell cancer s/p partial right nephrectomy in July 2018, Diabetes, Hypertension, H/O SSS has a pacemaker, Anxiety, GERD, Hypothyroid, Iron deficiency anemia, chronic constipation presented to the ED with 3 weeks of slowly increasing weight and leg swelling and SOB. She had right partial nephrectomy for cancer done in July 2018 presented to the ED with increasing SOB, COugh and leg swelling and i ncreasing weights for several weeks and admitted for CHF exacerbation. Diastolic CHF exacerbation due to dietary indiscretion, has not been following any fluid restriction after her surgery for the renal cancer as she was told to drink more as her kidney function was bad soon after the surgery. will switch from lasix gtt to bumax 3 mg bid as per home dose. fluid restriction 1200 cc, I/O daily weights. ADRIANNE on CKD resolved. ADRIANNE due to CHF exacerbation. No obstruction. Hyponatremia improved. possibly due to CHF and also low solute intake will continue to monitor. On normal diet. uric acid is not low in fact is elevated. Diabetes will hold metformin started on lispro sliding scale. Afib with pacemaker continue amiodarone and diltiazem with hold parameters continue eliquis with reduced dose for body weight. Anxiety restarted on xanax prn COPD with chronic resp failure with hypoxia continue oxygen supplementation. Severe pulmonary hypertension with corpulmonale with possible hepatic congestion due to chronic right heart failure with mildly elevated bilirubin. continue diuresis. Mitral valve repair status Renal cell cancer s/p partial right nephrectomy in July 2018 Hypertension continue diltiazem Anxiety xanax prn GERD continue ppi Hypothyroid continue Synthroid Iron deficiency anemia Constipation bowel regimen Chronic pain continue oxycodone prn. DME requirement Patient would benefit from a hospital bed as she Has CHF, COPD with chronic hypoxic respiratory failure, Severe pulmonary hypertension and corpulmonale and most of the time requires her head to be elevated more than 30 degrees and also often requires immediate change in body position for sudden severe SOB. Plan/VTE VTE Prophylaxis Ordered?: Yes VS, I&O, 24H, Fishbone Vital Signs/I&O Vital Signs Date Time Temp Pulse Resp B/P (MAP) Pulse Ox O2 Delivery O2 Flow Rate FiO2 12/19/18 10:58 3.0 12/19/18 09:00 115/60 12/19/18 06:00 96.5 73 18 95 12/14/18 16:15 Nasal Cannula I&O- Last 24 Hours up to 6 AM 12/19/18 06:00 Intake Total 1945 ml Output Total 1250 ml Balance 695 ml Laboratory Data 24H LABS Laboratory Tests 2 12/18/18 16:46: Bedside Glucose (Misc Panel) 189H 12/18/18 20:04: Bedside Glucose (Misc Panel) 190H 12/19/18 06:40: Immature Granulocyte % (Auto) 0.7, White Blood Count 8.0, Red Blood Count 4.79, Hemoglobin 14.1, Hematocrit 43.8, Mean Corpuscular Volume 91.4, Mean Corpuscular Hemoglobin 29.4, Mean Corpuscular Hemoglobin Concent 32.2, Red Cell Distribution Width 17.5H, Platelet Count 203, Neutrophils (%) (Auto) 81.3H, Lymphocytes (%) (Auto) 10.1L, Monocytes (%) (Auto) 4.7, Eosinophils (%) (Auto) 2.7, Basophils (%) (Auto) 0.5, Neutrophils # (Auto) 6.5, Lymphocytes # (Auto) 0.8L, Monocytes # (Auto) 0.4, Eosinophils # (Auto) 0.2, Basophils # (Auto) 0.0, Nucleated Red Blood Cells % (auto) 0.0, Anion Gap 6L, Glomerular Filtration Rate 56.7, Blood Urea Nitrogen 15, Creatinine 1.02, Sodium Level 131L, Potassium Level 3.9, Chloride Level 95L, Carbon Dioxide Level 30, Calcium Level 8.8 12/19/18 11:47: Bedside Glucose (Misc Panel) 183H CBC/BMP Laboratory Tests 12/19/18 06:40 Red Blood Count 4.79, Mean Corpuscular Volume 91.4, Mean Corpuscular Hemoglobin 29.4, Mean Corpuscular Hemoglobin Concent 32.2, Red Cell Distribution Width 17.5 H, Neutrophils (%) (Auto) 81.3 H, Lymphocytes (%) (Auto) 10.1 L, Monocytes (%) (Auto) 4.7, Eosinophils (%) (Auto) 2.7, Basophils (%) (Auto) 0.5, Neutrophils # (Auto) 6.5, Lymphocytes # (Auto) 0.8 L, Monocytes # (Auto) 0.4, Eosinophils # (Auto) 0.2, Basophils # (Auto) 0.0, Calcium Level 8.8 JAVIER BONE MD Dec 19, 2018 12:25
[2018-12-19 14:00] VITALS: BP 163/74
[2018-12-19] MEDS: ALPRAZolam 0.25 MG TAB PO PRN (18:43)
[2018-12-19 20:00] VITALS: BP 162/75
[2018-12-19] MEDS: FERROUS SULFATE 325MG TAB PO SCH (21:01)
[2018-12-19] MEDS ORDERED: CEPACOL LOZENGE PO PRN (21:30)
[2018-12-19] MEDS: BENZONATATE 100 MG CAP PO SCH (22:15)
[2018-12-20] MEDS: ALPRAZolam 0.25 MG TAB PO PRN (00:42)
[2018-12-20] MEDS: BENZONATATE 100 MG CAP PO SCH ×3 (05:40→21:12)
[2018-12-20] MEDS: LEVOTHYROXINE 25MCG TABLET (0.025MG) PO SCH (05:40)
[2018-12-20] MEDS: oxyCODONE 5MG TAB PO PRN (05:41)
[2018-12-20 06:00] VITALS: BP 159/76
[2018-12-20 06:23] LABS: BASO # 0.1 10^3/uL (0.0-0.2); BASO % 0.7 % (0.0-1.0); EOS # 0.1 10^3/uL (0.0-0.5); EOS % 0.6 % (0.0-3.0); HEMOGLOBIN 15.4 g/dl (12.0-15.5); LYMPH # 0.9 10^3/uL (1.5-5.0); LYMPH % 10.1 % (24.0-44.0); MEAN CORPUSCULAR HEMOGLOBIN 29.8 pg (27.0-33.0); MEAN CORPUSCULAR HGB CONC 31.4 g/dl (32.0-36.5); MEAN CORPUSCULAR VOLUME 94.8 fl (80.0-96.0); MONO # 0.5 10^3/uL (0.0-0.8); MONO % 6.3 % (0.0-5.0); NEUTROPHILS % 81.2 % (36.0-66.0); PLATELET COUNT, AUTOMATED 216 10^3/uL (150-450); RED BLOOD COUNT 5.17 10^6/uL (4.00-5.40); WHITE BLOOD COUNT 8.6 10^3/uL (4.0-10.0)
[2018-12-20 06:50] LABS: CALCIUM LEVEL 9.1 MG/DL (8.8-10.2); CREATININE FOR GFR 1.57 MG/DL (0.55-1.30); GLOMERULAR FILTRATION RATE 34.5 (>39); POTASSIUM SERUM 5.5 MEQ/L (3.5-5.1)
[2018-12-20] MEDS: ADVAIR HFA 230/21MCG INHALER INH SCH ×2 (07:40→19:54)
[2018-12-20] MEDS: MIRALAX *UNIT DOSE* 17GM PACKET PO SCH (09:00)
[2018-12-20] MEDS: ANALGESIC BALM CRM 120 GM TOP SCH ×4 (09:00→21:00)
[2018-12-20] MEDS: HumaLOG INSULIN (NovoLOG) PER UNIT SC SCH ×4 (09:41→21:00)
[2018-12-20] MEDS: DULoxetine 30 MG CAP (CYMBALTA) PO SCH (09:41)
[2018-12-20] MEDS: DOCUSATE SODIUM 100 MG CAP PO SCH ×2 (09:41→21:12)
[2018-12-20] MEDS: AMIODARONE 200 MG TAB (PACERONE) PO SCH (09:41)
[2018-12-20] MEDS: APIXABAN 2.5 MG TAB (ELIQUIS) PO SCH ×2 (09:43→21:12)
[2018-12-20] MEDS: MAGNESIUM OXIDE 400 MG TAB (MAG-OX) PO SCH (09:43)
--- NOTE | 2018-12-20 11:37 | IPNPDOC ---
Subjective Date Seen The patient was seen on 12/20/18. Subjective Chief Complaint/HPI Feeling well no complaints. wants to go home . no fever or chills, no chest pain or SOb , complains of generalized soreness of the abdominal clark which she thinks is due to excessive coughing for the last several days. No bruising noted. Says the abdominal distension is much improved. She is having 2 to 3 loose bowel movements now after laxatives. Objective Physical Examination General Exam: Positive: Alert, Cooperative, No Acute Distress Eye Exam: Positive: PERRLA, Conjunctiva & lids normal, EOMI; Negative: Sclera icteric ENT Exam: Positive: Atraumatic, Mucous membr. moist/pink, Pharynx Normal Neck Exam: Positive: Supple, JVD; Negative: thyromegaly Chest Exam: Positive: Clear to auscultation, Diminished, Other Heart Exam: Positive: Rate Normal, Regular Rhythm, Normal S1, Normal S2, Murmurs; Negative: Rubs Telemetry: Positive: No significant arrhythmia, Other Telemetry: (paced) Abdomen Exam: Positive: Normal bowel sounds, Soft; Negative: Tenderness, Hepatospenomegaly Extremity Exam: Positive: Tenderness (bothe legs are sore. edema resolved. ), Swelling Skin Exam: Positive: Other skin issue (stasis rubor in both the legs) Psych Exam: Positive: Mental status NL, Mood NL, Memory Intact, Oriented x 3 Assessment /Plan Assessment 73 year old female with PMH of Diastolic CHF, COPD with chronic hypoxic respiratory failure. , Severe Pulmonary hypertension with corpulmonale, severe tricuspid regurgitation, Mitral valve repair status, A fib, Renal cell cancer s/p partial right nephrectomy in July 2018, Diabetes, Hypertension, H/O SSS has a pacemaker, Anxiety, GERD, Hypothyroid, Iron deficiency anemia, chronic constip ation presented to the ED with 3 weeks of slowly increasing weight and leg swelling and SOB. She had right partial nephrectomy for cancer done in July 2018 presented to the ED with increasing SOB, COugh and leg swelling and increasing weights for several weeks and admitted for CHF exacerbation. Diastolic CHF exacerbation due to dietary indiscretion, has not been following any fluid restriction after her surgery for the renal cancer as she was told to drink more as her kidney function was bad soon after the surgery. will switch from lasix gtt to bumax 3 mg bid as per home dose. fluid restriction 1200 cc, I/O daily weights. ADRIANNE on CKD with hyperkalemia today creatinine again elevated probably now we have overdiuresed her. will hold lasix and spironolactone today and reassess tomorrow. ADRIANNE due to CHF exacerbation initially which improved then again worsened due to overdiuresis. No obstruction. hyperkalemia due to potassium supplementation and ADRIANNE. Stop Potassium and spironolactone. Hyponatremia improved. possibly due to CHF and also low solute intake will continue to monitor. On normal diet. uric acid is not low in fact is elevated. Diabetes will hold metformin started on lispro sliding scale. Afib with pacemaker continue amiodarone and diltiazem with hold parameters continue eliquis with reduced dose for body weight. Anxiety restarted on xanax prn COPD with chronic resp failure with hypoxia continue oxygen supplementation. Severe pulmonary hypertension with corpulmonale with possible hepatic congestion due to chronic right heart failure with mildly elevated bilirubin. continue diuresis. Mitral valve repair status Renal cell cancer s/p partial right nephrectomy in July 2018 Hypertension continue diltiazem Anxiety xanax prn GERD continue ppi Hypothyroid continue Synthroid Iron deficiency anemia Constipation bowel regimen Chronic pain continue oxycodone prn. DME requirement Patient would benefit from a hospital bed as she Has CHF, COPD with chronic hypoxic respiratory failure, Severe pulmonary hypertension and corpulmonale and most of the time requires her head to be elevated more than 30 degrees and also often requires immediate change in body position for sudden severe SOB. Dispo : Home in 24 hours as soon as her creatinine shows a down trend and K better. also waiting for the hospital bed. Plan/VTE VTE Prophylaxis Ordered?: Yes VS, I&O, [facility]O Vital Signs Date Time Temp Pulse Resp B/P (MAP) Pulse Ox O2 Delivery O2 Flow Rate FiO2 12/20/18 09:42 82 149/77 12/20/18 06:11 18 12/20/18 06:00 97.8 94 3.0 12/14/18 16:15 Nasal Cannula I&O- Last 24 Hours up to 6 AM 12/20/18 06:00 Intake Total 1460 ml Output Total 2550 ml Balance -1090 ml Laboratory Data 24H LABS Laboratory Tests 2 12/19/18 11:47: Bedside Glucose (Misc Panel) 183H 12/19/18 16:15: Bedside Glucose (Misc Panel) 96 12/19/18 20:11: Bedside Glucose (Misc Panel) 183H 12/20/18 05:39: Immature Granulocyte % (Auto) 1.1, White Blood Count 8.6, Red Blood Count 5.17, Hemoglobin 15.4, Hematocrit 49.0H, Mean Corpuscular Volume 94.8, Mean Corpuscular Hemoglobin 29.8, Mean Corpuscular Hemoglobin Concent 31.4L, Red Cell Distribution Width 17.9H, Platelet Count 216, Neutrophils (%) (Auto) 81.2H, Lymphocytes (%) (Auto) 10.1L, Monocytes (%) (Auto) 6.3H, Eosinophils (%) (Auto) 0.6, Basophils (%) (Auto) 0.7, Neutrophils # (Auto) 7.0, Lymphocytes # (Auto) 0.9L, Monocytes # (Auto) 0.5, Eosinophils # (Auto) 0.1, Basophils # (Auto) 0.1, Nucleated Red Blood Cells % (auto) 0.0, Anion Gap 7L, Glomerular Filtration Rate 34.5L, Blood Urea Nitrogen 22H, Creatinine 1.57#H, Sodium Level 133L, Potassium Level 5.5H, Chloride Level 96L, Carbon Dioxide Level 30, Calcium Level 9.1 CBC/BMP Laboratory Tests 12/20/18 05:39 Red Blood Count 5.17, Mean Corpuscular Volume 94.8, Mean Corpuscular Hemoglobin 29.8, Mean Corpuscular Hemoglobin Concent 31.4 L, Red Cell Distribution Width 17.9 H, Neutrophils (%) (Auto) 81.2 H, Lymphocytes (%) (Auto) 10.1 L, Monocytes (%) (Auto) 6.3 H, Eosinophils (%) (Auto) 0.6, Basophils (%) (Auto) 0.7, Neutrophils # (Auto) 7.0, Lymphocytes # (Auto) 0.9 L, Monocytes # (Auto) 0.5, Eosinophils # (Auto) 0.1, Basophils # (Auto) 0.1, Calcium Level 9.1 JAVIER BONE MD Dec 20, 2018 11:37
--- NOTE | 2018-12-20 11:39 | DS.PDOC ---
Discharge Summary General Date of Admission Dec 14, 2018 at 14:11 Date of Discharge Discharge Summary PROCEDURES PERFORMED DURING STAY: [None]. DISCHARGE DIAGNOSES: Diastolic CHF exacerbation ADRIANNE On CKD Hyponatremia Hyperuricemia SECONDARY DIAGNOSIS: Diastolic CHF, COPD with chronic hypoxic respiratory failure. , Severe Pulmonary hypertension with corpulmonale, severe tricuspid regurgitation, Mitral valve repair status, A fib, Renal cell cancer s/p partial right nephrectomy in July 2018, Diabetes, Hypertension, H/O SSS has a pacemaker, Anxiety, GERD, Hypothyroid, Iron deficiency anemia, chronic constipation , Chronic Back pain COMPLICATIONS/CHIEF COMPLAINT: Acute Or Chronic Diastolic Chf Adrianne. HISTORY OF PRESENT ILLNESS: See history and physical HOSPITAL COURSE: 73 year old female with PMH of Diastolic CHF, COPD with chronic hypoxic respiratory failure. , Severe Pulmonary hypertension with corpulmonale, severe tricuspid regurgitation, Mitral valve repair status, A fib, Renal cell cancer s/p partial right nephrectomy in July 2018, Diabetes, Hypertension, H/O SSS has a pacemaker, Anxiety, GERD, Hypothyroid, Iron deficiency anemia, chronic constipation presented to the ED with 3 weeks of slowly increasing weight and leg swelling and SOB. She had right partial nephrectomy for cancer done in July 2018 presented to the ED with increasing SOB, COugh and leg swelling and increasing weights for several weeks and admitted for CHF exacerbation. Diastolic CHF exacerbation due to dietary indiscretion, has not been following any fluid restriction after her surgery for the renal cancer as she was told to drink more as her kidney function was bad soon after the surgery. will switch from lasix gtt to bumax 3 mg bid as per home dose. fluid restriction 1200 cc to 1400 cc , I/O daily weights. ADRIANNE on CKD with hyperkalemia creatinine elevated after initial improvement with diuresis.probably now we have overdiuresed her. ADRIANNE due to CHF exacerbation initially which improved then again worsened due to overdiuresis. No obstruction. hyperkalemia due to potassium supplementation and ADRIANNE. readjusted dosage of diuretics and potassium Hyponatremia improved. possibly due to CHF and also low solute intake will continue to monitor. On normal diet. uric acid is not low in fact is elevated. Diabetes will restart metformin Afib with pacemaker continue amiodarone and diltiazem with hold parameters continue eliquis with reduced dose for body weight. Anxiety restarted on xanax prn COPD with chronic resp failure with hypoxia continue oxygen supplementation. Severe pulmonary hypertension with corpulmonale with possible hepatic congestion due to chronic right heart failure with mildly elevated bilirubin. continue diuresis. Mitral valve repair status Renal cell cancer s/p partial right nephrectomy in July 2018 Hypertension continue diltiazem Anxiety xanax prn GERD continue ppi Hypothyroid continue Synthroid Iron deficiency anemia Constipation bowel regimen Chronic pain continue oxycodone prn. DME requirement Patient would benefit from a hospital bed as she Has CHF, COPD with chronic hypoxic respiratory failure, Severe pulmonary hypertension and corpulmonale and most of the time requires her head to be elevated more than 30 degrees and also often requires immediate change in body position for sudden severe SOB. DISCHARGE MEDICATIONS: Please see below. ALLERGIES: Please see below. PHYSICAL EXAMINATION ON DISCHARGE: VITAL SIGNS: Please see below. General Exam: Positive: Alert, Cooperative, No Acute Distress Eye Exam: Positive: PERRLA, Conjunctiva & lids normal, EOMI; Negative: Sclera icteric ENT Exam: Positive: Atraumatic, Mucous membr. moist/pink, Pharynx Normal Neck Exam: Positive: Supple, JVD; Negative: thyromegaly Chest Exam: Positive: Diminished, Other (bibasal crackles. ) Heart Exam: Positive: Rate Normal, Regular Rhythm, Normal S1, Normal S2, Murmurs; Negative: Rubs Telemetry: Positive: No significant arrhythmia, Other Telemetry: (paced) Abdomen Exam: Positive: Normal bowel sounds, Soft; Negative: Tenderness, Hepatospenomegaly Extremity Exam: Positive: Edema, Swelling Skin Exam: Positive: Other skin issue (stasis rubor in both the legs) Psych Exam: Positive: Mental status NL, Mood NL, Memory Intact, Oriented x 3 LABORATORY DATA: Please see below. ACTIVITY: [As tolerated]. DIET: 2 gram sodium diet with 1200 ml fluid restriction DISCHARGE PLAN: Home DISPOSITION: . DISCHARGE INSTRUCTIONS: Follow up PMD in 1 week Follow up Cardiology in 1 to 2 week DISCHARGE CONDITION: [Stable]. TIME SPENT ON DISCHARGE: 35 minutes. Vital Signs/I&Os Vital Signs Date Time Temp Pulse Resp B/P (MAP) Pulse Ox O2 Delivery O2 Flow Rate FiO2 12/19/18 14:00 96.1 71 19 163/74 (103) 90 3.0 12/14/18 16:15 Nasal Cannula I&O- Last 24 Hours up to 6 AM 12/19/18 06:00 Intake Total 1945 ml Output Total 1250 ml Balance 695 ml Laboratory Data Labs 24H Laboratory Tests 2 12/18/18 16:46: Bedside Glucose (Misc Panel) 189H 12/18/18 20:04: Bedside Glucose (Misc Panel) 190H 12/19/18 06:40: Immature Granulocyte % (Auto) 0.7, White Blood Count 8.0, Red Blood Count 4.79, Hemoglobin 14.1, Hematocrit 43.8, Mean Corpuscular Volume 91.4, Mean Corpuscular Hemoglobin 29.4, Mean Corpuscular Hemoglobin Concent 32.2, Red Cell Dist ribution Width 17.5H, Platelet Count 203, Neutrophils (%) (Auto) 81.3H, Lymphocytes (%) (Auto) 10.1L, Monocytes (%) (Auto) 4.7, Eosinophils (%) (Auto) 2.7, Basophils (%) (Auto) 0.5, Neutrophils # (Auto) 6.5, Lymphocytes # (Auto) 0.8L, Monocytes # (Auto) 0.4, Eosinophils # (Auto) 0.2, Basophils # (Auto) 0.0, Nucleated Red Blood Cells % (auto) 0.0, Anion Gap 6L, Glomerular Filtration Rate 56.7, Blood Urea Nitrogen 15, Creatinine 1.02, Sodium Level 131L, Potassium Level 3.9, Chloride Level 95L, Carbon Dioxide Level 30, Calcium Level 8.8 12/19/18 11:47: Bedside Glucose (Misc Panel) 183H CBC/BMP Laboratory Tests 12/19/18 06:40 Red Blood Count 4.79, Mean Corpuscular Volume 91.4, Mean Corpuscular Hemoglobin 29.4, Mean Corpuscular Hemoglobin Concent 32.2, Red Cell Distribution Width 17.5 H, Neutrophils (%) (Auto) 81.3 H, Lymphocytes (%) (Auto) 10.1 L, Monocytes (%) (Auto) 4.7, Eosinophils (%) (Auto) 2.7, Basophils (%) (Auto) 0.5, Neutrophils # (Auto) 6.5, Lymphocytes # (Auto) 0.8 L, Monocytes # (Auto) 0.4, Eosinophils # (Auto) 0.2, Basophils # (Auto) 0.0, Calcium Level 8.8 FSBS Laboratory Tests Test 12/18/18 16:46 12/18/18 20:04 12/19/18 11:47 Range/Units Bedside Glucose (Misc Panel) 189 190 183 83-110 MG/DL Discharge Medications Scheduled Amiodarone HCl (Amiodarone HCl) 200 Mg Tab, 200 MG PO DAILY, (Reported) Apixaban (Eliquis) 5 Mg Tab, 5 MG PO BID, (Reported) Bumetanide (Bumetanide) 1 Mg Tablet, 3 MG PO BID, (Reported) Diltiazem HCl (Diltiazem 24Hr ER) 240 Mg Cap, 240 MG PO DAILY, (Reported) Duloxetine Hcl (Duloxetine HCl) 30 Mg Capsule.dr, 30 MG PO DAILY, (Reported) Ergocalciferol (Vitamin D2) (Vitamin D2) 50,000 Unit Cap, 50,000 UNIT PO MTHLY, (Reported) FIRST THURSDAY OF EACH MONTH Ferrous Sulfate (Ferrous Sulfate) 325 Mg Tab, 325 MG PO QPM, (Reported) TAKES AT 1730 Levothyroxine Sodium (Levothyroxine Sodium) 25 Mcg Tab, 25 MCG PO DAILY, (Reported) Magnesium Oxide (Magnesium Oxide) 400 Mg Tab, 400 MG PO DAILY, (Reported) Metformin HCl (Metformin HCl) 500 Mg Tab, 500 MG PO QPM, (Reported) TAKES AT 1730 Salmeterol/Fluticasone (Advair 500-50 Diskus) 28 Puff/Inhaler Aerp, 1 PUFF INH BID, (Reported) Spironolactone (Spironolactone) 25 Mg Tab, 25 MG PO DAILY Scheduled PRN Albuterol Sulfate (Ventolin Hfa) 108 Mcg/Act Aer, 2 PUFFS INH Q4H PRN for SHORTNESS OF BREATH, (Reported) Alprazolam (Alprazolam) 0.25 Mg Tab, 0.125 MG PO QID PRN for ANXIETY, (Reported) Bisacodyl (Dulcolax) 10 Mg Supp.rect, 10 MG NC DAILYPRN PRN for CONSTIPATION Docusate Sodium (Docusate Sodium) 100 Mg Cap, 100 MG PO DAILY PRN for CONSTIPATION, (Reported) Guaifenesin (Mucinex) 600 Mg Tab, 600 MG PO BID PRN for CONGESTION, (Reported) Ipratropium [place] (Atrovent Hfa) 200 Puff/12.9 Gm Aers, 2 PUFF INH QID PRN for SHORTNESS OF BREATH, (Reported) Ipratropium/Albuterol Sulfate (Iprat-Albut 0.5-3(2.5) mg/3 ml) 1 Ping Ping, 1 PING INH QID PRN for SHORTNESS OF BREATH, (Reported) Oxycodone HCl (Oxycodone HCl) 5 Mg Tab, 5 MG PO QID PRN for PAIN, (Reported) Polyethylene Glycol 3350 (Miralax) 119 Gm Powder, 17 GRAM PO DAILY PRN for CONSTIPATION, (Reported) Allergies Coded Allergies: acetaminophen (Verified Adverse Reaction, Intermediate, HEPATOTOXICITY, 06/18/18) gabapentin (Verified Adverse Reaction, Mild, FLUID RETENTION, SOME SKIRT TRIMMER ISSUES, 06/18/18) morphine (Verified Adverse Reaction, Mild, SKIRT TRIMMER ISSUES, 06/18/18) Macrolide Antibiotics (Verified Adverse Reaction, Unknown, N/V, 12/14/18) cefdinir (Verified Adverse Reaction, Unknown, N/V, 12/14/18) JAVIER BONE MD Dec 19, 2018 16:15
[2018-12-20 14:00] VITALS: BP 137/78
[2018-12-20] MEDS: FERROUS SULFATE 325MG TAB PO SCH (21:12)
[2018-12-20 22:00] VITALS: BP 134/72
[2018-12-21] MEDS: BENZONATATE 100 MG CAP PO SCH ×3 (05:49→21:09)
[2018-12-21] MEDS: LEVOTHYROXINE 25MCG TABLET (0.025MG) PO SCH (05:49)
[2018-12-21 05:59] LABS: BASO # 0.1 10^3/uL (0.0-0.2); BASO % 0.7 % (0.0-1.0); EOS # 0.2 10^3/uL (0.0-0.5); EOS % 1.8 % (0.0-3.0); HEMOGLOBIN 14.5 g/dl (12.0-15.5); LYMPH # 1.1 10^3/uL (1.5-5.0); LYMPH % 10.1 % (24.0-44.0); MEAN CORPUSCULAR HEMOGLOBIN 29.8 pg (27.0-33.0); MEAN CORPUSCULAR HGB CONC 32.2 g/dl (32.0-36.5); MEAN CORPUSCULAR VOLUME 92.4 fl (80.0-96.0); MONO # 0.5 10^3/uL (0.0-0.8); MONO % 4.6 % (0.0-5.0); NEUTROPHILS # 8.6 10^3/uL (1.5-8.5); NEUTROPHILS % 82.1 % (36.0-66.0); PLATELET COUNT, AUTOMATED 208 10^3/uL (150-450); RED BLOOD COUNT 4.87 10^6/uL (4.00-5.40); WHITE BLOOD COUNT 10.5 10^3/uL (4.0-10.0)
[2018-12-21 06:00] VITALS: BP 132/66
[2018-12-21 06:25] LABS: CALCIUM LEVEL 8.8 MG/DL (8.8-10.2); CREATININE FOR GFR 1.07 MG/DL (0.55-1.30); GLOMERULAR FILTRATION RATE 53.7 (>39); POTASSIUM SERUM 4.7 MEQ/L (3.5-5.1)
[2018-12-21] MEDS: ADVAIR HFA 230/21MCG INHALER INH SCH ×2 (07:25→20:00)
[2018-12-21] MEDS: HumaLOG INSULIN (NovoLOG) PER UNIT SC SCH ×4 (07:29→21:00)
[2018-12-21] MEDS: AMIODARONE 200 MG TAB (PACERONE) PO SCH (08:02)
[2018-12-21] MEDS: DOCUSATE SODIUM 100 MG CAP PO SCH ×2 (08:02→21:08)
[2018-12-21] MEDS: DULoxetine 30 MG CAP (CYMBALTA) PO SCH (08:02)
[2018-12-21] MEDS: MIRALAX *UNIT DOSE* 17GM PACKET PO SCH (08:02)
[2018-12-21] MEDS: APIXABAN 2.5 MG TAB (ELIQUIS) PO SCH ×2 (08:02→21:08)
[2018-12-21] MEDS: MAGNESIUM OXIDE 400 MG TAB (MAG-OX) PO SCH (08:02)
[2018-12-21] MEDS: ANALGESIC BALM CRM 120 GM TOP SCH (08:02)
[2018-12-21] MEDS: BUMETANIDE 1 MG TAB PO SCH ×2 (10:32→17:15)
[2018-12-21] MEDS ORDERED: ANALGESIC BALM CRM 120 GM TOP PRN (10:45)
[2018-12-21 14:00] VITALS: BP 142/66
[2018-12-21] MEDS: IPRATROPIUM 0.5MG/ALBUTEROL 2.5MG INH SOL UD 3ML (DUONEB)(J7620) NEB PRN (14:32)
--- NOTE | 2018-12-21 16:57 | IPN ---
DATE: 12/21/2018 The patient denies any shortness of breath, chest pain, pressure, tightness, lightheadedness, dizziness this morning. The patient's creatinine is improved to 1.07, previously was 1.57, and Bumex has been held. The patient's potassium also improved from 5.5 to 4.7. The patient's discharge has been held as she is resumed back on her home dose of Bumex to determine if her creatinine remains stable on this. PHYSICAL EXAMINATION: VITAL SIGNS: Temperature 98, pulse 67, respiratory rate 18, blood pressure 142/66, 91% on 3 liters nasal cannula. GENERAL: The patient appears cachectic, frail, elderly female with no respiratory distress or use of respiratory accessory muscles. There is no purse lip or tripod positioning. LUNGS: Diminished with faint expiratory wheezing. HEART: S1, S2. Irregularly irregular. ABDOMEN: Soft, nontender, nondistended. EXTREMITIES: No pitting edema. LABORATORY DATA: White count 10.5, hemoglobin 14, hematocrit 45, platelet count 208. Sodium 131, potassium 4.7, chloride 96, bicarbonate 30, BUN 24, creatinine 1.07, glucose of 90. ASSESSMENT AND PLAN: This is a 73-year-old female with a history of right renal cell cancer, status post nephrectomy in July 2018, atrial fibrillation, mitral valve repair, severe tricuspid regurgitation, shivam pulmonale with severe pulmonary hypertension, diastolic congestive heart failure (CHF) with chronic hypoxic respiratory failure, admitted for shortness of breath and treated for congestive heart failure (CHF). The patient developed acute kidney injury, most likely from overdiuresis. Her Bumex was held and her hyperkalemia improved with holding the spironolactone. The patient is currently resumed back on her Bumex, awaiting creatinine in the morning. If stable, may be discharged home. CURRENT ISSUES: 1. Diastolic congestive heart failure (CHF), currently euvolemic. She was net negative balance on Lasix drip and resumed back on her Bumex yesterday. Weight was 46.1 kg with no change despite net negative balance. 2. Acute kidney injury with history of right renal cell cancer, status post right nephrectomy, resolved. The patient developed acute kidney injury most likely from overdiuresis with Lasix drip and Bumex. If the patient's creatinine remains stable overnight, she may be discharged to home in the morning. 3. Chronic hypoxic respiratory failure at baseline oxygen. 4. Hyponatremia. No mental status changes, headache or confusion. 5. Atrial fibrillation with pacemaker. On amiodarone, diltiazem with hold parameters. Eliquis, which was reduced due to low BMI. 6. Anxiety. As needed Xanax. DISPOSITION: Discharge in the morning if stable creatinine overnight on home dose of Bumex. Outpatient followup with Dr. Paul Piña's office, on 12/23/2018. SARAVANAN
[2018-12-21] MEDS ORDERED: metFORMIN (GLUCOPHAGE) 500 MG TAB PO SCH (17:30)
[2018-12-21 18:30] LABS: CALCIUM LEVEL 8.7 MG/DL (8.8-10.2); CREATININE FOR GFR 1.21 MG/DL (0.55-1.30); GLOMERULAR FILTRATION RATE 46.6 (>39); POTASSIUM SERUM 4.3 MEQ/L (3.5-5.1)
[2018-12-21] MEDS: FERROUS SULFATE 325MG TAB PO SCH (21:08)
[2018-12-21 22:00] VITALS: BP 112/63
[2018-12-22] MEDS: oxyCODONE 5MG TAB PO PRN (01:47)
[2018-12-22] MEDS: BENZONATATE 100 MG CAP PO SCH (05:40)
[2018-12-22] MEDS: LEVOTHYROXINE 25MCG TABLET (0.025MG) PO SCH (05:40)
[2018-12-22 06:00] VITALS: BP 110/81
[2018-12-22] MEDS: HumaLOG INSULIN (NovoLOG) PER UNIT SC SCH ×2 (07:57→12:00)
[2018-12-22 08:07] VITALS: BP 118/76
[2018-12-22] MEDS: AMIODARONE 200 MG TAB (PACERONE) PO SCH (08:08)
[2018-12-22] MEDS: APIXABAN 2.5 MG TAB (ELIQUIS) PO SCH (08:08)
[2018-12-22] MEDS: DOCUSATE SODIUM 100 MG CAP PO SCH (08:08)
[2018-12-22] MEDS: MAGNESIUM OXIDE 400 MG TAB (MAG-OX) PO SCH (08:08)
[2018-12-22] MEDS: BUMETANIDE 1 MG TAB PO SCH (08:08)
[2018-12-22] MEDS: DULoxetine 30 MG CAP (CYMBALTA) PO SCH (08:09)
[2018-12-22] MEDS: MIRALAX *UNIT DOSE* 17GM PACKET PO SCH (08:09)
[2018-12-22] MEDS: IPRATROPIUM 0.5MG/ALBUTEROL 2.5MG INH SOL UD 3ML (DUONEB)(J7620) NEB PRN (08:39)
[2018-12-22] MEDS: ADVAIR HFA 230/21MCG INHALER INH SCH (08:39)
[2018-12-22 10:50] LABS: CALCIUM LEVEL 8.8 MG/DL (8.8-10.2); CREATININE FOR GFR 1.16 MG/DL (0.55-1.30); GLOMERULAR FILTRATION RATE 48.9 (>39); POTASSIUM SERUM 3.3 MEQ/L (3.5-5.1)
[2018-12-22] MEDS ORDERED: POTASSIUM CHLORIDE 10 MEQ SR TABLET PO ONE (11:15)
--- NOTE | 2018-12-22 18:23 | DSES ---
DATE OF ADMISSION: 12/14/2018 DATE OF DISCHARGE: 12/22/2018 The patient was not discharged on 12/20/2018 due to acute kidney injury. Her Lasix drip was discontinued and home dose of Bumex was held. She had repeat creatinine which was normal at 1.07 and was monitored on her home dose of Bumex overnight with resultant decrease in potassium of 3.3. The patient was stable and did not have any shortness of breath. No fever, chills, or cough overnight. The patient's creatinine is stable at 1.16 on home dose of Bumex at 3 mg twice a day. She is discharged in stable condition to followup with GALLO Piña on 12/23/[address] Reaves in 1-2 weeks. [facility]
== END 2018-12-22 13:38 | disposition home or self-care (01) | DRG 291 ==
LOC: M ED 10:41 → M ED INP 14:11 → M MSPAV 16:27 → M ICU 12-17 00:30 → M MSPAV 12-17 14:56
PROVIDERS: ADMIT Internal Medicine Nephrology; ATTEND General Practice
DX: I13.0 Hypertensive heart and chronic kidney disease with heart failure and stage 1 through stage 4 chronic kidney disease, or unspecified chronic kidney disease (principal); I50.33 Acute on chronic diastolic (congestive) heart failure; J96.11 Chronic respiratory failure with hypoxia; E87.1 Hypo-osmolality and hyponatremia; N17.9 Acute kidney failure, unspecified; J44.9 Chronic obstructive pulmonary disease, unspecified; I27.29 Other secondary pulmonary hypertension; I48.91 Unspecified atrial fibrillation; I36.1 Nonrheumatic tricuspid (valve) insufficiency; Z66 Do not resuscitate; D50.9 Iron deficiency anemia, unspecified; E87.5 Hyperkalemia; G89.29 Other chronic pain; E11.22 Type 2 diabetes mellitus with diabetic chronic kidney disease; N18.9 Chronic kidney disease, unspecified; F41.9 Anxiety disorder, unspecified; K21.9 Gastro-esophageal reflux disease without esophagitis; E03.9 Hypothyroidism, unspecified; K59.09 Other constipation; Z79.01 Long term (current) use of anticoagulants; Z79.84 Long term (current) use of oral hypoglycemic drugs; Z79.899 Other long term (current) drug therapy; Z90.5 Acquired absence of kidney; Z88.5 Allergy status to narcotic agent; Z88.6 Allergy status to analgesic agent; Z88.8 Allergy status to other drugs, medicaments and biological substances; Z87.891 Personal history of nicotine dependence; Z95.0 Presence of cardiac pacemaker; Z85.528 Personal history of other malignant neoplasm of kidney; Z99.81 Dependence on supplemental oxygen

== ENCOUNTER → 2018-12-23 | Outpatient (CLI) | payer MEDICARE, OTHER ==
[~2018-12-23] MED LIST changes: +BUME1TAB3 PO; +DULC10SU2 PR; +LORA-674 PO; +MIRA3350 PO; +ONDA4TAB6 PO
[2018-12-23 15:28] LABS: CALCIUM LEVEL 9.2 MG/DL (8.8-10.2); CREATININE FOR GFR 1.24 MG/DL (0.55-1.30); GLOMERULAR FILTRATION RATE 45.3 (>39); MAGNESIUM LEVEL 2.1 MG/DL (1.8-2.4); POTASSIUM SERUM 4.6 MEQ/L (3.5-5.1)
== END ==
LOC: M SMT 09:37
PROVIDERS: ATTEND Physician Assistant
DX: I50.32 Chronic diastolic (congestive) heart failure (principal)

== ENCOUNTER 2018-12-27 08:56 | Emergency (ER) | payer MEDICARE, OTHER ==
[~2018-12-27] VITALS: Ht 149.9 cm; Wt 43.7 kg
[~2018-12-27 08:56] MED LIST changes: -LORA-674 PO; -MAGN400T PO; +MAGN400T3 PO; -ONDA4TAB6 PO
[2018-12-27] MEDS ORDERED: LORA-674 PO (09:49)
--- NOTE | 2018-12-27 09:58 | REP ---
RIGHT FOOT, FOUR VIEWS: Four views of the right foot are performed. No fracture or dislocation is seen. Scattered vascular calcifications are seen in the soft tissues. Joint spaces appear unremarkable. IMPRESSION: No acute abnormality is detected. Electronically Signed by Manoj Aldana MD 12/27/2018 11:26 P
[2018-12-27 10:36] VITALS: BP 136/63
== END 2018-12-27 10:45 | disposition home or self-care (01) ==
LOC: M ED 08:56
DX: S93.401A Sprain of unspecified ligament of right ankle, initial encounter (principal); W22.09XA Striking against other stationary object, initial encounter; Y92.89 Other specified places as the place of occurrence of the external cause; I11.0 Hypertensive heart disease with heart failure; E11.9 Type 2 diabetes mellitus without complications; I50.9 Heart failure, unspecified; Z79.899 Other long term (current) drug therapy

== ENCOUNTER 2018-12-30 18:28 | Emergency (ER) | payer MEDICARE, OTHER ==
[~2018-12-30] VITALS: Ht 149.9 cm; Wt 44.5 kg
[~2018-12-30 18:28] MED LIST changes: +LORA-674 PO
--- NOTE | 2018-12-30 18:50 | REPVR ---
PROCEDURE INFORMATION: Exam: CT Head Without Contrast Exam date and time: 12/30/2018 6:30 PM Clinical history: 73 years old, female; Injury or trauma; Fall; Initial encounter; Blunt trauma (contusions or hematomas); Consciousness not specified; Additional info: Head injury on eliquis TECHNIQUE: Imaging protocol: Computed tomography of the head without contrast. Radiation optimization: All CT scans at this facility use at least one of these dose optimization techniques: automated exposure control; mA and/or kV adjustment per patient size (includes targeted exams where dose is matched to clinical indication); or iterative reconstruction. COMPARISON: No relevant prior studies available. FINDINGS: Brain: Normal. No hemorrhage. Mild chronic microvascular ischemic changes. No mass effect. Ventricles: Normal. No ventriculomegaly. Bones/joints: Unremarkable. No acute fracture. Sinuses: Evidence of prior left maxillary sinus surgery. Mucosal thickening of the right maxillary sinus with air-fluid level. Mastoid air cells: Visualized mastoid air cells are well aerated. Soft tissues: Unremarkable. IMPRESSION: No acute intracranial abnormality. Mild chronic microvascular ischemic changes. Electronically signed by: Luis Harris On 12/30/2018 18:50:13 PM
--- NOTE | 2018-12-30 18:55 | REPVR ---
PROCEDURE INFORMATION: Exam: CT Cervical Spine Without Contrast Exam date and time: 12/30/2018 6:30 PM Clinical history: 73 years old, female; Injury or trauma; Fall; Initial encounter; Blunt trauma; Additional info: Head injury on eliquis TECHNIQUE: Imaging protocol: Computed tomography images of the cervical spine without contrast. Radiation optimization: All CT scans at this facility use at least one of these dose optimization techniques: automated exposure control; mA and/or kV adjustment per patient size (includes targeted exams where dose is matched to clinical indication); or iterative reconstruction. COMPARISON: No relevant prior studies available. FINDINGS: Vertebrae: Grade 1 anterolisthesis of C3 over C4. Grade 1 retrolisthesis of C4 over C5. Discs/Spinal canal/Neural foramina: There is multilevel uncovertebral and facet hypertrophy with neural foramina narrowing. Soft tissues: Unremarkable. Lungs: Scarring in the right lung apex. IMPRESSION: No acute abnormality. Multilevel uncovertebral and facet hypertrophy with neural foramina narrowing. Grade 1 anterolisthesis of C3 over C4 and grade one retrolisthesis of C4 over C5, likely degenerative. Electronically signed by: Luis Harris On 12/30/2018 18:55:46 PM
[2018-12-30 21:27] VITALS: BP 139/66
--- NOTE | 2018-12-31 07:36 | ED PDOC ---
Post-Departure Follow-Up denise mendoza faxed formal report of ct c spine for fu Thomas Quach MD Dec 31, 2018 07:36
--- NOTE | 2018-12-31 07:56 | REP ---
Right foot four views : There is no fracture or dislocation. Mineralization and joint spaces are normal. There are no calcifications or foreign bodies. There is demineralization. There is questionable soft tissue edema over the dorsum. This should be confirmed clinically. Impression: Soft tissue edema, no fracture. Demineralization. Electronically Signed by Manoj Sheikh MD 12/31/2018 07:47 A
--- NOTE | 2018-12-31 07:58 | REP ---
AP pelvis: There are no comparisons. There is no pelvic fracture. No hip fracture is identified. There is left hip osteoarthritis. There is left sacroiliac osteoarthritis. There are surgical clips in the right inguinal area. Impression: No pelvic fracture. Left hip two views: There is left hip osteoarthritis. There is no fracture or dislocation. There is left sacroiliac osteoarthritis. Electronically Signed by Manoj Sheikh MD 12/31/2018 07:49 A
== END 2018-12-30 22:16 | disposition home or self-care (01) ==
LOC: EDBD 18:28 → M ED 18:28
DX: S00.93XA Contusion of unspecified part of head, initial encounter (principal); M79.673 Pain in unspecified foot; W19.XXXA Unspecified fall, initial encounter; Y92.099 Unspecified place in other non-institutional residence as the place of occurrence of the external cause; Y93.01 Activity, walking, marching and hiking; Y99.9 Unspecified external cause status; I48.91 Unspecified atrial fibrillation; J44.9 Chronic obstructive pulmonary disease, unspecified; Z99.81 Dependence on supplemental oxygen; M16.12 Unilateral primary osteoarthritis, left hip; Z79.01 Long term (current) use of anticoagulants; Z79.899 Other long term (current) drug therapy; Z88.1 Allergy status to other antibiotic agents; Z88.6 Allergy status to analgesic agent; Z88.5 Allergy status to narcotic agent

== ENCOUNTER 2019-01-02 09:57 | Inpatient (IN) | payer MEDICARE, OTHER ==
[~2019-01-02] VITALS: Ht 149.9 cm; Wt 47.8 kg
[~2019-01-02 09:57] MED LIST changes: +MAGN400T PO; -MAGN400T3 PO
[2019-01-02] MEDS ORDERED: ONDA4TAB6 PO ×2 (10:13→14:07)
[2019-01-02] MEDS ORDERED: FLEET OIL RETENTION ENEMA PR ONE (11:15)
[2019-01-02] MEDS ORDERED: METHYLNALTREXONE BROMIDE 12 MG/0.6 ML VIAL (RELISTOR) SC ONE (11:15)
--- NOTE | 2019-01-02 11:37 | REP ---
REASON FOR EXAM: Abdominal distention. COMPARISON: Chest as a portable exam of 12/16/2018. The accompanying frontal view of the chest shows chronic lung field changes with interstitial fibrosis, however, the opacity seen previously on the right lower lobe appears to have increased in size. Note is again made of cardiomegaly accentuated by technique, status quo. There is no free subdiaphragmatic air density. The organ silhouettes, insofar as delineated are within normal limits. There is no evidence of intestinal obstruction. The intestinal gas pattern is nonspecific. IMPRESSION: 1. Increased right lower lobe opacity seen on the accompanying frontal view of the chest suspicious for pneumonia/atelectasis/effusion. 2. Chronic lung field changes as described above. 3. No evidence of acute intra-abdominal pathology on this limited plain film exam. There are bilateral renal calcifications or at least calcifications superimposed over each kidney. Electronically Signed by Killian Hamilton DO 01/02/2019 11:53 A
[2019-01-02 12:25] LABS: BASO % 0.1 % (0.0-1.0); EOS % 0.1 % (0.0-3.0); HEMATOCRIT 45.2 % (36.0-47.0); HEMOGLOBIN 14.1 g/dl (12.0-15.5); LYMPH # 0.6 10^3/uL (1.5-5.0); LYMPH % 4.7 % (24.0-44.0); MEAN CORPUSCULAR HEMOGLOBIN 29.9 pg (27.0-33.0); MEAN CORPUSCULAR HGB CONC 31.2 g/dl (32.0-36.5); MONO # 0.7 10^3/uL (0.0-0.8); NEUTROPHILS # 12.1 10^3/uL (1.5-8.5); NEUTROPHILS % 89.1 % (36.0-66.0); PLATELET COUNT, AUTOMATED 228 10^3/uL (150-450); RED BLOOD COUNT 4.71 10^6/uL (4.00-5.40); WHITE BLOOD COUNT 13.6 10^3/uL (4.0-10.0)
[2019-01-02 13:01] LABS: CALCIUM LEVEL 9.1 MG/DL (8.8-10.2); CREATININE FOR GFR 2.85 MG/DL (0.55-1.30); GLOMERULAR FILTRATION RATE 17.3 (>39); POTASSIUM SERUM 5.5 MEQ/L (3.5-5.1)
--- NOTE | 2019-01-02 13:52 | REP ---
REASON FOR EXAM: Plain film finding of an opacity in the right lower lobe obtained earlier today. COMPARISON: Chest CT 05/25/2018. The lack of intravenous contrast decreases the sensitivity of the exam. There is four-chamber cardiac enlargement. There is no pericardial effusion. There is mediastinal and suspected right hilar adenopathy difficult to evaluate without intravenous contrast. The adenopathy in the mediastinum is essentially unchanged compared to the prior exam. There are bilateral pleural effusions right greater than left. Increased slightly from the prior exam. Evaluation of the imaged upper abdomen shows no significant change. There are renovascular calcifications status quo. Evaluation of the imaged osseous structures shows no significant change from the prior exam. Evaluation of the lung victoria again shows patchy asymmetric scattered parenchymal opacities increased slightly from the prior exam. There is lung field hyperexpansion consistent with emphysema status quo. There is evidence of compressive bilateral lower lobe atelectasis due to the aforementioned effusions, right greater than left. This is unchanged on the left but increased slightly on the right. IMPRESSION: 1. There is adenopathy and potential adenopathy as described above, which is essentially unchanged and the etiology for which is uncertain. This needs to be correlated clinically. 2. Four-chamber cardiac enlargement. 3. Bilateral lung field opacities as described above. Likely bilateral compressive subsegmental atelectatic changes from bilateral pleural effusions as described above. Concomitant pneumonia cannot be rule out. 4. Scattered patchy lung field opacities also suspicious for patchy pneumonia and seen in both upper and lower lobes and representing a change or an increase from the prior exam. 5. Emphysematous changes status quo. 6. Other findings as described above. Electronically Signed by Killian Hamilton DO 01/02/2019 02:28 P
[2019-01-02] MEDS ORDERED: IPRATROPIUM 0.5MG/ALBUTEROL 2.5MG INH SOL UD 3ML (DUONEB)(J7620) INH PRN (14:15)
[2019-01-02] MEDS ORDERED: guaiFENesin ER 600 MG TAB PO PRN (14:30)
[2019-01-02] MEDS ORDERED: ALBUTEROL 90 MCG/ACT 8GM HFA INHALER INH PRN (14:30)
[2019-01-02] MEDS ORDERED: oxyCODONE 5MG TAB PO PRN (14:30)
[2019-01-02] MEDS ORDERED: MIRALAX *UNIT DOSE* 17GM PACKET PO PRN (14:30)
[2019-01-02] MEDS ORDERED: DOCUSATE SODIUM 100 MG CAP PO PRN (14:30)
[2019-01-02] MEDS ORDERED: ONDANSETRON 4 MG ORAL DISINTEGRATING TAB (Q0162 PER 1MG) PO PRN (14:30)
[2019-01-02] MEDS ORDERED: GLUCOSE 4 GM CHEW TABLET PO PRN (14:45)
[2019-01-02] MEDS ORDERED: PILL CUTTER 1 EACH XX PRN (14:45)
[2019-01-02] MEDS ORDERED: ALBUTEROL SULFATE 2.5 MG/0.5 ML INH NEB SOLN NEB ONE (14:45)
[2019-01-02] MEDS ORDERED: GLUCAGON FOR INJ 1 MG VIAL (J1610) SC PRN (14:45)
[2019-01-02] MEDS ORDERED: HumuLIN R (REGULAR) INSULIN (NovoLIN R) **100U/ML** PER UNIT IV STA (14:45)
[2019-01-02] MEDS ORDERED: DEXTROSE 50% 50 ML SYRINGE IV PRN (14:45)
[2019-01-02] MEDS ORDERED: cefTRIAXone SOD 2 GM in D5W MINI-BAG PLUS 50 ML IV ONE (14:45)
[2019-01-02] MEDS ORDERED: DEXTROSE 50% 50 ML SYRINGE IV STA (14:45)
[2019-01-02] MEDS ORDERED: SODIUM CHLORIDE 0.9% 1000ML IV SCH (15:00)
--- NOTE | 2019-01-02 15:00 | HPEPDOC ---
General Date of Admission 01/02/19 Date of Service: Jan 02, 2019 Attending Physician: MICAELA FORD DO Chief Complaint The patient is a 73-year-old female admitted with a reason for visit of Rectal Bleed. Source: Patient, Family Timing/Duration: Day(s) Severity: Moderate Associated Symptoms: Cough, Loss of appetite, Malaise, Nausea, Dizziness History of Present Illness Patient is 71 years old female with diastolic CHF, COPD with chronic hypoxemic respiratory failure, pulmonary hypertension with cor pulmonale, severe tricuspid regurgitation, status post mitral valve repair, atrial fibrillation on Eliquis, renal cell cancer status post partial right nephrectomy in July 2018, diabetes, hypertension presented hospital with abdominal pain. Patient stated that she has a chronic constipation and for past 4 days she's been constipated. For past 4 days the abdominal pain increased in intensity and became around 8 out of 10. The abdominal pain is associated with nausea and loss of appetite. Also patient noticed red blood on the toilet paper. Of note patient has a history of hemo rrhoids. She also complains of cough with some greenish sputum production. No fever or chills. Denies any chest pain. In emergency room patient was found to have acute kidney injury with creatinine 2.8 with baseline 1.2. Abdominal x-ray didn't show acute intra-abdominal pathology, CT chest shows scattered patchy lung field opacities suspicious for patchy pneumonia and seen in both upper and lower lobes and representing a change or an increase from the prior exam. Also patient was found to have hyperkalemia of 5.5, hemoglobin 14.1 Home Medications Scheduled Amiodarone HCl (Amiodarone HCl) 200 Mg Tab, 200 MG PO DAILY, (Reported) Apixaban (Eliquis) 5 Mg Tab, 5 MG PO BID, (Reported) Bumetanide (Bumetanide) 1 Mg Tablet, 3 MG PO BID, (Reported) Diltiazem HCl (Diltiazem 24Hr ER) 240 Mg Cap, 240 MG PO DAILY, (Reported) Duloxetine Hcl (Duloxetine HCl) 30 Mg Capsule.dr, 30 MG PO DAILY, (Reported) Ergocalciferol (Vitamin D2) (Vitamin D2) 50,000 Unit Cap, 50,000 UNIT PO MTHLY, (Reported) FIRST THURSDAY OF EACH MONTH Ferrous Sulfate (Ferrous Sulfate) 325 Mg Tab, 325 MG PO QPM, (Reported) TAKES AT 1730 Levothyroxine Sodium (Levothyroxine Sodium) 25 Mcg Tab, 25 MCG PO DAILY, (Reported) Loratadine (Loratadine) 10 Mg Tablet, 10 MG PO DAILY, (Reported) Magnesium Oxide (Magnesium Oxide) 400 Mg Tab, 400 MG PO DAILY, (Reported) Metformin HCl (Metformin HCl) 500 Mg Tab, 500 MG PO QPM, (Reported) TAKES AT 1730 Salmeterol/Fluticasone (Advair 500-50 Diskus) 28 Puff/Inhaler Aerp, 1 PUFF INH B ID, (Reported) Scheduled PRN Albuterol Sulfate (Ventolin Hfa) 108 Mcg/Act Aer, 2 PUFFS INH Q4H PRN for SHORTNESS OF BREATH, (Reported) Alprazolam (Alprazolam) 0.25 Mg Tab, 0.125 MG PO QID PRN for ANXIETY, (Reported) Docusate Sodium (Docusate Sodium) 100 Mg Cap, 100 MG PO DAILY PRN for CONSTI PATION, (Reported) Guaifenesin (Mucinex) 600 Mg Tab, 600 MG PO BID PRN for CONGESTION, (Reported) Ipratropium [place] (Atrovent Hfa) 200 Puff/12.9 Gm Aers, 2 PUFF INH QID PRN for SHORTNESS OF BREATH, (Reported) Ipratropium/Albuterol Sulfate (Iprat-Albut 0.5-3(2.5) mg/3 ml) 1 Ping Ping, 1 PING INH QID PRN for SHORTNESS OF BREATH, (Reported) Ondansetron (Ondansetron Odt) 4 Mg Tab.rapdis, 4 MG PO Q6H PRN for NAUSEA OR VOMITING, (Reported) Oxycodone HCl (Oxycodone HCl) 5 Mg Tab, 5 MG PO QID PRN for PAIN, (Reported) TAKE 1/2 TO 1 TAB Polyethylene Glycol 3350 (Miralax) 119 Gm Powder, 17 GRAM PO DAILY PRN for CONSTIPATION, (Reported) Allergies Coded Allergies: acetaminophen (Verified Adverse Reaction, Intermediate, HEPATOTOXICITY, 01/02/19) gabapentin (Verified Adverse Reaction, Mild, FLUID RETENTION, SOME DELINQUENT TAX COLLECTOR ISSUES, 01/02/19) morphine (Verified Adverse Reaction, Mild, DELINQUENT TAX COLLECTOR ISSUES, 01/02/19) Macrolide Antibiotics (Verified Adverse Reaction, Unknown, N/V, 01/02/19) cefdinir (Verified Adverse Reaction, Unknown, N/V, 01/02/19) Past Medical History Medical History Medical History Diastolic CHF COPD with chronic hypoxic respiratory failure. Severe Pulmonary hypertension with corpulmonale severe tricuspid regurgitation Mitral valve repair status A fib Renal cell cancer s/p partial right nephrectomy in July 2018 Diabetes Hypertension H/O SSS has a pacemaker Anxiety GERD Hypothyroid Iron deficiency anemia Surgical History Renal cell cancer s/p partial right nephrectomy in July 2018 Family History Significant Family History: Diabetes (maternal aunt and maternal uncle), Heart disease (mother, maternal uncle, daughter) Social History * Smoker: former Smoker Alcohol: Denies Drugs: denies A-FIB/CHADSVASC A-FIB History Current/History of A-Fib/PAF?: Yes Current PO Anticoag Therapy: Yes Review of Systems Constitutional: Reports: Malaise, Weakness Eyes: Denies: Pain, Vision change ENT: Denies: Head Aches, Ear Pain Skin: Reports: Jaundice; Denies: Rash, Lesions Pulmonary: Reports: Cough, Other Symptoms (greenish sputum) Cardiovascular: Denies: Chest Pain, Palpitations Gastrointestinal: Reports: Nausea, Abdominal Pain, Constipation; Denies: Vomiting Genitourinary: Denies: Dysuria, Frequency Hematologic: Denies: Bruising, Bleeding Excessively Endocrine: Denies: Polydipsia, Polyphagia Musculoskeletal: Denies: Neck Pain, Back Pain Neurological: Denies: Weakness, Numbness Psych: Reports: Mood Normal Physical Examination General Exam: Positive: Alert, Cooperative, Other (patient looks hypovolemic on the presentation) Eye Exam: Positive: PERRLA, Conjunctiva & lids normal ENT Exam: Positive: Atraumatic, Mucous membr. moist/pink (mucous membrane dry) Neck Exam: Positive: Supple, JVD Chest Exam: Positive: Clear to auscultation, Rhonchi, Diminished Heart Exam: Positive: Irregular Rhythm Telemetry: Positive: Atrial fibrillation Abdomen Exam: Positive: BS Hypoactive, Tenderness (distended, guarded, positive rebound) Extremity Exam: Negative: Clubbing, Cyanosis Skin Exam: Positive: Nl turgor and temperature Neuro Exam: Positive: Normal Gait, Normal Tone, Cranial Nerves 3-12 NL Psych Exam: Positive: Mental status NL Vital Signs Vital Signs Date Time Temp Pulse Resp B/P (MAP) Pulse Ox O2 Delivery O2 Flow Rate FiO2 01/02/19 13:28 97.7 01/02/19 13:17 60 94 01/02/19 13:02 16 145/67 (93) 01/02/19 10:11 Room Air Laboratory Data Labs 24H Laboratory Tests 2 01/02/19 10:59: POC Glucose (Misc Panel) 100, POC Sodium (Misc Panel) 125L, POC Potassium (Misc Panel) 5.9H, POC Chloride (Misc Panel) 91L, POC Total CO2 (Misc Panel) 22.0L, POC Blood Urea Nitrogen (Misc Panel 53H, POC Ionized Calcium (Misc Panel) 3.9L, POC Creatinine (Misc Panel) 2.7H, POC Hematocrit (Misc Panel) 49.0 01/02/19 11:26: Immature Granulocyte % (Auto) 1.0, White Blood Count 13.6H, Red Blood Count 4.71, Hemoglobin 14.1, Hematocrit 45.2, Mean Corpuscular Volume 96.0, Mean Co rpuscular Hemoglobin 29.9, Mean Corpuscular Hemoglobin Concent 31.2L, Red Cell Distribution Width 18.1H, Platelet Count 228, Neutrophils (%) (Auto) 89.1H, Lymphocytes (%) (Auto) 4.7L, Monocytes (%) (Auto) 5.0, Eosinophils (%) (Auto) 0.1, Basophils (%) (Auto) 0.1, Neutrophils # (Auto) 12.1H, Lymphocytes # (Auto) 0.6L, Monocytes # (Auto) 0.7, Eosinophils # (Auto) 0.0, Basophils # (Auto) 0.0, Nucleated Red Blood Cells % (auto) 0.0, Anion Gap 21H, Glomerular Filtration Rate 17.3L, Blood Urea Nitrogen 52H, Creatinine 2.85H, Sodium Level 128L, Potassium Level 5.5H, Chloride Level 88L, Carbon Dioxide Level 19L, Calcium Level 9.1 CBC/BMP Laboratory Tests 01/02/19 11:26 Red Blood Count 4.71, Mean Corpuscular Volume 96.0, Mean Corpuscular Hemoglobin 29.9, Mean Corpuscular Hemoglobin Concent 31.2 L, Red Cell Distribution Width 18.1 H, Neutrophils (%) (Auto) 89.1 H, Lymphocytes (%) (Auto) 4.7 L, Monocytes (%) (Auto) 5.0, Eosinophils (%) (Auto) 0.1, Basophils (%) (Auto) 0.1, Neutrophils # (Auto) 12.1 H, Lymphocytes # (Auto) 0.6 L, Monocytes # (Auto) 0.7, Eosinophils # (Auto) 0.0, Basophils # (Auto) 0.0, Calcium Level 9.1 Assessment/Plan Patient is 71 years old female with diastolic CHF, COPD with chronic hypoxemic respiratory failure, pulmonary hypertension with cor pulmonale, severe tricuspid regurgitation, status post mitral valve repair, atrial fibrillation on Eliquis, renal cell cancer status post partial right nephrectomy in July 2018, diabetes, hypertension presented hospital with abdominal pain. Problems (1) Sepsis Problem Text: Blood culture, sputum culture Vancomycin IV, Zosyn IV Lactic acid came back with 8.8 LFT significant for bilirubinemia of 4.3 There is possibility for acute acalculous cholecystitis versus ascending cholangitis given leukocytosis and elevated bilirubin Await official CT report, right upper quadrant ultrasound Patient has significantly elevated bnp of 19,848 with positive JVD, patient is not hypotensive Will continue gentle hydration secondary to volume overload, acute diastolic CHF. (2) Abdominal pain Problem Text: I talked to who personally reviewed CT. He found intrahepatic dilatation, no bowel perforation Await official report (3) Constipation Status: Acute Problem Text: Most likely secondary to opioids await report Will check stool for blood after resolution of constipation Hb is stable (4) Hyperkalemia Problem Text: Hyperkalemia protocol, D50, 10 units of insulin, bicarbonate Continue monitor potassium (5) Acute renal failure Status: Acute Problem Text: Patient developed acute kidney injury with creatinine 2.8 with baseline creatinine 1.2 Patient received treatment with Bumex for past 3 weeks Physical examination patient looks dry I stopped Bumex (6) Bilateral pneumonia Status: Acute Problem Text: Patient complains of cough, greenish sputum production, imaging study positive for bilateral opacities consistent with pneumonia There is concern for HCAP Blood culture, lactic acid, sputum culture Ceftriaxone IV, doxycycline IV (7) Diabetes mellitus Problem Text: Insulin sliding scale Metformin stopped (8) CHF (congestive heart failure) Status: Chronic Problem Text: Patient has a history of diastolic CHF Patient looks dry on the presentation I stopped diuretics due to ADRIANNE Patient was on Bumex in the outpatient settings I's and O's Cardiac diet/renal diet Will check BNP (9) Chronic atrial fibrillation Status: Chronic Problem Text: Afib with pacemaker continue amiodarone. Patient has a history of CHF I changed diltiazem to m etoprolol continue eliquis Plan / VTE VTE Prophylaxis Ordered?: Yes MICAELA FORD DO Jan 02, 2019 15:00
[2019-01-02 15:50] VITALS: BP 119/51
[2019-01-02 16:17] LABS: ALBUMIN 2.4 GM/DL (3.2-5.2); BILIRUBIN,TOTAL 4.3 MG/DL (0.2-1.0); CALCIUM LEVEL 8.8 MG/DL (8.8-10.2); CREATININE FOR GFR 2.77 MG/DL (0.55-1.30); GLOMERULAR FILTRATION RATE 17.9 (>39); MAGNESIUM LEVEL 2.3 MG/DL (1.8-2.4); PHOSPHORUS LEVEL 5.6 MG/DL (2.5-4.9); POTASSIUM SERUM 5.3 MEQ/L (3.5-5.1); TOTAL PROTEIN 6.5 GM/DL (6.4-8.2)
[2019-01-02] MEDS: ALPRAZolam 0.25 MG TAB PO PRN (16:28)
[2019-01-02] MEDS ORDERED: VANCOMYCIN HCL 1,000 MG, VIAL MATE ADAPTER 1 EACH in D5W 250 ML IV SCH (16:45)
[2019-01-02] MEDS: NS 1,000 ML IV SCH (16:46)
[2019-01-02] MEDS ORDERED: PIPERACILLIN/TAZOBACTAM SOD 2.25 GM in D5W MINI-BAG PLUS 50 ML IV SCH (17:00)
[2019-01-02] MEDS ORDERED: DOXYCYCLINE HYCLATE 100 MG in D5W MINI-BAG PLUS 100 ML IV SCH (17:00)
[2019-01-02 17:01] LABS: BILIRUBIN,DIRECT 3.3 MG/DL (0.0-0.2)
[2019-01-02] MEDS ORDERED: FERROUS SULFATE 325MG TAB PO SCH (17:30)
[2019-01-02] MEDS ORDERED: SCOPOLAMINE 1MG TRANSDERMAL PATCH TOP PRN (17:30)
[2019-01-02] MEDS ORDERED: FLEET ENEMA PR PRN (17:30)
[2019-01-02] MEDS ORDERED: MORPHINE 4 MG/ML 1ML VIAL/SYRINGE (J2270) IV PRN (17:30)
[2019-01-02] MEDS ORDERED: HumaLOG INSULIN (NovoLOG) PER UNIT SC SCH (17:30)
[2019-01-02] MEDS ORDERED: ONDANSETRON 4MG/2ML VIAL (J2405) IV PRN (17:30)
[2019-01-02] MEDS ORDERED: HYOSCYAMINE SULFATE 0.125 MG SUBL TABLET PO PRN (17:30)
[2019-01-02] MEDS ORDERED: BISACODYL 10 MG SUPP PR PRN (17:30)
[2019-01-02] MEDS ORDERED: ATROPINE SULFATE 1% OP SOLN 2 ML BTL SL PRN (17:30)
[2019-01-02] MEDS ORDERED: LORazepam 1 MG TAB PO PRN (17:30)
[2019-01-02] MEDS ORDERED: CALCIUM GLUCONATE 1,000 MG in D5W MINI-BAG PLUS 100 ML IV ONE (18:00)
[2019-01-02] MEDS: MORPHINE 10MG/0.5ML ORAL CONCENTRATE SOLUTION U/D SL PRN (18:33)
[2019-01-02] MEDS: ADVAIR HFA 230/21MCG INHALER INH SCH (20:19)
[2019-01-02] MEDS ORDERED: APIXABAN 5 MG TAB (ELIQUIS) PO SCH (21:00)
[2019-01-02] MEDS ORDERED: METOPROLOL TART 25 MG TABLET PO SCH (21:00)
[2019-01-03] MEDS: ALPRAZolam 0.25 MG TAB PO PRN ×2 (00:31→14:49)
[2019-01-03] MEDS: MORPHINE 10MG/0.5ML ORAL CONCENTRATE SOLUTION U/D SL PRN ×6 (01:05→13:35)
[2019-01-03] MEDS: NS 1,000 ML IV SCH (05:16)
[2019-01-03] MEDS ORDERED: LEVOTHYROXINE 25MCG TABLET (0.025MG) PO SCH (06:00)
--- NOTE | 2019-01-03 06:42 | REP ---
REASON: Abdominal pain. COMPARISON: 05/25/2018 The lack of intravenous contrast decreases the sensitivity of the exam. For description of lung base findings, see the CT of the chest report made earlier today at 12:23 p.m. No gross abnormality seen involving the liver or the gallbladder. There is no gross abnormality seen involving the spleen. There is bilateral adrenal gland thickening status quo. This is benign. There are bilateral renal calcifications status quo. There is calcific atherosclerotic changes involving the abdominal aorta status quo. There is on aneurysm dilatation. There is no free fluid or free air. There is no intestinal obstruction. The bowel loops are unremarkable. There is no evidence of an intra-abdominal mass or adenopathy. There are pancreatic head calcifications status quo. There is mild thickening of the lateroconal fascia bilaterally, which is completely unchanged. CT PELVIS: There is no evidence of a mass or adenopathy. The bowel loops and their mesenteries are unremarkable. There is no free fluid or free air. The appendix is well visualized and is unremarkable. Bone window technique shows throughout the exam shows chronic osseous changes status quo. There is an old fracture involving the base of the left superior pubic ramus. There are spinal, hip, sacroiliac joint degenerative changes. IMPRESSION: 1. For description of the lung base findings, see the CT examination of the chest report made earlier today. 2. The examination is limited without the administration or bowel preparatory contrast or intravenous contrast, however, there is no evidence of acute intra-abdominal or intrapelvic disease with findings and chronic changes as described above. Electronically Signed by Killian Hamilton DO 01/03/2019 12:45 P
[2019-01-03] MEDS: LORazepam 2 MG/ML VIAL (J2060) IV PRN ×4 (07:06→13:34)
[2019-01-03] MEDS ORDERED: PNEUMOCOCCAL VACCINE 0.5ML SYRINGE(90732) PNEUMOVAX 23 IM ONE (09:00)
[2019-01-03] MEDS: ADVAIR HFA 230/21MCG INHALER INH SCH (09:00)
[2019-01-03] MEDS ORDERED: MAGNESIUM OXIDE 400 MG TAB (MAG-OX) PO SCH (09:00)
[2019-01-03] MEDS ORDERED: DULoxetine 30 MG CAP (CYMBALTA) PO SCH (09:00)
[2019-01-03] MEDS ORDERED: LORATADINE 10 MG TAB PO SCH (09:00)
[2019-01-03] MEDS ORDERED: AMIODARONE 200 MG TAB (PACERONE) PO SCH (09:00)
[2019-01-03 10:55] LABS: HEPATITIS A ANTIBODY IGM NEGATIVE (NEGATIVE); HEPATITIS B CORE ANTIBODY IGM NEGATIVE (NEGATIVE); HEPATITIS B SURFACE ANTIGEN NEGATIVE (NEGATIVE); HEPATITIS C VIRUS ABY INDEX 0.2 INDEX (<0.8)
--- NOTE | 2019-01-03 14:08 | IPNPDOC ---
Text Note Date of Service The patient was seen on 01/03/19. NOTE Subjective: Patient is lethargic. Family at bedside. No any acute event over night Objective: General Exam: Lethargic Eye Exam: Positive: PERRLA, Conjunctiva & lids normal ENT Exam: Positive: Atraumatic, Mucous membr. moist/pink (mucous membrane dry) Neck Exam: Positive: Supple, JVD Chest Exam: Positive: Clear to auscultation, Rhonchi, Diminished Heart Exam: Positive: Irregular Rhythm Telemetry: Positive: Atrial fibrillation Abdomen Exam: Positive: BS Hypoactive, Tenderness (distended, guarded, positive rebound) Extremity Exam: +2 edema of lower extremities Assessment/Plan Patient is 71 years old female with diastolic CHF, COPD with chronic hypoxemic respiratory failure, pulmonary hypertension with cor pulmonale, severe tricuspid regurgitation, status post mitral valve repair, atrial fibrillation on Eliquis, renal cell cancer status post partial right nephrectomy in July 2018, diabetes, hypertension presented hospital with abdominal pain. Patient was found to have multiple acute comorbidities. After discussion with family and according to wilfrid mueller wishes patient was transferred to [facility]. VS,Fishbone, I+O VS, Fishbone, I+O Laboratory Tests 01/02/19 15:32 Calcium Level 8.8, Phosphorus Level 5.6 H, Aspartate Amino Transf (AST/SGOT) 102 H, Alanine Aminotransferase (ALT/SGPT) 43, Alkaline Phosphatase 214 H, Total Bilirubin 4.3 H, Direct Bilirubin 3.3 H, Total Protein 6.5, Albumin 2.4 L Vital Signs Date Time Temp Pulse Resp B/P (MAP) Pulse Ox O2 Delivery O2 Flow Rate FiO2 01/03/19 05:37 2.0 01/02/19 19:11 16 01/02/19 15:50 97.2 60 119/51 (73) 93 01/02/19 15:41 Nasal Cannula I&O- Last 24 Hours up to 6 AM 01/03/19 06:00 Intake Total 150 ml Output Total 0 ml Balance 150 ml MICAELA FORD DO Jan 03, 2019 14:08
[2019-01-03] MEDS ORDERED: cefTRIAXone SOD 2 GM in D5W MINI-BAG PLUS 50 ML IV SCH (15:00)
--- NOTE | 2019-01-03 19:27 | DS.PDOC ---
Discharge Summary General Date of Admission Jan 02, 2019 at 14:06 Date of Discharge 01/03/19 Attending Physician: MICAELA FORD DO Discharge Summary PROCEDURES PERFORMED DURING STAY: [None]. ADMITTING DIAGNOSES: Sepsis Abdominal pain Constipation Hyperkalemia Acute renal failure Bilateral pneumonia Diabetes mellitus CHF (congestive heart failure) Chronic atrial fibrillation DISCHARGE DIAGNOSES: Sepsis Abdominal pain Constipation Hyperkalemia Acute renal failure Bilateral pneumonia Diabetes mellitus CHF (congestive heart failure) Chronic atrial fibrillation COMPLICATIONS/CHIEF COMPLAINT: [place] (Acute Kidney Injury). HISTORY OF PRESENT ILLNESS: Patient is 71 years old female with diastolic CHF, COPD with chronic hypoxemic respiratory failure, pulmonary hypertension with cor pulmonale, severe tricuspid regurgitation, status post mitral valve repair, atrial fibrillation on Eliquis, renal cell cancer status post partial right nephrectomy in July 2018, diabetes, hypertension presented hospital with abdominal pain. Patient stated that she has a chronic constipation and for past 4 days she's been constipated. For past 4 days the abdominal pain increased in intensity and became around 8 out of 10. The abdominal pain is associated with nausea and loss of appetite. Also patient noticed red blood on the toilet paper. Of note patient has a history of hemorrhoids. She also complains of cough with some greenish sputum production. No fever or chills. Denies any chest pain. In emergency room patient was found to have acute kidney injury with creatinine 2.8 with baseline 1.2. Abdominal x-ray didn't show acute intra-abdominal pathology, CT chest shows scattered patchy lung field opacities suspicious for patchy pneumonia and seen in both upper and lower lobes and representing a change or an increase from the prior exam. Also patient was found to have hyperkalemia of 5.5, hemoglobin 14.1. Patient was diagnosed with multiple acute comorbidities: Acute CHF, sepsis, acute kidney injury, Electrolyte imbalance, bilateral pneumonia at 1740 01/03 after meeting with family and according to family wishes, patient was transferred to comfort measure only. Appropriate changes have been made HOSPITAL COURSE: Patient on 01/03/19 at 4 PM DISCHARGE MEDICATIONS: Please see below. ALLERGIES: Please see below. PHYSICAL EXAMINATION ON DISCHARGE: VITAL SIGNS: Please see below. GENERAL: HEENT: NECK: CARDIOVASCULAR EXAMINATION: RESPIRATORY EXAMINATION: ABDOMINAL EXAMINATION: EXTREMITIES: SKIN: NEUROLOGICAL EXAMINATION: PSYCHIATRIC EXAMINATION: LABORATORY DATA: Please see below. IMAGING: PROGNOSIS: ACTIVITY: [As tolerated]. DIET: DISCHARGE PLAN: DISPOSITION: 20 . DISCHARGE INSTRUCTIONS: 1. . ITEMS TO FOLLOWUP ON ON OUTPATIENT: 1. . DISCHARGE CONDITION: [Stable]. TIME SPENT ON DISCHARGE: Greater than minutes. Vital Signs/I&Os Vital Signs Date Time Temp Pulse Resp B/P (MAP) Pulse Ox O2 Delivery O2 Flow Rate FiO2 01/03/19 05:37 2.0 01/02/19 19:11 16 01/02/19 15:50 97.2 60 119/51 (73) 93 01/02/19 15:41 Nasal Cannula I&O- Last 24 Hours up to 6 AM 01/03/19 06:00 Intake Total 150 ml Output Total 0 ml Balance 150 ml Microbiology Microbiology 01/02/19 Blood Culture - Preliminary, Resulted No growth after 24 hours . All specim... Discharge Medications Scheduled Amiodarone HCl (Amiodarone HCl) 200 Mg Tab, 200 MG PO DAILY, (Reported) Apixaban (Eliquis) 5 Mg Tab, 5 MG PO BID, (Reported) Bumetanide (Bumetanide) 1 Mg Tablet, 3 MG PO BID, (Reported) Diltiazem HCl (Diltiazem 24Hr ER) 240 Mg Cap, 240 MG PO DAILY, (Reported) Duloxetine Hcl (Duloxetine HCl) 30 Mg Capsule.dr, 30 MG PO DAILY, (Reported) Ergocalciferol (Vitamin D2) (Vitamin D2) 50,000 Unit Cap, 50,000 UNIT PO MTHLY, (Reported) FIRST THURSDAY OF EACH MONTH Ferrous Sulfate (Ferrous Sulfate) 325 Mg Tab, 325 MG PO QPM, (Reported) TAKES AT 1730 Levothyroxine Sodium (Levothyroxine Sodium) 25 Mcg Tab, 25 MCG PO DAILY, (Reported) Loratadine (Loratadine) 10 Mg Tablet, 10 MG PO DAILY, (Reported) Magnesium Oxide (Magnesium Oxide) 400 Mg Tab, 400 MG PO DAILY, (Reported) Metformin HCl (Metformin HCl) 500 Mg Tab, 500 MG PO QPM, (Reported) TAKES AT 1730 Salmeterol/Fluticasone (Advair 500-50 Diskus) 28 Puff/Inhaler Aerp, 1 PUFF INH BID, (Reported) Scheduled PRN Albuterol Sulfate (Ventolin Hfa) 108 Mcg/Act Aer, 2 PUFFS INH Q4H PRN for SHORTNESS OF BREATH, (Reported) Alprazolam (Alprazolam) 0.25 Mg Tab, 0.125 MG PO QID PRN for ANXIETY, (Reported) Docusate Sodium (Docusate Sodium) 100 Mg Cap, 100 MG PO DAILY PRN for CONSTIPATION, (Reported) Guaifenesin (Mucinex) 600 Mg Tab, 600 MG PO BID PRN for CONGESTION, (Reported) Ipratropium [place] (Atrovent Hfa) 200 Puff/12.9 Gm Aers, 2 PUFF INH QID PRN for SHORTNESS OF BREATH, (Reported) Ipratropium/Albuterol Sulfate (Iprat-Albut 0.5-3(2.5) mg/3 ml) 1 Ping Ping, 1 PING INH QID PRN for SHORTNESS OF BREATH, (Reported) Ondansetron (Ondansetron Odt) 4 Mg Tab.rapdis, 4 MG PO Q6H PRN for NAUSEA OR VOMITING, (Reported) Oxycodone HCl (Oxycodone HCl) 5 Mg Tab, 5 MG PO QID PRN for PAIN, (Reported) TAKE 1/2 TO 1 TAB Polyethylene Glycol 3350 (Miralax) 119 Gm Powder, 17 GRAM PO DAILY PRN for CONSTIPATION, (Reported) Allergies Coded Allergies: acetaminophen (Verified Adverse Reaction, Intermediate, HEPATOTOXICITY, 01/02/19) gabapentin (Verified Adverse Reaction, Mild, FLUID RETENTION, SOME SERVICE CENTER MANAGER ISSUES, 01/02/19) morphine (Verified Adverse Reaction, Mild, SERVICE CENTER MANAGER ISSUES, 01/02/19) Macrolide Antibiotics (Verified Adverse Reaction, Unknown, N/V, 01/02/19) cefdinir (Verified Adverse Reaction, Unknown, N/V, 01/02/19) MICAELA FORD DO Jan 03, 2019 19:27
== END 2019-01-03 16:00 | disposition expired | DRG 871 ==
LOC: EDBD 09:57 → M ED 09:57 → M ED INP 14:06 → M MSPAV 15:48
PROVIDERS: ADMIT Internal Medicine; ATTEND Internal Medicine
DX: A41.9 Sepsis, unspecified organism (principal); J18.9 Pneumonia, unspecified organism; N17.9 Acute kidney failure, unspecified; I50.32 Chronic diastolic (congestive) heart failure; I48.20 Chronic atrial fibrillation, unspecified; J96.11 Chronic respiratory failure with hypoxia; Z66 Do not resuscitate; Z51.5 Encounter for palliative care; E11.9 Type 2 diabetes mellitus without complications; J44.9 Chronic obstructive pulmonary disease, unspecified; I27.20 Pulmonary hypertension, unspecified; I11.0 Hypertensive heart disease with heart failure; E87.5 Hyperkalemia; E03.9 Hypothyroidism, unspecified; D50.9 Iron deficiency anemia, unspecified; K59.00 Constipation, unspecified; Z79.01 Long term (current) use of anticoagulants; I27.81 Cor pulmonale (chronic); I36.0 Nonrheumatic tricuspid (valve) stenosis; Z85.828 Personal history of other malignant neoplasm of skin; Z79.899 Other long term (current) drug therapy; Z88.8 Allergy status to other drugs, medicaments and biological substances; Z88.6 Allergy status to analgesic agent; Z88.5 Allergy status to narcotic agent; Z95.0 Presence of cardiac pacemaker; K21.9 Gastro-esophageal reflux disease without esophagitis